=== PATIENT | female | born 1935 | race Caucasian/White ===

== ENCOUNTER 2017-01-01 09:46 | Emergency (ER) | payer MEDICARE ==
[~2017-01-01] VITALS: Ht 160 cm; Wt 61.2 kg
[~2017-01-01 09:46] MED LIST: ASP325TEC PO; GLUC500C2 PO; HYDR-3714 PO; IBUP200C14 PO; LORA-877 PO
[2017-01-01 10:24] LABS: BILIRUBIN,URINE NEGATIVE (NEGATIVE); KETONES,URINE 3+ (NEGATIVE); LEUKOCYTE ESTERASE ,URINE 2+ (NEGATIVE); NITRITE,URINE NEGATIVE (NEGATIVE); PH,URINE 5 (5-9); PROTEIN,URINE 2+ (NEGATIVE); UROBILINOGEN,URINE NORMAL (NORMAL)
[2017-01-01 10:36] LABS: SQUAMOUS EPITHELIAL CELL,UR 0-2 /HPF
--- NOTE | 2017-01-01 10:53 | Diagnostic Imaging Report ---
Upright and supine views of the abdomen. INDICATION: Abdominal cramping. FINDINGS: There is a moderate amount of fecal material in the colon and rectum. No bowel obstruction. No pneumoperitoneum. 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 IMPRESSION: Moderate amounts of fecal material in the colon and rectum seen. Dictated by: Dictated on workstation # [id number]
--- NOTE | 2017-01-01 11:06 | ED GI ---
General Chief Complaint: Abdominal/GI Problems Stated Complaint: CONSTIPATION Nursing Triage Note: CONSTIPATION SINCE SAT. HAS TRIED TWO DIFFERENT SUPPOSITORIES. Sepsis Screen: No Definite Risk Source of Information: Patient Exam Limitations: No Limitations History of Present Illness Time Seen By Provider: 09:49 Initial Comments This pleasant 81-year-old woman presents to the emergency room with complaints of difficulty producing bowel movements since December 28. She has had a few very small bowel movement since then. She has used a couple glycerin suppositories that were not very helpful. She then used a medicated suppository on Friday and produced another very small hard bowel movement. The last 2 days she has had some small watery stools with some pink and red both in the toilet and on toilet paper which she presumes to be blood. This morning she had some cramping. She reports having a history of hemorrhoids and either a fistula or fissure. She denies any fever, vomiting, urinary problems, or other acute symptoms. Dr. Locke is her primary care provider and reportedly will be out of the office for a while and not available. Allergies and Home Medications Allergies Coded Allergies: Amoxicillin (Unverified Allergy, Unknown, 05/12/14) clindamycin (Unverified Allergy, Unknown, 05/12/14) sulfamethoxazole (Unverified Allergy, Unknown, 05/12/14) trimethoprim (Unverified Allergy, Unknown, 05/12/14) Uncoded Allergies: CHLORRHESILENE (Allergy, Unknown, 05/12/14) Home Medications Nitrofurantoin Monohyd/M-Cryst 100 Mg Capsule, 1 TAB PO BID, #10 Prescribed by: SEFERINO CEDILLO on 01/01/17 1108 Polyethylene Glycol 3350 17 Gm Powd.pack, 17 GM PO BID PRN for CONSTIPATION-1ST LINE, #20 Prescribed by: SEFERINO CEDILLO on 01/01/17 1108 Review of Systems Constitutional: no symptoms reported EENTM: No Symptoms Reported Respiratory: No Symptoms Reported Cardiovascular: No Symptoms Reported Gastrointestinal: See HPI Genitourinary: No Symptoms Reported Musculoskeletal: no symptoms reported Skin: no symptoms reported Psychiatric/Neurological: No Symptoms Reported Endocrine: No Symptoms Reported Past Voeiqfc-Widgoa-Mqcfpu Hx Patient Social History Alcohol Use: Denies Use Recreational Drug Use: No Smoking Status: Never a Smoker Recent Foreign Travel: No Contact w/Someone Who Travel: No Recent Infectious Disease Expo: No Surgeries HX Surgeries: Yes Surgeries: Adenoidectomy, Breast (lumpectomy) Respiratory Hx Respiratory Disorders: Yes Respiratory Disorders: Pneumonia Cardiovascular Hx Cardiac Disorders: No Neurological Hx Neurological Disorders: No Genitourinary Hx Genitourinary Disorders: No Gastrointestinal Hx 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) Gastrointestinal Disorders: Hemorrhoids Musculoskeletal Hx Musculoskeletal Disorders: Yes Endocrine Hx Endocrine Disorders: No HEENT HX ENT Disorders: Yes (aerosols cause irritation) Hearing Impairment: Hard of Hearing Cancer Hx Cancer: No Psychosocial Hx Psychiatric Problems: No Blood Transfusions Hx Blood Disorders: No Physical Exam Vital Signs VS - Last 72 Hours, by Label 01/01/17 10:02 Temp 98.4 Pulse 95 Resp 18 B/P (MAP) 148/82 Pulse Ox 95 Capillary Refill : Less Than 3 Seconds General Appearance: WD/WN, no apparent distress HEENT: PERRL/EOMI, normal ENT inspection Neck: normal inspection Respiratory: lungs clear, normal breath sounds, no respiratory distress, no accessory muscle use Cardiovascular: regular rate, rhythm, no edema, no murmur Gastrointestinal: normal bowel sounds, non tender, soft Rectal: normal exam, normal rectal tone, heme negative stool, No mass, No tenderness Extremities: normal inspection, no pedal edema Neurologic/Psychiatric: clinic mgr II-XII nml as tested (heart of hearing), no motor/ sensory deficits, alert, normal mood/affect, oriented x 3 Skin: normal color, warm/dry Progress/Results/Core Measures Results/Orders Lab Results Laboratory Tests Test 01/01/17 10:14 Range/Units Urine Color YELLOW Urine Clarity CLEAR Urine pH 5 5-9 Urine Specific [place] 1.025 H 1.016-1.022 Urine Protein 2+ H NEGATIVE Urine Glucose (UA) NEGATIVE NEGATIVE Urine Ketones 3+ H NEGATIVE Urine Nitrite NEGATIVE NEGATIVE Urine Bilirubin NEGATIVE NEGATIVE Urine Urobilinogen NORMAL NORMAL MG/DL Urine Leukocyte Esterase 2+ H NEGATIVE Urine RBC (Auto) NEGATIVE NEGATIVE Urine RBC NONE /HPF Urine WBC 5-10 H /HPF Urine Squamous Epithelial Cells 0-2 /HPF Urine Crystals NONE /LPF Urine Bacteria FEW H /HPF Urine Casts NONE /LPF Urine Mucus SMALL H /LPF Urine Culture Indicated YES My Orders Orders - SEFERINO PAPPAS MD Abdomen, Flat & Upright/Decub (01/01/17 09:49) Ua Culture If Indicated (01/01/17 10:10) Urine Culture (01/01/17 10:14) Vital Signs/I&O Vital Sign - Last 12Hours 01/01/17 10:02 Temp 98.4 Pulse 95 Resp 18 B/P (MAP) 148/82 Pulse Ox 95 Blood Pressure Mean: 104 Point of Care Testing Fecal Occult: Negative Progress Note : Progress Note By history, patient is presumed to have some rectal bleeding. However, she does also have urinary tract infection so bleeding could have come from her urine. Patient will be treated for urinary tract infection and constipation. Follow-up with her doctor will be recommended. Diagnostic Imaging Diagonstic Imaging: Xray Plain Films/CT/US/NM/MRI: abdomen, pelvis Comments Abdominal x-rays reviewed by me and report reviewed. See report below: NAME: DAMIEN ABERNATHY [facility] REC#: [id number] PT STATUS: REG ER : 1935 PHYSICIAN: SEFERINO PAPPAS MD ADMIT DATE: 01/01/17/ER Draft Date of Exam:01/01/17 ABDOMEN, FLAT & UPRIGHT/DECUB Upright and supine views of the abdomen. INDICATION: Abdominal cramping. FINDINGS: There is a moderate amount of fecal material in the colon and rectum. No bowel obstruction. No pneumoperitoneum. 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 IMPRESSION: Moderate amounts of fecal material in the colon and rectum seen. Dictated on workstation # [id number] Dict: 01/01/17 1042 Trans: 01/01/17 1052 [facility] [id number] Interpreted by: SYMONE LUCIANO MD Departure Impression Impression: Primary Impression: Constipation Qualified Codes: K59.00 - Constipation, unspecified Additional Impressions: Urinary tract infection Qualified Codes: N39.0 - Urinary tract infection, site not specified Rectal bleeding Facial lesion Disposition: 01 HOME, SELF-CARE Condition: Stable Departure-Patient Inst. Decision time for Depature: 11:00 Referrals: ALCIDES LOCKE MD (PCP/Family) Primary Care Physician Patient Instructions: Constipation, Adult (DC), Urinary Tract Infection, Adult (DC) Add. Discharge Instructions: Significantly increase your water intake. Complete your antibiotics as prescribed. Please be aware this antibiotic may cause your urine to appear oriented or red. Follow-up with Dr. Locek as soon as possible. Use MiraLAX (polyethylene glycol) as prescribed for constipation. Please have your primary care provider evaluate the lesion on your left cheek. It may be a basal cell carcinoma. You should consider having it removed for biopsy. Return to the emergency room if symptoms worsen. All discharge instructions reviewed with patient and/or family. Voiced understanding. Scripts Polyethylene Glycol 3350 (Miralax) 17 Gm Powd.pack 17 GM PO BID Y for CONSTIPATION-1ST LINE, #20 EACH Prov: SEFERINO PAPPAS MD 01/01/17 Nitrofurantoin Monohyd/M-Cryst (Macrobid 100 mg Capsule) 100 Mg Capsule 1 TAB PO BID, #10 CAP Prov: SEFERINO PAPPAS MD 01/01/17 Copy Copies To 1: ALCIDES LOCKE MD, JOSHUA T MD Jan 01, 2017 11:06
[2017-01-01] MEDS ORDERED: POLY17PO6 PO (11:08)
[2017-01-01] MEDS ORDERED: NITR-65 PO (11:08)
[2017-01-01 11:14] VITALS: BP 156/85
== END 2017-01-01 11:14 | disposition home or self-care (01) ==
LOC: EDUNIT# 09:46 → ER 09:49
DX: N39.0 Urinary tract infection, site not specified (principal); K62.5 Hemorrhage of anus and rectum; L98.8 Other specified disorders of the skin and subcutaneous tissue; K59.00 Constipation, unspecified; Z87.19 Personal history of other diseases of the digestive system
CPT/HCPCS: 74020; 81000; 87077; 87088; 99284

== ENCOUNTER 2017-01-10 10:47 | Emergency (ER) | payer MEDICARE ==
[~2017-01-10] VITALS: Ht 160 cm; Wt 61.2 kg
[~2017-01-10 10:47] MED LIST changes: +CIPR-225 PO; +NITR-65 PO; +POLY17PO6 PO
[2017-01-10] MEDS ORDERED: NS IV 1000 ML 1,000 ML IV ONE (12:10)
--- NOTE | 2017-01-10 12:28 | ED GI ---
General Chief Complaint: Abdominal/GI Problems Stated Complaint: DIARRHEA/BLOODY STOOL Nursing Triage Note: ADM TO ED REPORTS HAS BEEN ON ANTIBIOTICS FOR UTI AND CONSTIPATION. IS HAVING BLOOD IN STOOL Sepsis Screen: No Definite Risk Source of Information: Patient Exam Limitations: No Limitations History of Present Illness Time Seen By Provider: 11:55 Initial Comments 81-year-old female patient presents to the emergency department with complaints of diarrhea, rectal bleeding, and generalized abdominal cramping. Was seen here one week ago by Dr. Alonso with complaints of constipation, UTI, and rectal bleeding. Rectal exam performed by Dr. Alonso at last ED visit. Denies fever, chills, vomiting. Patient's antibiotics were changed Friday to ciprofloxacin due to resistance of bacteria to Macrobid. Patient states she does have a history of hemorrhoids and anal fissure. Patient is scheduled with Dr. Smith February 01 to establish care. Timing/Duration: 2-3 Days, Getting Worse Severity/Quality: Cramping Location: Generalized Abdomen Radiation: No Radiation Activities at Onset: None Modifying Factors: Worsens With Defecating Allergies and Home Medications Allergies Coded Allergies: Amoxicillin (Unverified Allergy, Unknown, 05/12/14) clindamycin (Unverified Allergy, Unknown, 05/12/14) sulfamethoxazole (Unverified Allergy, Unknown, 05/12/14) trimethoprim (Unverified Allergy, Unknown, 05/12/14) Uncoded Allergies: CHLORRHESILENE (Allergy, Unknown, 05/12/14) Home Medications Ciprofloxacin HCl 500 Mg Tablet, 500 MG PO BID for 7 Days, (Reported) Ondansetron 8 Mg Tab.rapdis, 8 MG PO Q6H PRN for NAUSEA/VOMITING-1ST LINE, #10 Ref 0 Prescribed by: ROBBIE LOCKE on 01/10/17 1540 Polyethylene Glycol 3350 17 Gm Powd.pack, 17 GM PO BID PRN for CONSTIPATION-1ST LINE, #20 Prescribed by: SEFERINO CEDILLO on 01/01/17 1108 Review of Systems Constitutional: No chills, No fever, No malaise Respiratory: No Symptoms Reported Cardiovascular: No Symptoms Reported Gastrointestinal: Denies Abdomen Distended, Abdominal Pain (generalized abdominal cramping), Denies Constipated, Diarrhea, Denies Nausea, Denies Poor Appetite, Denies Poor Fluid Intake, Rectal Bleeding, Denies Vomiting Genitourinary: Denies Burning, Denies Frequency, Denies Flank Pain, Denies Pain Skin: no symptoms reported Psychiatric/Neurological: No Symptoms Reported All Other Systems Reviewed Negative Unless Noted: Yes (Negative excepted noted.) Past Icxvxqq-Unnyvo-Ujzgic Hx Patient Social History Alcohol Use: Denies Use Recreational Drug Use: No Smoking Status: Current Everyday Smoker Recent Foreign Travel: No Contact w/Someone Who Travel: No Recent Infectious Disease Expo: No Surgeries HX Surgeries: Yes Surgeries: Adenoidectomy, Breast Respiratory Hx Respiratory Disorders: Yes Respiratory Disorders: Pneumonia Cardiovascular Hx Cardiac Disorders: No Neurological Hx Neurological Disorders: No Genitourinary Hx Genitourinary Disorders: No Gastrointestinal Hx Gastrointestinal Disorders: Yes (anal fissure) Gastrointestinal Disorders: Hemorrhoids Musculoskeletal Hx Musculoskeletal Disorders: Yes Endocrine Hx Endocrine Disorders: No HEENT HX ENT Disorders: Yes (aerosols cause irritation) Hearing Impairment: Hard of Hearing Cancer Hx Cancer: No Psychosocial Hx Psychiatric Problems: No Blood Transfusions Hx Blood Disorders: No Reviewed Nursing Assessment Reviewed/Agree w Nursing PMH: Yes Family Medical History Significant Family History: No Pertinent Family Hx Physical Exam Vital Signs VS - Last 72 Hours, by Label 01/10/17 01/10/17 11:40 15:55 Temp 98.4 Pulse 93 88 Resp 18 18 B/P (MAP) 149/97 Pulse Ox 95 O2 Delivery Room Air Capillary Refill : Less Than 3 Seconds General Appearance: WD/WN, no apparent distress Respiratory: lungs clear, normal breath sounds, no respiratory distress Cardiovascular: regular rate, rhythm, no murmur Gastrointestinal: normal bowel sounds, soft, no organomegaly, No distended, No guarding, No rebound, tenderness (mild TTP rt lower abdomen with deep palpation only.), No mass Extremities: normal capillary refill Back: normal inspection, no CVA tenderness Neurologic/Psychiatric: alert, normal mood/affect, oriented x 3 Skin: normal color, warm/dry Progress/Results/Core Measures Results/Orders Lab Results Laboratory Tests Test 01/10/17 13:04 01/10/17 13:58 Range/Units White Blood Count 9.1 4.3-11.0 10^3/uL Red Blood Count 4.32 L 4.35-5.85 10^6/uL Hemoglobin 13.5 11.5-16.0 G/DL Hematocrit 40 35-52 % Mean Corpuscular Volume 92 80-99 FL Mean Corpuscular Hemoglobin 31 25-34 PG Mean Corpuscular Hemoglobin Concent 34 32-36 G/DL Red Cell Distribution Width 12.8 10.0-14.5 % Platelet Count 313 130-400 10^3/uL Mean Platelet Volume 9.2 7.4-10.4 FL Neutrophils (%) (Auto) 79 H 42-75 % Lymphocytes (%) (Auto) 6 L 12-44 % Monocytes (%) (Auto) 14 H 0-12 % Eosinophils (%) (Auto) 1 0-10 % Basophils (%) (Auto) 0 0-10 % Neutrophils # (Auto) 7.2 1.8-7.8 X 10^3 Lymphocytes # (Auto) 0.5 L 1.0-4.0 X 10^3 Monocytes # (Auto) 1.3 H 0.0-1.0 X 10^3 Eosinophils # (Auto) 0.1 0.0-0.3 10^3/uL Basophils # (Auto) 0.0 0.0-0.1 10^3/uL Neutrophils % (Manual) 56 % Lymphocytes % (Manual) 9 % Monocytes % (Manual) 12 % Eosinophils % (Manual) 2 % Basophils % (Manual) 0 % Band Neutrophils 21 % Blood Morphology Comment NORMAL Sodium Level 137 135-145 MMOL/L Potassium Level 4.0 3.6-5.0 MMOL/L Chloride Level 104 98-107 MMOL/L Carbon Dioxide Level 21 21-32 MMOL/L Anion Gap 12 5-14 MMOL/L Blood Urea Nitrogen 8 7-18 MG/DL Creatinine 0.67 0.60-1.30 MG/DL Estimat Glomerular Filtration Rate > 60 BUN/Creatinine Ratio 12 0-20 Glucose Level 121 H 70-105 MG/DL Calcium Level 9.4 8.5-10.1 MG/DL Total Bilirubin 0.5 0.1-1.0 MG/DL Aspartate Amino Transf (AST/SGOT) 17 5-34 U/L Alanine Aminotransferase (ALT/SGPT) 6 0-55 U/L Alkaline Phosphatase 107 40-136 U/L Total Protein 6.6 6.4-8.2 GM/DL Albumin 3.1 L 3.2-4.5 GM/DL Lipase 42 8-78 U/L Urine Color YELLOW Urine Clarity CLEAR Urine pH 6 5-9 Urine Specific [place] 1.010 L 1.016-1.022 Urine Protein NEGATIVE NEGATIVE Urine Glucose (UA) NEGATIVE NEGATIVE Urine Ketones 2+ H NEGATIVE Urine Nitrite NEGATIVE NEGATIVE Urine Bilirubin NEGATIVE NEGATIVE Urine Urobilinogen NORMAL NORMAL MG/DL Urine Leukocyte Esterase NEGATIVE NEGATIVE Urine RBC (Auto) NEGATIVE NEGATIVE Urine RBC NONE /HPF Urine WBC NONE /HPF Urine Squamous Epithelial Cells 2-5 /HPF Urine Crystals NONE /LPF Urine Bacteria NEGATIVE /HPF Urine Casts NONE /LPF Urine Mucus NEGATIVE /LPF Urine Culture Indicated NO Micro Results Microbiology 01/10/17 Fecal Leukocyte Stain, Resulted Pending 01/10/17 C. difficile GDH Antigen & Toxins - Final, Resulted 01/10/17 Stool Culture, Resulted Pending My Orders Orders - ROBBIE LOCKE Cbc With Automated Diff (01/10/17 12:10) Comprehensive Metabolic Panel (01/10/17 12:10) Lipase (01/10/17 12:10) Ua Culture If Indicated (01/10/17 12:10) Saline Lock/Iv-Start (01/10/17 12:10) Acute Abd Series (01/10/17 12:10) Ns Iv 1000 Ml (Sodium Chloride 0.9%) (01/10/17 12:10) Manual Differential (01/10/17 13:04) Stool Culture (01/10/17 14:02) Fecal Wbc (01/10/17 14:02) C Difficile Ag + Toxin A/B. (01/10/17 14:02) Fecal Occult Bedside (01/10/17 14:03) Parasite Scrn Stool Giard Cryp (01/10/17 13:59) Medications Given in ED Vital Signs/I&O Vital Sign - Last 12Hours 01/10/17 01/10/17 11:40 15:55 Temp 98.4 Pulse 93 88 Resp 18 18 B/P (MAP) 149/97 Pulse Ox 95 O2 Delivery Room Air Intake and Output 01/11/17 00:00 Intake Total 1000 ml Balance 1000 ml Blood Pressure Mean: 114 Diagnostic Imaging Diagonstic Imaging: Xray Plain Films/CT/US/NM/MRI: abdomen Comments DISCUSSION: Supine and upright views of the abdomen and chest were obtained, comparison 01/01/2017. Changes of chronic lung disease are noted with pulmonary hyperinflation and interstitial thickening. Normal heart size. No pleural fluid or pneumothorax. Levoscoliosis of the thoracolumbar spine is stable. Nonobstructive unremarkable bowel gas pattern. No constipation. Nondilated small bowel loops are noted which could be seen with enteritis or other inflammatory etiologies. Recommend clinical correlation. IMPRESSION: 1. Nonobstructive abnormal small bowel gas pattern is nonspecific though could be seen with enteritis. No evidence of obstruction or free air. No constipation. Dictated by: Dictated on workstation # [id number] Reviewed: Reviewed by Me (radiology report reviewed by me. ) Departure Communication Progress Notes All laboratory findings discussed with the patient. One diarrhea stool noted while in the emergency department. Patient to follow-up with Dr. Smith as previously scheduled or sooner if needed. Plan for discharge to home. Impression Impression: Primary Impression: Diarrhea Qualified Codes: R19.7 - Diarrhea, unspecified Additional Impressions: Rectal bleeding Volume depletion Disposition: HOME, SELF-CARE Condition: Improved Departure-Patient Inst. Decision time for Depature: 14:19 Referrals: ERIBERTO GARZA MD, JOHN D MD (PCP/Family) Primary Care Physician Patient Instructions: Bloody Stools, Adult (DC), Diarrhea in Adolescents and Adults, Dehydration, Adult (DC) Add. Discharge Instructions: All discharge instructions reviewed with patient and/or family. Voiced understanding. Stop ciprofloxacin. Drink plenty of fluids. Medications as instructed. Follow-up with Dr. Smith's office for recheck as an outpatient, call for appointment time Friday. Follow-up with Dr. Garza office for possible need of colonoscopy. Call for appointment time. Return to the emergency department for worsened pain, rectal bleeding, vomiting, decreased urination, fever, or any other concerns. Scripts Ondansetron (Ondansetron Odt) 8 Mg Tab.rapdis 8 MG PO Q6H Y for NAUSEA/VOMITING-1ST LINE, #10 TAB 0 Refills Prov: ROBBIE LOCKE 01/10/17 ROBBIE LOCKE Jan 10, 2017 12:28
[2017-01-10 13:10] LABS: BASOPHILS % (AUTO) 0 % (0-10); EOSINOPHILS # (AUTO) 0.1 10^3/uL (0.0-0.3); EOSINOPHILS % (AUTO) 1 % (0-10); LYMPHOCYTES # (AUTO) 0.5 X 10^3 (1.0-4.0); LYMPHOCYTES % (AUTO) 6 % (12-44); MEAN CORPUSCULAR HEMOGLOBIN 31 PG (25-34); MEAN CORPUSCULAR HGB CONC 34 G/DL (32-36); MEAN CORPUSCULAR VOLUME 92 FL (80-99); MEAN PLATELET VOLUME 9.2 FL (7.4-10.4); MONOCYTES # (AUTO) 1.3 X 10^3 (0.0-1.0); MONOCYTES % (AUTO) 14 % (0-12); NEUTROPHILS # (AUTO) 7.2 X 10^3 (1.8-7.8); NEUTROPHILS % (AUTO) 79 % (42-75); PLATELET COUNT 313 10^3/uL (130-400); RED BLOOD COUNT 4.32 10^6/uL (4.35-5.85); RED CELL DISTRIBUTION WIDTH 12.8 % (10.0-14.5); WHITE BLOOD COUNT 9.1 10^3/uL (4.3-11.0)
[2017-01-10 13:29] LABS: BAND NEUTROPHILS 21 %; BASOPHILS % (MANUAL) 0 %; EOSINOPHILS % (MANUAL) 2 %; LYMPHOCYTES % (MANUAL) 9 %; NEUTROPHILS % (MANUAL) 56 %
[2017-01-10 13:31] LABS: ALANINE AMINOTRANSFERASE 6 U/L (0-55); ALBUMIN 3.1 GM/DL (3.2-4.5); ANION GAP 12 MMOL/L (5-14); ASPARTATE AMINO TRANSFERASE 17 U/L (5-34); BILIRUBIN,TOTAL 0.5 MG/DL (0.1-1.0); BLOOD UREA NITROGEN 8 MG/DL (7-18); BUN/CREATININE RATIO 12 (0-20); CALCIUM 9.4 MG/DL (8.5-10.1); CARBON DIOXIDE 21 MMOL/L (21-32); CHLORIDE 104 MMOL/L (98-107); CREATININE SERUM 0.67 MG/DL (0.60-1.30); GFR ESTIMATED > 60; GLUCOSE 121 MG/DL (70-105); HEMOLYSIS 43 (-100-29); ICTERUS 0.3 (-100-1.9); LIPASE 42 U/L (8-78); LIPEMIA 0 (-100-49); SODIUM 137 MMOL/L (135-145); TOTAL PROTEIN 6.6 GM/DL (6.4-8.2)
[2017-01-10 14:16] LABS: BILIRUBIN,URINE NEGATIVE (NEGATIVE); KETONES,URINE 2+ (NEGATIVE); LEUKOCYTE ESTERASE ,URINE NEGATIVE (NEGATIVE); NITRITE,URINE NEGATIVE (NEGATIVE); PH,URINE 6 (5-9); PROTEIN,URINE NEGATIVE (NEGATIVE); UROBILINOGEN,URINE NORMAL (NORMAL)
--- NOTE | 2017-01-10 15:36 | Diagnostic Imaging Report ---
INDICATION: Blood in stool. DISCUSSION: Supine and upright views of the abdomen and chest were obtained, comparison 01/01/2017. Changes of chronic lung disease are noted with pulmonary hyperinflation and interstitial thickening. Normal heart size. No pleural fluid or pneumothorax. Levoscoliosis of the thoracolumbar spine is stable. Nonobstructive unremarkable bowel gas pattern. No constipation. Nondilated small bowel loops are noted which could be seen with enteritis or other inflammatory etiologies. Recommend clinical correlation. IMPRESSION: 1. Nonobstructive abnormal small bowel gas pattern is nonspecific though could be seen with enteritis. No evidence of obstruction or free air. No constipation. Dictated by: Dictated on workstation # [id number]
[2017-01-10] MEDS ORDERED: ONDA8TAB13 PO (15:40)
[2017-01-10 15:55] VITALS: BP 120/64
== END 2017-01-10 16:01 | disposition home or self-care (01) ==
LOC: EDUNIT# 10:47 → ER 10:51
DX: K62.5 Hemorrhage of anus and rectum (principal); R19.7 Diarrhea, unspecified; E86.9 Volume depletion, unspecified; F17.200 Nicotine dependence, unspecified, uncomplicated; Z87.19 Personal history of other diseases of the digestive system
CPT/HCPCS: 36415; 74022; 80053; 81000; 83690; 85007; 85027; 87045; 87046; 87324; 87328; 87329; 87449; 89055

== ENCOUNTER 2017-01-24 10:44 | Emergency (ER) | payer MEDICARE ==
[~2017-01-24] VITALS: Ht 160 cm; Wt 57.2 kg
[~2017-01-24 10:44] MED LIST changes: +ONDA8TAB13 PO
[2017-01-24 12:01] LABS: ALANINE AMINOTRANSFERASE 11 U/L (0-55); ALBUMIN 2.5 GM/DL (3.2-4.5); ANION GAP 12 MMOL/L (5-14); ASPARTATE AMINO TRANSFERASE 19 U/L (5-34); BASOPHILS % (AUTO) 1 % (0-10); BILIRUBIN,TOTAL 0.8 MG/DL (0.1-1.0); BLOOD UREA NITROGEN 8 MG/DL (7-18); BUN/CREATININE RATIO 9; CALCIUM 8.8 MG/DL (8.5-10.1); CARBON DIOXIDE 22 MMOL/L (21-32); CHLORIDE 101 MMOL/L (98-107); CREATININE SERUM 0.89 MG/DL (0.60-1.30); EOSINOPHILS # (AUTO) 0.1 10^3/uL (0.0-0.3); EOSINOPHILS % (AUTO) 1 % (0-10); GFR ESTIMATED > 60; GLUCOSE 151 MG/DL (70-105); LYMPHOCYTES # (AUTO) 0.6 X 10^3 (1.0-4.0); LYMPHOCYTES % (AUTO) 7 % (12-44); MEAN CORPUSCULAR HEMOGLOBIN 30 PG (25-34); MEAN CORPUSCULAR HGB CONC 34 G/DL (32-36); MEAN CORPUSCULAR VOLUME 89 FL (80-99); MONOCYTES # (AUTO) 1.3 X 10^3 (0.0-1.0); MONOCYTES % (AUTO) 16 % (0-12); NEUTROPHILS # (AUTO) 6.1 X 10^3 (1.8-7.8); NEUTROPHILS % (AUTO) 76 % (42-75); PLATELET COUNT 508 10^3/uL (130-400); POTASSIUM 3.6 MMOL/L (3.6-5.0); RED BLOOD COUNT 4.33 10^6/uL (4.35-5.85); RED CELL DISTRIBUTION WIDTH 13.1 % (10.0-14.5); SODIUM 135 MMOL/L (135-145); TOTAL PROTEIN 5.9 GM/DL (6.4-8.2); WHITE BLOOD COUNT 8.1 10^3/uL (4.3-11.0)
--- NOTE | 2017-01-24 12:01 | Diagnostic Imaging Report ---
Supine view of the abdomen. INDICATION: Abdominal cramping. FINDINGS: There is a moderate to large amounts of fecal material seen in the distal colon and rectum. No significantly dilated bowel loops seen. No soft tissue mass is evident. 2 mm calcification in the left flank could be a kidney stone. There is also right flank calcifications indeterminate. There is prominent scoliosis and degenerative changes in the lumbar spine. IMPRESSION: Moderate to large amounts of fecal material in the distal colon and rectum. Dictated by: Dictated on workstation # [id number]
[2017-01-24 12:23] LABS: BAND NEUTROPHILS 16 %; BASOPHILS % (MANUAL) 1 %; EOSINOPHILS % (MANUAL) 0 %; LYMPHOCYTES % (MANUAL) 8 %; NEUTROPHILS % (MANUAL) 64 %
--- NOTE | 2017-01-24 12:33 | ED GI ---
General Chief Complaint: Abdominal/GI Problems Stated Complaint: DIARRHEA Nursing Triage Note: PT STATES DIARRHEA AND ABD CRAMPING OFF AND ON FOR A MONTH. HAS BEEN SEEN HERE AND AT THE CLINIC OVER THE LAST MONTH. ALSO NECK PAIN FROM STRAINING TO GET UP BUT HAS A HX OF NECK PAIN. VOMITED ONCE THIS A.M. RECENT UTI AND YEAST INFECTION. Sepsis Screen: No Definite Risk Source of Information: Patient, Family Exam Limitations: No Limitations History of Present Illness Time Seen By Provider: 12:20 Initial Comments The patient is an 81-year-old white female who is on her third ER visit this month. She was previously here on 01/01 complaining of constipation. She then returned on 01/10 complaining of diarrhea. In the interim she had taken Cipro from 01/06 through and a study was done for Clostridium difficile which was negative. She continues to complain of diarrhea. She states that she had the sense that she has to go frequently and then passes a small amount of liquid stool. There is crampy abdominal pain but not severe pain she has trimmed her diet to a mostly liquid diet. Timing/Duration: Other (1 month) Allergies and Home Medications Allergies Coded Allergies: Amoxicillin (Unverified Allergy, Unknown, 05/12/14) clindamycin (Unverified Allergy, Unknown, 05/12/14) sulfamethoxazole (Unverified Allergy, Unknown, 05/12/14) trimethoprim (Unverified Allergy, Unknown, 05/12/14) Uncoded Allergies: CHLORRHESILENE (Allergy, Unknown, 05/12/14) Home Medications Ciprofloxacin HCl 500 Mg Tablet, 500 MG PO BID for 7 Days, (Reported) Ondansetron 8 Mg Tab.rapdis, 8 MG PO Q6H PRN for NAUSEA/VOMITING-1ST LINE, #10 Ref 0 Prescribed by: ROBBIE LOCKE on 01/10/17 1540 Polyethylene Glycol 3350 17 Gm Powd.pack, 17 GM PO BID PRN for CONSTIPATION-1ST LINE, #20 Prescribed by: SEFERINO CEDILLO on 01/01/17 1108 Review of Systems Constitutional: see HPI EENTM: No Symptoms Reported Respiratory: No Symptoms Reported Cardiovascular: No Symptoms Reported Gastrointestinal: See HPI, Abdomen Distended, Abdominal Pain, Diarrhea, Nausea Genitourinary: No Symptoms Reported Musculoskeletal: no symptoms reported Skin: no symptoms reported Psychiatric/Neurological: No Symptoms Reported Endocrine: No Symptoms Reported Hematologic/Lymphatic: No Symptoms Reported Past Uiyexob-Kowfbh-Sutgpg Hx Patient Social History Alcohol Use: Denies Use Recreational Drug Use: No Smoking Status: Never a Smoker Recent Foreign Travel: No Contact w/Someone Who Travel: No Recent Infectious Disease Expo: No Recent Hopitalizations: No Seasonal Allergies Seasonal Allergies: No Surgeries HX Surgeries: Yes Surgeries: Adenoidectomy, Breast Respiratory Hx Respiratory Disorders: Yes Respiratory Disorders: Pneumonia Cardiovascular Hx Cardiac Disorders: No Neurological Hx Neurological Disorders: No Genitourinary Hx Genitourinary Disorders: No Gastrointestinal Hx Gastrointestinal Disorders: Yes (anal fissure) Gastrointestinal Disorders: Hemorrhoids Musculoskeletal Hx Musculoskeletal Disorders: Yes Endocrine Hx Endocrine Disorders: No HEENT HX ENT Disorders: Yes (aerosols cause irritation) Hearing Impairment: Hard of Hearing Cancer Hx Cancer: No Psychosocial Hx Psychiatric Problems: No Blood Transfusions Hx Blood Disorders: No Family Medical History Significant Family History: No Pertinent Family Hx Physical Exam Vital Signs VS - Last 72 Hours, by Label 01/24/17 10:54 Temp 98.4 Pulse 96 Resp 20 B/P (MAP) 140/65 Pulse Ox 95 O2 Delivery Room Air Capillary Refill : Less Than 3 Seconds General Appearance: no apparent distress, other (somewhat hard of hearing) HEENT: normal ENT inspection Neck: full range of motion Respiratory: chest non-tender, lungs clear, normal breath sounds, no respiratory distress, no accessory muscle use Cardiovascular: normal peripheral pulses, regular rate, rhythm, no edema, no gallop, no JVD, no murmur Gastrointestinal: normal bowel sounds, other (fullness to palpation in the pelvis with minimal pain to palpation) Rectal: other (no stool to palpation in the rectal vault but palpable stool through the bowel wall above it) Extremities: normal range of motion, non-tender, normal inspection, no pedal edema, no calf tenderness, normal capillary refill, pelvis stable Pelvic: other (lumbar scoliosis) Neurologic/Psychiatric: dry pan feeder II-XII nml as tested, no motor/sensory deficits, alert, normal mood/affect, oriented x 3 Skin: normal color, warm/dry Progress/Results/Core Measures Results/Orders Lab Results Laboratory Tests Test 01/24/17 11:25 Range/Units White Blood Count 8.1 4.3-11.0 10^3/uL Red Blood Count 4.33 L 4.35-5.85 10^6/uL Hemoglobin 13.0 11.5-16.0 G/DL Hematocrit 39 35-52 % Mean Corpuscular Volume 89 80-99 FL Mean Corpuscular Hemoglobin 30 25-34 PG Mean Corpuscular Hemoglobin Concent 34 32-36 G/DL Red Cell Distribution Width 13.1 10.0-14.5 % Platelet Count 508 H 130-400 10^3/uL Mean Platelet Volume 9.0 7.4-10.4 FL Neutrophils (%) (Auto) 76 H 42-75 % Lymphocytes (%) (Auto) 7 L 12-44 % Monocytes (%) (Auto) 16 H 0-12 % Eosinophils (%) (Auto) 1 0-10 % Basophils (%) (Auto) 1 0-10 % Neutrophils # (Auto) 6.1 1.8-7.8 X 10^3 Lymphocytes # (Auto) 0.6 L 1.0-4.0 X 10^3 Monocytes # (Auto) 1.3 H 0.0-1.0 X 10^3 Eosinophils # (Auto) 0.1 0.0-0.3 10^3/uL Basophils # (Auto) 0.0 0.0-0.1 10^3/uL Neutrophils % (Manual) 64 % Lymphocytes % (Manual) 8 % Monocytes % (Manual) 11 % Eosinophils % (Manual) 0 % Basophils % (Manual) 1 % Band Neutrophils 16 % Blood Morphology Comment NORMAL Sodium Level 135 135-145 MMOL/L Potassium Level 3.6 3.6-5.0 MMOL/L Chloride Level 101 98-107 MMOL/L Carbon Dioxide Level 22 21-32 MMOL/L Anion Gap 12 5-14 MMOL/L Blood Urea Nitrogen 8 7-18 MG/DL Creatinine 0.89 0.60-1.30 MG/DL Estimat Glomerular Filtration Rate > 60 BUN/Creatinine Ratio 9 Glucose Level 151 H 70-105 MG/DL Calcium Level 8.8 8.5-10.1 MG/DL Total Bilirubin 0.8 0.1-1.0 MG/DL Aspartate Amino Transf (AST/SGOT) 19 5-34 U/L Alanine Aminotransferase (ALT/SGPT) 11 0-55 U/L Alkaline Phosphatase 106 40-136 U/L Total Protein 5.9 L 6.4-8.2 GM/DL Albumin 2.5 L 3.2-4.5 GM/DL My Orders Orders - HUMAIRA ROQUE MD Cbc With Automated Diff (01/24/17 11:07) Comprehensive Metabolic Panel (01/24/17 11:07) Abdomen/Kub 1view (01/24/17 11:07) Manual Differential (01/24/17 11:25) Vital Signs/I&O Vital Sign - Last 12Hours 01/24/17 10:54 Temp 98.4 Pulse 96 Resp 20 B/P (MAP) 140/65 Pulse Ox 95 O2 Delivery Room Air Blood Pressure Mean: 90 Departure Communication Progress Notes The KUB shows considerable stool in the pelvis and large bowel. There is considerable gas in the transverse colon with out evidence of obstruction Impression Impression: Primary Impression: obstipation Disposition: 01 HOME, SELF-CARE Condition: Stable/Unchanged Departure-Patient Inst. Decision time for Depature: 12:35 Referrals: ALCIDES LOCKE MD (PCP/Family) Primary Care Physician Patient Instructions: Constipation, Adult (DC) HUMAIRA ROQUE MD Jan 24, 2017 12:33
[2017-01-24 13:13] VITALS: BP 114/65
== END 2017-01-24 13:13 | disposition home or self-care (01) ==
LOC: EDUNIT# 10:44 → ER 10:46
DX: R19.7 Diarrhea, unspecified (principal)
CPT/HCPCS: 36415; 74000; 80053; 85007; 85027

== ENCOUNTER 2017-01-28 13:20 | Inpatient (IN) | payer MEDICARE ==
[~2017-01-28] VITALS: Ht 160 cm; Wt 57.2 kg
--- NOTE | 2017-01-28 14:08 | Diagnostic Imaging Report ---
INDICATION: Status post fall earlier in the day, pain. TECHNIQUE: Three views of the right ankle 2:08 PM CORRELATION STUDY: None FINDINGS: There is a rather pronounced diffuse bony demineralization. Distal tibia and fibula intact with ankle mortise maintained. Talar dome intact. Tiny calcaneal spur formation. Soft tissue swelling present. IMPRESSION: Negative for acute bony abnormality of the ankle. Diffuse bony demineralization. Soft tissue edema. Dictated by: Dictated on workstation # [id number]
--- NOTE | 2017-01-28 14:09 | Diagnostic Imaging Report ---
INDICATION: Status post fall earlier in the day with hip pain TECHNIQUE: 2 views of the right hip, 2:06 PM. CORRELATION STUDY: None FINDINGS: Overall somewhat limited visualization, there does appear to be foreshortening of the right femoral neck with what appears to be likely a subcapital femoral neck fracture. Femoral head acetabular relationship is maintained. Remainder of right hemipelvis intact. IMPRESSION: 1. Though somewhat limited visualization there does appear to likely impacted right subcapital femoral neck fracture. If further assessment desired, CT and/or MRI recommended. Dictated by: Dictated on workstation # [id number]
--- NOTE | 2017-01-28 14:11 | Diagnostic Imaging Report ---
INDICATION: Status post fall with hip pain TECHNIQUE: AP pelvis 2:01 PM CORRELATION STUDY: None FINDINGS: As demonstrated on the accompanying right hip views, there may be a impaction at the level of the right femoral neck. Assessment on this study is very limited with rotation and positioning of the femur. The femoral head acetabular relationship is maintained. Remainder of the pelvis as well as left hip are maintained apart from mild narrowing at the level of the hip. Advanced degenerative change visualized lower lumbar spine. IMPRESSION: While not well-defined given the positioning of the femur, overall findings are suspect for right subcapital femoral neck fracture. Consideration might be given to CT and/or MRI for confirmation. Dictated by: Dictated on workstation # [id number]
--- NOTE | 2017-01-28 14:12 | Diagnostic Imaging Report ---
INDICATION: Status post fall earlier in the day with leg pain TECHNIQUE: 3 views of the right knee CORRELATION STUDY: None FINDINGS: Rather diffuse bony demineralization. There is narrowing of medial and to a lesser degree lateral femoral compartment. There is loss of normal smooth articular surface medially. Narrowing of patellofemoral compartment. Osteophyte formation is pronounced medially. Soft tissues are unremarkable. There is presence of vascular calcification. IMPRESSION: 1. Negative for acute bony abnormality of the knee. Advanced multicompartment degenerative change particularly medially and patellofemoral compartment. Bony demineralization. Dictated by: Dictated on workstation # [id number]
[2017-01-28 14:38] LABS: BASOPHILS % (AUTO) 0 % (0-10); BILIRUBIN,URINE NEGATIVE (NEGATIVE); EOSINOPHILS % (AUTO) 0 % (0-10); KETONES,URINE NEGATIVE (NEGATIVE); LEUKOCYTE ESTERASE ,URINE 1+ (NEGATIVE); LYMPHOCYTES # (AUTO) 0.6 X 10^3 (1.0-4.0); LYMPHOCYTES % (AUTO) 6 % (12-44); MEAN CORPUSCULAR HEMOGLOBIN 30 PG (25-34); MEAN CORPUSCULAR HGB CONC 33 G/DL (32-36); MEAN CORPUSCULAR VOLUME 89 FL (80-99); MEAN PLATELET VOLUME 8.5 FL (7.4-10.4); MONOCYTES # (AUTO) 1.1 X 10^3 (0.0-1.0); MONOCYTES % (AUTO) 11 % (0-12); NEUTROPHILS # (AUTO) 8.2 X 10^3 (1.8-7.8); NEUTROPHILS % (AUTO) 82 % (42-75); NITRITE,URINE NEGATIVE (NEGATIVE); PH,URINE 6 (5-9); PLATELET COUNT 367 10^3/uL (130-400); PROTEIN,URINE NEGATIVE (NEGATIVE); RED BLOOD COUNT 3.82 10^6/uL (4.35-5.85); RED CELL DISTRIBUTION WIDTH 13.3 % (10.0-14.5); UROBILINOGEN,URINE NORMAL (NORMAL); WHITE BLOOD COUNT 9.9 10^3/uL (4.3-11.0)
[2017-01-28] MEDS ORDERED: fentaNYL INJECTION 100 MCG/2 ML AMP IVP STA (14:52)
[2017-01-28 14:55] LABS: SQUAMOUS EPITHELIAL CELL,UR RARE /HPF
[2017-01-28 14:58] LABS: ALBUMIN 2.1 GM/DL (3.2-4.5); BILIRUBIN,TOTAL 0.5 MG/DL (0.1-1.0); CREATININE SERUM 1.27 MG/DL (0.60-1.30); POTASSIUM 3.3 MMOL/L (3.6-5.0); TOTAL PROTEIN 4.9 GM/DL (6.4-8.2)
[2017-01-28 15:04] LABS: BAND NEUTROPHILS 8 %; BASOPHILS % (MANUAL) 0 %; EOSINOPHILS % (MANUAL) 0 %; LYMPHOCYTES % (MANUAL) 10 %; NEUTROPHILS % (MANUAL) 80 %
--- NOTE | 2017-01-28 15:13 | Diagnostic Imaging Report ---
PROCEDURE: CT pelvis without contrast. TECHNIQUE: Multiple contiguous axial images were obtained through the pelvis without the use of intravenous contrast. Sagittal and coronal reformations were performed. INDICATION: Fall. Right-sided pelvic pain. FINDINGS: Examination shows a subcapital fracture of the right femur with mild anterior angulation at the fracture site and very minimal impaction. There is no dislocation. The intertrochanteric region is intact. No fracture of the pelvic ring is seen. IMPRESSION: There is a mildly impacted angulated subcapital fracture of the right hip. Dictated by: Dictated on workstation # [id number]
[2017-01-28 15:38] LABS: INR 1.3 (0.8-1.4); PROTHROMBIN TIME PATIENT 16.2 SEC (12.2-14.7)
[2017-01-28] MEDS: NS W/KCL 20 MEQ/L 1,000 ML IV SCH ×2 (16:18→23:13)
--- NOTE | 2017-01-28 16:30 | ED Fall/Injury ---
General Chief Complaint: Trauma-Non Activation Stated Complaint: FALL/RT KNEE PAIN Nursing Triage Note: PT ARRIVED PER EMS, PT HAD FALL AT HOME STATES HAS R HIP AND R KNEE PAIN, PT DENIES HITTING HEAD OR LOC, PT HAS SL IN PLACE R WRIST #20 BY EMS, PT WAS GIVEN [id number] BY EMS. PT VERY NON-SPECIFIC CO PAIN. PT LOWER EXT SWOLLEN, R KNEE SWOLLEN, PT STATES HAVE BEEN LIKE THIS FOR A WHILE Source: patient, EMS Exam Limitations: no limitations History of Present Illness Time seen by provider: 13:35 Initial Comments This 81-year-old woman presents to the emergency room after having a fall at home. She fell onto her right side for unknown reasons. She denies any prodrome. She denies any head or neck injury. She has chronic and unchanged neck pain. She also complains of lower extremity bilateral edema, right greater than left. This edema fluctuates but is overall chronic in nature without much change. She has recently had problems with constipation and diarrhea alternating. She arrives via EMS. Vital signs are reportedly stable. Location Injury Occurred: HOME Occurred: just prior to arrival Context: unknown Loss of Consciousness: no loss of consciousness Allergies and Home Medications Allergies Coded Allergies: nystatin (Verified Allergy, Mild, HIVES, 01/29/17) amoxicillin (Unverified Allergy, Unknown, 05/12/14) chlorhexidine (Verified Allergy, Unknown, HIVES, 01/29/17) clindamycin (Unverified Allergy, Unknown, 05/12/14) sulfamethoxazole (Unverified Allergy, Unknown, 05/12/14) trimethoprim (Unverified Allergy, Unknown, 05/12/14) Home Medications Aspirin 325 Mg Tablet.dr, 325 MG PO DAILY PRN for PAIN-MILD, (Reported) Loratadine 10 Mg Tablet, 10 MG PO DAILY PRN for ALLERGIES, (Reported) Constitutional: no symptoms reported Eyes: No Symptoms Reported Ears, Nose, Mouth, Throat: no symptoms reported Respiratory: no symptoms reported Cardiovascular: edema Gastrointestinal: no symptoms reported Genitourinary: no symptoms reported Musculoskeletal: see HPI Skin: no symptoms reported Psychiatric/Neurological: No Symptoms Reported Past Toeqacl-Rxbkjz-Lnbyox Hx Patient Social History Alcohol Use: Denies Use Recreational Drug Use: No Smoking Status: Never a Smoker Recent Foreign Travel: No Contact w/Someone Who Travel: No Recent Infectious Disease Expo: No Recent Hopitalizations: No Seasonal Allergies Seasonal Allergies: No Surgeries HX Surgeries: Yes Surgeries: Adenoidectomy, Breast Respiratory Hx Respiratory Disorders: Yes Respiratory Disorders: Pneumonia Cardiovascular Hx Cardiac Disorders: Yes Cardiac Disorders: Chronic Edema/Swelling Neurological Hx Neurological Disorders: No Reproductive System : No Genitourinary Hx Genitourinary Disorders: No Gastrointestinal Hx Gastrointestinal Disorders: Yes (anal fissure) Gastrointestinal Disorders: Hemorrhoids Musculoskeletal Hx Musculoskeletal Disorders: Yes (chronic neck and back pain) Musculoskeletal Disorders: Chronic Back Pain Endocrine Hx Endocrine Disorders: No HEENT HX ENT Disorders: Yes (aerosols cause irritation) Hearing Impairment: Hard of Hearing Cancer Hx Cancer: No Psychosocial Hx Psychiatric Problems: No Blood Transfusions Hx Blood Disorders: No Family Medical History Significant Family History: No Pertinent Family Hx Physical Exam Vital Signs Vital Sign - Last 12Hours 01/28/17 13:20 Temp 96.8 Pulse 100 Resp 11 B/P (MAP) 121/62 Pulse Ox 98 Capillary Refill : Less Than 3 Seconds General Appearance: WD/WN, no apparent distress HEENT: PERRL/EOMI, normal ENT inspection, pharynx normal Neck: non-tender, supple, normal inspection Cardiovascular: regular rate, rhythm, no edema, no murmur Respiratory: lungs clear, normal breath sounds, no respiratory distress, no accessory muscle use Gastrointestinal: normal bowel sounds, non tender, soft Extremities: pelvis stable, swelling (bilateral lower extremity pitting edema, right greater than left, stated as chronic with waxing and waning), other ( right hip mildly tender to palpation and mildly painful with external rotation. Mild tenderness to the right knee without significant pain on range of motion. Mild tenderness to palpation of the right lateral ankle.) Neurologic/Psychiatric: window glass cutter off II-XII nml as tested (hard of hearing), no motor/ sensory deficits, alert, normal mood/affect, oriented x 3 Skin: normal color, warm/dry Dejon Coma Score Best Eye Response: (4) Open Spontaneously Best Verbal Response: (5) Oriented Best Motor Response: (6) Obeys Commands Djeon Total: 15 Progress/Results/Core Measures Results/Orders Lab Results Laboratory Tests Test 01/28/17 14:30 Range/Units White Blood Count 9.9 4.3-11.0 10^3/uL Red Blood Count 3.82 L 4.35-5.85 10^6/uL Hemoglobin 11.4 L 11.5-16.0 G/DL Hematocrit 34 L 35-52 % Mean Corpuscular Volume 89 80-99 FL Mean Corpuscular Hemoglobin 30 25-34 PG Mean Corpuscular Hemoglobin Concent 33 32-36 G/DL Red Cell Distribution Width 13.3 10.0-14.5 % Platelet Count 367 130-400 10^3/uL Mean Platelet Volume 8.5 7.4-10.4 FL Neutrophils (%) (Auto) 82 H 42-75 % Lymphocytes (%) (Auto) 6 L 12-44 % Monocytes (%) (Auto) 11 0-12 % Eosinophils (%) (Auto) 0 0-10 % Basophils (%) (Auto) 0 0-10 % Neutrophils # (Auto) 8.2 H 1.8-7.8 X 10^3 Lymphocytes # (Auto) 0.6 L 1.0-4.0 X 10^3 Monocytes # (Auto) 1.1 H 0.0-1.0 X 10^3 Eosinophils # (Auto) 0.0 0.0-0.3 10^3/uL Basophils # (Auto) 0.0 0.0-0.1 10^3/uL Neutrophils % (Manual) 80 % Lymphocytes % (Manual) 10 % Monocytes % (Manual) 2 % Eosinophils % (Manual) 0 % Basophils % (Manual) 0 % Band Neutrophils 8 % Blood Morphology Comment NORMAL Prothrombin Time 16.2 H 12.2-14.7 SEC INR Comment 1.3 0.8-1.4 Activated Partial Thromboplast Time 30 24-35 SEC Urine Color YELLOW Urine Clarity CLEAR Urine pH 6 5-9 Urine Specific [place] 1.010 L 1.016-1.022 Urine Protein NEGATIVE NEGATIVE Urine Glucose (UA) NEGATIVE NEGATIVE Urine Ketones NEGATIVE NEGATIVE Urine Nitrite NEGATIVE NEGATIVE Urine Bilirubin NEGATIVE NEGATIVE Urine Urobilinogen NORMAL NORMAL MG/DL Urine Leukocyte Esterase 1+ H NEGATIVE Urine RBC (Auto) NEGATIVE NEGATIVE Urine RBC NONE /HPF Urine WBC NONE /HPF Urine Squamous Epithelial Cells RARE /HPF Urine Crystals NONE /LPF Urine Bacteria NEGATIVE /HPF Urine Casts NONE /LPF Urine Mucus NEGATIVE /LPF Urine Culture Indicated NO Sodium Level 133 L 135-145 MMOL/L Potassium Level 3.3 L 3.6-5.0 MMOL/L Chloride Level 101 98-107 MMOL/L Carbon Dioxide Level 26 21-32 MMOL/L Anion Gap 6 5-14 MMOL/L Blood Urea Nitrogen 19 H 7-18 MG/DL Creatinine 1.27 0.60-1.30 MG/DL Estimat Glomerular Filtration Rate 40 BUN/Creatinine Ratio 15 Glucose Level 158 H 70-105 MG/DL Calcium Level 8.0 L 8.5-10.1 MG/DL Total Bilirubin 0.5 0.1-1.0 MG/DL Aspartate Amino Transf (AST/SGOT) 20 5-34 U/L Alanine Aminotransferase (ALT/SGPT) 14 0-55 U/L Alkaline Phosphatase 97 40-136 U/L Total Protein 4.9 L 6.4-8.2 GM/DL Albumin 2.1 L 3.2-4.5 GM/DL My Orders Orders - SEFERINO PAPPAS MD Knee, Right, 3 Views (01/28/17 13:35) Ankle, Right, 3 Views (01/28/17 13:35) Pelvis (01/28/17 13:35) Hip, Right, 2 Views (01/28/17 13:35) Cbc With Automated Diff (01/28/17 13:35) Comprehensive Metabolic Panel (01/28/17 13:35) Ua Culture If Indicated (01/28/17 13:35) Saline Lock/Iv-Start (01/28/17 13:35) Manual Differential (01/28/17 14:30) Ct Pelvis Wo (01/28/17 14:45) Ekg Tracing (01/28/17 15:28) Protime With Inr (01/28/17 15:28) Partial Thromboplastin Time (01/28/17 15:28) Ns W/Kcl 20 Meq/L (Ns Iv W/Kcl 20 Meq/L) (01/28/17 16:15) Vital Signs/I&O Vital Sign - Last 12Hours 01/28/17 13:20 Temp 96.8 Pulse 100 Resp 11 B/P (MAP) 121/62 Pulse Ox 98 Blood Pressure Mean: 81 Progress Note : Progress Note Patient was treated with fentanyl 25 g IV. X-ray showed suspicion of femoral neck fracture. Dr. Christine was contacted and recommended follow-up with CT scan. CT of the pelvis confirmed the fracture. Patient was admitted with intent for surgery this evening. IV fluids with potassium were ordered. Patient also complained of right knee pain and right lateral ankle pain. These areas were also imaged. ECG Initial ECG Impression Date: Jan 28, 2017 Initial ECG Impression Time: 15:38 Initial ECG Rate: 81 Initial ECG Rhythm: Normal Sinus Comment Normal sinus rhythm with no ST elevation or depression. No abnormal intervals or axis deviation. Diagnostic Imaging Diagonstic Imaging: Xray Plain Films/CT/US/NM/MRI: pelvis Comments Pelvis x-ray viewed by me and report reviewed. See report below: NAME: DAMIEN ABERNATHY [facility] REC#: [id number] PT STATUS: ADM IN : 1935 PHYSICIAN: SEFERINO PAPPAS MD ADMIT DATE: 01/28/17 Signed Date of Exam: 01/28/17 PELVIS INDICATION: Status post fall with hip pain TECHNIQUE: AP pelvis 2:01 PM CORRELATION STUDY: None FINDINGS: As demonstrated on the accompanying right hip views, there may be a impaction at the level of the right femoral neck. Assessment on this study is very limited with rotation and positioning of the femur. The femoral head acetabular relationship is maintained. Remainder of the pelvis as well as left hip are maintained apart from mild narrowing at the level of the hip. Advanced degenerative change visualized lower lumbar spine. IMPRESSION: While not well-defined given the positioning of the femur, overall findings are suspect for right subcapital femoral neck fracture. Consideration might be given to CT and/or MRI for confirmation. Dictated by: Dictated on workstation # [id number] Dict: 01/28/17 1407 Trans: 01/29/17 0756 Interpreted by: PARVIZ VICTOR DO Electronically signed by: PARVIZ VICTOR DO 01/29/17 0756 Diagonstic Imaging: Xray Plain Films/CT/US/NM/MRI: knee Comments X-rays of the right knee reviewed by me and report reviewed. See report below: NAME: DAMIEN ABERNATHY [facility] REC#: [id number] PT STATUS: ADM IN : 1935 PHYSICIAN: SEFERINO PAPPAS MD ADMIT DATE: 01/28/17 Signed Date of Exam: 01/28/17 KNEE, RIGHT, 3 VIEWS INDICATION: Status post fall earlier in the day with leg pain TECHNIQUE: 3 views of the right knee CORRELATION STUDY: None FINDINGS: Rather diffuse bony demineralization. There is narrowing of medial and to a lesser degree lateral femoral compartment. There is loss of normal smooth articular surface medially. Narrowing of patellofemoral compartment. Osteophyte formation is pronounced medially. Soft tissues are unremarkable. There is presence of vascular calcification. IMPRESSION: 1. Negative for acute bony abnormality of the knee. Advanced multicompartment degenerative change particularly medially and patellofemoral compartment. Bony demineralization. Dictated by: Dictated on workstation # [id number] Dict: 01/28/176 Trans: 01/29/17755 Interpreted by: PARVIZ VICTOR DO Electronically signed by: PARVIZ VICTOR DO 01/29/17755 Diagonstic Imaging: Xray Plain Films/CT/US/NM/MRI: hip Comments X-rays right hip viewed by me and report reviewed. See report below: NAME: DAMIEN ABERNATHY [facility] REC#: [id number] PT STATUS: ADM IN : 1935 PHYSICIAN: SEFERINO PAPPAS MD ADMIT DATE: 01/28/17 Signed Date of Exam: 01/28/17 HIP, RIGHT, 2 VIEWS INDICATION: Status post fall earlier in the day with hip pain TECHNIQUE: 2 views of the right hip, 2:06 PM. CORRELATION STUDY: None FINDINGS: Overall somewhat limited visualization, there does appear to be foreshortening of the right femoral neck with what appears to be likely a subcapital femoral neck fracture. Femoral head acetabular relationship is maintained. Remainder of right hemipelvis intact. IMPRESSION: 1. Though somewhat limited visualization there does appear to likely impacted right subcapital femoral neck fracture. If further assessment desired, CT and/or MRI recommended. Dictated by: Dictated on workstation # [id number] Dict: 01/28/17 1404 Trans: 01/29/17755 Interpreted by: PARVIZ VICTOR DO Electronically signed by: PARVIZ VICTOR DO 01/29/176 Diagonstic Imaging: Xray Plain Films/CT/US/NM/MRI: ankle Comments X-ray of the right ankle viewed by me and report reviewed. See report below: NAME: DAMIEN ABERNATHY [facility] REC#: [id number] PT STATUS: ADM IN : 1935 PHYSICIAN: SEFERINO PAPPAS MD ADMIT DATE: 01/28/17/4TH Signed Date of Exam: 01/28/17 ANKLE, RIGHT, 3 VIEWS INDICATION: Status post fall earlier in the day, pain. TECHNIQUE: Three views of the right ankle 2:08 PM CORRELATION STUDY: None FINDINGS: There is a rather pronounced diffuse bony demineralization. Distal tibia and fibula intact with ankle mortise maintained. Talar dome intact. Tiny calcaneal spur formation. Soft tissue swelling present. IMPRESSION: Negative for acute bony abnormality of the ankle. Diffuse bony demineralization. Soft tissue edema. Dictated by: Dictated on workstation # [id number] Dict: 01/28/17 1403 Trans: 01/29/17 0756 Interpreted by: PARVIZ VICTOR DO Electronically signed by: PARVIZ VICTOR DO 01/29/17 0756 Diagonstic Imaging: CT Plain Films/CT/US/NM/MRI: pelvis Comments NAME: DAMIEN ABERNATHY [facility] REC#: [id number] PT STATUS: REG ER : 1935 PHYSICIAN: SEFERINO PAPPAS MD ADMIT DATE: 01/28/17/ER Signed Date of Exam: 01/28/17 CT PELVIS WO PROCEDURE: CT pelvis without contrast. TECHNIQUE: Multiple contiguous axial images were obtained through the pelvis without the use of intravenous contrast. Sagittal and coronal reformations were performed. INDICATION: Fall. Right-sided pelvic pain. FINDINGS: Examination shows a subcapital fracture of the right femur with mild anterior angulation at the fracture site and very minimal impaction. There is no dislocation. The intertrochanteric region is intact. No fracture of the pelvic ring is seen. IMPRESSION: There is a mildly impacted angulated subcapital fracture of the right hip. Dictated by: Dictated on workstation # [id number] Dict: 01/28/17 1509 Trans: 01/28/17 1514 Interpreted by: KATINA SHIRLEY MD Electronically signed by: KATINA SHIRLEY MD 01/28/17 1514 Departure Communication Time/Spoke to Admitting Phy: 14:[address] Christine Impression Impression: Primary Impression: Closed right hip fracture Qualified Codes: S72.001A - Fracture of unspecified part of neck of right femur, initial encounter for closed fracture Additional Impressions: Fall on same level Qualified Codes: W18.30XA - Fall on same level, unspecified, initial encounter Hypokalemia Disposition: HOME, SELF-CARE Condition: Improved Departure-Patient Inst. Decision time for Depature: 14:20 Referrals: ALCIDES LOCKE MD (PCP/Family) Primary Care Physician SEFERINO PAPPAS MD Jan 28, 2017 16:30
[2017-01-28] MEDS ORDERED: fentaNYL INJECTION 100 MCG/2 ML AMP IVP PRN (17:30)
[2017-01-28] MEDS ORDERED: ONDANSETRON 4 MG/2 ML (SDV) Z0FRAN IVP PRN ×4 (17:30→22:00)
[2017-01-28 17:45] VITALS: BP 128/58
[2017-01-28] MEDS ORDERED: GENTAMICIN 40 MG/ML 2 ML INJ SDV ONE (18:37)
[2017-01-28] MEDS ORDERED: KETAMINE HCL 100 MG/ML 5 ML VIAL ONE (18:43)
[2017-01-28] MEDS ORDERED: proPOfol 200 MG/20 ML (DIPRIVAN) VIAL IV ONE (18:43)
[2017-01-28] MEDS ORDERED: ceFAZolin 2 GM/50 ML NS 50 ML IV ONE (19:00)
[2017-01-28] MEDS ORDERED: VANCOMYCIN 1000 MG/VIAL ONE (19:07)
[2017-01-28] MEDS ORDERED: diphenhydrAMINE 50 MG/ML INJ (BENADRYL) IV PRN (19:15)
[2017-01-28] MEDS ORDERED: morphine INJ 10 MG/ML 1ML (SYR OR VIAL) IVP PRN ×2 (19:15→22:00)
[2017-01-28] MEDS ORDERED: PROMETHAZINE INJ 25 MG/ML (PHENERGAN) AMP IVP PRN (19:15)
[2017-01-28] MEDS ORDERED: VANCOMYCIN INJECTION 1,000 MG in NS (IVPB) 250 ML IV ONE (19:15)
[2017-01-28] MEDS ORDERED: VANCOMYCIN INJECTION 1,000 MG in NS (IVPB) 250 ML IV SCH (19:15)
[2017-01-28] MEDS ORDERED: HYDROcodone/APAP 10 MG/325 MG (LORTAB) TAB PO PRN (19:15)
[2017-01-28] MEDS ORDERED: BISACODYL 10 MG SUPP (DULCOLAX) PR PRN (19:15)
[2017-01-28] MEDS ORDERED: D5 1/2 NS 1000 ML IV SOLUTION 1,000 ML IV SCH (19:15)
[2017-01-28] MEDS ORDERED: morphine PF (DURAMORPH) 10 MG/10 ML AMP ONE (19:16)
--- NOTE | 2017-01-28 19:19 | Progress Note-Pre Operative ---
Pre-Operative Progress Note H&P Reviewed The H&P was reviewed, patient examined and no changes noted. Date Seen by Provider: Jan 28, 2017 Time Seen by Provider: 19:19 Date H&P Reviewed: Jan 28, 2017 Time H&P Reviewed: 19:19 Pre-Operative Diagnosis: displaced right femoral neck fracture CORNELL BEST APRN Jan 28, 2017 7:19 pm
--- NOTE | 2017-01-28 19:22 | History & Physical-Surgical ---
HPO-Surgical History of Present Illness Chief Complaint: PT ARRIVED PER EMS, PT HAD FALL AT HOME STATES HAS R HIP AND R KNEE PAIN, PT DENIES HITTING HEAD OR LOC, PT HAS SL IN PLACE R WRIST #20 BY EMS, PT WAS GIVEN [id number] BY EMS. PT VERY NON-SPECIFIC CO PAIN. PT LOWER EXT SWOLLEN, R KNEE SWOLLEN, PT STATES HAVE BEEN LIKE THIS FOR A WHILE Diagnosis/Surgical Indication: displaced right femoral neck fracture Procedure: right hip prosthesis Date of Surgery: Jan 28, 2017 Weight (Pounds): 126 Weight (Ounces): 0.0 Height (Feet): 5 Height (Inches): 3.00 Allergies and Home Medications Allergies Coded Allergies: amoxicillin (Unverified Allergy, Unknown, 05/12/14) clindamycin (Unverified Allergy, Unknown, 05/12/14) sulfamethoxazole (Unverified Allergy, Unknown, 05/12/14) trimethoprim (Unverified Allergy, Unknown, 05/12/14) Uncoded Allergies: CHLORRHESILENE (Allergy, Unknown, 05/12/14) Home Medications Ciprofloxacin HCl 500 Mg Tablet, 500 MG PO BID for 7 Days, (Reported) Ondansetron 8 Mg Tab.rapdis, 8 MG PO Q6H PRN for NAUSEA/VOMITING-1ST LINE, #10 Ref 0 Prescribed by: ROBBIE LOCKE on 01/10/17 1540 Polyethylene Glycol 3350 17 Gm Powd.pack, 17 GM PO BID PRN for CONSTIPATION-1ST LINE, #20 Prescribed by: SEFERINO CEDILLO on 01/01/17 1108 Past Rbfmwda-Cldvrp-Wjpyam Hx Patient Social History Alcohol Use: Denies Use Recreational Drug Use: No Smoking Status: Never a Smoker Physical Abuse Screen: No Sexual Abuse: No Recent Foreign Travel: No Contact w/other who traveled: No Recent Hopitalizations: No Recent Infectious Disease Expo: No Seasonal Allergies Seasonal Allergies: Yes Surgeries HX Surgeries: Yes Surgeries: Adenoidectomy, Breast Respiratory Hx Respiratory Disorders: Yes Cardiovascular Hx Cardiovascular Disorders: Yes Cardiac Disorders: Chronic Edema/Swelling Neurological Hx Neurological Disorders: No Reproductive System : No Genitourinary Hx Genitourinary Disorders: No Gastrointestinal Hx Gastrointestinal Disorders: Yes (anal fissure) Gastrointestinal Disorders: Hemorrhoids, Chronic Diarrhea Musculoskeletal Hx Musculoskeletal Disorders: Yes (chronic neck and back pain) Musculoskeletal Disorders: Chronic Back Pain Endocrine Hx Endocrine Disorders: No HEENT HX ENT Disorders: Yes (aerosols cause irritation) Hearing Impairment: Hard of Hearing Cancer Hx Cancer: No Psychosocial Hx Psychiatric Problems: No Blood Transfusions Hx Blood Disorders: No Family Medical History Significant Family History: No Pertinent Family Hx Exam Vital Signs Vital Signs 01/28/17 01/28/17 17:45 18:19 Temp 97.8 Pulse 81 Resp 18 B/P (MAP) 128/58 Pulse Ox 95 O2 Delivery Room Air Capillary Refill : Less Than 3 SecondsLess Than 3 Seconds Labs Laboratory Tests Test 01/28/17 14:30 Range/Units White Blood Count 9.9 4.3-11.0 10^3/uL Red Blood Count 3.82 L 4.35-5.85 10^6/uL Hemoglobin 11.4 L 11.5-16.0 G/DL Hematocrit 34 L 35-52 % Mean Corpuscular Volume 89 80-99 FL Mean Corpuscular Hemoglobin 30 25-34 PG Mean Corpuscular Hemoglobin Concent 33 32-36 G/DL Red Cell Distribution Width 13.3 10.0-14.5 % Platelet Count 367 130-400 10^3/uL Mean Platelet Volume 8.5 7.4-10.4 FL Neutrophils (%) (Auto) 82 H 42-75 % Lymphocytes (%) (Auto) 6 L 12-44 % Monocytes (%) (Auto) 11 0-12 % Eosinophils (%) (Auto) 0 0-10 % Basophils (%) (Auto) 0 0-10 % Neutrophils # (Auto) 8.2 H 1.8-7.8 X 10^3 Lymphocytes # (Auto) 0.6 L 1.0-4.0 X 10^3 Monocytes # (Auto) 1.1 H 0.0-1.0 X 10^3 Eosinophils # (Auto) 0.0 0.0-0.3 10^3/uL Basophils # (Auto) 0.0 0.0-0.1 10^3/uL Neutrophils % (Manual) 80 % Lymphocytes % (Manual) 10 % Monocytes % (Manual) 2 % Eosinophils % (Manual) 0 % Basophils % (Manual) 0 % Band Neutrophils 8 % Blood Morphology Comment NORMAL Prothrombin Time 16.2 H 12.2-14.7 SEC INR Comment 1.3 0.8-1.4 Activated Partial Thromboplast Time 30 24-35 SEC Urine Color YELLOW Urine Clarity CLEAR Urine pH 6 5-9 Urine Specific [place] 1.010 L 1.016-1.022 Urine Protein NEGATIVE NEGATIVE Urine Glucose (UA) NEGATIVE NEGATIVE Urine Ketones NEGATIVE NEGATIVE Urine Nitrite NEGATIVE NEGATIVE Urine Bilirubin NEGATIVE NEGATIVE Urine Urobilinogen NORMAL NORMAL MG/DL Urine Leukocyte Esterase 1+ H NEGATIVE Urine RBC (Auto) NEGATIVE NEGATIVE Urine RBC NONE /HPF Urine WBC NONE /HPF Urine Squamous Epithelial Cells RARE /HPF Urine Crystals NONE /LPF Urine Bacteria NEGATIVE /HPF Urine Casts NONE /LPF Urine Mucus NEGATIVE /LPF Urine Culture Indicated NO Sodium Level 133 L 135-145 MMOL/L Potassium Level 3.3 L 3.6-5.0 MMOL/L Chloride Level 101 98-107 MMOL/L Carbon Dioxide Level 26 21-32 MMOL/L Anion Gap 6 5-14 MMOL/L Blood Urea Nitrogen 19 H 7-18 MG/DL Creatinine 1.27 0.60-1.30 MG/DL Estimat Glomerular Filtration Rate 40 BUN/Creatinine Ratio 15 Glucose Level 158 H 70-105 MG/DL Calcium Level 8.0 L 8.5-10.1 MG/DL Total Bilirubin 0.5 0.1-1.0 MG/DL Aspartate Amino Transf (AST/SGOT) 20 5-34 U/L Alanine Aminotransferase (ALT/SGPT) 14 0-55 U/L Alkaline Phosphatase 97 40-136 U/L Total Protein 4.9 L 6.4-8.2 GM/DL Albumin 2.1 L 3.2-4.5 GM/DL General Appearance: Alert, Oriented X3, Cooperative HEENT: Atraumatic, PERRLA Respiratory: Clear to Auscultation Cardiovascular: Regular Rate Abdominal: Soft, No Tenderness Extremities: No Clubbing, No Cyanosis, Normal Pulses, No Tenderness/Swelling ( tenderness to right hip, right leg severely shortened and externally rotated) Skin: No Rashes, No Breakdown Neuro: Normal Speech Psych/Mental Status: Mental Status NL Assessment/Plan Assessment and Plan A: displaced right femoral neck fracture fall P: right hip prosthesis Problems: CORNELL BEST HUMANE AGENT Jan 28, 2017 7:21 pm
[2017-01-28] MEDS ORDERED: NS (IVPB) 250 ML ONE (20:49)
[2017-01-28] MEDS ORDERED: TRANEXAMIC ACID 100 MG/ML 10 ML INJECTION IV ONE (21:06)
[2017-01-28] MEDS ORDERED: LACTATED RINGERS 2,000 ML IV ONE (21:06)
[2017-01-28] MEDS ORDERED: SUCCINYLCHOLINE INJ 100 MG/5 ML SYR ONE (21:06)
[2017-01-28] MEDS ORDERED: morphine INJ 4 MG/ML 1 ML (VIAL/SYRINGE) ONE (21:08)
[2017-01-28] MEDS ORDERED: BUPIVACAINE 0.5% 30 ML (SENSORCAINE) VIAL ONE (21:16)
[2017-01-28] MEDS ORDERED: SEVOFLURANE (ULTANE) 15 ML INHAL SOLN ONE (21:37)
--- NOTE | 2017-01-28 21:45 | Progress Note-Post Operative ---
Post-Operative Progess Note Surgeon (s)/Sink Maker (s) Surgeon JOSETTE BYNUM DO Sink Maker: Eddy Coy SENIOR SAFETY SUPPORT MANAGERChirag Pre-Operative Diagnosis displaced right femoral neck fracture Post-Operative Diagnosis 1. Same 2. chronic Avulsion Abductor tendons right hip Procedure & Operative Findings Date of Procedure 01/28/17 Procedure Performed/Findings Bipolar femoral hemiarthroplasty right hip Repair abductor tendon right hip findings: complete displaced right femoral neck fx, chronic avulsion gluteus medius tendon right hip Anesthesia Type General spinal anesthesia attempted initially without success Estimated Blood Loss Estimated blood loss (mL): 150 ml Specimens/Packing Specimens Removed right femoral head not sent to pathology Packing: none JOSETTE BYNUM DO Jan 28, 2017 9:45 pm
[2017-01-28 23:09] VITALS: BP 118/68
[2017-01-29 03:39] VITALS: BP 112/53
[2017-01-29 05:00] LABS: MEAN PLATELET VOLUME 8.9 FL (7.4-10.4); RED BLOOD COUNT 3.87 10^6/uL (4.35-5.85); RED CELL DISTRIBUTION WIDTH 13.4 % (10.0-14.5); WHITE BLOOD COUNT 9.2 10^3/uL (4.3-11.0)
[2017-01-29 05:12] LABS: INR 1.3 (0.8-1.4); PROTHROMBIN TIME PATIENT 16.2 SEC (12.2-14.7)
[2017-01-29 05:18] LABS: CALCIUM 7.5 MG/DL (8.5-10.1); CREATININE SERUM 0.9 MG/DL (0.60-1.30); POTASSIUM 3.2 MMOL/L (3.6-5.0)
[2017-01-29] MEDS: VANCOMYCIN INJECTION 1,000 MG in NS (IVPB) 250 ML IV SCH ×2 (06:15→18:43)
[2017-01-29 08:00] VITALS: BP 116/57
[2017-01-29] MEDS: D5 1/2 NS W/KCL 20 MEQ/L 1,000 ML IV SCH ×2 (08:12→22:07)
--- NOTE | 2017-01-29 08:20 | OPERATIVE REPORT ---
PROCEDURE PHYSICIAN: JOSETTE CHRISTINE DATE OF PROCEDURE: 01/28/2017 DICTATING PHYSICIAN: Josette Christine DO PREOPERATIVE DIAGNOSIS: Displaced femoral neck fracture, right hip. POSTOPERATIVE DIAGNOSIS: 1. Displaced femoral neck fracture, right hip. 2. 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 PROCEDURE: 1. Bipolar femoral hemiarthroplasty, right hip. 2. Repair chronic gluteus medius tendon avulsion, right hip. SURGEON: Dr. Christine BUSINESS DEVELOPMENT DIRECTOR: JUAN Diez COOKER CHIP: [employer] assistant principal was utilized throughout the entire procedure for patient positioning, retraction of soft tissues, placement of metallic implants, wound closure, dressing application and patient transfer. ANESTHESIA: General (attempted spinal block anesthesia without success). BLOOD LOSS: 150 mL. INDICATIONS AND FINDINGS: The patient is an 81-year-old female who was at home. She was complaining of instability of her right knee and her right ankle. She has had previous arthroscopic surgery performed on the right knee. 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 She was walking with a walker. She states that her knee began to give way. She attempted to grab for the counter top and grabbed a chair and fell over and landed directly on her right hip and noted immediate pain. X-rays revealed a displaced femoral neck fracture of the right hip. The patient was taken to surgery where at the time of arthrotomy, the patient demonstrated 100% displaced femoral neck fracture on the right. The patient also demonstrated evidence of chronic avulsion of her gluteus medius tendon. The very small portion of the posterior aspect of the tendon remained intact. The greater trochanter demonstrated only minor small 3 to 4 mm x 2 cm strands remaining attached to the greater trochanter. The hip was repaired utilizing the Biomet hip system with a press-fit 12 mm Taperloc complete primary femoral porous coated stem with a reduced distal taper. The patient's head was replaced with a 46 mm outside diameter RingLoc bipolar acetabular cup along with a -6 mm Biomet modular head component. The abductor tendon was repaired as well. PROCEDURE IN DETAIL: The patient was seen by anesthesia preoperatively. Attempts at a spinal anesthesia were performed without success. A general inhalation anesthetic was administered. Initially with an LMA with an incomplete seal; therefore, a general inhalation anesthesia with an endotracheal tube was performed. The patient was then placed in a left lateral hip decubitus position, secured the operating table with the pegboard system. A Betadine prep and drape in the usual sterile fashion of the right hip and right lower extremity was performed. A lateral longitudinal incision was then made centered over the greater trochanter with incision deepened through the iliotibial band. The patient demonstrated the avulsion of her abductor tendon noted. Electrocautery was used to create a modified Guerrero approach with division of the vastus lateralis fascia, a very a small amount the gluteus medius tendon remaining posteriorly. The capsule was reflected off the femoral neck and blood was exposed. Additional capsular dissection was performed allowing external rotation and flexion of the hip exposing the complete neck fracture. An osteotomy was completed at the femoral neck femoral neck. The femoral head was harvested with a corkscrew awl and the femoral head measured 46.5 mm in outside diameter. Portions of the superior acetabular labrum were excised. The proximal femur was opened with a box chisel and broached up to a 12 mm stem. The calcar was smoothed. The provisional components were inserted. The patient's hip was noted to be stable with a -6 mm provisional head. The provisional components were removed. The hip was irrigated extensively with normal saline solution. The 12 mm Taperloc stem was then impacted with bone graft from the femoral head used to further graft the anterior aspect of the femoral neck with satisfactory seating of the implant without complications. This -6 mm head and bipolar components were then cold welded on the stem. The hip was reduced. The hip was taken through a range of motion and found to be stable. Curette was then used to debride the avulsion site of the gluteus medius tendon. Multiple drill holes were placed through the gluteus medius tendon (4). Number 2 Tycron was then used to repair the gluteus medius tendon back to the greater trochanter. The iliotibial band was closed with interrupted [id number] sutures of number 1 Tycron in a running suture was used to complete the repair. The iliotibial band was then closed with a running suture of number 1 Vicryl. The subcutaneous tissues were closed with 0 and 2-0 Vicryl suture. The skin was closed with stainless steel eleanor. An Adaptic Neosporin bulky dressing was placed about the left hip. The patient was awakened and was transported postop recovery with anesthesia personnel present in satisfactory condition. Job ID: [id number] Dictated Date: 01/28/2017 21:53:16 Garnett Machine Operator Date: 01/29/2017 08:01:53 / brandyn
--- NOTE | 2017-01-29 08:43 | Physical Therapy Evaluation ---
PT Evaluation-General Medical Diagnosis Admission Date Jan 28, 2017 at 16:25 Medical Diagnosis: right EFRAIN Onset Date: Jan 28, 2017 Therapy Diagnosis Therapy Diagnosis: impaired mobility, strength, endurance Height/Weight Height (Feet): 5 Height (Inches): 3.00 Weight (Pounds): 126 Weight (Ounces): 0.0 Precautions Precautions/Isolations: Fall Prevention, Standard Precautions, Pressure Ulcer Weight Bear Status Weight Bearing Restriction: Weight Bearing/Tolerated Location Restriction: R LE Referral Physician: Eddy Coy Reason for Referral: Evaluation/Treatment Medical History Additional Medical History chronic edema/swelling, anal fissure, hemorrhoids, chronic diarrhea, chronic neck and back pain, OHKAY OWINGEH, surg (adenoidectomy, breast) Current History fell at home, came to hospital via EMS, had displaced right femoral neck fx Social History Home: Multilevel Current Living Status: Alone Entry Into Home: Stairs With Railing PT Steps Into Home: 4 Prior/Core FIM Prior Level of Function Functional Dupage Measure 0=Not Assessed/NA 4=Minimal Assistance 1=Total Assistance 5=Supervision or Setup 2=Maximal Assistance 6=Modified Dupage 3=Moderate Assistance 7=Complete Dupage Bed Mobility: 6 Transfers (B,C,W/C) (FIM): 6 Gait: 6 Patient states she would use a rolling walker in the morning sometimes PT Evaluation-Current Subjective Patient on commode pre tx, agrees to PT, will assist nursing to stand and get cleaned up and then attempt to ambulate. Patient states she has pain of 2-3/10 in right hip. Pt/Family Goals to be independent at home Objective Patient Orientation: Person, Place, Situation Attachments: Oxygen, Elaine Catheter, IV ROM/Strength ROM Lower Extremities WNL left lower extremity, right NT due to pain Strenght Lower Extremities right LE 2/10 gross, left LE 3+/5 gross Integumentary/Posture Bladder Incontinence: Elaine Cath Neuromuscular (Tone, Coordination, Reflexes) WNL Sensory Vision: Functional Hearing: Impaired Sensation Right Lower Extremit: Intact Sensation Left Lower Extremity: Intact Transfers Functional Dupage Measure 0=Not Assessed/NA 4=Minimal Assistance 1=Total Assistance 5=Supervision or Setup 2=Maximal Assistance 6=Modified Dupage 3=Moderate Assistance 7=Complete Dupage Transfers (B, C, W/C) (FIM): 2 Sit to/from Stand: 2 Gait Mode of Locomotion: Walk Anticipated Mode of Locomotion: Walk Gait (FIM): 1 Distance: 2' Gait Level of Assist: 3 Gait Persons Needed: 1 Gait Assistive Device: FWW Comments/Gait Description Patient was able to turn and take a few steps to the chair Balance Sitting Static: Normal Sitting Dynamic: Normal Standing Static: Poor Standing Dynamic: Poor Treatment seated exercises x10, AP, LAQ, hip abd Assessment/Needs Patient has impaired mobility, strength, endurance post right hip EFRAIN Rehab Potential: Fair PT Door Manager Goals Alf Goals PT Door Manager Goals Time Frame: Feb 05, 2017 Transfers (B,C,W/C) (FIM): 4 Gait (FIM): 2 Distance: 50' Gait Level of Assist: 4 Gait Assistive Device: FWW PT Plan Problem List Problem List: Activity Tolerance, Functional Strength, Safety, Balance, Gait, Transfer, Bed Mobility, ROM Treatment/Plan Treatment Plan: Continue Plan of Care Treatment Plan: Bed Mobility, Education, Functional Activity Stewart, Functional Strength, Gait, Safety, Therapeutic Exercise, Transfers Treatment Duration: Feb 05, 2017 # of days/week 5-6 Visits Per Week: 10-11 Minutes/Day (M-F): 15-30 Minutes/Day (Sat/Gibbs): 15-30 Pt/Family Agrees w/Plan: Yes Safety Risks/Education Patient Education: Gait Training, Transfer Techniques, Reviewed Precautions, Correct Positioning, Safety Issues Teaching Recipient: Patient Teaching Methods: Demonstration, Discussion Response to Teaching: Reinforcement Needed Discharge Recommendations Plan Patient will perform bed mobility and transfer training, balance and endurance training, functional strengthening, stair training, gait training, and education to improve functional mobility and independence at home. Therapy D/C Recommendations: Acute Rehab, Home w/ Family Support, Physical Therapy Home Care Time/GCodes Time In: 825 Time Out: 840 Total Billed Treatment Time: 15 Total Billed Treatment 1 visit GABRIEL 15' CHICHO OSBORN PT Jan 29, 2017 08:43
--- NOTE | 2017-01-29 09:01 | Diagnostic Imaging Report ---
INDICATION: Right hip pain. FINDINGS: Two views of the pelvis show postop changes from right femoral head replacement. The prosthesis is in good position. The alignment is normal. There is some gas in the adjacent soft tissues. IMPRESSION: Postop changes from right hip arthroplasty. No acute abnormality is seen. Dictated by: Dictated on workstation # [id number]
[2017-01-29] MEDS: KCL 20 MEQ TAB (K-DUR) PO SCH (09:13)
[2017-01-29] MEDS: ENOXAPARIN 40 MG/0.4 ML (LOVENOX) SYR SC SCH (09:13)
[2017-01-29] MEDS: ASPIRIN E.C. 325 MG (ECOTRIN) TABLET PO SCH (09:13)
[2017-01-29] MEDS ORDERED: CHOLESTYRAMINE 4 GM (QUESTRAN LITE, PREVALITE) PKT PO PRN (09:45)
[2017-01-29] MEDS ORDERED: LACT1CAP40 PO (09:55)
[2017-01-29] MEDS ORDERED: METR500T21 PO (09:55)
[2017-01-29] MEDS ORDERED: ASPI325T32 PO (09:59)
[2017-01-29] MEDS ORDERED: LORA10TA76 PO (09:59)
--- NOTE | 2017-01-29 10:15 | Anesthesia-General Post-Op ---
General Patient Condition Mental Status/LOC: Same as Preop Cardiovascular: Satisfactory Nausea/Vomiting: Absent Respiratory: Satisfactory Pain: Controlled Complications: Absent Post Op Complications Complications None Follow Up Care/Instructions Patient Instructions None needed. Anesthesia/Patient Condition Patient Condition Patient is doing well, no complaints, stable vital signs, no apparent adverse anesthesia problems. No complications reported per nursing. GUILLERMO WU CRNA Jan 29, 2017 10:14
--- NOTE | 2017-01-29 10:59 | Consultation-Hospitalist ---
HPI History of Present Illness: HPI/Chief Complaint CC: Medical management following hip fracture HPI: This is a 81 [address] pt of [address] JEWELS Smith presented after fall at home. She sustained a right hip fracture that was repaired in an uncomplicated manner by Dr. 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 market developer: Pt states that she has had diarrhea for two weeks. Pt has recently been on Cipro Stool sample was collected. K+ low, 20 K+ was added to IV and 20 PO as well Pt is hesitant to take pain meds, like hydros. Pt states that Tylenol does not generally help SW Review: Pt and her daughters are very nervous in the medical scenario currently Rehab meets qualification for diagnosis, but if not [facility] Pt taking Flagyl from [place] in ED for negative stool w/u Patient Interview: Pt's daughters state that pt does not see Dr. Smith, but is considering seeing her as a PCP. Pt lives at home alone Pt was talking about her ankle brace with PT upon interview Pt confirms Dr. Smith as PCP, but has not seen him yet. Pt states that she was experiencing constipation, then diarrhea. Pt's daughters state that she had a UTI previously Physical exam stable. Lungs sound perfect. Pt states that she does not like yogurt but will eat it. In pt rehab was discussed Pt's daughters asked the difference between Culturell or yogurt. They were informed that they are similar I informed her that I will see her tomorrow, and she seemed pleased with this. Scribed by Savannah Li under the direct supervision of Dr. Ring. Source: patient Exam Limitations: no limitations Date Seen 01/29/17 Attending Physician Erasmo Christine DO PCP Michael Smith MD Referring Physician Date of Admission Jan 28, 2017 at 16:25 Home Medications & Allergies Home Medications Reviewed patient Home Medication Reconciliation Form Allergies Allergies Coded Allergies nystatin (Verified Allergy, Mild, HIVES, 01/29/17) amoxicillin (Unverified Allergy, Unknown, 05/12/14) chlorhexidine (Verified Allergy, Unknown, HIVES, 01/29/17) clindamycin (Unverified Allergy, Unknown, 05/12/14) sulfamethoxazole (Unverified Allergy, Unknown, 05/12/14) trimethoprim (Unverified Allergy, Unknown, 05/12/14) Past [id number]-[id number]-Caabpb Hx Patient Social History Marrital Status: Employed/Student: retired Alcohol Use: Denies Use Recreational Drug Use: No Smoking Status: Never a Smoker Physical Abuse Screen: No Sexual Abuse: No Recent Foreign Travel: No Contact w/other who traveled: No Recent Hopitalizations: No Recent Infectious Disease Expo: No Seasonal Allergies Seasonal Allergies: Yes Surgeries HX Surgeries: Yes Surgeries: Adenoidectomy, Breast Respiratory Hx Respiratory Disorders: Yes Respiratory Disorders: Asthma Cardiovascular Hx Cardiovascular Disorders: Yes Cardiac Disorders: Chronic Edema/Swelling Neurological Hx Neurological Disorders: No Reproductive System : No Genitourinary Hx Genitourinary Disorders: No Gastrointestinal Hx Gastrointestinal Disorders: Yes (anal fissure) Gastrointestinal Disorders: Hemorrhoids, Chronic Diarrhea Musculoskeletal Hx Musculoskeletal Disorders: Yes (chronic neck and back pain) Musculoskeletal Disorders: Chronic Back Pain Endocrine Hx Endocrine Disorders: No HEENT HX ENT Disorders: Yes (aerosols cause irritation) Hearing Impairment: Hard of Hearing Cancer Hx Cancer: No Psychosocial Hx Psychiatric Problems: No Blood Transfusions Hx Blood Disorders: No Family Medical History Significant Family History: No Pertinent Family Hx Review of Systems Constitutional: weakness EENTM: no symptoms reported Respiratory: no symptoms reported Cardiovascular: no symptoms reported Gastrointestinal: diarrhea, loss of appetite, nausea Genitourinary: no symptoms reported Musculoskeletal: joint pain Skin: no symptoms reported Psychiatric/Neurological: Anxiety All Other Systems Reviewed Negative Unless Noted: Yes Physical Exam Physical Exam Vital Signs Vital Sign - Last 12Hours 01/28/17 01/28/17 01/28/17 13:20 17:45 22:55 Temp 96.8 Pulse 100 Resp 11 B/P (MAP) 121/62 Pulse Ox 98 O2 Delivery Room Air O2 Flow Rate 2.00 Capillary Refill : Less Than 3 SecondsLess Than 3 Seconds General Appearance: No Apparent Distress, WD/WN, Chronically ill Eyes: Bilateral Eye Normal Inspection, Bilateral Eye PERRL HEENT: PERRL/EOMI, Normal ENT Inspection, Pharynx Normal Neck: Full Range of Motion, Normal Inspection, Non Tender, Supple, Carotid Bruit Respiratory: Chest Non Tender, Lungs Clear, Normal Breath Sounds, No Accessory Muscle Use, No Respiratory Distress Cardiovascular: Regular Rate, Rhythm, No Edema, No Gallop, No JVD, No Murmur, Normal Peripheral Pulses Gastrointestinal: Normal Bowel Sounds, No Organomegaly, No Pulsatile Mass, Non Tender, Soft Back: Normal Inspection, No CVA Tenderness, No Vertebral Tenderness Extremity: Normal Capillary Refill, Normal Inspection, Normal Range of Motion, Non Tender, No Calf Tenderness, Swelling (bilateral legs) Neurologic/Psychiatric: Alert, Oriented x3, No Motor/Sensory Deficits, Normal Mood/Affect Skin: Normal Color, Warm/Dry Lymphatic: No Adenopathy Results Results/Procedures Lab Laboratory Tests 01/28/17 14:30 01/29/17 04:38 Assessment/Plan Admission Diagnosis Assessment: Right hip fracture POD # 1 uncomplicated Chronic diarrhea C. diff negative started on Lactinex and Questran Hypokalemia Chronic edema Assessment and Plan Plan: Lactinex empirically Rehab eval Continue yogurt fir active cultures Questran QID prn PT/OT DVT Px Clinical Quality Measures DVT/VTE Risk/Contraindication: Risk Factor Score Per Nursin RFS Level Per Nursing on Admit: 4+=Very High ROBERT RING DO Jan 29, 2017 10:59
[2017-01-29] MEDS: LACTOBACILLUS Acidoph/Bulgar (LACTINEX/FLORANEX) TAB PO SCH ×2 (11:23→16:20)
[2017-01-29 12:00] VITALS: BP 98/50
--- NOTE | 2017-01-29 12:14 | Progress Note (SOAP) ---
Subjective Date Seen by Provider: Jan 29, 2017 Time Seen by Provider: 12:07 Subjective/Events-last exam Awake and alert Tolerated up in chair today Review of Systems Musculoskeletal: leg pain Dressing dry right hip min swelling right hip Objective Exam Vital Signs Date Time Temp Pulse Resp B/P (MAP) Pulse Ox O2 Delivery O2 Flow Rate FiO2 01/29/17 08:00 99.1 86 20 116/57 94 Nasal Cannula 2.00 01/29/17 08:00 94 Nasal Cannula 2.00 01/29/17 07:35 Nasal Cannula 2.00 01/29/17 03:39 97.3 79 16 112/53 96 Nasal Cannula 2.00 01/28/17 23:24 Nasal Cannula 2.00 01/28/17 23:09 96.9 83 16 118/68 97 Room Air 01/28/17 22:55 97 Nasal Cannula 2.00 01/28/17 18:19 95 Room Air 01/28/17 17:45 97.8 81 18 128/58 95 Room Air 01/28/17 16:48 85 11 98 01/28/17 13:20 96.8 100 11 121/62 98 I & O 01/29/17 07:00 Intake Total 1500 ml Output Total 1450 ml Balance 50 ml Capillary Refill : Less Than 3 SecondsLess Than 3 Seconds General Appearance: No Apparent Distress Neck: Normal Inspection Respiratory: Normal Breath Sounds, No Accessory Muscle Use (dressing dry right hip) Gastrointestinal: non tender Extremity: No Calf Tenderness Neurologic/Psychiatric: Oriented x3 Skin: Warm/Dry Results Lab Laboratory Tests 01/28/17 14:30: White Blood Count 9.9, Red Blood Count 3.82L, Hemoglobin 11.4L, Hematocrit 34L, Mean Corpuscular Volume 89, Mean Corpuscular Hemoglobin 30, Mean Corpuscular Hemoglobin Concent 33, Red Cell Distribution Width 13.3, Platelet Count 367, Mean Platelet Volume 8.5, Neutrophils (%) (Auto) 82H, Lymphocytes (%) (Auto) 6L , Monocytes (%) (Auto) 11, Eosinophils (%) (Auto) 0, Basophils (%) (Auto) 0, Neutrophils # (Auto) 8.2H, Lymphocytes # (Auto) 0.6L, Monocytes # (Auto) 1.1H, Eosinophils # (Auto) 0.0, Basophils # (Auto) 0.0, Neutrophils % (Manual) 80, Lymphocytes % (Manual) 10, Monocytes % (Manual) 2, Eosinophils % (Manual) 0, Basophils % (Manual) 0, Band Neutrophils 8, Blood Morphology Comment NORMAL, Prothrombin Time 16.2H, INR Comment 1.3, Activated Partial Thromboplast Time 30 , Urine Color YELLOW, Urine Clarity CLEAR, Urine pH 6, Urine Specific Chalmers 1.010L, Urine Protein NEGATIVE, Urine Glucose (UA) NEGATIVE, Urine Ketones NEGATIVE, Urine Nitrite NEGATIVE, Urine Bilirubin NEGATIVE, Urine Urobilinogen NORMAL, Urine Leukocyte Esterase 1+H, Urine RBC (Auto) NEGATIVE, Urine RBC NONE , Urine WBC NONE, Urine Squamous Epithelial Cells RARE, Urine Crystals NONE, Urine Bacteria NEGATIVE, Urine Casts NONE, Urine Mucus NEGATIVE, Urine Culture Indicated NO, Sodium Level 133L, Potassium Level 3.3L, Chloride Level 101, Carbon Dioxide Level 26, Anion Gap 6, Blood Urea Nitrogen 19H, Creatinine 1.27, Estimat Glomerular Filtration Rate 40, BUN/Creatinine Ratio 15, Glucose Level 158H, Calcium Level 8.0L, Total Bilirubin 0.5, Aspartate Amino Transf (AST/SGOT ) 20, Alanine Aminotransferase (ALT/SGPT) 14, Alkaline Phosphatase 97, Total Protein 4.9L, Albumin 2.1L 01/29/17 04:38: White Blood Count 9.2, Red Blood Count 3.87L, Hemoglobin 11.8, Hematocrit 35, Mean Corpuscular Volume 90, Mean Corpuscular Hemoglobin 31, Mean Corpuscular Hemoglobin Concent 34, Red Cell Distribution Width 13.4, Platelet Count 284, Mean Platelet Volume 8.9, Prothrombin Time 16.2H, INR Comment 1.3, Sodium Level 136, Potassium Level 3.2L, Chloride Level 108H, Carbon Dioxide Level 18L, Anion Gap 10, Blood Urea Nitrogen 14, Creatinine 0.90, Estimat Glomerular Filtration Rate 60, BUN/Creatinine Ratio 16, Glucose Level 116H, Calcium Level 7.5L Microbiology 01/29/17 C. difficile GDH Antigen & Toxins - Final, Complete Procedures Status post bipolar femoral hemiarthroplasty right hip Assessment/Plan Assessment/Plan Assess & Plan/Chief Complaint Right femoral neck fx status post hemiarthroplasty Final Diagnosis displaced right femoral neck fx Clinical Quality Measures DVT/VTE Risk/Contraindication: Risk Factor Score Per Nursin RFS Level Per Nursing on Admit: 4+=Very High FLETCHER,JOSETTE F DO Jan 29, 2017 12:14 pm
--- NOTE | 2017-01-29 13:32 | Occupational Therapy Eval ---
OT Evaluation-General/PLF Medical Diagnosis Admission Date Jan 28, 2017 at 16:25 Medical Diagnosis: right EFRAIN Onset Date: Jan 28, 2017 Therapy Diagnosis Therapy Diagnosis: Decreased ADL skills Height/Weight Height (Feet): 5 Height (Inches): 3.00 Weight (Pounds): 126 Weight (Ounces): 0.0 Precautions Precautions/Isolations: Fall Prevention, Standard Precautions Safety Interventions: None Weight Bear Status Weight Bearing Restriction: Weight Bearing/Tolerated Location Restriction: R LE Pt. has ankle orthosis that is 3 years old from previous tendon injury. She wears this everyday. Referral Physician: Eddy Coy Referral Reason: Activity Tolerance, Self Care, Evaluation/Treatment, Strengthening/ROM Medical History Pertinent Medical History: Arthritis Additional Medical History chronic back pain, chronic diarrhea, knee scope, right ankle tendon injury. Current History Pt. fell at home. Has two daughters in room. One lives in [place], and one does not. Reviewed History: Yes Social History Home: [facility] Current Living Status: Alone Entry Into Home: Stairs With Railing Steps Into Home: 8 (Daughters state that pt. has deep and shallow steps.) ADL-Prior Level of Function ADL PLOF Comments Pt. states that she is independent with daily living skills. Still drives. States that she uses the walker only to assist with getting out of shower. Walks without equipment in home. Uses cane when she leaves the home. DME/Equipment: Shower DME/Equipment Comments Pt. has a walker and cane. OT Current Status Subjective Pt. does not report pain, but indicates that her right LE hurts whenever this OT touches it. Appearance Pt. is sitting in hip chair. Agrees to transfer to bed. Mental Status/Objective Comprehension: 4 (Pt. is very [place].) Current Hand Dominance: Right Upper Extremity ROM Pt. demonstrates approximately 100 degrees bilateral AROM in shoulder flexion. Upper Extremity Strength Right UE- 3/5 distally Left UE- 3+/5 distally ADL-Treatment Functional [place] Measure 0=Not Assessed/NA 4=Minimal Assistance 1=Total Assistance 5=Supervision or Setup 2=Maximal Assistance 6=Modified [place] 3=Moderate Assistance 7=Complete IndependenceIRFPAI Quality Coding Scale 6 Independent with activity with or without an assistive device 5 Patient requires set up or clean up by helper. Patient completes activity by themselves 4 Supervision or touching assist (CGA). [place] provide cues , steadying assist 3 The helper provides less than half the effort to complete the activity 2 The helper provides more than half the effort to complete the activity 1 Dependent. The helper does all the effort to complete an activity 7 Patient refused to complete or attempt activity 9 The patient did not perform the activity before the current illness or injury 88 Not attempted due to Medical conditions or safety concerns Eating (FIM): 5 (set up. Pt. feeding self yogurt when OT entered room.) Lower Body Dressing (FIM): 1 (Pt. has hip precautions. Unable to bend/cross legs. Pt. unable to lift right LE to assist with OT putting socks/shoes on.) Transfers (B, C, W/C) (FIM): 2 (Min assist for sit-stand. Increased time needed. Scooted feet to pivot toward bed. Max for stand-sit, as pt. "falls" back with guidance of gait belt. Max sit-supine. Dependent bed mobility.) Other Treatments Spoke with pt. and daughters regarding discharge needs. They are all agreeable that pt. would benefit from inpt. acute rehab to continue increased strengthening for daily tasks. Education OT Patient Education: Modified ADL techniques, Progress toward Goal/Update tx plan, Purpose of tx/functional activities, Reviewed precautions, Rehab process, Transfer techniques Teaching Recipient: Patient Teaching Methods: Demonstration, Discussion Response to Teaching: Verbalize Understanding, Return Demonstration OT Short Term Goals Short Term Goals Time Frame: Feb 05, 2017 Eating(FIM): 6 Grooming(FIM): 5 Bathing(FIM): 4 Upper Body Dressing(FIM): 5 Lower Body Dressing(FIM): 4 Toileting(FIM): 5 Transfers (B,C,W/C) (FIM): 4 Toilet/Commode Transfer(FIM): 4 Shower Transfer(FIM): 4 Additional Short Term Goals: 1-Demonstrate ADL Tasks, 2-Verbalize Understanding , 3-ImproveStrength/Stewart 1=Demonstrate adherence to instructed precautions during ADL tasks. 2=Patient will verbalize/demonstrate understanding of assistive devices/ modifications for ADL. 3=Patient will improve strength/tolerance for activity to enable patient to perform ADL's. OT Residential Goals Monogram Operator Goals Time Frame: Feb 19, 2017 Eating (FIM): 6 Grooming(FIM): 6 Bathing(FIM): 5 Upper Body Dressing(FIM): 5 Lower Body Dressing(FIM): 5 Toileting(FIM): 6 Transfers (B,C,W/C) (FIM): 5 Toilet/Commode Transfer(FIM): 6 Shower Transfer(FIM): 5 Additional Goals: 1-Demonstrate ADL Tasks, 2-Verbalize Understanding, 3- ImproveStrength/Stewart 1=Demonstrate adherence to instructed precautions during ADL tasks. 2=Patient will verbalize/demonstrate understanding of assistive devices/ modifications for ADL. 3=Patient will improve strength/tolerance for activity to enable patient to perform ADL's. OT Education/Plan Problem List/Assessment Assessment: Decreased Activ Tolerance, Decreased UE Strength, Dependent Transfers, Impaired Bed Mobility, Impaired Funct Balance, Impaired I ADL's, Impaired Self-Care Skills, Restricted Funct UE ROM Discharge Recommendations Plan/Recommendations: Continue POC Therapy D/C Recommendations: Acute Rehab Equpiment Recommendations-D/C: Bath Chair, Hip Kit Target Placement Pt. would benefit from acute rehab stay. Treatment Plan/Plan of Care Treatment,Training & Education: Yes Patient would benefit from OT for education, treatment and training to promote independence in ADL's, mobility, safety and/or upper extremity function for ADL' s. Plan of Care: ADL Retraining, Caregiver Training, Functional Mobility, UE Funct Exercise/Act Treatment Duration: Feb 19, 2017 Visits Per Week: 5 Rehab Potential: Good Time/GCodes Start Time: 10:15 Stop Time: 11:10 Total Time Billed (hr/min): 55 Billed Treatment Time 1, EVM x 15minutes, ADL x 40minutes HOA HINOJOSA OT Jan 29, 2017 13:32
--- NOTE | 2017-01-29 15:03 | Physical Therapy Daily Note ---
PT Daily Note-Current Subjective Patient on commode pre tx, agrees to PT, She would like to get back to bed so she can finish her lunch. Will assist with this. Appearance Patient BTB post tx with nurse call, phone, tray, all needs met. Abduction pillow on. Mental Status Patient Orientation: Person, Place, Situation Attachments: IV Transfers Functional [place] Measure 0=Not Assessed/NA 4=Minimal Assistance 1=Total Assistance 5=Supervision or Setup 2=Maximal Assistance 6=Modified [place] 3=Moderate Assistance 7=Complete IndependenceIRFPAI Quality Coding Scale 6 Independent with activity with or without an assistive device 5 Patient requires set up or clean up by helper. Patient completes activity by themselves 4 Supervision or touching assist (CGA). Allison provide cues , steadying assist 3 The helper provides less than half the effort to complete the activity 2 The helper provides more than half the effort to complete the activity 1 Dependent. The helper does all the effort to complete an activity 7 Patient refused to complete or attempt activity 9 The patient did not perform the activity before the current illness or injury 88 Not attempted due to Medical conditions or safety concerns Transfers (B, C, W/C) (FIM): 2 Scootin Rollin Supine to/from Sit: 2 Sit to/from Stand: 3 Gait Training Gait (FIM): 1 Distance: 5' Gait Level of Assist: 4 Gait Persons Needed: 1 Gait Assistive Device: FWW Patient ambulated 5' from the chair to the bed, she is able to advance her right leg pretty good but keeps knee extended and doesn't put much weight through it. Patient is very afraid of falling. Treatments bed mobility and transfers, ambulation. Assessment Current Status: Fair Progress improving mobility, patient is able to advance her right leg during ambulation PT Short Term Goals Short Term Goals Transfers (B,C,W/C) (FIM): 4 PT [employer] [place] Goals [employer] [place] Goals PT [employer] [place] Goals Time Frame: Feb 05, 2017 Transfers (B,C,W/C) (FIM): 4 Gait (FIM): 2 Distance: 50' Gait Level of Assist: 4 Gait Assistive Device: FWW PT Plan Problem List Problem List: Activity Tolerance, Functional Strength, Safety, Balance, Gait, Transfer, Bed Mobility, ROM Treatment/Plan Treatment Plan: Continue Plan of Care Treatment Plan: Bed Mobility, Education, Functional Activity [place], Functional Strength, Gait, Safety, Therapeutic Exercise, Transfers Treatment Duration: Feb 05, 2017 Visits Per Week: 10-11 Minutes/Day (M-F): 15-30 Minutes/Day (Sat/Gibbs): 15-30 Safety Risks/Education Patient Education: Gait Training, Transfer Techniques, Correct Positioning, Safety Issues Teaching Recipient: Patient Teaching Methods: Demonstration, Discussion Response to Teaching: Reinforcement Needed Time/GCodes Time In: 1410 Time Out: 1425 Total Billed Treatment Time: 15 Total Billed Treatment 1 visit GT 15' CHICHO OSBORN PT Jan 29, 2017 15:03
[2017-01-29 16:00] VITALS: BP_SYST 102; BP_SYST 105; BP_DIAS 52; BP_DIAS 61
[2017-01-29 20:00] VITALS: BP 112/63
[2017-01-29] MEDS: SENNA W/DOCUSATE (SENOKOT S) TABLET PO SCH (21:26)
[2017-01-30 00:24] VITALS: BP 106/52
[2017-01-30 03:40] VITALS: BP 101/53
[2017-01-30] MEDS: LACTOBACILLUS Acidoph/Bulgar (LACTINEX/FLORANEX) TAB PO SCH ×3 (05:55→16:01)
[2017-01-30] MEDS: KCL 20 MEQ TAB (K-DUR) PO SCH (05:55)
[2017-01-30 06:19] LABS: MEAN PLATELET VOLUME 9.1 FL (7.4-10.4); RED BLOOD COUNT 3.37 10^6/uL (4.35-5.85); RED CELL DISTRIBUTION WIDTH 14.2 % (10.0-14.5); WHITE BLOOD COUNT 6.2 10^3/uL (4.3-11.0)
[2017-01-30 06:25] LABS: INR 1.4 (0.8-1.4)
[2017-01-30 06:40] LABS: CALCIUM 7.4 MG/DL (8.5-10.1); CREATININE SERUM 0.98 MG/DL (0.60-1.30); POTASSIUM 3.9 MMOL/L (3.6-5.0)
[2017-01-30] MEDS ORDERED: KCL 20 MEQ TAB (K-DUR) PO SCH (07:00)
--- NOTE | 2017-01-30 07:13 | Progress Note (SOAP) ---
Subjective Date Seen by Provider: Jan 30, 2017 Time Seen by Provider: 07:08 Subjective/Events-last exam No complaints currently, She had the nurse remove the NATALY hose stating they were too painful to wear. She reports some progress yesterday with physical therapy. She reports diarrhea is improving. Objective Exam Vital Signs Date Time Temp Pulse Resp B/P (MAP) Pulse Ox O2 Delivery O2 Flow Rate FiO2 01/30/17 03:40 98.5 80 18 101/53 94 Nasal Cannula 2.00 01/30/17 00:24 98.6 88 18 106/52 96 Nasal Cannula 2.00 01/29/17 20:00 94 Nasal Cannula 2.00 01/29/17 20:00 98.0 88 22 112/63 96 Nasal Cannula 2.00 01/29/17 16:00 98.6 90 22 102/61 97 Nasal Cannula 2.00 01/29/17 12:00 98.1 84 20 98/50 98 Nasal Cannula 2.00 01/29/17 08:00 99.1 86 20 116/57 94 Nasal Cannula 2.00 01/29/17 08:00 94 Nasal Cannula 2.00 01/29/17 07:35 Nasal Cannula 2.00 I & O 01/30/17 07:00 Intake Total 2660 ml Output Total 570 ml Balance 2090 ml Capillary Refill : Less Than 3 SecondsLess Than 3 Seconds General Appearance: No Apparent Distress Peripheral Pulses: 2+ Radial Pulses (R), 2+ Radial Pulses (L) Extremity: Normal Capillary Refill, Normal Inspection, No Calf Tenderness, Pedal Edema Neurologic/Psychiatric: Alert, Oriented x3, No Motor/Sensory Deficits, Normal Mood/Affect Skin: Normal Color, Warm/Dry (Dressing to right hip CDI) Results Lab Laboratory Tests 01/30/17 05:50: White Blood Count 6.2, Red Blood Count 3.37L, Hemoglobin 10.2L, Hematocrit 31L, Mean Corpuscular Volume 93, Mean Corpuscular Hemoglobin 30, Mean Corpuscular Hemoglobin Concent 33, Red Cell Distribution Width 14.2, Platelet Count 228, Mean Platelet Volume 9.1, Prothrombin Time 17.0H, INR Comment 1.4, Sodium Level 132L, Potassium Level 3.9, Chloride Level 107, Carbon Dioxide Level 21, Anion Gap 4L, Blood Urea Nitrogen 16, Creatinine 0.98, Estimat Glomerular Filtration Rate 54, BUN/Creatinine Ratio 16, Glucose Level 136H, Calcium Level 7.4L Microbiology 01/29/17 C. difficile GDH Antigen & Toxins - Final, Complete Assessment/Plan Assessment/Plan Assess & Plan/Chief Complaint A: traumatic displaced right femoral neck hip fracture s/p right hip prosthesis debility fall hyponatremia resolved hypokalemia diarrhea P: continue current treatment, IV fluids DC'd due to hyponatremia, check with Dr. Metcalf to DC ly, spoke with patient at length about letting the nurse put on her NATALY hose, spoke with patient about pain meds and she is willing to take some ultram prior to therapy and as needed for pain, Plan to DC to IRF tomorrow. Clinical Quality Measures DVT/VTE Risk/Contraindication: Risk Factor Score Per Nursin RFS Level Per Nursing on Admit: 4+=Very High CORNELL BEST APRN Jan 30, 2017 7:13 am
[2017-01-30] MEDS ORDERED: HYDROcodone/APAP 5 MG/325 MG (LORTAB) TAB PO PRN (07:15)
[2017-01-30 08:00] VITALS: BP 106/55
[2017-01-30] MEDS: SENNA W/DOCUSATE (SENOKOT S) TABLET PO SCH ×2 (08:23→20:10)
--- NOTE | 2017-01-30 09:18 | Progress Note-Hospitalist ---
Progress Note HPI/CC on Admission CC: Medical management following hip fracture HPI: This is a 81 [address] JEWELS Smith presented after fall at home. She sustained a right hip fracture that was repaired in an uncomplicated manner by Dr. 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 Pt has recently been on Cipro Stool sample was collected. K+ low, 20 K+ was added to IV and 20 PO as well Pt is hesitant to take pain meds, like hydros. Pt states that Tylenol does not generally help SW Review: Pt and her daughters are very nervous in the medical scenario currently Rehab meets qualification for diagnosis, but if not general acute hospital Pt taking Flagyl from [place] in ED for negative stool w/u Patient Interview: Pt's daughters state that pt does not see Dr. Smith, but is considering seeing her as a PCP. Pt lives at home alone Pt was talking about her ankle brace with PT upon interview Pt confirms Dr. Smith as PCP, but has not seen him yet. Pt states that she was experiencing constipation, then diarrhea. Pt's daughters state that she had a UTI previously Physical exam stable. Lungs sound perfect. Pt states that she does not like yogurt but will eat it. In pt rehab was discussed Pt's daughters asked the difference between Culturell or yogurt. They were informed that they are similar I informed her that I will see her tomorrow, and she seemed pleased with this. Scribed by Savannah Li under the direct supervision of Dr. Ring. Progress Notes/Assess & Plan Date Seen 01/30/17 Time Seen by Provider: 08:30 Admission Dx/Process Assessment: Right hip fracture POD # 1 uncomplicated Chronic diarrhea C. diff negative started on Lactinex and Questran Hypokalemia Chronic edema Diagonsis/Assessment & Plan Pt doing well. Diarrhea continues so will change the Questran to TID scheduled Catheter still in place so will DC Pain is controlled Edema still persists since this is chronic and has not seen a doctor for years Ultram tolerated well Rehab tomorrow AFVSS, [place], up in chair, daughters at the bedside RRR, CTAB no change in edema lower extremities Laboratory Tests 01/30/17 05:50 Assessment: Right hip fracture POD # 2 uncomplicated Chronic diarrhea C. diff negative started on Lactinex and Questran needs colonoscopy as outpt since daughters requested that to be done Hypokalemia replaced at 3.9 Chronic edema Hyponatremia Plan: Lactinex empirically Rehab tomorrow Continue yogurt for active cultures Questran TID scheduled PT/OT DVT Px ROBERT RING DO Jan 30, 2017 09:18
[2017-01-30] MEDS: ASPIRIN E.C. 325 MG (ECOTRIN) TABLET PO SCH (09:31)
[2017-01-30] MEDS: ENOXAPARIN 40 MG/0.4 ML (LOVENOX) SYR SC SCH (09:31)
--- NOTE | 2017-01-30 10:09 | Occupational Ther Daily Note ---
OT Current Status-Daily Note Subjective Pt. up eating breakfast. Does not report pain. Appearance Pt. up in chair, alert, and daughters in room. Pt. is INUPIAT. Mental Status/Objective Patient Orientation: Person Functional [place] Measure 0=Not Assessed/NA 4=Minimal Assistance 1=Total Assistance 5=Supervision or Setup 2=Maximal Assistance 6=Modified [place] 3=Moderate Assistance 7=Complete [place] Attachments: IV, Oxygen ADL-Treatment Eating (FIM): 6 (Pt. is eating breakfast. Has no difficulty feeding self, opening containers.) Other Treatment Daughters in room, and have questions about pt's care. They were concerned that pt. did not walk yesterday. OT pulled up PT's notes. Explained the amount of assist that pt. needs, as well as the projection of mobility after a surgery like she had. They verbalized understanding. Pt. is supposed to go to rehab this week. Spoke with social work faculty member who states pt. is coming to rehab tomorrow. Spoke with pt. and family in depth regarding rehab goals, and plans. Explained the need for 3 hours of therapy to increase independence, how all therapies will work, and issued/educated pt. on adaptive equipment for LE dressing and bathing. Pt. nods that she understands, but still eating breakfast. Daughters verbalize understanding. Daughter does ask this OT if inpt. rehab will address pt's hearing, as she feels that this is a safety risk. Let her know that we do not fit pt's with hearing aides, and that this will need to be done after hospitalization. Educated pt. and family on life alert necklace, and safety at home. Due to time constraints, and pt. eating breakfast , this OT will come back this afternoon to practice using equipment and to provide bath to pt. Education OT Patient Education: Correct positioning, Modified ADL techniques, Progress toward Goal/Update tx plan, Purpose of tx/functional activities, Reviewed precautions, Rehab process, Transfer techniques, Use of adapted equipment Teaching Recipient: Patient Teaching Methods: Demonstration, Discussion Response to Teaching: Verbalize Understanding, Return Demonstration OT Short Term Goals Short Term Goals Time Frame: Feb 05, 2017 Eating(FIM): 6 Grooming(FIM): 5 Bathing(FIM): 4 Upper Body Dressing(FIM): 5 Lower Body Dressing(FIM): 4 Toileting(FIM): 5 Transfers (B,C,W/C) (FIM): 4 Toilet/Commode Transfer(FIM): 4 Shower Transfer(FIM): 4 Additional Short Term Goals: 1-Demonstrate ADL Tasks, 2-Verbalize Understanding , 3-ImproveStrength/[place] 1=Demonstrate adherence to instructed precautions during ADL tasks. 2=Patient will verbalize/demonstrate understanding of assistive devices/ modifications for ADL. 3=Patient will improve strength/tolerance for activity to enable patient to perform ADL's. OT Crop Pest Control Specialist Goals Senior Living Goals Time Frame: Feb 19, 2017 Eating (FIM): 6 Grooming(FIM): 6 Bathing(FIM): 5 Upper Body Dressing(FIM): 5 Lower Body Dressing(FIM): 5 Toileting(FIM): 6 Transfers (B,C,W/C) (FIM): 5 Toilet/Commode Transfer(FIM): 6 Shower Transfer(FIM): 5 Additional Goals: 1-Demonstrate ADL Tasks, 2-Verbalize Understanding, 3- ImproveStrength/[place] 1=Demonstrate adherence to instructed precautions during ADL tasks. 2=Patient will verbalize/demonstrate understanding of assistive devices/ modifications for ADL. 3=Patient will improve strength/tolerance for activity to enable patient to perform ADL's. OT Education/Plan Problem List/Assessment Assessment: Decreased Activ Tolerance, Dependent Transfers, Impaired Bed Mobility, Impaired Funct Balance, Impaired I ADL's, Impaired Self-Care Skills, Restricted Funct UE ROM Discharge Recommendations Plan/Recommendations: Continue POC Therapy D/C Recommendations: Acute Rehab Treatment Plan/Plan of Care Treatment,Training & Education: Yes Patient would benefit from OT for education, treatment and training to promote independence in ADL's, mobility, safety and/or upper extremity function for ADL' s. Plan of Care: ADL Retraining, Caregiver Training, Functional Mobility, UE Funct Exercise/Act Treatment Duration: Feb 19, 2017 Visits Per Week: 5 Rehab Potential: Good Time/GCodes Start Time: 08:25 Stop Time: 09:00 Total Time Billed (hr/min): 30 Billed Treatment Time [id number] 1, visit x 15minutes [id number] 1, visit x 15minutes HOA HINOJOSA OT Jan 30, 2017 10:08
--- NOTE | 2017-01-30 10:48 | Physical Therapy Daily Note ---
PT Daily Note-Current Subjective Patient in chair pre tx, agrees to PT, patient states she has no pain at rest. Appearance Patient in hip chair post tx with nurse call, tray, family in the room. Mental Status Patient Orientation: Person, Place, Situation Transfers Functional [employer] Measure 0=Not Assessed/NA 4=Minimal Assistance 1=Total Assistance 5=Supervision or Setup 2=Maximal Assistance 6=Modified [employer] 3=Moderate Assistance 7=Complete IndependenceIRFPAI Quality Coding Scale 6 Independent with activity with or without an assistive device 5 Patient requires set up or clean up by helper. Patient completes activity by themselves 4 Supervision or touching assist (CGA). [place] provide cues , steadying assist 3 The helper provides less than half the effort to complete the activity 2 The helper provides more than half the effort to complete the activity 1 Dependent. The helper does all the effort to complete an activity 7 Patient refused to complete or attempt activity 9 The patient did not perform the activity before the current illness or injury 88 Not attempted due to Medical conditions or safety concerns Transfers (B, C, W/C) (FIM): 4 Sit to/from Stand: 4 min assist for sit to stand Gait Training Gait (FIM): 1 Distance: 15' Gait Level of Assist: 4 Gait Persons Needed: 1 Gait Assistive Device: FWW Patient ambulated 15' with CGA using a rolling walker. She ambulated to her door and back to her chair. Slow, antalgic ambulation, she keeps her right leg well out in front and performed a step-to gait. Exercises Seated Therapy Exercises: Ankle pumps, Long arc quads, Hip flexion Seated Reps: 10 Treatments transfers, ambulation, functional strengthening Assessment Current Status: Fair Progress improved endurance and ambulation, patient coming to rehab tomorrow PT Short Term Goals Short Term Goals Transfers (B,C,W/C) (FIM): [address] Department Goals [facility] Goals PT Dispatcher Street Department Goals Time Frame: Feb 05, 2017 Transfers (B,C,W/C) (FIM): 4 Gait (FIM): 2 Distance: 50' Gait Level of Assist: 4 Gait Assistive Device: FWW PT Plan Problem List Problem List: Activity Tolerance, Functional Strength, Safety, Balance, Gait, Transfer, Bed Mobility, ROM Treatment/Plan Treatment Plan: Continue Plan of Care Treatment Plan: Bed Mobility, Education, Functional Activity [place], Functional Strength, Gait, Safety, Therapeutic Exercise, Transfers Treatment Duration: Feb 05, 2017 Visits Per Week: 10-11 Minutes/Day (M-F): 15-30 Minutes/Day (Sat/[place]): 15-30 Safety Risks/Education Patient Education: Gait Training, Transfer Techniques, Correct Positioning, Safety Issues Teaching Recipient: Patient Teaching Methods: Demonstration, Discussion Response to Teaching: Reinforcement Needed Time/GCodes Time In: 1030 Time Out: 1045 Total Billed Treatment Time: 15 Total Billed Treatment 1 visit GT 15' CHICHO OSBORN PT Jan 30, 2017 10:48
[2017-01-30 12:00] VITALS: BP 114/53
--- NOTE | 2017-01-30 13:45 | Occupational Ther Daily Note ---
OT Current Status-Daily Note Subjective Pt. on phone ordering food when OT entered room. States, "nevermind, the therapist lady is here." Hangs up phone. States that she is hungry but will eat when we are done. Pt. states, "no one gives you time to eat around here." OT reminded that pt that pt., and family set up time for OT to come and assist pt. with bathing task at this time. Appearance Pt. had agreed to bathe this afternoon with OT to work on using the adaptive equipment that OT educated her on this morning. Pt. states, "oh well I have already done that." Street clothing not available and so pt. and OT practiced doffing/donning socks with AE. Mental Status/Objective Patient Orientation: Unable to Assess Functional [place] Measure 0=Not Assessed/NA 4=Minimal Assistance 1=Total Assistance 5=Supervision or Setup 2=Maximal Assistance 6=Modified [place] 3=Moderate Assistance 7=Complete [place] Attachments: IV ADL-Treatment Lower Body Dressing (FIM): 3 (Max cues and mod assist needed to practice doffing/donning socks using sock aide and dressing stick/manual arts teacher.) Other Treatment Pt. did demonstrate some memory deficits this session, as she did not remember when OT was coming in or that a bath was going to be practiced. Unsure if this is due to hearing deficit, or if pt. just did not remember. Education OT Patient Education: Modified ADL techniques, Progress toward Goal/Update tx plan, Purpose of tx/functional activities, Reviewed precautions, Rehab process, Transfer techniques, Use of adapted equipment Teaching Recipient: Patient Teaching Methods: Demonstration, Discussion Response to Teaching: Verbalize Understanding, Return Demonstration OT Short Term Goals Short Term Goals Time Frame: Feb 05, 2017 Eating(FIM): 6 Grooming(FIM): 5 Bathing(FIM): 4 Upper Body Dressing(FIM): 5 Lower Body Dressing(FIM): 4 Toileting(FIM): 5 Transfers (B,C,W/C) (FIM): 4 Toilet/Commode Transfer(FIM): 4 Shower Transfer(FIM): 4 Additional Short Term Goals: 1-Demonstrate ADL Tasks, 2-Verbalize Understanding , 3-ImproveStrength/Stewart 1=Demonstrate adherence to instructed precautions during ADL tasks. 2=Patient will verbalize/demonstrate understanding of assistive devices/ modifications for ADL. 3=Patient will improve strength/tolerance for activity to enable patient to perform ADL's. OT Mcc Goals [employer] Field Technician Goals Time Frame: Feb 19, 2017 Eating (FIM): 6 Grooming(FIM): 6 Bathing(FIM): 5 Upper Body Dressing(FIM): 5 Lower Body Dressing(FIM): 5 Toileting(FIM): 6 Transfers (B,C,W/C) (FIM): 5 Toilet/Commode Transfer(FIM): 6 Shower Transfer(FIM): 5 Additional Goals: 1-Demonstrate ADL Tasks, 2-Verbalize Understanding, 3- ImproveStrength/Stewart 1=Demonstrate adherence to instructed precautions during ADL tasks. 2=Patient will verbalize/demonstrate understanding of assistive devices/ modifications for ADL. 3=Patient will improve strength/tolerance for activity to enable patient to perform ADL's. OT Education/Plan Problem List/Assessment Assessment: Decreased Activ Tolerance, Decreased UE Strength, Dependent Transfers, Impaired Bed Mobility, Impaired I ADL's, Impaired Self-Care Skills, Restricted Funct UE ROM Discharge Recommendations Plan/Recommendations: Continue POC Therapy D/C Recommendations: Acute Rehab Equpiment Recommendations-D/C: Hip Kit Barriers to Progress [place], possible cognitive deficits. Target Placement Acute rehab and then home with family support. Treatment Plan/Plan of Care Treatment,Training & Education: Yes Patient would benefit from OT for education, treatment and training to promote independence in ADL's, mobility, safety and/or upper extremity function for ADL' s. Plan of Care: ADL Retraining, Caregiver Training, Functional Mobility, UE Funct Exercise/Act Treatment Duration: Feb 19, 2017 Frequency: At least 5-7 days/Wk (IRF) Estimated Hrs Per Day: .5 hour per day Rehab Potential: Good Time/GCodes Start Time: 12:40 Stop Time: 12:55 Total Time Billed (hr/min): 15 Billed Treatment Time 1, ADL HOA HINOJOSA OT Jan 30, 2017 13:45
[2017-01-30] MEDS: CHOLESTYRAMINE 4 GM (QUESTRAN LITE, PREVALITE) PKT PO SCH ×2 (14:03→20:10)
--- NOTE | 2017-01-30 15:11 | Physical Therapy Daily Note ---
PT Daily Note-Current Subjective Patient is on commode and agrees to PT. Pain Numeric Pain Scale: 8 Location: Right Location Body Site: Hip Pain Description: Acute Appearance bilateral LE 3+ edema Mental Status Patient Orientation: Normal For Age Attachments: Elaine Catheter Transfers Functional [place] Measure 0=Not Assessed/NA 4=Minimal Assistance 1=Total Assistance 5=Supervision or Setup 2=Maximal Assistance 6=Modified [place] 3=Moderate Assistance 7=Complete IndependenceIRFPAI Quality Coding Scale 6 Independent with activity with or without an assistive device 5 Patient requires set up or clean up by helper. Patient completes activity by themselves 4 Supervision or touching assist (CGA). [place] provide cues , steadying assist 3 The helper provides less than half the effort to complete the activity 2 The helper provides more than half the effort to complete the activity 1 Dependent. The helper does all the effort to complete an activity 7 Patient refused to complete or attempt activity 9 The patient did not perform the activity before the current illness or injury 88 Not attempted due to Medical conditions or safety concerns Transfers (B, C, W/C) (FIM): 4 Scootin Rollin Supine to/from Sit: 4 Sit to/from Stand: 4 assist with right LE with bed mobility Weight Bearing Weight Bearing Restriction: Weight Bearing/Tolerated Location Restriction: R LE Gait Training Gait (FIM): 2 Distance (FIM): 4=844-97 ft Distance: 100' Gait Level of Assist: 4 Gait Persons Needed: 1 Gait Assistive Device: FWW slow, antalgic, step to gait sequence Exercises Supine Ex: Ankle pumps, Quad Set, Heel Slides Supine Reps: 10 Assessment Patient appears very timid and apprehensive with all movement. PT reassured patient and family that ambulation and exercise will help facilitate strengthening for patient to return to home safely. PT Short Term Goals Short Term Goals Transfers (B,C,W/C) (FIM): 4 PT Halfway Goals Electrolysist Goals PT Electrolysist Goals Time Frame: Feb 05, 2017 Transfers (B,C,W/C) (FIM): 4 Gait (FIM): 2 Distance: 50' Gait Level of Assist: 4 Gait Assistive Device: FWW PT Plan Treatment/Plan Treatment Plan: Continue Plan of Care Treatment Plan: Bed Mobility, Education, Functional Activity [place], Functional Strength, Gait, Safety, Therapeutic Exercise, Transfers Treatment Duration: Feb 05, 2017 Frequency: 6 times per week Estimated Hrs Per Day: 1 hour per day (PRN) Patient and/or Family Agrees t: Yes Time/GCodes Time In: 1440 Time Out: 1505 Total Billed Treatment Time: 25 Total Billed Treatment 1 visit EX 10 min GT 15 min THANG CONRAD PT Jan 30, 2017 15:11
[2017-01-30 16:19] VITALS: BP 107/51
[2017-01-30 20:00] VITALS: BP 108/53
[2017-01-31 00:20] VITALS: BP 111/53
[2017-01-31] MEDS: LACTOBACILLUS Acidoph/Bulgar (LACTINEX/FLORANEX) TAB PO SCH (05:13)
[2017-01-31] MEDS: KCL 20 MEQ TAB (K-DUR) PO SCH (05:13)
[2017-01-31 05:33] LABS: BASOPHILS % (AUTO) 0 % (0-10); EOSINOPHILS # (AUTO) 0.1 10^3/uL (0.0-0.3); EOSINOPHILS % (AUTO) 2 % (0-10); LYMPHOCYTES # (AUTO) 0.8 X 10^3 (1.0-4.0); LYMPHOCYTES % (AUTO) 12 % (12-44); MEAN CORPUSCULAR HEMOGLOBIN 30 PG (25-34); MEAN CORPUSCULAR HGB CONC 34 G/DL (32-36); MEAN CORPUSCULAR VOLUME 90 FL (80-99); MEAN PLATELET VOLUME 8.7 FL (7.4-10.4); MONOCYTES # (AUTO) 0.9 X 10^3 (0.0-1.0); MONOCYTES % (AUTO) 13 % (0-12); NEUTROPHILS # (AUTO) 4.8 X 10^3 (1.8-7.8); NEUTROPHILS % (AUTO) 73 % (42-75); PLATELET COUNT 278 10^3/uL (130-400); RED BLOOD COUNT 3.12 10^6/uL (4.35-5.85); RED CELL DISTRIBUTION WIDTH 13.9 % (10.0-14.5); WHITE BLOOD COUNT 6.6 10^3/uL (4.3-11.0)
[2017-01-31 06:07] LABS: ALANINE AMINOTRANSFERASE 10 U/L (0-55); ALBUMIN 1.7 GM/DL (3.2-4.5); ANION GAP 4 MMOL/L (5-14); ASPARTATE AMINO TRANSFERASE 20 U/L (5-34); BILIRUBIN,TOTAL 0.4 MG/DL (0.1-1.0); BLOOD UREA NITROGEN 17 MG/DL (7-18); BUN/CREATININE RATIO 20; CALCIUM 7.9 MG/DL (8.5-10.1); CARBON DIOXIDE 21 MMOL/L (21-32); CHLORIDE 109 MMOL/L (98-107); CREATININE SERUM 0.85 MG/DL (0.60-1.30); GFR ESTIMATED > 60; GLUCOSE 105 MG/DL (70-105); POTASSIUM 4.4 MMOL/L (3.6-5.0); SODIUM 134 MMOL/L (135-145); TOTAL PROTEIN 4.3 GM/DL (6.4-8.2)
[2017-01-31 08:00] VITALS: BP 109/55
--- NOTE | 2017-01-31 08:52 | Discharge Inst-Surgical ---
Discharge Inst-Surgical Depart Medication/Instructions Patient Instructions WBAT on RLE using walker for assistance daily PT/OT when in rehab If discharged from rehab to home, arrange [facility] physical therapy 3x/week x 3 weeks f/u with Dr. Christine in 2 1/2 weeks remove eleanor 10 days post op then apply steri strips daily island dressing changes until eleanor are removed Continue ASA for DVT prophylaxis Tramadol and norco as needed for pain Continue hip precautions labs per rehab or Dr. Metcalf's recommendations Final Diagnosis: traumatic displaced right femoral neck fracture Consults/Follow Up Goal/Follow Up Appt.: f/u 2 1/[address] Christine Patient Instructions: see above Activity Activity as Tolerated: No WBAT with walker and staff assist Walking Assistive Device: Walker Elevate Extremity: Elevate as Instructed Incentive Spirometry: Every 2 Hours While Awake Diet Discharge Diet: No Restrictions Return to The Hospital For: concerns Symptoms to Report to Physicia: Extremity Discoloration, Numbness/Tingling, Swelling Increased, Fever Over 101 Degrees F If Any Problems/Questions/Issu: Contact Your Physician Skin/Wound Care Infection Signs and Symptoms: Increased Redness, Foul Odor of Wound, Increased Drainage, Temperature Above 101 F Bathing Instructions: Shower Operative Area Clean and Dry: You May Remove Bandage Stitches/[place]/Dermabond Dis: Care of [place] Ice Pack: Ice On and Off Site CORNELL BEST APRN Jan 31, 2017 08:52
[2017-01-31] MEDS ORDERED: BISA10SU12 PR (09:14)
[2017-01-31] MEDS ORDERED: CHOL4PAC3 PO (09:14)
[2017-01-31] MEDS ORDERED: ENOX40DI8 SC (09:14)
[2017-01-31] MEDS ORDERED: TRAM50TA2 PO (09:14)
[2017-01-31] MEDS ORDERED: POTA20TA8 PO (09:14)
[2017-01-31] MEDS ORDERED: ACID1TAB PO (09:14)
[2017-01-31] MEDS: ENOXAPARIN 40 MG/0.4 ML (LOVENOX) SYR SC SCH (10:01)
[2017-01-31] MEDS: CHOLESTYRAMINE 4 GM (QUESTRAN LITE, PREVALITE) PKT PO SCH (10:01)
[2017-01-31] MEDS: SENNA W/DOCUSATE (SENOKOT S) TABLET PO SCH (10:02)
[2017-01-31] MEDS: ASPIRIN E.C. 325 MG (ECOTRIN) TABLET PO SCH (10:02)
[2017-01-31] MEDS ORDERED: PATIENT MAY USE OWN MED,SINGLE MED PO SCH (10:15)
[2017-01-31 10:31] VITALS: BP 109/55
--- NOTE | 2017-01-31 10:55 | Discharge Summary-Hospitalist ---
Diagnosis/Chief Complaint Date of Admission Jan 28, 2017 at 16:25 Date of Discharge Jan 31, 2017 at 10:38 Discharge Date: Jan 31, 2017 Discharge Time: 1200 Admission Diagnosis Assessment: Right hip fracture POD # 1 uncomplicated Chronic diarrhea C. diff negative started on Lactinex and Questran Hypokalemia Chronic edema Discharge Diagnosis Assessment: Right hip fracture POD # 2 uncomplicated Chronic diarrhea C. diff negative started on Lactinex and Questran Hypokalemia Chronic edema Pt doing well. Diarrhea continues so will maintain the Questran to TID scheduled and consult Dr Farley today for endo in future Pain is controlled Edema still persists since this is chronic and has not seen a doctor for years and likely due to low albumin Ultram tolerated well Rehab AFVSS, Lew, up in chair, daughters at the bedside RRR, CTAB no change in edema lower extremities Laboratory Tests 01/31/17 05:13 Assessment: Right hip fracture POD # 2 uncomplicated Chronic diarrhea C. diff negative started on Lactinex and Questran needs colonoscopy as outpt since daughters requested that to be done consulting Dr Farley Hypokalemia replaced at 3.9 Chronic edema Hyponatremia Protein malnutrition Plan: Lactinex empirically Rehab tomorrow Continue yogurt for active cultures Questran TID scheduled PT/OT DVT Px Dr Farley consultation Reason Hospital Visit/Course CC: Medical management following hip fracture HPI: This is a 81 [address] JEWELS Smith presented after fall at home. She sustained a right hip fracture that was repaired in an uncomplicated manner by Dr. 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 Pt has recently been on Cipro Stool sample was collected. K+ low, 20 K+ was added to IV and 20 PO as well Pt is hesitant to take pain meds, like hydros. Pt states that Tylenol does not generally help SW Review: Pt and her daughters are very nervous in the medical scenario currently Rehab meets qualification for diagnosis, but if not community nursing center Pt taking Flagyl from [place] in ED for negative stool w/u Patient Interview: Pt's daughters state that pt does not see Dr. Smith, but is considering seeing her as a PCP. Pt lives at home alone Pt was talking about her ankle brace with PT upon interview Pt confirms Dr. Smith as PCP, but has not seen him yet. Pt states that she was experiencing constipation, then diarrhea. Pt's daughters state that she had a UTI previously Physical exam stable. Lungs sound perfect. Pt states that she does not like yogurt but will eat it. In pt rehab was discussed Pt's daughters asked the difference between Culturell or yogurt. They were informed that they are similar I informed her that I will see her tomorrow, and she seemed pleased with this. Scribed by Savannah Li under the direct supervision of Dr. Ring. Notes from 01/31/17 PT Review: Pt's edema is concerning Patient Interview: Pt states that she has been eating very fibrous foods. Pt was informed that she can eat all kinds of food. Physical exam. Lungs sound perfect Pt was informed that she will be moved to in-pt rehab. Pt is worried she may not be able to do much because of her frequent BMs. Pt wonders if her symptoms are due to nervousness and anxiety. This is entirely possible. Pt asked if she can use OTC Claritin for her allergies. Pt has brought some from home. I informed pt that I will put an order in for her to restart this. Pt's daughter is concerned about her cramping, but I assured her that this is to be expected. Pt's other daughter was concerned about the swelling in her leg. This is not concerning at this time. AFVSS, [place], improved, chronically ill RRR, CTAB 1+ pitting edema Plan: Restart home Claritin Ambulate Move to in-pt rehab Scribed by Savannah Li under the direct supervision of Dr. Ring. Hospital course: Patient had an uneventful hospital course following a hip fracture with uncomplicated repair. Low albumin continued the lower extremity edema and diarrhea that was C. difficile negative was responding slightly to Questran and Imodium but overall Dr. Farley will be consulted for endoscopy ultimately as an outpatient but she did tolerate Ultram pain medication well and was able to be strong enough to go to rehabilitation on 01/31/17. Overall prognosis guarded due to poor reserve and advanced age. Discharge Summary Discharge Physical Examination Allergies: Coded Allergies: nystatin (Verified Allergy, Mild, HIVES, 01/29/17) amoxicillin (Unverified Allergy, Unknown, 05/12/14) chlorhexidine (Verified Allergy, Unknown, HIVES, 01/29/17) clindamycin (Unverified Allergy, Unknown, 05/12/14) sulfamethoxazole (Unverified Allergy, Unknown, 05/12/14) trimethoprim (Unverified Allergy, Unknown, 05/12/14) Vitals & I&Os Vital Signs Date Time Temp Pulse Resp B/P (MAP) Pulse Ox O2 Delivery O2 Flow Rate FiO2 01/31/17 10:31 82 22 109/55 96 Room Air 01/31/17 08:00 98.5 01/30/17 15:22 2.00 Hospital Course Labs (last 24 hrs) Laboratory Tests 01/31/17 05:13: White Blood Count 6.6, Red Blood Count 3.12L, Hemoglobin 9.5L, Hematocrit 28L, Mean Corpuscular Volume 90, Mean Corpuscular Hemoglobin 30, Mean Corpuscular Hemoglobin Concent 34, Red Cell Distribution Width 13.9, Platelet Count 278, Mean Platelet Volume 8.7, Neutrophils (%) (Auto) 73, Lymphocytes (%) (Auto) 12, Monocytes (%) (Auto) 13H, Eosinophils (%) (Auto) 2, Basophils (%) (Auto) 0, Neutrophils # (Auto) 4.8, Lymphocytes # (Auto) 0.8L, Monocytes # (Auto) 0.9, Eosinophils # (Auto) 0.1, Basophils # (Auto) 0.0, Sodium Level 134L, Potassium Level 4.4, Chloride Level 109H, Carbon Dioxide Level 21, Anion Gap 4L, Blood Urea Nitrogen 17, Creatinine 0.85, Estimat Glomerular Filtration Rate > 60, BUN/ Creatinine Ratio 20, Glucose Level 105, Calcium Level 7.9L, Total Bilirubin 0.4 , Aspartate Amino Transf (AST/SGOT) 20, Alanine Aminotransferase (ALT/SGPT) 10, Alkaline Phosphatase 73, Total Protein 4.3L, Albumin 1.7L Microbiology 01/29/17 C. difficile GDH Antigen & Toxins - Final, Complete 01/28/17 MRSA Screen - Final, Complete MRSA not isolated Pending Labs Laboratory Tests 01/31/17 05:13: White Blood Count 6.6, Red Blood Count 3.12, Hemoglobin 9.5, Hematocrit 28, Mean Corpuscular Volume 90, Mean Corpuscular Hemoglobin 30, Mean Corpuscular Hemoglobin Concent 34, Red Cell Distribution Width 13.9, Platelet Count 278, Mean Platelet Volume 8.7, Neutrophils (%) (Auto) 73, Lymphocytes (%) (Auto) 12, Monocytes (%) (Auto) 13, Eosinophils (%) (Auto) 2, Basophils (%) (Auto) 0, Neutrophils # (Auto) 4.8, Lymphocytes # (Auto) 0.8, Monocytes # (Auto) 0.9, Eosinophils # (Auto) 0.1, Basophils # (Auto) 0.0, Sodium Level 134, Potassium Level 4.4, Chloride Level 109, Carbon Dioxide Level 21, Anion Gap 4, Blood Urea Nitrogen 17, Creatinine 0.85, Estimat Glomerular Filtration Rate > 60, BUN/ Creatinine Ratio 20, Glucose Level 105, Calcium Level 7.9, Total Bilirubin 0.4, Aspartate Amino Transf (AST/SGOT) 20, Alanine Aminotransferase (ALT/SGPT) 10, Alkaline Phosphatase 73, Total Protein 4.3, Albumin 1.7 Discharge Home Medications: Active Scripts Active Floranex Tablet (L. Acidophilus/Bulgaricus) 1 Each Tablet 1 Tab.chew PO AC 30 Days Bisac-Evac (Bisacodyl) 10 Mg Supp.rect 10 Mg HI DAILY PRN 30 Days Klor-Con M20 (Potassium Chloride) 20 Meq Tab.er.prt 20 Meq PO DAILY@0700 30 Days Tramadol HCl 50 Mg Tablet 50-100 Mg PO Q6H PRN 30 Days Prevalite Packet (Cholestyramine/Aspartame) 4 Gm Powd.pack 4 Gm PO TID 30 Days Enoxaparin Sodium 40 Mg/0.4 Ml Syringe 40 Mg SC DAILY 30 Days Reported Aspirin EC (Aspirin) 325 Mg Tablet.dr 325 Mg PO DAILY PRN Claritin (Loratadine) 10 Mg Tablet 10 Mg PO DAILY PRN Instructions to patient/family Please see electonic discharge instructions given to patient. Clinical Quality Measures DVT/VTE Risk/Contraindication: Risk Factor Score Per Nursin RFS Level Per Nursing on Admit: 4+=Very High ROBERT RING DO Jan 31, 2017 10:55
[2017-02-01] MEDS ORDERED: LORATADINE (CLARITIN) 10 MG TAB PO SCH (09:00)
== END 2017-01-31 10:38 | DRG 470 ==
LOC: EDUNIT# 13:20 → ER 13:30 → 4TH 16:25 → ENPENDDIS 01-31 12:00
PROVIDERS: ADMIT Orthopaedic Surgery; ATTEND Orthopaedic Surgery
PROC: 0LQJ0ZZ Repair Right Hip Tendon, Open Approach (ICD-10-PCS; 2017-01-28)
PROC: 0SRR01A Replacement of Right Hip Joint, Femoral Surface with Metal Synthetic Substitute, Uncemented, Open Approach (ICD-10-PCS; principal; 2017-01-28 19:33)
DX: S72.011A Unspecified intracapsular fracture of right femur, initial encounter for closed fracture (principal); S76.011A Strain of muscle, fascia and tendon of right hip, initial encounter; E46 Unspecified protein-calorie malnutrition; E87.1 Hypo-osmolality and hyponatremia; E87.6 Hypokalemia; K52.9 Noninfective gastroenteritis and colitis, unspecified; M25.561 Pain in right knee; M54.2 Cervicalgia; R60.0 Localized edema; M25.571 Pain in right ankle and joints of right foot; W18.30XA Fall on same level, unspecified, initial encounter; Y92.099 Unspecified place in other non-institutional residence as the place of occurrence of the external cause
CPT/HCPCS: 36415; 51702; 72170; 72192; 73502; 73562; 73610; 80048; 80053; 81000; 85007; 85025; 85027; 85610; 85730; 86850; 86900; 86901; 87081; 87324; 87449; 93005; 94664; 96361; 96374

== ENCOUNTER 2017-01-31 07:58 | Inpatient (IN) | payer MEDICARE ==
[~2017-01-31] VITALS: Ht 160 cm; Wt 63.5 kg
[~2017-01-31 07:58] MED LIST changes: +ASPI325T32 PO; +LACT1CAP40 PO; +LORA10TA76 PO; +METR500T21 PO
[2017-01-31] MEDS ORDERED: ACID1TAB PO (09:14)
[2017-01-31] MEDS ORDERED: TRAM50TA2 PO (09:14)
[2017-01-31] MEDS ORDERED: POTA20TA8 PO (09:14)
[2017-01-31] MEDS ORDERED: BISA10SU12 PR (09:14)
[2017-01-31] MEDS ORDERED: CHOL4PAC3 PO (09:14)
[2017-01-31] MEDS ORDERED: ENOX40DI8 SC (09:14)
[2017-01-31 10:30] VITALS: BP 107/52
--- NOTE | 2017-01-31 11:49 | Occupational Therapy Eval ---
OT Evaluation-General/PLF Medical Diagnosis Admission Date Jan 31, 2017 at 10:39 Medical Diagnosis: right EFRAIN Onset Date: Jan 28, 2017 Therapy Diagnosis Therapy Diagnosis: decreased self care skills Height/Weight Height (Feet): 5 Height (Inches): 3.00 Weight (Pounds): 126 Weight (Ounces): 0.0 Weight Bear Status Location Restriction: R LE Medical History Pertinent Medical History: Arthritis Additional Medical History chronic back pain, knee scope, right ankle tendon injury Current History Pt fell at home resulting in right hip fracture. Now s/p right EFRAIN. Reviewed History: Yes Social History Home: Multilevel Current Living Status: Alone Entry Into Home: Stairs With Railing Steps Into Home: 7 ADL-Prior Level of Function ADL PLOF Comments Pt reports being independent with self care and mobility prior to hospitalization. Used cane for mobility outside of the home. Still drives. Pt states daughter vacuums, but she is able to complete other household tasks. Pt states she can cook, but prefers not to; mostly eats prepared meals or eats out. DME/Equipment: Shower Drive Self: Yes OT Current Status Subjective Pt agreeable to therapy this morning. Pt states she has no pain at rest, but has right hip pain with movement-does not rate. Pt states she is concerned about her diarrhea. Mental Status/Objective Patient Orientation: Person, Place, Situation Current Glasses/Contacts: Yes Hearing Aids: No Dentures/Partials: No Hand Dominance: Right Upper Extremity ROM Mildly decreased bilateral shoulder ROM. Upper Extremity Sensation Intact per pt report Upper Extremity Strength Grossly 3+/5 distally ADL-Treatment ADL-Current Pt declined to attempt shower at this time, but agrees to sponge bath. Pt able to bathe bilateral UE, chest, and abdomen. Pt requires assist for all lower body bathing. Don pullover shirt with set up. Pt has hip precautions and is unable to start Depends or pants over feet. Sit to stand with minimal assistance , but pt requires assist to pull pants up over bilateral hips. Total assist required to don socks. Pt requests to use BSC. Sit to stand with minimal assistance and cues to push up from chair. Transfer to BSC with minimal assistance. Pt has some anxiety with mobility, states she is fearful of falling. Pt requires assist for clothing management and thorough hygiene. Transfer back to w/c with minimal assistance. Pt sitting in w/c with PT present after session. Functional [place] Measure 0=Not Assessed/NA 4=Minimal Assistance 1=Total Assistance 5=Supervision or Setup 2=Maximal Assistance 6=Modified [place] 3=Moderate Assistance 7=Complete IndependenceIRFPAI Quality Coding Scale 6 Independent with activity with or without an assistive device 5 Patient requires set up or clean up by helper. Patient completes activity by themselves 4 Supervision or touching assist (CGA). [place] provide cues , steadying assist 3 The helper provides less than half the effort to complete the activity 2 The helper provides more than half the effort to complete the activity 1 Dependent. The helper does all the effort to complete an activity 7 Patient refused to complete or attempt activity 9 The patient did not perform the activity before the current illness or injury 88 Not attempted due to Medical conditions or safety concerns Bathing (FIM): 2 Bathing Location: L Arm, R Arm, Chest, Abdomen Shower/Bathe Self (QC): 2 Upper Body Dressing (FIM): 5 Upper Body Dressing (QC): 5 Lower Body Dressing (FIM): 1 Lower Body Dressing (QC): 1 On/Off Footwear (QC): 1 Toileting (FIM): 1 Toileting Hygiene (QC): 1 Toilet/Commode Transfer (FIM): 4 Toilet Transfer (QC): 3 Education OT Patient Education: Rehab process Teaching Recipient: Patient Teaching Methods: Discussion Response to Teaching: Verbalize Understanding OT Short Term Goals Short Term Goals Time Frame: Feb 07, 2017 Bathing(FIM): 3 Lower Body Dressing(FIM): 3 Toileting(FIM): 3 Shower Transfer(FIM): 4 Additional Short Term Goals: 1-Demonstrate ADL Tasks, 2-Verbalize Understanding , 3-ImproveStrength/[place] 1=Demonstrate adherence to instructed precautions during ADL tasks. 2=Patient will verbalize/demonstrate understanding of assistive devices/ modifications for ADL. 3=Patient will improve strength/tolerance for activity to enable patient to perform ADL's. OT Odd Job Laborer Goals Group Home Goals Time Frame: Feb 21, 2017 Eating (FIM): 6 Eating (QC): 6 Groomin Oral Hygiene (QC): 6 Bathing(FIM): 5 Shower/Bathe Self (QC): 5 Upper Body Dressing(FIM): 5 Upper Body Dressing (QC): 5 Lower Body Dressing(FIM): 5 Lower Body Dressing (QC): 5 On/Off Footwear (QC): 5 Toileting(FIM): 6 Toileting Hygiene (QC): 6 Toilet/Commode Transfer(FIM): 6 Toilet/Commode Transfer (QC): 6 Shower Transfer(FIM): 5 Additional Goals: 1-Demonstrate ADL Tasks, 2-Verbalize Understanding, 3- ImproveStrength/[place] 1=Demonstrate adherence to instructed precautions during ADL tasks. 2=Patient will verbalize/demonstrate understanding of assistive devices/ modifications for ADL. 3=Patient will improve strength/tolerance for activity to enable patient to perform ADL's. OT Education/Plan Problem List/Assessment Assessment: Decreased Activ Tolerance, Decreased UE Strength, Dependent Transfers, Impaired Funct Balance, Impaired Self-Care Skills Pt admitted to ARU after fall with right hip fracture, now s/p right EFRAIN. Pt demonstrates decreased ADL functioning, mobility, strength, and activity tolerance. Pt to benefit from skilled OT intervention for ADL training, transfers, strengthening, adaptive equipment training, and home safety education to maximize level of function and allow safe discharge plan. Discharge Recommendations Plan/Recommendations: Continue POC Treatment Plan/Plan of Care Treatment,Training & Education: Yes Patient would benefit from OT for education, treatment and training to promote independence in ADL's, mobility, safety and/or upper extremity function for ADL' s. Plan of Care: ADL Retraining, Functional Mobility, Group Exercise/Act as Ind, UE Funct Exercise/Act Treatment Duration: Feb 21, 2017 Frequency: At least 5-7 days/Wk (IRF) Estimated Hrs Per Day: 1.5 hours per day Agreement: Yes Rehab Potential: Fair Time/GCodes Start Time: 10:30 Stop Time: 11:20 Total Time Billed (hr/min): 50 Billed Treatment Time 1 visit, EVL(15minutes), ADLx2(35minutes) YARED GOLDEN OT Jan 31, 2017 11:49
--- NOTE | 2017-01-31 11:58 | Physical Therapy Evaluation ---
PT Evaluation-General Medical Diagnosis Admission Date Jan 31, 2017 at 10:39 Medical Diagnosis: right EFRAIN Onset Date: Jan 28, 2017 Therapy Diagnosis Therapy Diagnosis: impaired mobility, strength, endurance Height/Weight Height (Feet): 5 Height (Inches): 3.00 Weight (Pounds): 126 Weight (Ounces): 0.0 Weight Bear Status Weight Bearing Restriction: Weight Bearing/Tolerated Location Restriction: R LE Referral Physician: Juan Reason for Referral: Evaluation/Treatment Medical History Pertinent Medical History: Arthritis Additional Medical History chronic edema/swelling, anal fissure, hemorrhoids, chronic diarrhea, chronic neck and back pain, NIGHTMUTE, surg (adenoidectomy, breast) Current History fell at home, came to hospital via EMS, had displaced right femoral neck fx Reviewed History: Yes Social History Home: Multilevel Current Living Status: Alone Entry Into Home: Stairs With Railing PT Steps Into Home: 4 Prior/Core FIM Prior Level of Function Functional [place] Measure 0=Not Assessed/NA 4=Minimal Assistance 1=Total Assistance 5=Supervision or Setup 2=Maximal Assistance 6=Modified [place] 3=Moderate Assistance 7=Complete [place] Bed Mobility: 6 Transfers (B,C,W/C) (FIM): 6 Gait: 6 Patient states she was ambulating using a single point cane PT Evaluation-Current Subjective Patient in wheelchair pre tx, just got through with OT. She states she has no pain at rest but does with activity. Pt/Family Goals to be independent at home Objective Patient Orientation: Person, Place, Situation ROM/Strength ROM Lower Extremities WNL left leg, right leg not tested Strenght Lower Extremities NT due to pain and recent surgery Neuromuscular (Tone, Coordination, Reflexes) WNL Sensory Vision: Functional Hearing: Functional Sensation Right Lower Extremit: Intact Sensation Left Lower Extremity: Intact Transfers Functional [place] Measure 0=Not Assessed/NA 4=Minimal Assistance 1=Total Assistance 5=Supervision or Setup 2=Maximal Assistance 6=Modified [place] 3=Moderate Assistance 7=Complete IndependenceIRFPAI Quality Coding Scale 6 Independent with activity with or without an assistive device 5 Patient requires set up or clean up by helper. Patient completes activity by themselves 4 Supervision or touching assist (CGA). [place] provide cues , steadying assist 3 The helper provides less than half the effort to complete the activity 2 The helper provides more than half the effort to complete the activity 1 Dependent. The helper does all the effort to complete an activity 7 Patient refused to complete or attempt activity 9 The patient did not perform the activity before the current illness or injury 88 Not attempted due to Medical conditions or safety concerns Transfers (B, C, W/C) (FIM): 2 Scootin Rollin Roll Left to Right (QC): 3 Supine to/from Sit: 2 Sit to/from Stand: 4 bed t/f WC(FIM only if WC use): 4 Sit to Lying (QC): 2 Lying to Sitting/Side of Bed(Q: 2 Sit to Stand (QC): 3 Chair/Anl-ix-Xtlrg Xfer(QC): 4 Patient performs bed mobility with min assist except for supine <-> sit which is max assist, she performs sit to stand with min assist and stand pivot transfer with CGA, cues for safety and hand placement Gait Does the Patient Walk?: Yes Mode of Locomotion: Walk Anticipated Mode of Locomotion: Walk Gait (FIM): 2 Walk 10 feet (QC): 4 Walk 50 ft with 2 Turns(QC): 4 Walk 150 ft (QC): 88 Walking 10ft/uneven surface-QC: 4 Distance: 100', 50' Gait Level of Assist: 4 Gait Persons Needed: 1 Gait Assistive Device: FWW Comments/Gait Description Patient can ambulate 100' with a rolling walker with CGA, including 50' with at least 2 turns of 90 degrees and 10' over an uneven surface. She keeps her right leg pretty stiff, knee slightly flexed. Wheelchair Training Does the Pt Use a Wheelchair?: Yes Wheelchair (FIM): 2 Distance: 50' Wheelchair Level of Assist: 5 Wheel 50 ft with 2 turns (QC): 4 Wheel 150 ft (QC): 88 Type of Wheelchair: Manual Stairs Stairs (FIM): 1 #of Steps: 1 Level of Assist: 4 1 Step (curb) (QC): 3 4 Steps (QC): 88 Assistive Device: Walker 12 Steps (QC): 88 Patient can go up and down 1 step using a rolling walker with min assist. Cues for safety and foot placement. Balance Sitting Static: Normal Sitting Dynamic: Normal Standing Static: Fair Standing Dynamic: Fair Assessment/Needs Patient has impaired mobility, strength, endurance post right EFRAIN. Rehab Potential: Fair PT Short Term Goals Short Term Goals Time Frame: Feb 07, 2017 Transfers (B,C,W/C) (FIM): 4 Gait (FIM): 4 Gait Distance Comment: 150' Gait Level of Assist: 4 Gait Assistive Device: FWW PT Mucker Coffer[place] Goals Fci Goals PT Fci Goals Time Frame: Feb 21, 2017 Transfers (B,C,W/C) (FIM): 5 Sit to Lying (QC): 4 Lying-Sitting on Side/Bed(QC): 4 Sit to Stand (QC): 4 Rollin Roll Left to Right (QC): 4 Chair/Sqe-cz-Kwotc Xfer(QC): 4 Gait (FIM): 5 Distance: 200' Walk 10 feet (QC): 4 Walk 10ft-Uneven Surface(QC): 4 Walk 50ft with 2 Turns (QC): 4 Walk 150 ft (QC): 4 Gait Level of Assist: 5 Gait Assistive Device: FWW Stairs (FIM): 2 # of Steps: 4 1 Step (curb) (QC): 4 4 Steps (QC): 4 12 Steps (QC): 88 Stairs Level Of Assist: 4 PT Plan Problem List Problem List: Activity Tolerance, Functional Strength, Safety, Balance, Gait, Transfer, Bed Mobility, ROM Treatment/Plan Treatment Plan: Continue Plan of Care Treatment Plan: Bed Mobility, Education, Functional Activity Stewart, Functional Strength, Group Therapy, Gait, Safety, Therapeutic Exercise, Transfers Treatment Duration: Feb 21, 2017 Frequency: At least 5-7 days/Wk (IRF) Estimated Hrs Per Day: 1.5 hours per day Patient and/or Family Agrees t: Yes Safety Risks/Education Patient Education: Gait Training, Transfer Techniques, Steps, Correct Positioning, W/C Management, Safety Issues Teaching Recipient: Patient Teaching Methods: Demonstration, Discussion Response to Teaching: Reinforcement Needed Discharge Recommendations Plan Patient will perform bed mobility and transfer training, balance and endurance training, functional strengthening, stair training, gait training, and education , to improve functional mobility and independence at home. Therapy D/C Recommendations: Home w/ Family Support Time/GCodes Time In: 1120 Time Out: 1200 Total Billed Treatment Time: 40 Total Billed Treatment 1 visit EVL 15' GT 15' FA 10' CHICHO OSBORN PT Jan 31, 2017 11:58
--- NOTE | 2017-01-31 13:21 | ST Cognitive Linguistic Eval ---
Speech Evaluation-General Medical Diagnosis Right EFRAIN Onset Date: Jan 28, 2017 Therapy Diagnosis Therapy Diagnosis: Cognitive Lingusitic Skills WNL Referral Referring Physician: Dr. Benjamin Martinez Reason for Referral: Evaluation/Treatment Cognitive Evaluation Medical History Pertinent Medical History: Arthritis Reviewed History: Yes Social History Current Living Status: Alone Speech PLF-Current Status Prior Level of Function The patient denied recent challenges with her cognition. The patient does state, "I have a horrible memory. Always have. My use to remember everything for me, even the names of people we met several times." Subjective The patient was recently admitted to [facility] following a right EFRAIN. The patient greeted the clinician appropriately and was agreeable to participation in the cognitive assessment on this date. Language Eval: Auditory Comprehends Simple Yes/No Ques: Functional Indent/Objects Multiple [place]: Functional Ident/Pics in Multiple [place]: Functional Follows 1-Step Commands: Functional Follows Complex Directions: Functional Follows General Conversations: Functional Language Eval: Verbal Language Completes Spontaneous Greeting: Functional Produces Auto, Serial Info: Functional Imitates Simple Words/Phrases: Functional Word Finding: Functional Requests Basic Needs: Functional States Basic Personal Info: Functional Expresses Complex Ideas: Functional Cognitive Patient Orientation The patient is independently oriented to location, city, month, day, date, and year. Objective Cognitive Domain Attention: WNL Memory: WNL Problem Solving: Functional Executive Functions: WNL Objective Impression The patient demonstrated cognitive linguistic skills grossly within normal limits and appropriate for completion of ADL's. Communication/Social Cognition Comprehension: 6 (To note, the patient is hard of sahra. the patient does not have hearing aids but is interested in a hearing evaluation upon discharge.) Expression: 6 Social Interaction: 6 Problem Solvin Memory: 6 Speech Patient Assess Expression of Ideas/Wants: Expression (4) Understanding Vebal Content: Understands (4) Brief Interview-Mental Status: Yes Repetition of Three Words: Three (3) Temporal Orientation: Year: Correct (3) Temporal Orientation: Month: Accurate within 5 days(2) Temporal Orientation: Day: Correct (1) Recall : Wear to say "Sock": Yes, no cue required (2) Recall : Color: Yes, no cue required (2) Recall : Bed: Yes, no cue required (2) Speech-Plan Treatment Plan Speech Therapy Treatment Plan: Discontinue ST Evaluation, only. Frequency: At least 5-7 days/Wk (IRF) (The patient was provided an evaluation, only. Therapy services are not warranted.) Estimated Hrs Per Day: .25 hour per day (The patient was provided an evaluation , only. Therapy services are not warranted. No estimated time will be provided, daily.) Rehab Potential: Fair Safety Risks/Education Teaching Recipient: Patient Teaching Methods: Discussion Response to Teaching: Verbalize Understanding Education Topics Provided: Results, Plan of Care, Recommendations Time Speech Therapy Time In: 12:45 Speech Therapy Time Out: 13:00 Total Billed Time: 15 Billed Treatment Time 1, ED CASTRO Jan 31, 2017 13:21
--- NOTE | 2017-01-31 13:40 | PM&R Post Admission Assessment ---
Post Admission Physician Asses The preadmission screen agrees with the post admission assessment that the patient is a good candidate for inpatient rehabilitation. The patient will have a comprehensive program of inpatient rehabilitation with a goal of maximizing level of functional independence prior to discharge home with [facility]. The patient will have PT/OT ninety minutes per day, each discipline , five days a week for gait, strengthening, conditioning, balance, ADLs, any patient/family/caregiver training as necessary. Speech therapy to do cognitive assessment and treat as indicated. Rehabilitation nursing to assist with bowel, bladder, skin, wound care, medication administration, pain management. Cost Controller to assist with discharge planning, community reentry. SCD's for DVT prophylaxis. She appears to be well motivated to participate in three hours of therapy a day. She should be able to tolerate three hours of therapy a day from a medical and surgical standpoint. She should benefit from the three hours of therapy a day. She has a reasonable discharge plan, reasonable discharge rehabilitation goals and a supportive family. She has various comorbidities that need to be closely monitored with medications and treatments adjusted on a daily basis as needed. These include: Chronic Diarrhea postop anemia Hypokalemia Chronic edema Hyponatremia Barriers to discharge for this patient who had been independent prior to this are for her to be modified independent to supervision for ADLs and mobility skills prior to discharge home with [family], so as to lessen the burden of the caregivers. Risks for this patient include: 1. Fall 2. Fracture 3. DVT 4. Pulmonary embolism 5. Wound infection 6. Skin breakdown 7. Contractures 8. Poorly controlled pain 9. Urinary retention 10. UTI 11. Respiratory infection 12. Aspiration 13. recuurent diarrhea with incontinence 14. Electrolyte abnormality 15. Worsening anemia Estimated Length of Stay: 14 days Prognosis: Rehab prognosis appears good for goal of discharge home with family and [facility] modified independent to supervision for ADLs and mobility skills. DEB LOMBARDO MD Jan 31, 2017 13:40
[2017-01-31] MEDS: CHOLESTYRAMINE 4 GM (QUESTRAN LITE, PREVALITE) PKT PO SCH ×2 (14:15→20:34)
--- NOTE | 2017-01-31 14:34 | Therapy Group Daily Note ---
Therapy Daily Group Note Exercises Other Other/Notes Pt was an active participant in OT/PT group. She introduced herself to the group for socialization and did seated exercises for stress management. She played LendingStandard with a group and was able to roll the dice, add up points, and problem-solve what moves to make next. She also was able to participate for the entire group time. She was returned to her room for additional therapy. Start Time: 13:00 Stop Time: 14:15 Total Billed Treatment Time: 75 Total Billed Treatment visit, 75 minutes group GERMAIN GARCIA OT Jan 31, 2017 14:34
--- NOTE | 2017-01-31 14:39 | Occupational Ther Daily Note ---
OT Current Status-Daily Note Subjective Pt agreeable to treatment. Mental Status/Objective Functional [place] Measure 0=Not Assessed/NA 4=Minimal Assistance 1=Total Assistance 5=Supervision or Setup 2=Maximal Assistance 6=Modified [place] 3=Moderate Assistance 7=Complete [place] ADL-Treatment Pt completed grooming tasks while seated at sink. Pt brushed teeth, washed hands , and combed hair with set up while seated. Pt transferred w/c to EOB with minimal assistance. Sit to supine with assist for LE. Pt then states she needs to use the BSC. Supine to sit with assist for trunk. Sit to stand and transfer to BSC with minimal assistance using FWW. Pt required assist to pull pants down. Pt states she needs to sit on commode for a while, will call when she is done. Pt sitting on BSC with call light in reach after session, nursing notified. Functional [place] Measure 0=Not Assessed/NA 4=Minimal Assistance 1=Total Assistance 5=Supervision or Setup 2=Maximal Assistance 6=Modified [place] 3=Moderate Assistance 7=Complete IndependenceIRFPAI Quality Coding Scale 6 Independent with activity with or without an assistive device 5 Patient requires set up or clean up by helper. Patient completes activity by themselves 4 Supervision or touching assist (CGA). [place] provide cues , steadying assist 3 The helper provides less than half the effort to complete the activity 2 The helper provides more than half the effort to complete the activity 1 Dependent. The helper does all the effort to complete an activity 7 Patient refused to complete or attempt activity 9 The patient did not perform the activity before the current illness or injury 88 Not attempted due to Medical conditions or safety concerns Grooming (FIM): 5 Oral Hygiene (QC): 5 Toilet/Commode Transfer (FIM): 4 OT Short Term Goals Short Term Goals Time Frame: Feb 07, 2017 Bathing(FIM): 3 Lower Body Dressing(FIM): 3 Toileting(FIM): 3 Transfers (B,C,W/C) (FIM): 4 Shower Transfer(FIM): 4 Additional Short Term Goals: 1-Demonstrate ADL Tasks, 2-Verbalize Understanding , 3-ImproveStrength/Stewart 1=Demonstrate adherence to instructed precautions during ADL tasks. 2=Patient will verbalize/demonstrate understanding of assistive devices/ modifications for ADL. 3=Patient will improve strength/tolerance for activity to enable patient to perform ADL's. OT Sky [place] Yarder Goals Custodial Goals Time Frame: Feb 21, 2017 Eating (FIM): 6 Eating (QC): 6 Groomin Oral Hygiene (QC): 6 Bathing(FIM): 5 Shower/Bathe Self (QC): 5 Upper Body Dressing(FIM): 5 Upper Body Dressing (QC): 5 Lower Body Dressing(FIM): 5 Lower Body Dressing (QC): 5 On/Off Footwear (QC): 5 Toileting(FIM): 6 Toileting Hygiene (QC): 6 Toilet/Commode Transfer(FIM): 6 Toilet/Commode Transfer (QC): 6 Shower Transfer(FIM): 5 Additional Goals: 1-Demonstrate ADL Tasks, 2-Verbalize Understanding, 3- ImproveStrength/Stewart 1=Demonstrate adherence to instructed precautions during ADL tasks. 2=Patient will verbalize/demonstrate understanding of assistive devices/ modifications for ADL. 3=Patient will improve strength/tolerance for activity to enable patient to perform ADL's. OT Education/Plan Discharge Recommendations Plan/Recommendations: Continue POC Treatment Plan/Plan of Care Patient would benefit from OT for education, treatment and training to promote independence in ADL's, mobility, safety and/or upper extremity function for ADL' s. Plan of Care: ADL Retraining, Functional Mobility, Group Exercise/Act as Ind, UE Funct Exercise/Act Treatment Duration: Feb 21, 2017 Frequency: At least 5-7 days/Wk (IRF) Estimated Hrs Per Day: 1.5 hours per day Agreement: Yes Rehab Potential: Fair Time/GCodes Start Time: 14:15 Stop Time: 14:30 Total Time Billed (hr/min): 15 Billed Treatment Time 1 visit, ADL(15minutes) YARED GOLDEN OT Jan 31, 2017 14:39
--- NOTE | 2017-01-31 15:48 | HISTORY AND PHYSICAL ---
DATE OF ADMISSION: 01/31/2017 CHIEF COMPLAINT: Difficulty with walking. HISTORY OF PRESENT ILLNESS: The patient is a 79 yo female who lives alone and had been independent with a wheeled walker, who fell at home and sustained a displaced femoral neck fracture of the right hip. 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 Christine. The patient is weight-bearing as tolerated postoperatively. The patient had a decline in her functional independence due to this. Her Elaine catheter has just been removed this morning. She is referred to Inpatient Rehabilitation Unit for comprehensive program of orthopedic rehabilitation prior to discharge home. Present level of function : Currently she is mod assist for ambulation short distances with a front wheeled walker.She is mod assist for bed mobilty and transfers Bladder to have trial of voiding. She is having some loose stools and is on Questran for that. She requires assistance for her ADLs. She is max assist for lower body dressing and mod assist for upper body dressing.Sheis setup for eating and grooming Mod assist for toileting She has supportive children nearby. PAST MEDICAL HISTORY: PCP Dr. Smith. She reports chronic edema in her ankles for the past 2 weeks, Dr. Metcalf has addressed this. Also has hyponatremia with a serum sodium of 132 on 01/30. She has postoperative anemia with hemoglobin of 10.2 on 01/30. PAST SURGICAL HISTORY: As per above. ALLERGIES: 1. clindamycin 2. sulfa 3. nystatin 4. amoxicillin 5. chlorhexidine FAMILY HISTORY: Noncontributory. SOCIAL HISTORY: Essentially as per above. REVIEW OF SYSTEMS: Ten-point review of systems significant for loose stools, hip pain, knee pain. 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 MEDICATIONS: 1. ASA 325 mg p.o. q.d. 2. KCL 20 mEq p.o. daily. 3. Lactinex 1 tablet p.o. t.i.d. before meals. 4. Lortab generic 5/325, 1 tablet p.o. q.4 hours p.r.n. moderate pain. 5. Tramadol 50 mg p.o. q.6 hours p.r.n. mild pain. 6. Questran 4 grams p.o. t.i.d. 7. Claritin 10 mg p.o. daily. 8. Lovenox 40 mg subcutaneous daily for DVT prophylaxis. Prior level of function: Had been Independent as per above PHYSICAL EXAMINATION: Significant for pleasant female appearing her stated age, sitting up in a chair in no acute distress. VITAL SIGNS: Within normal limits. She is afebrile. HEENT: Vision, speech, hearing, grossly intact. No oral lesion is noted. NECK: Supple without mass. HEART: Regular rhythm. LUNGS: Clear. ABDOMEN: Soft, nontender. Bowel sounds present. EXTREMITIES: The patient has pitting peripheral edema at the ankles. No calf tenderness. Incision site covered with dressing, dry and intact. MUSCULOSKELETAL: The patient has functional active range of motion in both upper extremities, left lower extremity. Right lower extremity limited due to recent fracture and repair. NEUROLOGIC: Cognitively grossly intact. Sensation intact to touch. Strength good both upper extremities, left lower extremity. Right lower extremity limited to hip due to recent fracture and repair. She is able to plantar and dorsi flex at the right ankle and active knee flex and extend. IMPRESSION: 1. Ambulatory dysfunction secondary to fall with resulting displaced femoral neck fracture, right hip, status post bipolar femoral hemiarthroplasty right hip, Dr. 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 2. Postoperative anemia. 3. Postop DVT prophylaxis on Lovenox subcutaneous. 4. Hyponatremia. 5. Postop diarrhea, on Questran. 6. Hypokalemia, replaced. PLAN: The patient will have a comprehensive program of inpatient rehabilitation with a goal of maximizing level of functional independence prior to discharge home with home health and family. The patient will have PT/OT 90 minutes per day, each discipline, 5 days week for gait, strengthening, conditioning, ADLs, any patient training necessary, any adaptive equipment and training necessary for 2 weeks' time. Speech therapy do cognitive assessment and treat as indicated. Rehabilitation nursing assist with bowel, bladder, skin, wound care, medication administration, pain management, monitor for urinary retention. Monitor for improvement in loose stools. senior manager creative services to assist with discharge planning, community reentry. Follow-up with Dr. Metcalf and Emmett as per their schedules. ESTIMATED LENGTH OF STAY: Two weeks. PROGNOSIS: Rehab prognosis appears good for goal of discharging home with family and home health care, modified independent to supervision for ADLs and mobility skills. DIET: Regular. CODE STATUS: Full code. Job ID: [id number] Dictated Date: 01/31/2017 11:09:48 [employer] Engineer Date: 01/31/2017 15:04:00/brandyn BRADY
--- NOTE | 2017-01-31 16:32 | Consultation ---
History of Present Illness History of Present Illness Patient Consulted On(betito/time) 01/31/17 16:27 Date Seen by Provider: Jan 31, 2017 Time Seen by Provider: 15:35 History of Present Illness consult requested by Dr. Metcalf for Diarrhea patient is an 81 year old female with right hip fracture s/p repair. Patient has been having chronic diarrhea for approximately one month. Patient states the number of stools will vary per day. All being typically liquid. Patient states she did have a day or two of constipation which she was given miralax and the diarrhea returned. Patient denies any blood in the stools. She has never had a colonoscopy and states she's not planning on having one. She is alert and oriented x 3. Her pain is controlled. She is not having any abdominal pain. She's on questran at this time. Allergies and Home Medications Allergies Coded Allergies: nystatin (Verified Allergy, Mild, HIVES, 01/29/17) amoxicillin (Unverified Allergy, Unknown, 05/12/14) chlorhexidine (Verified Allergy, Unknown, HIVES, 01/29/17) clindamycin (Unverified Allergy, Unknown, 05/12/14) sulfamethoxazole (Unverified Allergy, Unknown, 05/12/14) trimethoprim (Unverified Allergy, Unknown, 05/12/14) Home Medications Aspirin 325 Mg Tablet.dr, 325 MG PO DAILY PRN for PAIN-MILD, (Reported) Loratadine 10 Mg Tablet, 10 MG PO DAILY PRN for ALLERGIES, (Reported) Past Wgcwxzc-Sykozf-Swqvdd Hx Patient Social History Alcohol Use: Denies Use Recreational Drug Use: No Smoking Status: Never a Smoker Recent Foreign Travel: No Contact w/Someone Who Travel: No Recent Hopitalizations: No Seasonal Allergies Seasonal Allergies: Yes Surgeries HX Surgeries: Yes (right hemiarthroplasty) Surgeries: Adenoidectomy, Breast Respiratory Hx Respiratory Disorders: Yes Respiratory Disorders: Pneumonia Cardiovascular Hx Cardiac Disorders: Yes Cardiac Disorders: Chronic Edema/Swelling Neurological Hx Neurological Disorders: No Genitourinary Hx Genitourinary Disorders: No Gastrointestinal Hx Gastrointestinal Disorders: Yes (anal fissure) Gastrointestinal Disorders: Hemorrhoids, Chronic Diarrhea Musculoskeletal Hx Musculoskeletal Disorders: Yes (chronic neck and back pain) Musculoskeletal Disorders: Chronic Back Pain Endocrine Hx Endocrine Disorders: No HEENT HX ENT Disorders: Yes (aerosols cause irritation) Hearing Impairment: Hard of Hearing Cancer Hx Cancer: No Psychosocial Hx Psychiatric Problems: No Blood Transfusions Hx Blood Disorders: No Family Medical History Significant Family History: No Pertinent Family Hx Review of Systems-General Constitutional: no symptoms reported EENTM: no symptoms reported Respiratory: no symptoms reported Cardiovascular: no symptoms reported Gastrointestinal: see HPI, diarrhea Genitourinary: no symptoms reported Musculoskeletal: other (s/p right hemiarthroplasty) Skin: no symptoms reported Psychiatric/Neurological: No Symptoms Reported Physical Exam-General Problems Physical Exam Vital Signs Vital Sign - Last 12Hours 01/31/17 10:30 Temp 97.3 Pulse 97 Resp 18 B/P (MAP) 107/52 Pulse Ox 100 O2 Delivery Room Air Capillary Refill : General Appearance: no apparent distress HEENT: normal ENT inspection Neck: supple Respiratory: no respiratory distress, no accessory muscle use Cardiovascular: regular rate, rhythm Gastrointestinal: non tender, soft Rectal: deferred Back: no CVA tenderness Extremities: pedal edema (b/l) Neurologic/Psychiatric: alert, normal mood/affect, oriented x 3 Skin: normal color Lymphatic: no adenopathy Assessment/Plan Assessment/Plan Assessment/Plan diarrhea s/p right hemiarthroplasty debility in rehab patient states she's never had a colonoscopy and not wishing to have one. I did discuss no doing it now but on a outpatient basis. She states she will consider it. Patient stool cultures and c diff negative would recommend using anti diarrheal agents to get under control will sign off call if needed. ANTHONY FAIRBANKS DO Jan 31, 2017 16:32
[2017-01-31] MEDS: LACTOBACILLUS Acidoph/Bulgar (LACTINEX/FLORANEX) TAB PO SCH (17:11)
[2017-01-31 18:21] VITALS: BP 102/59
[2017-02-01 05:02] VITALS: BP 118/66
[2017-02-01] MEDS: LACTOBACILLUS Acidoph/Bulgar (LACTINEX/FLORANEX) TAB PO SCH ×3 (06:15→16:37)
[2017-02-01] MEDS: KCL 20 MEQ TAB (K-DUR) PO SCH (06:15)
[2017-02-01 08:51] VITALS: BP 102/68
[2017-02-01] MEDS: ASPIRIN E.C. 325 MG (ECOTRIN) TABLET PO SCH (08:56)
[2017-02-01] MEDS: CHOLESTYRAMINE 4 GM (QUESTRAN LITE, PREVALITE) PKT PO SCH ×3 (08:56→20:18)
[2017-02-01] MEDS: LORATADINE (CLARITIN) 10 MG TAB PO SCH (08:56)
[2017-02-01] MEDS: ENOXAPARIN 40 MG/0.4 ML (LOVENOX) SYR SC SCH (08:57)
--- NOTE | 2017-02-01 10:02 | Physical Therapy Daily Note ---
PT Daily Note-Current Subjective Patient agrees to PT. Patient continues to c/o loose stools. Nursing is aware. Pain Numeric Pain Scale: 5-Moderate Pain Location: Right Location Body Site: Hip Pain Description: Acute Appearance bilateral LE edema Mental Status Patient Orientation: Normal For Age Transfers Functional [place] Measure 0=Not Assessed/NA 4=Minimal Assistance 1=Total Assistance 5=Supervision or Setup 2=Maximal Assistance 6=Modified [place] 3=Moderate Assistance 7=Complete IndependenceIRFPAI Quality Coding Scale 6 Independent with activity with or without an assistive device 5 Patient requires set up or clean up by helper. Patient completes activity by themselves 4 Supervision or touching assist (CGA). [place] provide cues , steadying assist 3 The helper provides less than half the effort to complete the activity 2 The helper provides more than half the effort to complete the activity 1 Dependent. The helper does all the effort to complete an activity 7 Patient refused to complete or attempt activity 9 The patient did not perform the activity before the current illness or injury 88 Not attempted due to Medical conditions or safety concerns Transfers (B, C, W/C) (FIM): 5 Scootin Sit to/from Stand: 5 Sit to Stand (QC): 5 Weight Bearing Weight Bearing Restriction: Weight Bearing/Tolerated Location Restriction: R LE Gait Training Does the Patient Walk?: Yes Gait (FIM): 5 Distance (FIM): 3=150 ft Distance: 150' x 2 Walk 10 feet (QC): 5 Walk 50 ft with 2 Turns(QC): 5 Walk 150 ft (QC): 5 Gait Level of Assist: 5 Gait Persons Needed: 1 Gait Assistive Device: FWW step to gait sequence with skilled verbal instruction to attempt reciprocal pattern. Patient has difficulty due to pain. Exercises Seated Therapy Exercises: Ankle pumps, Long arc quads Seated Reps: 20 (3 sets) Assessment Patient is progressing with treatment plan by demonstrating improvement with transfers and gait. Exercises and gait training performed to facility the improvement of functional mobility to return safely to home. PT Short Term Goals Short Term Goals Time Frame: Feb 07, 2017 Transfers (B,C,W/C) (FIM): 4 Gait (FIM): 4 Gait Distance Comment: 150' Gait Level of Assist: 4 Gait Assistive Device: FWW Wheelchair Distance: 50' PT Mcfp Goals Immersion Metalcleaner Goals PT Immersion Metalcleaner Goals Time Frame: Feb 21, 2017 Transfers (B,C,W/C) (FIM): 5 Sit to Lying (QC): 4 Lying-Sitting on Side/Bed(QC): 4 Sit to Stand (QC): 4 Rollin Roll Left to Right (QC): 4 Chair/Pfu-qw-Mwwti Xfer(QC): 4 Gait (FIM): 5 Distance: 200' Walk 10 feet (QC): 4 Walk 10ft-Uneven Surface(QC): 4 Walk 50ft with 2 Turns (QC): 4 Walk 150 ft (QC): 4 Gait Level of Assist: 5 Gait Assistive Device: FWW Stairs (FIM): 2 # of Steps: 4 1 Step (curb) (QC): 4 4 Steps (QC): 4 12 Steps (QC): 88 Stairs Level Of Assist: 4 PT Plan Treatment/Plan Treatment Plan: Continue Plan of Care Treatment Plan: Bed Mobility, Education, Functional Activity Stewart, Functional Strength, Group Therapy, Gait, Safety, Therapeutic Exercise, Transfers Treatment Duration: Feb 21, 2017 Frequency: At least 5-7 days/Wk (IRF) Estimated Hrs Per Day: 1.5 hours per day Patient and/or Family Agrees t: Yes Time/GCodes Time In: 935 Time Out: 958 Total Billed Treatment Time: 23 Total Billed Treatment 1 visit EX 10 min GT 13 min THANG CONRAD PT Feb 01, 2017 10:02
[2017-02-01 18:44] VITALS: BP 115/68
[2017-02-02 05:41] VITALS: BP 129/69
[2017-02-02] MEDS ORDERED: LOPERAMIDE 2 MG (IMODIUM) CAP PO PRN (06:15)
[2017-02-02] MEDS: KCL 20 MEQ TAB (K-DUR) PO SCH (06:27)
[2017-02-02] MEDS: LACTOBACILLUS Acidoph/Bulgar (LACTINEX/FLORANEX) TAB PO SCH ×3 (06:27→17:41)
[2017-02-02] MEDS: CHOLESTYRAMINE 4 GM (QUESTRAN LITE, PREVALITE) PKT PO SCH ×5 (06:55→20:46)
[2017-02-02] MEDS: ASPIRIN E.C. 325 MG (ECOTRIN) TABLET PO SCH (09:09)
[2017-02-02] MEDS: LORATADINE (CLARITIN) 10 MG TAB PO SCH (09:09)
[2017-02-02] MEDS: ENOXAPARIN 40 MG/0.4 ML (LOVENOX) SYR SC SCH (09:10)
[2017-02-02] MEDS: DIPHENOXYLATE/ATROPINE 2.5MG/0.025MG (LOMOTIL) TAB PO PRN (11:30)
[2017-02-02 18:27] VITALS: BP 123/61
[2017-02-03] MEDS: DIPHENOXYLATE/ATROPINE 2.5MG/0.025MG (LOMOTIL) TAB PO PRN ×4 (03:29→21:04)
[2017-02-03 04:10] VITALS: BP 115/62
[2017-02-03] MEDS: LORATADINE (CLARITIN) 10 MG TAB PO SCH (06:22)
[2017-02-03] MEDS: LACTOBACILLUS Acidoph/Bulgar (LACTINEX/FLORANEX) TAB PO SCH ×3 (06:22→15:32)
[2017-02-03] MEDS: KCL 20 MEQ TAB (K-DUR) PO SCH (06:22)
[2017-02-03] MEDS: ASPIRIN E.C. 325 MG (ECOTRIN) TABLET PO SCH (06:22)
[2017-02-03] MEDS: CHOLESTYRAMINE 4 GM (QUESTRAN LITE, PREVALITE) PKT PO SCH ×5 (07:26→21:08)
[2017-02-03] MEDS: ENOXAPARIN 40 MG/0.4 ML (LOVENOX) SYR SC SCH (08:10)
--- NOTE | 2017-02-03 09:07 | Physical Therapy Daily Note ---
PT Daily Note-Current Subjective Pt. states she is fearful and is having anxiety about this whole thing and did not sleep last night. This MICROBIOLOGY LAB ASSISTANT assured pt that was making great progress and she was then ready to continue with more confidence Pain Numeric Pain Scale: 5-Moderate Pain (right) Location: Right Location Body Site: Hip Pain Description: Ache Mental Status Patient Orientation: Normal For Age Transfers Functional [place] Measure 0=Not Assessed/NA 4=Minimal Assistance 1=Total Assistance 5=Supervision or Setup 2=Maximal Assistance 6=Modified [place] 3=Moderate Assistance 7=Complete IndependenceIRFPAI Quality Coding Scale 6 Independent with activity with or without an assistive device 5 Patient requires set up or clean up by helper. Patient completes activity by themselves 4 Supervision or touching assist (CGA). [place] provide cues , steadying assist 3 The helper provides less than half the effort to complete the activity 2 The helper provides more than half the effort to complete the activity 1 Dependent. The helper does all the effort to complete an activity 7 Patient refused to complete or attempt activity 9 The patient did not perform the activity before the current illness or injury 88 Not attempted due to Medical conditions or safety concerns Transfers (B, C, W/C) (FIM): 4 Scootin Rollin Supine to/from Sit: 4 Sit to/from Stand: 5 Bed to/from Chair: 4 Weight Bearing Weight Bearing Restriction: Weight Bearing/Tolerated Gait Training Does the Patient Walk?: Yes Gait (FIM): 4 Distance (FIM): 3=150 ft (2) Gait Level of Assist: 4 Gait Persons Needed: 1 Gait Assistive Device: FWW step to pattern Exercises Supine Ex: Bridging (to scoot side to side), Ankle pumps, Quad Set, Rolling, Glut sets, Heel Slides, Short Arc Quads, Scooting, Straight leg raise (x5 indep) , Hip abd/add Supine Reps: 15 Treatments toileted with assist to clean and pull pants up down Assessment Current Status: Good Progress increased TRF skills as well as gait skills PT Short Term Goals Short Term Goals Time Frame: Feb 07, 2017 Transfers (B,C,W/C) (FIM): 4 Gait (FIM): 4 Gait Distance Comment: 150' Gait Level of Assist: 4 Gait Assistive Device: FWW Wheelchair Distance: 50' PT Tugboat Mate Goals Mcc Goals PT Mcc Goals Time Frame: Feb 21, 2017 Transfers (B,C,W/C) (FIM): 5 Sit to Lying (QC): 4 Lying-Sitting on Side/Bed(QC): 4 Sit to Stand (QC): 4 Rollin Roll Left to Right (QC): 4 Chair/Qsb-zh-Yhzaz Xfer(QC): 4 Gait (FIM): 5 Distance: 200' Walk 10 feet (QC): 4 Walk 10ft-Uneven Surface(QC): 4 Walk 50ft with 2 Turns (QC): 4 Walk 150 ft (QC): 4 Gait Level of Assist: 5 Gait Assistive Device: FWW Stairs (FIM): 2 # of Steps: 4 1 Step (curb) (QC): 4 4 Steps (QC): 4 12 Steps (QC): 88 Stairs Level Of Assist: 4 PT Plan Treatment/Plan Treatment Plan: Continue Plan of Care Treatment Plan: Bed Mobility, Education, Functional Activity [place], Functional Strength, Group Therapy, Gait, Safety, Therapeutic Exercise, Transfers Treatment Duration: Feb 21, 2017 Frequency: At least 5-7 days/Wk (IRF) Estimated Hrs Per Day: 1.5 hours per day Patient and/or Family Agrees t: Yes Safety Risks/Education Patient Education: Gait Training, Transfer Techniques, Correct Positioning, Safety Issues Teaching Recipient: Patient Teaching Methods: Demonstration, Discussion Response to Teaching: Verbalize Understanding, Return Demonstration, Reinforcement Needed Time/GCodes Time In: 800 Time Out: 900 Total Billed Treatment Time: 60 Total Billed Treatment 1,EX20m,GT25m,FA15m G Codes Necessary: TIANNA Menon PTA Feb 03, 2017 09:07
--- NOTE | 2017-02-03 11:02 | Diagnostic Imaging Report ---
INDICATION: Diarrhea. KUB 10:58 AM. There is scoliosis of the lumbar spine convex to the left. There are postop changes from right hip arthroplasty. Bowel gas pattern is normal. There are no pathologic masses or calcifications. IMPRESSION: Scoliosis with degenerative changes in the lumbar spine. No acute abnormality seen in the abdomen. Dictated by: Dictated on workstation # [id number]
--- NOTE | 2017-02-03 11:25 | Occupational Ther Daily Note ---
OT Current Status-Daily Note Subjective Pt agrees to treatment this am. Pt states she has no pain at rest, but has pain in right hip with movement-not rated. Mental Status/Objective Functional [place] Measure 0=Not Assessed/NA 4=Minimal Assistance 1=Total Assistance 5=Supervision or Setup 2=Maximal Assistance 6=Modified [place] 3=Moderate Assistance 7=Complete [place] ADL-Treatment Pt sitting on [facility] when therapist arrives. Pt requires assist for hygiene and to pull Depends up. Pt states she is anxious about showering, but agrees to attempt. Transfer to walk in shower with minimal assistance using grab bars for safety. Pt doffed hospital gown with SBA. Used dressing stick to doff Depends and socks with moderate assistance and cues for technique. Seated bathing completed using hand held shower and long handled sponge. Pt able to wash bilateral UE, chest, abdomen, kristina area, and bilateral upper legs. Pt uses long sponge to wash lower legs and feet, but requires assist to dry after shower. Pt requires assist to wash/dry buttocks. Don pullover gown with set up. Instruction provided regarding use of adaptive equipment for LE dressing. Pt required max assist to don Depends. Sit to stand with minimal assistance for pant hike, using FWW for balance. Grooming tasks completed seated at sink. Pt flossed, brushed teeth, and combed hair with set up. Pt transferred to [facility] two more times during session with minimal assistance. Pt able to pull pants down, but required assist for hygiene and to pull pants up. Pt moves slowly and requires increased time for ADLs. Occasional rest breaks secondary to fatigue. Pt requests to return to bed after session. Sit to supine with minimal assistance. Pt in bed with needs met after session. Functional [place] Measure 0=Not Assessed/NA 4=Minimal Assistance 1=Total Assistance 5=Supervision or Setup 2=Maximal Assistance 6=Modified [place] 3=Moderate Assistance 7=Complete IndependenceIRFPAI Quality Coding Scale 6 Independent with activity with or without an assistive device 5 Patient requires set up or clean up by helper. Patient completes activity by themselves 4 Supervision or touching assist (CGA). [place] provide cues , steadying assist 3 The helper provides less than half the effort to complete the activity 2 The helper provides more than half the effort to complete the activity 1 Dependent. The helper does all the effort to complete an activity 7 Patient refused to complete or attempt activity 9 The patient did not perform the activity before the current illness or injury 88 Not attempted due to Medical conditions or safety concerns Grooming (FIM): 5 Oral Hygiene (QC): 5 Bathing (FIM): 3 Shower/Bathe Self (QC): 3 Upper Body (FIM): 5 Upper Body Dressing (QC): 5 Lower Body Dressing (FIM): 2 Lower Body Dressing (QC): 2 Toileting (FIM): 2 Toileting Hygiene (QC): 2 Toilet/Commode Transfer (FIM): 4 Toilet Transfer (QC): 3 Shower Transfer(FIM): 4 Education OT Patient Education: Modified ADL techniques Teaching Recipient: Patient Teaching Methods: Demonstration, Discussion Response to Teaching: Reinforcement Needed OT Short Term Goals Short Term Goals Time Frame: Feb 07, 2017 Bathing(FIM): 3 Lower Body Dressing(FIM): 3 Toileting(FIM): 3 Transfers (B,C,W/C) (FIM): 4 Shower Transfer(FIM): 4 Additional Short Term Goals: 1-Demonstrate ADL Tasks, 2-Verbalize Understanding , 3-ImproveStrength/[place] 1=Demonstrate adherence to instructed precautions during ADL tasks. 2=Patient will verbalize/demonstrate understanding of assistive devices/ modifications for ADL. 3=Patient will improve strength/tolerance for activity to enable patient to perform ADL's. OT Core Dipper Goals Residential Goals Time Frame: Feb 21, 2017 Eating (FIM): 6 Eating (QC): 6 Groomin Oral Hygiene (QC): 6 Bathing(FIM): 5 Shower/Bathe Self (QC): 5 Upper Body Dressing(FIM): 5 Upper Body Dressing (QC): 5 Lower Body Dressing(FIM): 5 Lower Body Dressing (QC): 5 On/Off Footwear (QC): 5 Toileting(FIM): 6 Toileting Hygiene (QC): 6 Toilet/Commode Transfer(FIM): 6 Toilet/Commode Transfer (QC): 6 Shower Transfer(FIM): 5 Additional Goals: 1-Demonstrate ADL Tasks, 2-Verbalize Understanding, 3- ImproveStrength/[place] 1=Demonstrate adherence to instructed precautions during ADL tasks. 2=Patient will verbalize/demonstrate understanding of assistive devices/ modifications for ADL. 3=Patient will improve strength/tolerance for activity to enable patient to perform ADL's. OT Education/Plan Discharge Recommendations Plan/Recommendations: Continue POC Treatment Plan/Plan of Care Patient would benefit from OT for education, treatment and training to promote independence in ADL's, mobility, safety and/or upper extremity function for ADL' s. Plan of Care: ADL Retraining, Functional Mobility, Group Exercise/Act as Ind, UE Funct Exercise/Act Treatment Duration: Feb 21, 2017 Frequency: At least 5-7 days/Wk (IRF) Estimated Hrs Per Day: 1.5 hours per day Agreement: Yes Rehab Potential: Fair Time/GCodes Start Time: 09:00 Stop Time: 10:30 Total Time Billed (hr/min): 90 Billed Treatment Time 1 visit, ADLx6(90minutes) YARED GOLDEN OT Feb 03, 2017 11:25
--- NOTE | 2017-02-03 13:46 | Physical Therapy Daily Note ---
PT Daily Note-Current Subjective Pt. agrees to Rx but states she is so very tired after this morning. Pt. was perplexed that this therapist invited her to manage her own pants up down and to clean herself after toileting. This VP OF DIGITAL MARKETING explained goals for DC etc. Pain Numeric Pain Scale: 4 Location: Right Location Body Site: Hip Pain Description: Ache Appearance some SOB noted after Rx as pt. TRFd sit to sup Transfers Functional [place] Measure 0=Not Assessed/NA 4=Minimal Assistance 1=Total Assistance 5=Supervision or Setup 2=Maximal Assistance 6=Modified [place] 3=Moderate Assistance 7=Complete IndependenceIRFPAI Quality Coding Scale 6 Independent with activity with or without an assistive device 5 Patient requires set up or clean up by helper. Patient completes activity by themselves 4 Supervision or touching assist (CGA). [place] provide cues , steadying assist 3 The helper provides less than half the effort to complete the activity 2 The helper provides more than half the effort to complete the activity 1 Dependent. The helper does all the effort to complete an activity 7 Patient refused to complete or attempt activity 9 The patient did not perform the activity before the current illness or injury 88 Not attempted due to Medical conditions or safety concerns Transfers (B, C, W/C) (FIM): 4 Scootin Rollin Supine to/from Sit: 4 (assist CGA for RLE into bed) Sit to/from Stand: 5 Bed to/from Chair: 5 Weight Bearing Weight Bearing Restriction: Weight Bearing/Tolerated Gait Training Does the Patient Walk?: Yes Gait (FIM): 2 Distance (FIM): 0=100-33 ft (125x2) Gait Level of Assist: 5 Gait Persons Needed: 1 Gait Assistive Device: FWW slow step to gait pattern Exercises Supine Ex: Ankle pumps, Quad Set, Glut sets, Heel Slides, Short Arc Quads, Scooting, Hip abd/add Supine Reps: 12 Assessment Current Status: Good Progress pt. with apparenet anxiety at end of rx. c/o SOB, sats steady at 98% , HR 100, nurse informed of pts. c/o and assessed pt. PT Short Term Goals Short Term Goals Time Frame: Feb 07, 2017 Transfers (B,C,W/C) (FIM): 4 Gait (FIM): 4 Gait Distance Comment: 150' Gait Level of Assist: 4 Gait Assistive Device: FWW Wheelchair Distance: 50' PT Fpc Goals Fpc Goals PT Fpc Goals Time Frame: Feb 21, 2017 Transfers (B,C,W/C) (FIM): 5 Sit to Lying (QC): 4 Lying-Sitting on Side/Bed(QC): 4 Sit to Stand (QC): 4 Rollin Roll Left to Right (QC): 4 Chair/Cqi-sb-Kwojn Xfer(QC): 4 Gait (FIM): 5 Distance: 200' Walk 10 feet (QC): 4 Walk 10ft-Uneven Surface(QC): 4 Walk 50ft with 2 Turns (QC): 4 Walk 150 ft (QC): 4 Gait Level of Assist: 5 Gait Assistive Device: FWW Stairs (FIM): 2 # of Steps: 4 1 Step (curb) (QC): 4 4 Steps (QC): 4 12 Steps (QC): 88 Stairs Level Of Assist: 4 PT Plan Treatment/Plan Treatment Plan: Continue Plan of Care Treatment Plan: Bed Mobility, Education, Functional Activity [place], Functional Strength, Group Therapy, Gait, Safety, Therapeutic Exercise, Transfers Treatment Duration: Feb 21, 2017 Frequency: At least 5-7 days/Wk (IRF) Estimated Hrs Per Day: 1.5 hours per day Patient and/or Family Agrees t: Yes Safety Risks/Education Patient Education: Gait Training, Transfer Techniques, Correct Positioning, Disease Process, Safety Issues Teaching Recipient: Patient Teaching Methods: Demonstration, Discussion Response to Teaching: Verbalize Understanding, Return Demonstration, Reinforcement Needed Time/GCodes Time In: 1300 Time Out: 1335 Total Billed Treatment Time: 35 Total Billed Treatment 1,GT15m,FA20m G Codes Necessary: Yes TIANNA COLEMAN VP OF D[employer]ITAL MARKETING Feb 03, 2017 13:46
[2017-02-03] MEDS ORDERED: LORazepam 0.5 MG (ATIVAN) TABLET PO NR (15:15)
--- NOTE | 2017-02-03 15:22 | PM & R (SOAP) Progress Note ---
Subjective Time Seen by Provider: 11:40 Subjective/Events-last exam Patient was seen in her room this AM C/O diarrhea States that she would like to see DR GAMBLE re this She declined a colonoscopy with DR Belcher.Will f/u Patient min assist for transfers. Review of Systems Gastrointestinal: Diarrhea Objective Exam Last Set of Vital Signs Vital Signs Date Time Temp Pulse Resp B/P (MAP) Pulse Ox O2 Delivery O2 Flow Rate FiO2 02/03/17 09:00 96 Room Air 02/03/17 04:10 99.1 88 18 115/62 Capillary Refill : Less Than 3 SecondsNONE I&O Intake and Output 02/03/17 00:00 Intake Total 1090 ml Balance 1090 ml Intake Oral 1090 ml # Voids 7 # Bowel Movements 17 General: Alert, Oriented X3, Cooperative, No Acute Distress HEENT: Atraumatic, PERRLA, EOMI, Mucous Memb Moist/[place] Neck: Supple, No JVD Lungs: Clear to Auscultation Heart: Regular Rate Abdomen: Normal Bowel Sounds, Soft, No Tenderness Extremities: Other (trace edema rt ankle) Neuro: Other (guarding rt hip has functional strength distal RT Leg) Results Lab Microbiology 02/02/17 Stool Culture - Preliminary, Resulted No stool pathogens as yet isolated. ... 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
--- NOTE | 2017-02-03 15:29 | Individualized Plan of Care ---
Individualized Plan of Care Rehab Nursing IPOC Order Admission Date Jan 31, 2017 at 10:39 Current Orders Orders Ondansetron Oral Dissolve Tab (Zofran (02/02/17 16:15) Abdomen/Kub 1view (02/03/17 09:26) Patient Visit (02/03/17 ) Exercise Therap, Ea 15 Min (02/03/17 ) Gait Training, Ea 15 Min (02/03/17 ) Functional Activities, Ea 15 (02/03/17 ) Lorazepam Tablet (Ativan Tablet) (02/03/17 15:15) Rehab Nursing Orders: Diseage Management, Edu in Press Rel Techn, Hydration Management, Nutrition Management, Pain Management Other Nursing Orders: as per ordres for diarrhea PT IPOC Problem List: Activity Tolerance, Functional Strength, Safety, Balance, Gait, Transfer, Bed Mobility, ROM Treatment Plan: Continue Plan of Care Bed Mobility, Education, Functional Activity [place], Functional Strength, Group Therapy, Gait, Safety, Therapeutic Exercise, Transfers Treatment Duration: Feb 21, 2017 Frequency: Twice Daily Estimated Hrs Per Day: 1.5 hours per day OT IPOC Problems: Decreased Activ Tolerance, Decreased UE Strength, Dependent Transfers , Impaired Funct Balance, Impaired Self-Care Skills Plan of Care: ADL Retraining, Functional Mobility, Group Exercise/Act as Ind, UE Funct Exercise/Act Treatment Duration: Feb 21, 2017 Frequency: Twice Daily Estimated Hrs Per Day: 1.[address] IPOC Speech Therapy Treatment Plan: Discontinue ST Frequency: At least 5-7 days/Wk (IRF) (The patient was provided an evaluation, only. Therapy services are not warranted.) Estimated Hrs Per Day: .25 hour per day (The patient was provided an evaluation , only. Therapy services are not warranted. No estimated time will be provided, daily.) Physician IPOC Medical Issues being managed closely and that require the 24 hour availability of a physician: pain management,Management of diarrhea and postop hyponatremia Medical Issues: Bowel/Bladder Function, DVT Prophylaxis, Falls Precautions, Fluid/Electrolyte/Nutrition Balance, Infection Protection, Pain Management, Wound Care, Other (List) (as per above) Brief Synthesis of Preadmission Screen, Post-Admission Evaluation, and Therapy Evaluations: 81 yo female who fell at home and sustained a rt hip frx with repair with ortho dr Christine 01/28/17 Via [facility] [place] [facility] Has chronic diarrhea and RX being given for that Declined a possible Colonoscopy with Surgery Had been Independent prior to this PCP DR herr Also found to have hyponatremia. Hospitalist service following patient Medical Prognosis: good Anticipated Length of Stay: 2 weeks Rehab Goals Modified Independent for adls and mobility skills and continence of bowel and bladder Anticipated discharge destinat: Home with [facility] DEB LOMBARDO MD Feb 03, 2017 15:29
[2017-02-03 18:21] VITALS: BP 120/57
[2017-02-04 03:26] VITALS: BP 117/63
[2017-02-04] MEDS: HYDROcodone/APAP 5 MG/325 MG (LORTAB) TAB PO PRN (05:47)
[2017-02-04] MEDS: DIPHENOXYLATE/ATROPINE 2.5MG/0.025MG (LOMOTIL) TAB PO PRN ×3 (05:47→20:44)
[2017-02-04] MEDS: CHOLESTYRAMINE 4 GM (QUESTRAN LITE, PREVALITE) PKT PO SCH ×5 (05:52→20:41)
[2017-02-04] MEDS: LACTOBACILLUS Acidoph/Bulgar (LACTINEX/FLORANEX) TAB PO SCH ×3 (06:12→16:37)
[2017-02-04] MEDS: KCL 20 MEQ TAB (K-DUR) PO SCH (06:12)
--- NOTE | 2017-02-04 08:08 | PM & R (SOAP) Progress Note ---
Subjective Time Seen by Provider: 07:45 Subjective/Events-last exam Patient was seen in her room Discussed case with RN RN reportsd bloody stools Stool for C DIF Negative.Patient request DR Benoit for eval See orders Patient Setup for upper body dressing Max assist for Lower body dressing Mod assist for toilet transfers Objective Exam Last Set of Vital Signs Vital Signs Date Time Temp Pulse Resp B/P (MAP) Pulse Ox O2 Delivery O2 Flow Rate FiO2 02/04/17 03:26 99.5 92 18 117/63 94 Room Air Capillary Refill : Less Than 3 SecondsNONE I&O Intake and Output 02/04/17 00:00 Intake Total 1250 ml Balance 1250 ml Intake Oral 1250 ml # Voids 7 # Bowel Movements 10 General: Alert, Oriented X3, Cooperative, No Acute Distress HEENT: Atraumatic, PERRLA, EOMI, Mucous Memb Moist/[place] Neck: Supple, No JVD Lungs: Clear to Auscultation Heart: Regular Rate Abdomen: Normal Bowel Sounds, Soft, No Tenderness Extremities: Other (trace edema rt ankle) Neuro: Other (guarding rt hip has functional strength distal RT Leg) Results Lab Microbiology 02/02/17 Stool Culture - Preliminary, Resulted No stool pathogens as yet isolated. ... 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
[2017-02-04] MEDS: ASPIRIN E.C. 325 MG (ECOTRIN) TABLET PO SCH (09:28)
[2017-02-04] MEDS: LORATADINE (CLARITIN) 10 MG TAB PO SCH (09:28)
[2017-02-04] MEDS: ENOXAPARIN 40 MG/0.4 ML (LOVENOX) SYR SC SCH (09:28)
[2017-02-04 09:34] LABS: BASOPHILS % (AUTO) 1 % (0-10); EOSINOPHILS # (AUTO) 0.1 10^3/uL (0.0-0.3); EOSINOPHILS % (AUTO) 1 % (0-10); LYMPHOCYTES # (AUTO) 0.7 X 10^3 (1.0-4.0); LYMPHOCYTES % (AUTO) 9 % (12-44); MEAN CORPUSCULAR HEMOGLOBIN 30 PG (25-34); MEAN CORPUSCULAR HGB CONC 33 G/DL (32-36); MEAN CORPUSCULAR VOLUME 91 FL (80-99); MEAN PLATELET VOLUME 8.4 FL (7.4-10.4); MONOCYTES # (AUTO) 1.1 X 10^3 (0.0-1.0); MONOCYTES % (AUTO) 14 % (0-12); NEUTROPHILS # (AUTO) 5.6 X 10^3 (1.8-7.8); NEUTROPHILS % (AUTO) 75 % (42-75); PLATELET COUNT 423 10^3/uL (130-400); RED BLOOD COUNT 3.47 10^6/uL (4.35-5.85); RED CELL DISTRIBUTION WIDTH 14.5 % (10.0-14.5); WHITE BLOOD COUNT 7.4 10^3/uL (4.3-11.0)
[2017-02-04 09:52] LABS: ALBUMIN 2.2 GM/DL (3.2-4.5); BILIRUBIN,TOTAL 0.5 MG/DL (0.1-1.0); CALCIUM 8.3 MG/DL (8.5-10.1); CREATININE SERUM 0.91 MG/DL (0.60-1.30); POTASSIUM 4.8 MMOL/L (3.6-5.0)
--- NOTE | 2017-02-04 10:46 | Progress Note-Hospitalist ---
Subjective HPI/CC On Admission Date Seen by Provider: Feb 04, 2017 Time Seen by Provider: 10:00 Subjective/Events-last exam Mrs. Kaiser reports she's only had one bowel movement today and it was loose without blood. She has little over a month's history of chronic diarrhea as many of arnett stools today per day occasionally with bright red blood or pink discoloration not reportedly mixed in with the stool. She has no previous history of chronic diarrhea and this predates any antibiotic use. Stool cultures and C. difficile toxin studies have been negative from last week. Apparently there had been some stool present and concerns for overflow diarrhea although definitive hard stool or need for disimpaction is not reported. Dr. Farley had recommended colonoscopy but the patient stated that she did not know him and requested that if she had to have the procedure done that I perform it. I do have a relationship with several other family members and performs their colonoscopies. She couldn't tell me if she lost any weight. Her mother apparently had uterine cancer that metastasized to the bowel but she's not aware of any family history for colon cancer. She does note abdominal sensitivity of if she leans against anything that places pressure on her abdomen going on for the past month. She's been doing more belching and does report intermittent dysphagia to solids feeling that it hangs up in the epigastric area. She has not had any regurgitation events coughing or choking with meals and has always been able to get food to go down. She denies melena. She has not had previous colonoscopy or upper endoscopy. She denies chills fever or night sweats. Objective Exam Vital Signs Vital Sign - Last 12Hours 01/31/17 10:30 Temp 97.3 Pulse 97 Resp 18 B/P (MAP) 107/52 Pulse Ox 100 O2 Delivery Room Air Capillary Refill : NONENONE General Appearance: Anxious, Chronically ill HEENT: Pale Conjunctivae (L), Pale Conjunctivae (R) Respiratory: Chest Non Tender, Lungs Clear, Normal Breath Sounds, No Accessory Muscle Use, No Respiratory Distress Cardiovascular: Regular Rate, Rhythm, No Edema, No Gallop, No JVD, No Murmur, Normal Peripheral Pulses Gastrointestinal: No Organomegaly, No Pulsatile Mass, Soft, Distended, Tenderness (Mild generalized), Other (I'll tympany to percussion in the right upper quadrant) Results/Procedures Lab Laboratory Tests 02/04/17 09:28 Assessment/Plan Assessment and Plan Assess & Plan/Chief Complaint 1. Patient convalescing from right total hip replacement improving with physical therapy. 2. Malnutrition improving with increasing albumin level and good appetite. 3. Chronic diarrhea questionably overflow in etiology. Patient is anxious and very concerned about whether or not she could complete a bowel prep. Symptoms are concerning for partial small bowel obstruction and clearly malignancy needs to be ruled out. As patient has a good appetite and did not have any evidence for impaction on yesterday's KUB with improving nutritional level we'll see about setting up colonoscopy for the following week as long as progress continues. YOLA AKHTAR MD Feb 04, 2017 10:46
--- NOTE | 2017-02-04 11:16 | Physical Therapy Daily Note ---
PT Daily Note-Current Subjective Patient agrees to continue with therapy. Pain Numeric Pain Scale: 5-Moderate Pain Location: Right, Left Location Body Site: Knee Pain Description: Ache, Pressure Mental Status Patient Orientation: Normal For Age Transfers Functional [place] Measure 0=Not Assessed/NA 4=Minimal Assistance 1=Total Assistance 5=Supervision or Setup 2=Maximal Assistance 6=Modified [place] 3=Moderate Assistance 7=Complete IndependenceIRFPAI Quality Coding Scale 6 Independent with activity with or without an assistive device 5 Patient requires set up or clean up by helper. Patient completes activity by themselves 4 Supervision or touching assist (CGA). [place] provide cues , steadying assist 3 The helper provides less than half the effort to complete the activity 2 The helper provides more than half the effort to complete the activity 1 Dependent. The helper does all the effort to complete an activity 7 Patient refused to complete or attempt activity 9 The patient did not perform the activity before the current illness or injury 88 Not attempted due to Medical conditions or safety concerns Transfers (B, C, W/C) (FIM): 5 Scootin Rollin Roll Left to Right (QC): 5 Supine to/from Sit: 5 Sit to/from Stand: 5 Sit to Lying (QC): 5 Sit to Stand (QC): 5 Chair/Rqn-oo-Lpmwq Xfer(QC): 5 Bed to/from Chair: 5 Weight Bearing Weight Bearing Restriction: Weight Bearing/Tolerated Location Restriction: R LE Gait Training Does the Patient Walk?: Yes Gait (FIM): 5 Distance (FIM): 3=150 ft Distance: 150' Walk 10 feet (QC): 5 Walk 50 ft with 2 Turns(QC): 5 Walk 150 ft (QC): 5 Gait Level of Assist: 5 Gait Persons Needed: 1 Gait Assistive Device: FWW antalgic, step to pattern Stair Training Stair Training: Handrails/: 1 handrail, uses walker Stairs (FIM): 2 1 Step (curb) (QC): 4 4 Steps (QC): 4 12 Steps (QC): 9 Stairs: Pattern: Step to Level of Assist: 4 Exercises Supine Ex: Ankle pumps, Quad Set, Heel Slides Supine Reps: 15 Seated Therapy Exercises: Long arc quads Seated Reps: 15 Assessment Patient able to perform steps with much encouragement due to apprehensive to increase activity. Patient returned to room and OT in to continue with treatment plan. Patient progressing with POC. PT Short Term Goals Short Term Goals Time Frame: Feb 07, 2017 Transfers (B,C,W/C) (FIM): 4 Gait (FIM): 4 Gait Distance Comment: 150' Gait Level of Assist: 4 Gait Assistive Device: FWW Wheelchair Distance: 50' PT Snf Goals Snf Goals PT Costume Technician Goals Time Frame: Feb 21, 2017 Transfers (B,C,W/C) (FIM): 5 (met 02/04/17) Sit to Lying (QC): 4 (met 02/04/17) Lying-Sitting on Side/Bed(QC): 4 (met 02/04/17) Sit to Stand (QC): 4 (met 02/04/17) Rollin Roll Left to Right (QC): 4 (met 02/04/17) Chair/Pxj-ul-Ootjf Xfer(QC): 4 Gait (FIM): 5 Distance: 200' Walk 10 feet (QC): 4 Walk 10ft-Uneven Surface(QC): 4 Walk 50ft with 2 Turns (QC): 4 Walk 150 ft (QC): 4 Gait Level of Assist: 5 Gait Assistive Device: FWW Stairs (FIM): 2 (met 02/04/17) # of Steps: 4 (met 02/04/17) 1 Step (curb) (QC): 4 (met 02/04/17) 4 Steps (QC): 4 (met 02/04/17) 12 Steps (QC): 88 Stairs Level Of Assist: 4 (met 02/04/17) PT Plan Treatment/Plan Treatment Plan: Continue Plan of Care Treatment Plan: Bed Mobility, Education, Functional Activity [place], Functional Strength, Group Therapy, Gait, Safety, Therapeutic Exercise, Transfers Treatment Duration: Feb 21, 2017 Frequency: At least 5-7 days/Wk (IRF) Estimated Hrs Per Day: 1.5 hours per day Patient and/or Family Agrees t: Yes Safety Risks/Education Patient Education: Steps Teaching Recipient: Patient Teaching Methods: Demonstration, Discussion Response to Teaching: Verbalize Understanding, Return Demonstration Time/GCodes Time In: 1030 Time Out: 1100 Total Billed Treatment Time: 30 Total Billed Treatment 1 visit EX 15 min FA 15 min THANG CONRAD PT Feb 04, 2017 11:15
--- NOTE | 2017-02-04 12:01 | Physical Therapy Daily Note ---
PT Daily Note-Current Subjective Pt sitting in recliner upon arrival. Pt agrees to PT despite slight pain and tightness in R hip. Pain Numeric Pain Scale: 5-Moderate Pain Location: Right Location Body Site: Hip Pain Description: Ache, Tightness Transfers Functional [place] Measure 0=Not Assessed/NA 4=Minimal Assistance 1=Total Assistance 5=Supervision or Setup 2=Maximal Assistance 6=Modified [place] 3=Moderate Assistance 7=Complete IndependenceIRFPAI Quality Coding Scale 6 Independent with activity with or without an assistive device 5 Patient requires set up or clean up by helper. Patient completes activity by themselves 4 Supervision or touching assist (CGA). [place] provide cues , steadying assist 3 The helper provides less than half the effort to complete the activity 2 The helper provides more than half the effort to complete the activity 1 Dependent. The helper does all the effort to complete an activity 7 Patient refused to complete or attempt activity 9 The patient did not perform the activity before the current illness or injury 88 Not attempted due to Medical conditions or safety concerns Scootin Sit to/from Stand: 4 Sit to Stand (QC): 4 Weight Bearing Weight Bearing Restriction: Weight Bearing/Tolerated Location Restriction: R LE Gait Training Does the Patient Walk?: Yes Distance (FIM): 0=810-72 ft Distance: 100' Walk 10 feet (QC): 4 Walk 50 ft with 2 Turns(QC): 4 Gait Level of Assist: 4 Gait Persons Needed: 1 Gait Assistive Device: FWW Pt walks with antalgic gait pattern. Pt walks with slow bhavesh but steady, no LOB. Wheelchair Training Does the Pt Use a Wheelchair?: No Exercises Seated Therapy Exercises: Ankle pumps, Sit to stand, Long arc quads, Hip flexion, Kicking activity, Hip abd/add Seated Reps: 15 Treatments Pt gives CAMP HEAD COUNSELOR info on pain and current condition. Pt completes Seated Ex in recliner. Pt then transfers from recliner using FWW at CGA-Min A. Pt ambulates from room to chair in Therapy [facility] to rest. While resting, another PT staff approaches and continues tx with pt. Pt is left with staff and all needs met at end of tx. Assessment Current Status: Fair Progress Pt still having moderate pain in R hip and walks with antalgic gait pattern. Pt fatigues quickly. PT Short Term Goals Short Term Goals Time Frame: Feb 07, 2017 Transfers (B,C,W/C) (FIM): 4 Gait (FIM): 4 Gait Distance Comment: 150' Gait Level of Assist: 4 Gait Assistive Device: FWW Wheelchair Distance: 50' PT Data Center Solutions Architect Goals Data Center Solutions Architect Goals PT Data Center Solutions Architect Goals Time Frame: Feb 21, 2017 Transfers (B,C,W/C) (FIM): 5 (met 02/04/17) Sit to Lying (QC): 4 (met 02/04/17) Lying-Sitting on Side/Bed(QC): 4 (met 02/04/17) Sit to Stand (QC): 4 (met 02/04/17) Rollin Roll Left to Right (QC): 4 (met 02/04/17) Chair/Zjs-xk-Evxjk Xfer(QC): 4 Gait (FIM): 5 Distance: 200' Walk 10 feet (QC): 4 Walk 10ft-Uneven Surface(QC): 4 Walk 50ft with 2 Turns (QC): 4 Walk 150 ft (QC): 4 Gait Level of Assist: 5 Gait Assistive Device: FWW Stairs (FIM): 2 (met 02/04/17) # of Steps: 4 (met 02/04/17) 1 Step (curb) (QC): 4 (met 02/04/17) 4 Steps (QC): 4 (met 02/04/17) 12 Steps (QC): 88 Stairs Level Of Assist: 4 (met 02/04/17) PT Plan Problem List Problem List: Activity Tolerance, Functional Strength, Safety, Balance, Gait, Transfer Treatment/Plan Treatment Plan: Continue Plan of Care Treatment Plan: Bed Mobility, Education, Functional Activity [place], Functional Strength, Group Therapy, Gait, Safety, Therapeutic Exercise, Transfers Treatment Duration: Feb 21, 2017 Frequency: At least 5-7 days/Wk (IRF) Estimated Hrs Per Day: 1.5 hours per day Patient and/or Family Agrees t: Yes Safety Risks/Education Patient Education: Gait Training, Transfer Techniques, Correct Positioning, Safety Issues Teaching Recipient: Patient Teaching Methods: Discussion Response to Teaching: Verbalize Understanding Time/GCodes Time In: 1000 Time Out: 1030 Total Billed Treatment Time: 30 Total Billed Treatment visit, EX (15m) & GT (15m) NOY GALAVIZ CAMP HEAD COUNSELOR Feb 04, 2017 12:01
--- NOTE | 2017-02-04 12:02 | Occupational Ther Daily Note ---
OT Current Status-Daily Note Subjective Pt finishing up with PT. OT took over care of pt. Pt agreed to therapy. Pain Numeric Pain Scale: 0-No Pain Location: Right, Left, Soft Tissue, Dorsal Location Body Site: Foot Pain Description: Burning Comment: Itching Mental Status/Objective Patient Orientation: Person, Place, Time, Situation Functional [place] Measure 0=Not Assessed/NA 4=Minimal Assistance 1=Total Assistance 5=Supervision or Setup 2=Maximal Assistance 6=Modified [place] 3=Moderate Assistance 7=Complete [place] ADL-Treatment Pt was able to doff socks with min A using dressing stick. Then pt placed feet into foot bath. Attempted to have pt cleanse feet with long handle sponge and pt stated that it made her feet itch worse. FERNANDEZ reported to nrsg the itching/ burning with bilateral dorsum of feet, B feet increased edema with R foot more than L. Redness on dorsum of B feet. Recommended to pt that she keep feet elevated as much as possible when not in therapy. Pt then stated she needed to use the BSC. Min A to transfer from recliner to BS. Pt was able to hike pants down over hips. Then pt unable to cleanse buttocks and requested for FERNANDEZ to hike pants over hips. Pt took increased time to complete theses tasks. Pt is very worried about all the different things that she has been asked to do while in the hospital (inspirometer, drinking water, and not having enough time to do either one when in therapy). After therapy, pt sitting in recliner with feet elevated ordering lunch. Call light/phone in reach. All needs met in room. Functional [place] Measure 0=Not Assessed/NA 4=Minimal Assistance 1=Total Assistance 5=Supervision or Setup 2=Maximal Assistance 6=Modified [place] 3=Moderate Assistance 7=Complete IndependenceIRFPAI Quality Coding Scale 6 Independent with activity with or without an assistive device 5 Patient requires set up or clean up by helper. Patient completes activity by themselves 4 Supervision or touching assist (CGA). [place] provide cues , steadying assist 3 The helper provides less than half the effort to complete the activity 2 The helper provides more than half the effort to complete the activity 1 Dependent. The helper does all the effort to complete an activity 7 Patient refused to complete or attempt activity 9 The patient did not perform the activity before the current illness or injury 88 Not attempted due to Medical conditions or safety concerns Lower Body Dressing (QC): 3 Toileting (FIM): 3 Transfers (B, C, W/C) (FIM): 4 Toilet/Commode Transfer (FIM): 4 OT Short Term Goals Short Term Goals Time Frame: Feb 07, 2017 Bathing(FIM): 3 Lower Body Dressing(FIM): 3 Toileting(FIM): 3 Transfers (B,C,W/C) (FIM): 4 Shower Transfer(FIM): 4 Additional Short Term Goals: 1-Demonstrate ADL Tasks, 2-Verbalize Understanding , 3-ImproveStrength/[place] 1=Demonstrate adherence to instructed precautions during ADL tasks. 2=Patient will verbalize/demonstrate understanding of assistive devices/ modifications for ADL. 3=Patient will improve strength/tolerance for activity to enable patient to perform ADL's. OT Fci Goals Fci Goals Time Frame: Feb 21, 2017 Eating (FIM): 6 Eating (QC): 6 Groomin Oral Hygiene (QC): 6 Bathing(FIM): 5 Shower/Bathe Self (QC): 5 Upper Body Dressing(FIM): 5 Upper Body Dressing (QC): 5 Lower Body Dressing(FIM): 5 Lower Body Dressing (QC): 5 On/Off Footwear (QC): 5 Toileting(FIM): 6 Toileting Hygiene (QC): 6 Toilet/Commode Transfer(FIM): 6 Toilet/Commode Transfer (QC): 6 Shower Transfer(FIM): 5 Additional Goals: 1-Demonstrate ADL Tasks, 2-Verbalize Understanding, 3- ImproveStrength/[place] 1=Demonstrate adherence to instructed precautions during ADL tasks. 2=Patient will verbalize/demonstrate understanding of assistive devices/ modifications for ADL. 3=Patient will improve strength/tolerance for activity to enable patient to perform ADL's. OT Education/Plan Discharge Recommendations Plan/Recommendations: Continue POC Treatment Plan/Plan of Care Patient would benefit from OT for education, treatment and training to promote independence in ADL's, mobility, safety and/or upper extremity function for ADL' s. Plan of Care: ADL Retraining, Functional Mobility, Group Exercise/Act as Ind, UE Funct Exercise/Act Treatment Duration: Feb 21, 2017 Frequency: Twice Daily Estimated Hrs Per Day: 1.5 hours per day Agreement: Yes Rehab Potential: Fair Time/GCodes Start Time: 11:00 Stop Time: 12:00 Total Time Billed (hr/min): 60 Billed Treatment Time 1 visit-FA 4 (60 min) ESTEBAN GRAY Feb 04, 2017 12:02
--- NOTE | 2017-02-04 14:04 | Occupational Ther Daily Note ---
OT Current Status-Daily Note Subjective Pt talking with physician. Nrsg and Lab in room for pt. Pt agreed to therapy. No c/o pain at this time. Mental Status/Objective Patient Orientation: Person, Place, Time, Situation Functional [place] Measure 0=Not Assessed/NA 4=Minimal Assistance 1=Total Assistance 5=Supervision or Setup 2=Maximal Assistance 6=Modified [place] 3=Moderate Assistance 7=Complete [place] ADL-Treatment Assist to go from sit to stand min A. CGA to stand pivot transfer using FWW from recliner to [facility]. Pt was able to pull pants down over hips with CGA. After set up, pt was able to bathe upper body and upper legs. Pt required assistance to cleanse buttocks, able to cleanse kristina area by self. Assist and verbal cues to use drsg stick to doff/don briefs. Pt was able to hike over hips with CGA for balance. Pt was very anxious about colonoscopy. PT took over care of pt. All needs met. Functional [place] Measure 0=Not Assessed/NA 4=Minimal Assistance 1=Total Assistance 5=Supervision or Setup 2=Maximal Assistance 6=Modified [place] 3=Moderate Assistance 7=Complete IndependenceIRFPAI Quality Coding Scale 6 Independent with activity with or without an assistive device 5 Patient requires set up or clean up by helper. Patient completes activity by themselves 4 Supervision or touching assist (CGA). [place] provide cues , steadying assist 3 The helper provides less than half the effort to complete the activity 2 The helper provides more than half the effort to complete the activity 1 Dependent. The helper does all the effort to complete an activity 7 Patient refused to complete or attempt activity 9 The patient did not perform the activity before the current illness or injury 88 Not attempted due to Medical conditions or safety concerns Bathing (FIM): 3 Bathing Location: L Arm, R Arm, L Upper Leg, R Upper Leg, Chest, Abdomen, Perineal Area Lower Body Dressing (FIM): 3 Toileting (FIM): 3 Transfers (B, C, W/C) (FIM): 4 Toilet/Commode Transfer (FIM): 4 OT Short Term Goals Short Term Goals Time Frame: Feb 07, 2017 Bathing(FIM): 3 Lower Body Dressing(FIM): 3 Toileting(FIM): 3 Transfers (B,C,W/C) (FIM): 4 Shower Transfer(FIM): 4 Additional Short Term Goals: 1-Demonstrate ADL Tasks, 2-Verbalize Understanding , 3-ImproveStrength/Stewart 1=Demonstrate adherence to instructed precautions during ADL tasks. 2=Patient will verbalize/demonstrate understanding of assistive devices/ modifications for ADL. 3=Patient will improve strength/tolerance for activity to enable patient to perform ADL's. OT Strip Machine Operator Goals Strip Machine Operator Goals Time Frame: Feb 21, 2017 Eating (FIM): 6 Eating (QC): 6 Groomin Oral Hygiene (QC): 6 Bathing(FIM): 5 Shower/Bathe Self (QC): 5 Upper Body Dressing(FIM): 5 Upper Body Dressing (QC): 5 Lower Body Dressing(FIM): 5 Lower Body Dressing (QC): 5 On/Off Footwear (QC): 5 Toileting(FIM): 6 Toileting Hygiene (QC): 6 Toilet/Commode Transfer(FIM): 6 Toilet/Commode Transfer (QC): 6 Shower Transfer(FIM): 5 Additional Goals: 1-Demonstrate ADL Tasks, 2-Verbalize Understanding, 3- ImproveStrength/Stewart 1=Demonstrate adherence to instructed precautions during ADL tasks. 2=Patient will verbalize/demonstrate understanding of assistive devices/ modifications for ADL. 3=Patient will improve strength/tolerance for activity to enable patient to perform ADL's. OT Education/Plan Discharge Recommendations Plan/Recommendations: Continue POC Treatment Plan/Plan of Care Patient would benefit from OT for education, treatment and training to promote independence in ADL's, mobility, safety and/or upper extremity function for ADL' s. Plan of Care: ADL Retraining, Functional Mobility, Group Exercise/Act as Ind, UE Funct Exercise/Act Treatment Duration: Feb 21, 2017 Frequency: Twice Daily Estimated Hrs Per Day: 1.5 hours per day Agreement: Yes Rehab Potential: Fair Time/GCodes Start Time: 09:25 Stop Time: 10:00 Total Time Billed (hr/min): 35 Billed Treatment Time 1 visit-ADL 2 (35 min) ESTEBAN GRAY Feb 04, 2017 14:04
--- NOTE | 2017-02-04 15:34 | Physical Therapy Daily Note ---
PT Daily Note-Current Subjective Pt sitting in recliner upon arrival. Pt appeared anxious at start of tx. Pt reports pain in R hip with WB activity. Pt agrees to PT. Pain Numeric Pain Scale: 5-Moderate Pain Location: Right Location Body Site: Hip Pain Description: Ache, Tightness Comment: Pt has R hip as well as L knee pain from how she slept. Mental Status Patient Orientation: Person, Place, Situation Transfers Functional [place] Measure 0=Not Assessed/NA 4=Minimal Assistance 1=Total Assistance 5=Supervision or Setup 2=Maximal Assistance 6=Modified [place] 3=Moderate Assistance 7=Complete IndependenceIRFPAI Quality Coding Scale 6 Independent with activity with or without an assistive device 5 Patient requires set up or clean up by helper. Patient completes activity by themselves 4 Supervision or touching assist (CGA). [place] provide cues , steadying assist 3 The helper provides less than half the effort to complete the activity 2 The helper provides more than half the effort to complete the activity 1 Dependent. The helper does all the effort to complete an activity 7 Patient refused to complete or attempt activity 9 The patient did not perform the activity before the current illness or injury 88 Not attempted due to Medical conditions or safety concerns Scootin Sit to/from Stand: 4 Sit to Stand (QC): 4 Weight Bearing Weight Bearing Restriction: Weight Bearing/Tolerated Location Restriction: R LE Gait Training Does the Patient Walk?: Yes Distance (FIM): 3=150 ft Distance: 150' Walk 10 feet (QC): 4 Walk 50 ft with 2 Turns(QC): 4 Walk 150 ft (QC): 4 Gait Level of Assist: 4 Gait Persons Needed: 1 Gait Assistive Device: FWW Pt walks with antalgic gait pattern. Pt bhavesh is slow but steady, no LOB. Wheelchair Training Does the Pt Use a Wheelchair?: No Exercises Seated Therapy Exercises: Ankle pumps, Long arc quads, Hip flexion, Kicking activity, Hip abd/add Seated Reps: 15 Treatments Pt transferred from recliner to standing using FWW at CGA-Min A. Pt ambulated in hallway using FWW at CGA. Pt rested shortly before continuing back to recliner in room to rest. Pt completed Seated Ex at recliner. Pt transferred to [facility] to use at end of tx with all needs met. Assessment Current Status: Fair Progress Pt fatigues easy and needs rest break to recover although ambulated farther in one setting than this morning. Pt reported increased pain with WB. PT Short Term Goals Short Term Goals Time Frame: Feb 07, 2017 Transfers (B,C,W/C) (FIM): 4 Gait (FIM): 4 Gait Distance Comment: 150' Gait Level of Assist: 4 Gait Assistive Device: FWW Wheelchair Distance: 50' PT Skilled Nursing Goals Cattle Broker Goals PT Skilled Nursing Goals Time Frame: Feb 21, 2017 Transfers (B,C,W/C) (FIM): 5 (met 02/04/17) Sit to Lying (QC): 4 (met 02/04/17) Lying-Sitting on Side/Bed(QC): 4 (met 02/04/17) Sit to Stand (QC): 4 (met 02/04/17) Rollin Roll Left to Right (QC): 4 (met 02/04/17) Chair/Ehu-ie-Atsiq Xfer(QC): 4 Gait (FIM): 5 Distance: 200' Walk 10 feet (QC): 4 Walk 10ft-Uneven Surface(QC): 4 Walk 50ft with 2 Turns (QC): 4 Walk 150 ft (QC): 4 Gait Level of Assist: 5 Gait Assistive Device: FWW Stairs (FIM): 2 (met 02/04/17) # of Steps: 4 (met 02/04/17) 1 Step (curb) (QC): 4 (met 02/04/17) 4 Steps (QC): 4 (met 02/04/17) 12 Steps (QC): 88 Stairs Level Of Assist: 4 (met 02/04/17) PT Plan Problem List Problem List: Activity Tolerance, Functional Strength, Safety, Balance, Gait, Transfer Treatment/Plan Treatment Plan: Continue Plan of Care Treatment Plan: Bed Mobility, Education, Functional Activity [place], Functional Strength, Group Therapy, Gait, Safety, Therapeutic Exercise, Transfers Treatment Duration: Feb 21, 2017 Frequency: At least 5-7 days/Wk (IRF) Estimated Hrs Per Day: 1.5 hours per day Patient and/or Family Agrees t: Yes Safety Risks/Education Patient Education: Gait Training, Transfer Techniques, Correct Positioning, Safety Issues Teaching Recipient: Patient Teaching Methods: Discussion Response to Teaching: Verbalize Understanding Time/GCodes Time In: 1400 Time Out: 1430 Total Billed Treatment Time: 30 Total Billed Treatment visit, EX (15m), GT (15m) NOY GALAVIZ STORAGE WORKER Feb 04, 2017 15:34
[2017-02-04 17:52] VITALS: BP 133/70
[2017-02-05 06:25] VITALS: BP 114/56
[2017-02-05] MEDS: DIPHENOXYLATE/ATROPINE 2.5MG/0.025MG (LOMOTIL) TAB PO PRN ×2 (06:26→18:14)
[2017-02-05] MEDS: LACTOBACILLUS Acidoph/Bulgar (LACTINEX/FLORANEX) TAB PO SCH ×3 (06:26→13:47)
[2017-02-05] MEDS: KCL 20 MEQ TAB (K-DUR) PO SCH (06:27)
[2017-02-05] MEDS: CHOLESTYRAMINE 4 GM (QUESTRAN LITE, PREVALITE) PKT PO SCH (06:27)
[2017-02-05] MEDS: LORATADINE (CLARITIN) 10 MG TAB PO SCH (08:12)
[2017-02-05] MEDS: ASPIRIN E.C. 325 MG (ECOTRIN) TABLET PO SCH (08:12)
[2017-02-05] MEDS: ENOXAPARIN 40 MG/0.4 ML (LOVENOX) SYR SC SCH (08:14)
--- NOTE | 2017-02-05 08:15 | Physical Therapy Daily Note ---
PT Daily Note-Current Subjective Pt. in bathroom and states she is still troubled by diarrhea and never really knows if she needs to go or not. Pt. expresses that she is nervous and anxious about this ordeal. Pain Numeric Pain Scale: 0-No Pain Appearance bilateral LE edema Mental Status Patient Orientation: Normal For Age pt. is anxious and a bit unreasonable . Easily forgets a plan that has just been discussed for what to do the next few minutes and becomes frustrated etc. Transfers Functional [place] Measure 0=Not Assessed/NA 4=Minimal Assistance 1=Total Assistance 5=Supervision or Setup 2=Maximal Assistance 6=Modified [place] 3=Moderate Assistance 7=Complete IndependenceIRFPAI Quality Coding Scale 6 Independent with activity with or without an assistive device 5 Patient requires set up or clean up by helper. Patient completes activity by themselves 4 Supervision or touching assist (CGA). [place] provide cues , steadying assist 3 The helper provides less than half the effort to complete the activity 2 The helper provides more than half the effort to complete the activity 1 Dependent. The helper does all the effort to complete an activity 7 Patient refused to complete or attempt activity 9 The patient did not perform the activity before the current illness or injury 88 Not attempted due to Medical conditions or safety concerns Transfers (B, C, W/C) (FIM): 5 Scootin Rollin Supine to/from Sit: 5 (from flat surface no rails with instruction) Gait Training Does the Patient Walk?: Yes Gait (FIM): 4 Distance (FIM): 3=150 ft (x2) Gait Level of Assist: 4 Gait Persons Needed: 1 Gait Assistive Device: FWW improving gait pattern, still slow, looks to floor while walking Exercises Seated Therapy Exercises: Ankle pumps, Sit to stand, Long arc quads, Hip abd/ add Seated Reps: 12 Treatments pt. toileted on BSC and needs full instruction as to how to clean front and or back , states she cant remember how she did this at home. Pt. wears brief and this MEDICAL DIRECTOR OCCUPATIONAL HEALTH encourages walking to from toilet. Pt. resists and wants BSC next to bed secondary to loose stools. Assessment Current Status: Good Progress pts. anxiety limits her participation at times PT Short Term Goals Short Term Goals Time Frame: Feb 07, 2017 Transfers (B,C,W/C) (FIM): 4 Gait (FIM): 4 Gait Distance Comment: 150' Gait Level of Assist: 4 Gait Assistive Device: FWW Wheelchair Distance: 50' PT Halfway Goals Halfway Goals PT Back Roller Goals Time Frame: Feb 21, 2017 Transfers (B,C,W/C) (FIM): 5 (met 02/04/17) Sit to Lying (QC): 4 (met 02/04/17) Lying-Sitting on Side/Bed(QC): 4 (met 02/04/17) Sit to Stand (QC): 4 (met 02/04/17) Rollin Roll Left to Right (QC): 4 (met 02/04/17) Chair/Xuz-qt-Ltmqm Xfer(QC): 4 Gait (FIM): 5 Distance: 200' Walk 10 feet (QC): 4 Walk 10ft-Uneven Surface(QC): 4 Walk 50ft with 2 Turns (QC): 4 Walk 150 ft (QC): 4 Gait Level of Assist: 5 Gait Assistive Device: FWW Stairs (FIM): 2 (met 02/04/17) # of Steps: 4 (met 02/04/17) 1 Step (curb) (QC): 4 (met 02/04/17) 4 Steps (QC): 4 (met 02/04/17) 12 Steps (QC): 88 Stairs Level Of Assist: 4 (met 02/04/17) PT Plan Treatment/Plan Treatment Plan: Continue Plan of Care Treatment Plan: Bed Mobility, Education, Functional Activity [place], Functional Strength, Group Therapy, Gait, Safety, Therapeutic Exercise, Transfers Treatment Duration: Feb 21, 2017 Frequency: At least 5-7 days/Wk (IRF) Estimated Hrs Per Day: 1.5 hours per day Patient and/or Family Agrees t: Yes Safety Risks/Education Patient Education: Gait Training, Transfer Techniques, Correct Positioning, Disease Process, Safety Issues Teaching Recipient: Patient Teaching Methods: Demonstration, Discussion Response to Teaching: Verbalize Understanding, Return Demonstration, Reinforcement Needed Time/GCodes Time In: 730 Time Out: 815 Total Billed Treatment Time: 45 Total Billed Treatment 1,EX15m,FA15m,GT15m G Codes Necessary: TIANNA Menon MEDICAL DIRECTOR OCCUPATIONAL HEALTH Feb 05, 2017 08:15
--- NOTE | 2017-02-05 10:44 | Progress Note-Hospitalist ---
Progress Note Progress Notes/Assess & Plan Date Seen 02/05/17 Time Seen by Provider: 10:00 Diagonsis/Assessment & Plan Chart Review: Vitals stable wedding day coordinator: Positive occult stool but pt has bad hemorrhoids Diarrhea is still present Will refuse Lactinex. Pt has been given Lomotil, pt is not yet doing well on it. Pt refuses Questran Pt refuses therapy because of her diarrhea Pt would prefer Dr. Roberts for colonoscopy and wants to have the colonoscopy here Patient Interview: Pt was in the bathroom upon interview Pt confirms still having diarrhea Pt asked if she is still able to eat anything. I confirmed this. Pt was informed that we will have to do the colonoscopy as out-pt Physical exam stable AFVSS, Ple[place], O x 3 RRR, CTAB No edema Plan: Continue Lomotil Colonoscopy when Dr Roberts arranges Continue eating a well rounded diet Scribed by Savannah Li under the direct supervision of Dr. Metcalf. ROBERT METCALF DO Feb 05, 2017 10:44
--- NOTE | 2017-02-05 10:46 | Occupational Ther Daily Note ---
OT Current Status-Daily Note Subjective Pt sitting in chair, agrees to treatment. Mental Status/Objective Functional [place] Measure 0=Not Assessed/NA 4=Minimal Assistance 1=Total Assistance 5=Supervision or Setup 2=Maximal Assistance 6=Modified [place] 3=Moderate Assistance 7=Complete [place] ADL-Treatment Pt states she would like to shower and wash her hair today. Sit to stand from chair with supervision and cues for hand placement. Gait to restroom with FWW, slow pace. Pt requests to use toilet. Transfer to [facility] over toilet with CGA and cues for safety. Pt states she is anxious about whether or not she will have diarrhea and she completed toileting x3 during session with increased time. Pt able to manage pants up/down, but requires assist for thorough hygiene. Transfer to walk in shower with minimal assistance using grab bars for balance and safety. Upper body bathing completed with set up. Pt requires assist to wash /dry hair. Pt able to wash bilateral upper legs and used long handled sponge to wash lower legs and feet. Stood with minimal assistance to wash buttocks. Pt able to dry upper body, but after shower pt reports urgent need to use toilet, so therapist assisted with drying lower body. Pt donned pullover gown with set up. Pt requires assist to start Depends over feet. Stood with CGA to supervisor pullet farm hips. Pt requires occasional cues for sequencing during ADL tasks and increased time for ADL completion. Pt transferred to chair with CGA, but then states she needs to use toilet again. Pt transferred to BS over toilet with CGA. Pt states she needs to sit for awhile, instructed to pull cord when she is finished. Nursing was notified. Functional [place] Measure 0=Not Assessed/NA 4=Minimal Assistance 1=Total Assistance 5=Supervision or Setup 2=Maximal Assistance 6=Modified [place] 3=Moderate Assistance 7=Complete IndependenceIRFPAI Quality Coding Scale 6 Independent with activity with or without an assistive device 5 Patient requires set up or clean up by helper. Patient completes activity by themselves 4 Supervision or touching assist (CGA). [place] provide cues , steadying assist 3 The helper provides less than half the effort to complete the activity 2 The helper provides more than half the effort to complete the activity 1 Dependent. The helper does all the effort to complete an activity 7 Patient refused to complete or attempt activity 9 The patient did not perform the activity before the current illness or injury 88 Not attempted due to Medical conditions or safety concerns Upper Body (FIM): 5 Upper Body Dressing (QC): 5 Lower Body Dressing (FIM): 3 Lower Body Dressing (QC): 3 Toileting (FIM): 3 Toileting Hygiene (QC): 3 Toilet/Commode Transfer (FIM): 4 Toilet Transfer (QC): 4 Shower Transfer(FIM): 4 OT Short Term Goals Short Term Goals Time Frame: Feb 07, 2017 Bathing(FIM): 3 Lower Body Dressing(FIM): 3 Toileting(FIM): 3 Transfers (B,C,W/C) (FIM): 4 Shower Transfer(FIM): 4 Additional Short Term Goals: 1-Demonstrate ADL Tasks, 2-Verbalize Understanding , 3-ImproveStrength/Stewart 1=Demonstrate adherence to instructed precautions during ADL tasks. 2=Patient will verbalize/demonstrate understanding of assistive devices/ modifications for ADL. 3=Patient will improve strength/tolerance for activity to enable patient to perform ADL's. OT Penitentiary Goals Penitentiary Goals Time Frame: Feb 21, 2017 Eating (FIM): 6 Eating (QC): 6 Groomin Oral Hygiene (QC): 6 Bathing(FIM): 5 Shower/Bathe Self (QC): 5 Upper Body Dressing(FIM): 5 Upper Body Dressing (QC): 5 Lower Body Dressing(FIM): 5 Lower Body Dressing (QC): 5 On/Off Footwear (QC): 5 Toileting(FIM): 6 Toileting Hygiene (QC): 6 Toilet/Commode Transfer(FIM): 6 Toilet/Commode Transfer (QC): 6 Shower Transfer(FIM): 5 Additional Goals: 1-Demonstrate ADL Tasks, 2-Verbalize Understanding, 3- ImproveStrength/Stewart 1=Demonstrate adherence to instructed precautions during ADL tasks. 2=Patient will verbalize/demonstrate understanding of assistive devices/ modifications for ADL. 3=Patient will improve strength/tolerance for activity to enable patient to perform ADL's. OT Education/Plan Discharge Recommendations Plan/Recommendations: Continue POC Treatment Plan/Plan of Care Patient would benefit from OT for education, treatment and training to promote independence in ADL's, mobility, safety and/or upper extremity function for ADL' s. Plan of Care: ADL Retraining, Functional Mobility, Group Exercise/Act as Ind, UE Funct Exercise/Act Treatment Duration: Feb 21, 2017 Frequency: Twice Daily Estimated Hrs Per Day: 1.5 hours per day Agreement: Yes Rehab Potential: Fair Time/GCodes Start Time: 09:00 Stop Time: 10:15 Total Time Billed (hr/min): 75 Billed Treatment Time 1 visit, ADLx5(75minutes) YARED GOLDEN OT Feb 05, 2017 10:46
--- NOTE | 2017-02-05 11:37 | Physical Therapy Daily Note ---
PT Daily Note-Current Subjective Reports she has spent alot of time on the toilet today and it has impeded with her ability to participate with therapy. Pt currently on the toilet. Mental Status Patient Orientation: Person, Place, Time, Situation Transfers Functional [place] Measure 0=Not Assessed/NA 4=Minimal Assistance 1=Total Assistance 5=Supervision or Setup 2=Maximal Assistance 6=Modified [place] 3=Moderate Assistance 7=Complete IndependenceIRFPAI Quality Coding Scale 6 Independent with activity with or without an assistive device 5 Patient requires set up or clean up by helper. Patient completes activity by themselves 4 Supervision or touching assist (CGA). [place] provide cues , steadying assist 3 The helper provides less than half the effort to complete the activity 2 The helper provides more than half the effort to complete the activity 1 Dependent. The helper does all the effort to complete an activity 7 Patient refused to complete or attempt activity 9 The patient did not perform the activity before the current illness or injury 88 Not attempted due to Medical conditions or safety concerns Treatments Worked on functional seated and standing dynamic balance with pt performing kristina care while seated and then standing; pt able to pull pants up as well. Pt required CGA throughout this. pt stood at the sink to wash her hands with SBA. Pt then ambulated x 125 ft with FWW with SB-CGA. Pt up in chair post treatment with needs met. Assessment Pt slow with pericare and toileting as well as arranging her clothing but able to do so. Pt ambulates with a step to gait pattern but her speed is fairly normal. She is progressing in her ability to transfer and ambulate. PT Short Term Goals Short Term Goals Time Frame: Feb 07, 2017 Transfers (B,C,W/C) (FIM): 4 Gait (FIM): 4 Gait Distance Comment: 150' Gait Level of Assist: 4 Gait Assistive Device: FWW Wheelchair Distance: 50' PT Residential Goals Radiation Physicist Goals PT Radiation Physicist Goals Time Frame: Feb 21, 2017 Transfers (B,C,W/C) (FIM): 5 (met 02/04/17) Sit to Lying (QC): 4 (met 02/04/17) Lying-Sitting on Side/Bed(QC): 4 (met 02/04/17) Sit to Stand (QC): 4 (met 02/04/17) Rollin Roll Left to Right (QC): 4 (met 02/04/17) Chair/Orj-xb-Ihqtz Xfer(QC): 4 Gait (FIM): 5 Distance: 200' Walk 10 feet (QC): 4 Walk 10ft-Uneven Surface(QC): 4 Walk 50ft with 2 Turns (QC): 4 Walk 150 ft (QC): 4 Gait Level of Assist: 5 Gait Assistive Device: FWW Stairs (FIM): 2 (met 02/04/17) # of Steps: 4 (met 02/04/17) 1 Step (curb) (QC): 4 (met 02/04/17) 4 Steps (QC): 4 (met 02/04/17) 12 Steps (QC): 88 Stairs Level Of Assist: 4 (met 02/04/17) PT Plan Problem List Problem List: Activity Tolerance, Functional Strength, Safety Treatment/Plan Treatment Plan: Continue Plan of Care Treatment Plan: Bed Mobility, Education, Functional Activity [place], Functional Strength, Group Therapy, Gait, Safety, Therapeutic Exercise, Transfers Treatment Duration: Feb 21, 2017 Frequency: At least 5-7 days/Wk (IRF) Estimated Hrs Per Day: 1.5 hours per day Patient and/or Family Agrees t: Yes Safety Risks/Education Patient Education: Transfer Techniques, Safety Issues Teaching Recipient: Patient Teaching Methods: Demonstration, Discussion Response to Teaching: Reinforcement Needed Discharge Recommendations Therapy D/C Recommendations: Physical Therapy Home Care Time/GCodes Time In: 1035 Time Out: 1105 Total Billed Treatment Time: 30 Total Billed Treatment visit Neuro 20 GT 10 ESTEBAN HICKS PT Feb 05, 2017 11:37
--- NOTE | 2017-02-05 15:04 | Therapy Group Daily Note ---
Therapy Daily Group Note Patient Education Topic Energy Cons, Exercises Exercises LE Seated Exercise, UE Exercise Other/Notes Pt walked to OT/PT group using FWW. Group consisted of introductions (name, place living, what inspires you), socialization, energy conservation education and upper/lower seated exercises that incorporated cardio. and energy conservation. Pt contributed to discussions effectively. Pt completed UE/LE exercises but reported that she couldn't complete EX although she could but was really motivated. Pt was able to verbalize understanding of education topic and elaborate on discussions. After group, pt walked back to room using FWW. Call light/phone in reach. All needs met in room. Start Time: 13:00 Stop Time: 14:15 Total Billed Treatment Time: 75 Total Billed Treatment 1, GRP NOY GALAVIZ BORDEREAU CLERK Feb 05, 2017 15:04
--- NOTE | 2017-02-05 15:14 | PM & R (SOAP) Progress Note ---
Subjective Time Seen by Provider: 07:40 Subjective/Events-last exam Patient was seen in her room this AM Patient CGA for tranfers and gait Patient prfers DR Roberts to manage her loose stools Patient doesnt care for cuurent med for Control of diarrhea(Questran) Discussed with RN Immodium substitued HGB stable Stool for OB+ Review of Systems Gastrointestinal: Diarrhea Objective Exam Last Set of Vital Signs Vital Signs Date Time Temp Pulse Resp B/P (MAP) Pulse Ox O2 Delivery O2 Flow Rate FiO2 02/05/17 08:41 Room Air 02/05/17 06:25 98.1 85 20 114/56 96 Capillary Refill : NONENONE I&O Intake and Output 02/04/17 23:59 Intake Total 1200 ml Balance 1200 ml Intake Oral 1200 ml # Voids 9 # Bowel Movements 8 General: Alert, Oriented X3, Cooperative, No Acute Distress HEENT: Atraumatic, PERRLA, EOMI, Mucous Memb Moist/[place] Neck: Supple, No JVD Lungs: Clear to Auscultation Heart: Regular Rate Abdomen: Normal Bowel Sounds, Soft, No Tenderness Extremities: Other (trace edema rt ankle) Neuro: Other (guarding rt hip has functional strength distal RT Leg) Results Lab Laboratory Tests 02/04/17 09:28: White Blood Count 7.4, Red Blood Count 3.47L, Hemoglobin 10.4L, Hematocrit 32L, Mean Corpuscular Volume 91, Mean Corpuscular Hemoglobin 30, Mean Corpuscular Hemoglobin Concent 33, Red Cell Distribution Width 14.5, Platelet Count 423H, Mean Platelet Volume 8.4, Neutrophils (%) (Auto) 75, Lymphocytes (%) (Auto) 9L, Monocytes (%) (Auto) 14H, Eosinophils (%) (Auto) 1, Basophils (%) (Auto) 1, Neutrophils # (Auto) 5.6, Lymphocytes # (Auto) 0.7L, Monocytes # (Auto) 1.1H, Eosinophils # (Auto) 0.1, Basophils # (Auto) 0.0, Sodium Level 134L, Potassium Level 4.8, Chloride Level 111H, Carbon Dioxide Level 18L, Anion Gap 5, Blood Urea Nitrogen 18, Creatinine 0.91, Estimat Glomerular Filtration Rate 59, BUN/ Creatinine Ratio 20, Glucose Level 145H, Calcium Level 8.3L, Total Bilirubin 0.5 , Aspartate Amino Transf (AST/SGOT) 13, Alanine Aminotransferase (ALT/SGPT) 9, Alkaline Phosphatase 82, Total Protein 6.0L, Albumin 2.2L 02/05/17 03:39: Stool Occult Blood Immunoassay POSITIVEH Microbiology 02/02/17 Stool Culture - Preliminary, Resulted No stool pathogens as yet isolated. ... 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 DEB LOMBARDO MD Feb 05, 2017 15:14
[2017-02-05 17:19] VITALS: BP 109/69
[2017-02-06] MEDS: DIPHENOXYLATE/ATROPINE 2.5MG/0.025MG (LOMOTIL) TAB PO PRN ×2 (05:30→22:39)
[2017-02-06] MEDS: LACTOBACILLUS Acidoph/Bulgar (LACTINEX/FLORANEX) TAB PO SCH ×3 (05:30→16:14)
[2017-02-06 05:31] VITALS: BP 137/66
[2017-02-06] MEDS: KCL 20 MEQ TAB (K-DUR) PO SCH (05:56)
--- NOTE | 2017-02-06 08:23 | PM & R (SOAP) Progress Note ---
Subjective Time Seen by Provider: 07:55 Subjective/Events-last exam Patient was seen in her room this AM Patient CGA for Gait with walker.Patient c/ o edema in ankles Patient with 2+ pitting edema in ankles Patient declines Supprot hose due to binding.Serum Ambumin low which may be contributing to this Legs elevated in Recliner at this time.Appreciate DR Montaño note. Review of Systems Cardiovascular: Edema Objective Exam Last Set of Vital Signs Vital Signs Date Time Temp Pulse Resp B/P (MAP) Pulse Ox O2 Delivery O2 Flow Rate FiO2 02/06/17 05:31 97.9 87 18 137/66 97 Room Air Capillary Refill : NONENONE I&O Intake and Output 02/06/17 00:00 Intake Total 1040 ml Output Total 350 ml Balance 690 ml Intake Oral 1040 ml Output Urine Total 350 ml # Voids 1 # Bowel Movements 10 General: Alert, Oriented X3, Cooperative, No Acute Distress HEENT: Atraumatic, PERRLA, EOMI, Mucous Memb Moist/[place] Neck: Supple, No JVD Lungs: Clear to Auscultation Heart: Regular Rate Abdomen: Normal Bowel Sounds, Soft, No Tenderness Extremities: Other (2+ pitting edema both ankles) Neuro: Other (guarding rt hip has functional strength distal RT Leg) Results Lab Laboratory Tests 02/04/17 09:28: White Blood Count 7.4, Red Blood Count 3.47L, Hemoglobin 10.4L, Hematocrit 32L, Mean Corpuscular Volume 91, Mean Corpuscular Hemoglobin 30, Mean Corpuscular Hemoglobin Concent 33, Red Cell Distribution Width 14.5, Platelet Count 423H, Mean Platelet Volume 8.4, Neutrophils (%) (Auto) 75, Lymphocytes (%) (Auto) 9L, Monocytes (%) (Auto) 14H, Eosinophils (%) (Auto) 1, Basophils (%) (Auto) 1, Neutrophils # (Auto) 5.6, Lymphocytes # (Auto) 0.7L, Monocytes # (Auto) 1.1H, Eosinophils # (Auto) 0.1, Basophils # (Auto) 0.0, Sodium Level 134L, Potassium Level 4.8, Chloride Level 111H, Carbon Dioxide Level 18L, Anion Gap 5, Blood Urea Nitrogen 18, Creatinine 0.91, Estimat Glomerular Filtration Rate 59, BUN/ Creatinine Ratio 20, Glucose Level 145H, Calcium Level 8.3L, Total Bilirubin 0.5 , Aspartate Amino Transf (AST/SGOT) 13, Alanine Aminotransferase (ALT/SGPT) 9, Alkaline Phosphatase 82, Total Protein 6.0L, Albumin 2.2L 02/05/17 03:39: Stool Occult Blood Immunoassay POSITIVEH Microbiology 02/02/17 Stool Culture - Preliminary, Resulted No stool pathogens as yet isolated. ... 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 Elevate legs as much as possible Zachery wraps legs -see orders DEB LOMBARDO MD Feb 06, 2017 08:23
--- NOTE | 2017-02-06 09:01 | Physical Therapy Daily Note ---
PT Daily Note-Current Subjective Pt. agrees to Rx. Has already had breakfast and toileted. States she is worried about rearranging her home ie, 7 steps in to house, garage detached and washer dryer are in basement. States she has realized a long time that this is not the safest arrangement for her. Doesnt want to move. This ADMINISTRATIVE SPECIALIST suggested home modification and or hired assist a few hours a day. Pain Numeric Pain Scale: 4 Location: Right Location Body Site: Hip Pain Description: Ache Comment: with activity only, no pain at rest Appearance continues with pitted edema bilat LEs and up in to trunk Mental Status Patient Orientation: Person, Place, Time, Situation very anxious, worrier Transfers Functional [place] Measure 0=Not Assessed/NA 4=Minimal Assistance 1=Total Assistance 5=Supervision or Setup 2=Maximal Assistance 6=Modified [place] 3=Moderate Assistance 7=Complete IndependenceIRFPAI Quality Coding Scale 6 Independent with activity with or without an assistive device 5 Patient requires set up or clean up by helper. Patient completes activity by themselves 4 Supervision or touching assist (CGA). [place] provide cues , steadying assist 3 The helper provides less than half the effort to complete the activity 2 The helper provides more than half the effort to complete the activity 1 Dependent. The helper does all the effort to complete an activity 7 Patient refused to complete or attempt activity 9 The patient did not perform the activity before the current illness or injury 88 Not attempted due to Medical conditions or safety concerns Transfers (B, C, W/C) (FIM): 5 Scootin Rollin Supine to/from Sit: 5 (needs instruction for all cecily sup to sit) Sit to/from Stand: 5 Weight Bearing Weight Bearing Restriction: Weight Bearing/Tolerated Location Restriction: R LE Gait Training Does the Patient Walk?: Yes Gait (FIM): 5 Distance (FIM): 3=150 ft (x2) Gait Level of Assist: 5 Gait Persons Needed: 1 Gait Assistive Device: FWW emphasized even step length as pt. is step to gait pattern Wheelchair Training Does the Pt Use a Wheelchair?: No Stair Training Stair Training: Handrails/: 2 handrails Stairs (FIM): 2 #of Steps: 4 Stairs: Pattern: Step to Level of Assist: 4 instruction for sequence and wt bearing etc Exercises Supine Ex: Bridging, Ankle pumps, Quad Set, Rolling, Glut sets, Heel Slides, Short Arc Quads, Scooting, Straight leg raise, Hip abd/add Supine Reps: 15 Assessment Current Status: Good Progress edema and anxiety limit pts progress, pt. will likely need home modifications or 2-3 hrs of assist at home as she is at risk for falls PT Short Term Goals Short Term Goals Time Frame: Feb 07, 2017 Transfers (B,C,W/C) (FIM): 4 Gait (FIM): 4 Gait Distance Comment: 150' Gait Level of Assist: 4 Gait Assistive Device: FWW Wheelchair Distance: 50' PT Financial Services Counselor Goals Financial Services Counselor Goals PT Shelter Goals Time Frame: Feb 21, 2017 Transfers (B,C,W/C) (FIM): 5 (met 02/04/17) Sit to Lying (QC): 4 (met 02/04/17) Lying-Sitting on Side/Bed(QC): 4 (met 02/04/17) Sit to Stand (QC): 4 (met 02/04/17) Rollin Roll Left to Right (QC): 4 (met 02/04/17) Chair/Ggu-cb-Xezng Xfer(QC): 4 Gait (FIM): 5 Distance: 200' Walk 10 feet (QC): 4 Walk 10ft-Uneven Surface(QC): 4 Walk 50ft with 2 Turns (QC): 4 Walk 150 ft (QC): 4 Gait Level of Assist: 5 Gait Assistive Device: FWW Stairs (FIM): 2 (met 02/04/17) # of Steps: 4 (met 02/04/17) 1 Step (curb) (QC): 4 (met 02/04/17) 4 Steps (QC): 4 (met 02/04/17) 12 Steps (QC): 88 Stairs Level Of Assist: 4 (met 02/04/17) PT Plan Treatment/Plan Treatment Plan: Continue Plan of Care Treatment Plan: Bed Mobility, Education, Functional Activity [place], Functional Strength, Group Therapy, Gait, Safety, Therapeutic Exercise, Transfers Treatment Duration: Feb 21, 2017 Frequency: At least 5-7 days/Wk (IRF) Estimated Hrs Per Day: 1.5 hours per day Patient and/or Family Agrees t: Yes Safety Risks/Education Patient Education: Gait Training, Transfer Techniques, Steps, Correct Positioning, Disease Process, Safety Issues Teaching Recipient: Patient Teaching Methods: Demonstration, Discussion Response to Teaching: Verbalize Understanding, Return Demonstration, Reinforcement Needed Time/GCodes Time In: 800 Time Out: 900 Total Billed Treatment Time: 60 Total Billed Treatment 1,GT25m,EX20m,FA15m G Codes Necessary: TIANNA Menon ADMINISTRATIVE SPECIALIST Feb 06, 2017 09:01
[2017-02-06] MEDS: LORATADINE (CLARITIN) 10 MG TAB PO SCH (09:02)
[2017-02-06] MEDS: ASPIRIN E.C. 325 MG (ECOTRIN) TABLET PO SCH (09:02)
[2017-02-06] MEDS: ENOXAPARIN 40 MG/0.4 ML (LOVENOX) SYR SC SCH (09:03)
--- NOTE | 2017-02-06 13:20 | Occupational Ther Daily Note ---
OT Current Status-Daily Note Subjective Pt very highly anxious about diarrhea and LE edema. Pt also anxious about discharge planning and all the advice that she has been given. Pt agreed to therapy. Daughter entered room and attempted to calm pt down. Daughter went to leave and came back in with social services assistant to discuss discharge planning. Mental Status/Objective Functional [place] Measure 0=Not Assessed/NA 4=Minimal Assistance 1=Total Assistance 5=Supervision or Setup 2=Maximal Assistance 6=Modified [place] 3=Moderate Assistance 7=Complete [place] ADL-Treatment Functional [place] Measure 0=Not Assessed/NA 4=Minimal Assistance 1=Total Assistance 5=Supervision or Setup 2=Maximal Assistance 6=Modified [place] 3=Moderate Assistance 7=Complete IndependenceIRFPAI Quality Coding Scale 6 Independent with activity with or without an assistive device 5 Patient requires set up or clean up by helper. Patient completes activity by themselves 4 Supervision or touching assist (CGA). [place] provide cues , steadying assist 3 The helper provides less than half the effort to complete the activity 2 The helper provides more than half the effort to complete the activity 1 Dependent. The helper does all the effort to complete an activity 7 Patient refused to complete or attempt activity 9 The patient did not perform the activity before the current illness or injury 88 Not attempted due to Medical conditions or safety concerns Other Treatment FERNANDEZ attempted to engage pt in therapy. Pt stated that she started the day off in a good mood and then became highly anxious. Pt stated that she really wasn' t up to doing anything. FERNANDEZ continued to encourage pt to brush teeth or clean up a little. This is when daughter came into room and pt started to discuss concerns with daughter. Daughter tried to calm pt and had stated that both daughters had already discussed discharge planning and was getting things prepared. This is when daughter left the room and came back with social services assistant. Left pt in care of social services assistant and daughter. OT Short Term Goals Short Term Goals Time Frame: Feb 07, 2017 Bathing(FIM): 3 Lower Body Dressing(FIM): 3 Toileting(FIM): 3 Transfers (B,C,W/C) (FIM): 4 Shower Transfer(FIM): 4 Additional Short Term Goals: 1-Demonstrate ADL Tasks, 2-Verbalize Understanding , 3-ImproveStrength/[place] 1=Demonstrate adherence to instructed precautions during ADL tasks. 2=Patient will verbalize/demonstrate understanding of assistive devices/ modifications for ADL. 3=Patient will improve strength/tolerance for activity to enable patient to perform ADL's. OT Auto Fleet Manager Goals [facility] Goals Time Frame: Feb 21, 2017 Eating (FIM): 6 Eating (QC): 6 Groomin Oral Hygiene (QC): 6 Bathing(FIM): 5 Shower/Bathe Self (QC): 5 Upper Body Dressing(FIM): 5 Upper Body Dressing (QC): 5 Lower Body Dressing(FIM): 5 Lower Body Dressing (QC): 5 On/Off Footwear (QC): 5 Toileting(FIM): 6 Toileting Hygiene (QC): 6 Toilet/Commode Transfer(FIM): 6 Toilet/Commode Transfer (QC): 6 Shower Transfer(FIM): 5 Additional Goals: 1-Demonstrate ADL Tasks, 2-Verbalize Understanding, 3- ImproveStrength/[place] 1=Demonstrate adherence to instructed precautions during ADL tasks. 2=Patient will verbalize/demonstrate understanding of assistive devices/ modifications for ADL. 3=Patient will improve strength/tolerance for activity to enable patient to perform ADL's. OT Education/Plan Discharge Recommendations Plan/Recommendations: Continue POC Treatment Plan/Plan of Care Patient would benefit from OT for education, treatment and training to promote independence in ADL's, mobility, safety and/or upper extremity function for ADL' s. Plan of Care: ADL Retraining, Functional Mobility, Group Exercise/Act as Ind, UE Funct Exercise/Act Treatment Duration: Feb 21, 2017 Frequency: Twice Daily Estimated Hrs Per Day: 1.5 hours per day Agreement: Yes Rehab Potential: Fair Time/GCodes Start Time: 10:00 Stop Time: 10:30 Total Time Billed (hr/min): 30 Billed Treatment Time 1 visit-FA 2 (30 min) ESTEBAN GRAY Feb 06, 2017 13:20
--- NOTE | 2017-02-06 13:24 | Occupational Ther Daily Note ---
OT Current Status-Daily Note Subjective Pt alert, sitting in w/c sitting at sink. Pt agreed to therapy. C/o edema and anxiety. Mental Status/Objective Patient Orientation: Person, Place, Time, Situation Functional [place] Measure 0=Not Assessed/NA 4=Minimal Assistance 1=Total Assistance 5=Supervision or Setup 2=Maximal Assistance 6=Modified [place] 3=Moderate Assistance 7=Complete [place] ADL-Treatment Functional [place] Measure 0=Not Assessed/NA 4=Minimal Assistance 1=Total Assistance 5=Supervision or Setup 2=Maximal Assistance 6=Modified [place] 3=Moderate Assistance 7=Complete IndependenceIRFPAI Quality Coding Scale 6 Independent with activity with or without an assistive device 5 Patient requires set up or clean up by helper. Patient completes activity by themselves 4 Supervision or touching assist (CGA). [place] provide cues , steadying assist 3 The helper provides less than half the effort to complete the activity 2 The helper provides more than half the effort to complete the activity 1 Dependent. The helper does all the effort to complete an activity 7 Patient refused to complete or attempt activity 9 The patient did not perform the activity before the current illness or injury 88 Not attempted due to Medical conditions or safety concerns Eating (FIM): 6 Grooming (FIM): 5 (Sitting at sink, pt able to complete all grooming by self.) Other Treatment Pt completed arm strengthening exercises when maneuvering w/c throughout hospital. Pt was able to use B UE and B LE to maneuver over thresholds, around corners and through doors. Pt did required multiple breaks due c/o pain and fatigue of L knee and hip. Pt was able to tolerate well with UE's. Back in room, pt ambulated to bathroom and transferred to toilet with CGA using FWW. Pt was able to manipulate clothing and cleanse self with CGA. Pt then ambulated back to recliner with FWW. Pt ordered lunch. Pt demonstrated ability to use utensils to cut food and feed self. Pt was able to open packages though did have difficulty completing task. After therapy, pt sitting in recliner eating lunch. Call light and phone in reach. All needs met in room. OT Short Term Goals Short Term Goals Time Frame: Feb 07, 2017 Bathing(FIM): 3 Lower Body Dressing(FIM): 3 Toileting(FIM): 3 Transfers (B,C,W/C) (FIM): 4 Shower Transfer(FIM): 4 Additional Short Term Goals: 1-Demonstrate ADL Tasks, 2-Verbalize Understanding , 3-ImproveStrength/[place] 1=Demonstrate adherence to instructed precautions during ADL tasks. 2=Patient will verbalize/demonstrate understanding of assistive devices/ modifications for ADL. 3=Patient will improve strength/tolerance for activity to enable patient to perform ADL's. OT Building Services Technician Goals Building Services Technician Goals Time Frame: Feb 21, 2017 Eating (FIM): 6 Eating (QC): 6 Groomin Oral Hygiene (QC): 6 Bathing(FIM): 5 Shower/Bathe Self (QC): 5 Upper Body Dressing(FIM): 5 Upper Body Dressing (QC): 5 Lower Body Dressing(FIM): 5 Lower Body Dressing (QC): 5 On/Off Footwear (QC): 5 Toileting(FIM): 6 Toileting Hygiene (QC): 6 Toilet/Commode Transfer(FIM): 6 Toilet/Commode Transfer (QC): 6 Shower Transfer(FIM): 5 Additional Goals: 1-Demonstrate ADL Tasks, 2-Verbalize Understanding, 3- ImproveStrength/[place] 1=Demonstrate adherence to instructed precautions during ADL tasks. 2=Patient will verbalize/demonstrate understanding of assistive devices/ modifications for ADL. 3=Patient will improve strength/tolerance for activity to enable patient to perform ADL's. OT Education/Plan Discharge Recommendations Plan/Recommendations: Continue POC Treatment Plan/Plan of Care Patient would benefit from OT for education, treatment and training to promote independence in ADL's, mobility, safety and/or upper extremity function for ADL' s. Plan of Care: ADL Retraining, Functional Mobility, Group Exercise/Act as Ind, UE Funct Exercise/Act Treatment Duration: Feb 21, 2017 Frequency: Twice Daily Estimated Hrs Per Day: 1.5 hours per day Agreement: Yes Rehab Potential: Fair Time/GCodes Start Time: 11:05 Stop Time: 12:05 Total Time Billed (hr/min): 6060 Billed Treatment Time 1 visit-FA 2 (30 min) EX 2 (30 min) ESTEBAN GRAY Feb 06, 2017 13:23
--- NOTE | 2017-02-06 14:14 | Physical Therapy Daily Note ---
PT Daily Note-Current Subjective Pt. is very side tracked and worried about her diarrhea and wants to make sure she can get diagnosis and Rx if needed as she "cannot return home with diarrhea and swollen legs which caused all this to begin with" Pain Numeric Pain Scale: 0-No Pain Mental Status anxiety and worry Transfers Functional [place] Measure 0=Not Assessed/NA 4=Minimal Assistance 1=Total Assistance 5=Supervision or Setup 2=Maximal Assistance 6=Modified [place] 3=Moderate Assistance 7=Complete IndependenceIRFPAI Quality Coding Scale 6 Independent with activity with or without an assistive device 5 Patient requires set up or clean up by helper. Patient completes activity by themselves 4 Supervision or touching assist (CGA). [place] provide cues , steadying assist 3 The helper provides less than half the effort to complete the activity 2 The helper provides more than half the effort to complete the activity 1 Dependent. The helper does all the effort to complete an activity 7 Patient refused to complete or attempt activity 9 The patient did not perform the activity before the current illness or injury 88 Not attempted due to Medical conditions or safety concerns Transfers (B, C, W/C) (FIM): 6 all TRFs toilet and chair SBA to Mod I Gait Training Gait Assistive Device: FWW 150x2 SBA and better step length Exercises NuStep Minutes: 10 NuStep Workload: 2 Assessment Current Status: Good Progress conts limited secondary to anxiety. Nursing spoke with pt. a long time explaining her situation and what likely will ensue PT Short Term Goals Short Term Goals Time Frame: Feb 07, 2017 Transfers (B,C,W/C) (FIM): 4 Gait (FIM): 4 Gait Distance Comment: 150' Gait Level of Assist: 4 Gait Assistive Device: FWW Wheelchair Distance: 50' PT Prison Goals Orthotics Prosthetics Assistant Goals PT Prison Goals Time Frame: Feb 21, 2017 Transfers (B,C,W/C) (FIM): 5 (met 02/04/17) Sit to Lying (QC): 4 (met 02/04/17) Lying-Sitting on Side/Bed(QC): 4 (met 02/04/17) Sit to Stand (QC): 4 (met 02/04/17) Rollin Roll Left to Right (QC): 4 (met 02/04/17) Chair/Zsw-if-Lqqur Xfer(QC): 4 Gait (FIM): 5 Distance: 200' Walk 10 feet (QC): 4 Walk 10ft-Uneven Surface(QC): 4 Walk 50ft with 2 Turns (QC): 4 Walk 150 ft (QC): 4 Gait Level of Assist: 5 Gait Assistive Device: FWW Stairs (FIM): 2 (met 02/04/17) # of Steps: 4 (met 02/04/17) 1 Step (curb) (QC): 4 (met 02/04/17) 4 Steps (QC): 4 (met 02/04/17) 12 Steps (QC): 88 Stairs Level Of Assist: 4 (met 02/04/17) PT Plan Treatment/Plan Treatment Plan: Continue Plan of Care Treatment Plan: Bed Mobility, Education, Functional Activity [place], Functional Strength, Group Therapy, Gait, Safety, Therapeutic Exercise, Transfers Treatment Duration: Feb 21, 2017 Frequency: At least 5-7 days/Wk (IRF) Estimated Hrs Per Day: 1.5 hours per day Patient and/or Family Agrees t: Yes Safety Risks/Education Patient Education: Gait Training, Transfer Techniques Teaching Recipient: Patient Teaching Methods: Demonstration, Discussion Response to Teaching: Verbalize Understanding, Return Demonstration, Reinforcement Needed Time/GCodes Time In: 1300 Time Out: 1330 Total Billed Treatment Time: 30 Total Billed Treatment 1,FA20m,EX10m G Codes Necessary: TIANNA Menon TRADE MARK EXAMINER Feb 06, 2017 14:14
[2017-02-06 18:45] VITALS: BP 99/57
[2017-02-06] MEDS: HYDROCORTISONE 2.5% CREAM (ANUSOL-HC) 30 GM TOP SCH (22:39)
[2017-02-06] MEDS: MENTHOL/ZINC OXIDE (CALMOSEPTINE) 113 GM TUBE TOP SCH (22:39)
[2017-02-07] MEDS: HYDROcodone/APAP 5 MG/325 MG (LORTAB) TAB PO PRN (03:06)
[2017-02-07 05:00] VITALS: BP 91/53
[2017-02-07] MEDS: KCL 20 MEQ TAB (K-DUR) PO SCH (06:13)
[2017-02-07] MEDS: LACTOBACILLUS Acidoph/Bulgar (LACTINEX/FLORANEX) TAB PO SCH ×3 (06:13→16:51)
--- NOTE | 2017-02-07 08:39 | PM & R (SOAP) Progress Note ---
Subjective Time Seen by Provider: 08:10 Subjective/Events-last exam Patient was seen in her room this AM Explained to patient that supplement being provided to hopefully increase seurm albumin and thus decrease Peripheral edema Patient declines support hose Nursing went over POC with patient yesterday.Discussed case with RN yesterday Review of Systems Cardiovascular: Edema Objective Exam Last Set of Vital Signs Vital Signs Date Time Temp Pulse Resp B/P (MAP) Pulse Ox O2 Delivery O2 Flow Rate FiO2 02/07/17 05:00 98.9 104 24 91/53 97 Room Air Capillary Refill : NONENONE I&O Intake and Output 02/07/17 00:00 Intake Total 1080 ml Balance 1080 ml Intake Oral 1080 ml # Voids 10 # Bowel Movements 8 General: Alert, Oriented X3, Cooperative, No Acute Distress HEENT: Atraumatic, PERRLA, EOMI, Mucous Memb Moist/[place] Neck: Supple, No JVD Lungs: Clear to Auscultation Heart: Regular Rate Abdomen: Normal Bowel Sounds, Soft, No Tenderness Extremities: Other (edema decreasing with elevation) Neuro: Other (guarding rt hip has functional strength distal RT Leg) Results Lab Laboratory Tests 02/04/17 09:28: White Blood Count 7.4, Red Blood Count 3.47L, Hemoglobin 10.4L, Hematocrit 32L, Mean Corpuscular Volume 91, Mean Corpuscular Hemoglobin 30, Mean Corpuscular Hemoglobin Concent 33, Red Cell Distribution Width 14.5, Platelet Count 423H, Mean Platelet Volume 8.4, Neutrophils (%) (Auto) 75, Lymphocytes (%) (Auto) 9L, Monocytes (%) (Auto) 14H, Eosinophils (%) (Auto) 1, Basophils (%) (Auto) 1, Neutrophils # (Auto) 5.6, Lymphocytes # (Auto) 0.7L, Monocytes # (Auto) 1.1H, Eosinophils # (Auto) 0.1, Basophils # (Auto) 0.0, Sodium Level 134L, Potassium Level 4.8, Chloride Level 111H, Carbon Dioxide Level 18L, Anion Gap 5, Blood Urea Nitrogen 18, Creatinine 0.91, Estimat Glomerular Filtration Rate 59, BUN/ Creatinine Ratio 20, Glucose Level 145H, Calcium Level 8.3L, Total Bilirubin 0.5 , Aspartate Amino Transf (AST/SGOT) 13, Alanine Aminotransferase (ALT/SGPT) 9, Alkaline Phosphatase 82, Total Protein 6.0L, Albumin 2.2L 02/05/17 03:39: Stool Occult Blood Immunoassay POSITIVEH Microbiology 02/02/17 Stool Culture - Preliminary, Resulted No stool pathogens as yet isolated. ... 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 DR Christine 01/28/17 Postop anemia Chronic diarrhea-associated with Stool +for OB times one-DR Roberts following Hypoalbuminemia Peripheral edema-associated with Hypoalbuminemia Postop DVT prophylaxis on Lovenox Sub CUT Hypokalemia replaced Plan Continue PT/OT Checked Labs- Team Conference held 02-05-17 -See report for full functional; update and POC and ELOS DR Roberts Manageing Diarrhea-He will consider colonoscopy at a later time perhaps as an outpatient D/C Questran as patients request -Immodium ordered Probiotic d/cd as patients request=She feels that it may be contributing to her loose stools See orders. Elevate legs as much as possible Zachery wraps legs -see orders Nutritional supplement has with morning meal DEB LOMBARDO MD Feb 07, 2017 08:39
[2017-02-07 09:04] VITALS: BP 102/61
[2017-02-07] MEDS: DIPHENOXYLATE/ATROPINE 2.5MG/0.025MG (LOMOTIL) TAB PO PRN ×2 (09:05→16:56)
[2017-02-07] MEDS: ENOXAPARIN 40 MG/0.4 ML (LOVENOX) SYR SC SCH (09:05)
[2017-02-07] MEDS: BENEFIBER (FROM DIETARY) DOCUMENTATION PURPOSE ONLY PO SCH (09:05)
[2017-02-07] MEDS: ASPIRIN E.C. 325 MG (ECOTRIN) TABLET PO SCH (09:05)
[2017-02-07] MEDS: LORATADINE (CLARITIN) 10 MG TAB PO SCH (09:05)
[2017-02-07] MEDS: HYDROCORTISONE 2.5% CREAM (ANUSOL-HC) 30 GM TOP SCH ×2 (09:06→20:39)
[2017-02-07] MEDS: MENTHOL/ZINC OXIDE (CALMOSEPTINE) 113 GM TUBE TOP SCH ×2 (09:06→20:39)
--- NOTE | 2017-02-07 09:10 | Physical Therapy Daily Note ---
PT Daily Note-Current Subjective Pt. c/o pain in right knee that she has had for quite some time but has exacerbated with the hip problem. Agrees to Rx. Negative dialogue, stating she is not better, wont be going home for a long time. This BIAS MACHINE OPERATOR stating factually that pt. is making improvement and progressing daily Pain Numeric Pain Scale: 4 Location: Right Location Body Site: Knee Pain Description: Ache Mental Status Patient Orientation: Normal For Age Transfers Functional [place] Measure 0=Not Assessed/NA 4=Minimal Assistance 1=Total Assistance 5=Supervision or Setup 2=Maximal Assistance 6=Modified [place] 3=Moderate Assistance 7=Complete IndependenceIRFPAI Quality Coding Scale 6 Independent with activity with or without an assistive device 5 Patient requires set up or clean up by helper. Patient completes activity by themselves 4 Supervision or touching assist (CGA). [place] provide cues , steadying assist 3 The helper provides less than half the effort to complete the activity 2 The helper provides more than half the effort to complete the activity 1 Dependent. The helper does all the effort to complete an activity 7 Patient refused to complete or attempt activity 9 The patient did not perform the activity before the current illness or injury 88 Not attempted due to Medical conditions or safety concerns Transfers (B, C, W/C) (FIM): 5 Scootin Rollin Supine to/from Sit: 5 Sit to/from Stand: 5 Bed to/from Chair: 5 Weight Bearing Weight Bearing Restriction: Weight Bearing/Tolerated Gait Training Does the Patient Walk?: Yes Gait (FIM): 5 Distance (FIM): 3=150 ft (x3) Gait Level of Assist: 5 Gait Persons Needed: 1 Gait Assistive Device: FWW needs some cues for equal step length and alignment , head up etc Stair Training Stair Training: Handrails/: 2 handrails Stairs (FIM): 2 #of Steps: 4 Stairs: Pattern: Step to Level of Assist: 4 Exercises Supine Ex: Ankle pumps, Quad Set, Rolling, Glut sets, Heel Slides, Short Arc Quads, Scooting, Straight leg raise, Hip abd/add Supine Reps: 15 Treatments toileted and washed up at sink with SBA. Assessment Current Status: Good Progress anxiety limits pts. concentration and progress PT Short Term Goals Short Term Goals Time Frame: Feb 07, 2017 Transfers (B,C,W/C) (FIM): 4 Gait (FIM): 4 Gait Distance Comment: 150' Gait Level of Assist: 4 Gait Assistive Device: FWW Wheelchair Distance: 50' PT Roving Marker Goals Roving Marker Goals PT [facility] Goals Time Frame: Feb 21, 2017 Transfers (B,C,W/C) (FIM): 5 (met 02/04/17) Sit to Lying (QC): 4 (met 02/04/17) Lying-Sitting on Side/Bed(QC): 4 (met 02/04/17) Sit to Stand (QC): 4 (met 02/04/17) Rollin Roll Left to Right (QC): 4 (met 02/04/17) Chair/Fcv-wd-Pxpjg Xfer(QC): 4 Gait (FIM): 5 Distance: 200' Walk 10 feet (QC): 4 Walk 10ft-Uneven Surface(QC): 4 Walk 50ft with 2 Turns (QC): 4 Walk 150 ft (QC): 4 Gait Level of Assist: 5 Gait Assistive Device: FWW Stairs (FIM): 2 (met 02/04/17) # of Steps: 4 (met 02/04/17) 1 Step (curb) (QC): 4 (met 02/04/17) 4 Steps (QC): 4 (met 02/04/17) 12 Steps (QC): 88 Stairs Level Of Assist: 4 (met 02/04/17) PT Plan Treatment/Plan Treatment Plan: Continue Plan of Care Treatment Plan: Bed Mobility, Education, Functional Activity [place], Functional Strength, Group Therapy, Gait, Safety, Therapeutic Exercise, Transfers Treatment Duration: Feb 21, 2017 Frequency: At least 5-7 days/Wk (IRF) Estimated Hrs Per Day: 1.5 hours per day Patient and/or Family Agrees t: Yes Safety Risks/Education Patient Education: Gait Training, Transfer Techniques, Steps, Correct Positioning, Safety Issues Teaching Recipient: Patient Teaching Methods: Demonstration, Discussion Response to Teaching: Verbalize Understanding, Return Demonstration, Reinforcement Needed Time/GCodes Time In: 800 Time Out: 900 Total Billed Treatment Time: 60 Total Billed Treatment 1,EX15m,FA25m,GT20m G Codes Necessary: TIANNA Menon BIAS MACHINE OPERATOR Feb 07, 2017 09:10
--- NOTE | 2017-02-07 10:29 | Occupational Ther Daily Note ---
OT Current Status-Daily Note Subjective Pt sitting in chair, agrees to treatment. Pt states she is not feeling confident and is anxious about taking care of herself. Mental Status/Objective Functional [place] Measure 0=Not Assessed/NA 4=Minimal Assistance 1=Total Assistance 5=Supervision or Setup 2=Maximal Assistance 6=Modified [place] 3=Moderate Assistance 7=Complete [place] ADL-Treatment Pt requests shower today. Sit to stand from chair with supervision. Gait to restroom with FWW, slow pace. Transfer to [facility] over toilet with SBA. Pt able to pull pants down and complete hygiene. Pt doffed Depends with minimal assistance in preparation for shower. Transfer to walk in shower with minimal assistance using grab bars, cues for safety. Seated bathing completed using hand held shower and long handled sponge. Pt bathed upper body, kristina area, and bilateral upper legs with SBA. Used long handled sponge to wash lower legs and feet. Stood with minimal assistance for balance while washing buttocks. Pt dried upper body with SBA. Used adaptive equipment to dry feet. Min assist to wash buttocks. Don pullover shirt with set up. Pt instructed in use of adaptive equipment for LE dressing. Pt used outcome analyst to start Depends and shorts over feet with minimal assistance. Stood with CGA for balance during pant hike using FWW. Assist required to don NATALY hose. Pt donned socks with minimal assistance and multiple verbal cues using sock aid. Pt requires frequent cues for use of adaptive equipment during LE dressing. Pt stood at sink to floss and brush teeth with SBA. Transfer to chair with SBA. Pt fatigues with activity and requires occasional rest breaks throughout treatment. Pt sitting in chair with needs met after session. Functional [place] Measure 0=Not Assessed/NA 4=Minimal Assistance 1=Total Assistance 5=Supervision or Setup 2=Maximal Assistance 6=Modified [place] 3=Moderate Assistance 7=Complete IndependenceIRFPAI Quality Coding Scale 6 Independent with activity with or without an assistive device 5 Patient requires set up or clean up by helper. Patient completes activity by themselves 4 Supervision or touching assist (CGA). [place] provide cues , steadying assist 3 The helper provides less than half the effort to complete the activity 2 The helper provides more than half the effort to complete the activity 1 Dependent. The helper does all the effort to complete an activity 7 Patient refused to complete or attempt activity 9 The patient did not perform the activity before the current illness or injury 88 Not attempted due to Medical conditions or safety concerns Grooming (FIM): 5 Oral Hygiene (QC): 4 Bathing (FIM): 4 Shower/Bathe Self (QC): 3 Upper Body (FIM): 5 Upper Body Dressing (QC): 5 Lower Body Dressing (FIM): 4 Lower Body Dressing (QC): 3 On/Off Footwear (QC): 3 Toilet/Commode Transfer (FIM): 5 Toilet Transfer (QC): 4 Shower Transfer(FIM): 4 Education OT Patient Education: Modified ADL techniques Teaching Recipient: Patient Teaching Methods: Demonstration, Discussion Response to Teaching: Verbalize Understanding, Reinforcement Needed OT Short Term Goals Short Term Goals Time Frame: Feb 07, 2017 Bathing(FIM): 3 Lower Body Dressing(FIM): 3 Toileting(FIM): 3 Transfers (B,C,W/C) (FIM): 4 Shower Transfer(FIM): 4 Additional Short Term Goals: 1-Demonstrate ADL Tasks, 2-Verbalize Understanding , 3-ImproveStrength/[place] 1=Demonstrate adherence to instructed precautions during ADL tasks. 2=Patient will verbalize/demonstrate understanding of assistive devices/ modifications for ADL. 3=Patient will improve strength/tolerance for activity to enable patient to perform ADL's. OT Mcc Goals Facility Engineer Goals Time Frame: Feb 21, 2017 Eating (FIM): 6 Eating (QC): 6 Groomin Oral Hygiene (QC): 6 Bathing(FIM): 5 Shower/Bathe Self (QC): 5 Upper Body Dressing(FIM): 5 Upper Body Dressing (QC): 5 Lower Body Dressing(FIM): 5 Lower Body Dressing (QC): 5 On/Off Footwear (QC): 5 Toileting(FIM): 6 Toileting Hygiene (QC): 6 Toilet/Commode Transfer(FIM): 6 Toilet/Commode Transfer (QC): 6 Shower Transfer(FIM): 5 Additional Goals: 1-Demonstrate ADL Tasks, 2-Verbalize Understanding, 3- ImproveStrength/[place] 1=Demonstrate adherence to instructed precautions during ADL tasks. 2=Patient will verbalize/demonstrate understanding of assistive devices/ modifications for ADL. 3=Patient will improve strength/tolerance for activity to enable patient to perform ADL's. OT Education/Plan Discharge Recommendations Plan/Recommendations: Continue POC Treatment Plan/Plan of Care Patient would benefit from OT for education, treatment and training to promote independence in ADL's, mobility, safety and/or upper extremity function for ADL' s. Plan of Care: ADL Retraining, Functional Mobility, Group Exercise/Act as Ind, UE Funct Exercise/Act Treatment Duration: Feb 21, 2017 Frequency: Twice Daily Estimated Hrs Per Day: 1.5 hours per day Agreement: Yes Rehab Potential: Fair Time/GCodes Start Time: 09:05 Stop Time: 10:05 Total Time Billed (hr/min): 60 Billed Treatment Time 1 visit, ADLx4(60minutes) YARED GOLDEN OT Feb 07, 2017 10:29
--- NOTE | 2017-02-07 14:47 | Therapy Group Daily Note ---
Therapy Daily Group Note Patient Education Topic Other List Below (gait and assistive devices) Exercises LE Seated Exercise, UE Exercise Other/Notes Pt. attended group PT OT session. Pt. ambulated to and from with FWW and SBA. Pt. was pleasant and socialized well with others introducing herself and sharing his "favorite meal" with others. U&L extremity ther ex was done today lead by ENMA Avalos with pts. reading from illustrated card instructions with all pts participating . Pts also were all distributed yellow Tband for UE exercise residential program director by OT. Education was offered focusing on gait pattern and use of various assistive devices. Pt. returned to room, toileted and up in chair after, call gonzalez at hand. pt. appeared to enjoy group a great deal sharing and laughing and making conversation. Start Time: 13:00 Stop Time: 14:15 Total Billed Treatment Time: 75 Total Billed Treatment 1,GRP TIANNA COLEMAN MINE ENGINEER Feb 07, 2017 14:47
[2017-02-07 17:35] VITALS: BP 119/73
[2017-02-07] MEDS: IBUPROFEN TABLET 200 MG TAB PO PRN (22:06)
[2017-02-08 05:00] VITALS: BP 104/63
[2017-02-08] MEDS: LACTOBACILLUS Acidoph/Bulgar (LACTINEX/FLORANEX) TAB PO SCH ×3 (06:21→16:57)
[2017-02-08] MEDS: KCL 20 MEQ TAB (K-DUR) PO SCH (06:21)
[2017-02-08] MEDS: ENOXAPARIN 40 MG/0.4 ML (LOVENOX) SYR SC SCH (08:38)
[2017-02-08] MEDS: ASPIRIN E.C. 325 MG (ECOTRIN) TABLET PO SCH (08:38)
[2017-02-08] MEDS: LORATADINE (CLARITIN) 10 MG TAB PO SCH (08:38)
[2017-02-08] MEDS: BENEFIBER (FROM DIETARY) DOCUMENTATION PURPOSE ONLY PO SCH (08:39)
[2017-02-08] MEDS: MENTHOL/ZINC OXIDE (CALMOSEPTINE) 113 GM TUBE TOP SCH ×2 (08:40→20:45)
[2017-02-08] MEDS: HYDROCORTISONE 2.5% CREAM (ANUSOL-HC) 30 GM TOP SCH ×2 (08:40→20:46)
--- NOTE | 2017-02-08 11:39 | Physical Therapy Daily Note ---
PT Daily Note-Current Subjective Pt. in bathroom on toilet and states she has been here most of the night after eating broccoli and then having a lot of gas which she kept thinking might be BM. Pain Numeric Pain Scale: 0-No Pain Appearance edema in LEs down a little Mental Status Patient Orientation: Normal For Age anxiety continues Transfers Functional [place] Measure 0=Not Assessed/NA 4=Minimal Assistance 1=Total Assistance 5=Supervision or Setup 2=Maximal Assistance 6=Modified [place] 3=Moderate Assistance 7=Complete IndependenceIRFPAI Quality Coding Scale 6 Independent with activity with or without an assistive device 5 Patient requires set up or clean up by helper. Patient completes activity by themselves 4 Supervision or touching assist (CGA). [place] provide cues , steadying assist 3 The helper provides less than half the effort to complete the activity 2 The helper provides more than half the effort to complete the activity 1 Dependent. The helper does all the effort to complete an activity 7 Patient refused to complete or attempt activity 9 The patient did not perform the activity before the current illness or injury 88 Not attempted due to Medical conditions or safety concerns Transfers (B, C, W/C) (FIM): 5 Scootin Rollin Supine to/from Sit: 6 Sit to/from Stand: 5 Gait Training Does the Patient Walk?: Yes Gait (FIM): 5 Distance (FIM): 3=150 ft (x2) Gait Level of Assist: 5 Gait Persons Needed: 1 Gait Assistive Device: FWW Exercises NuStep Minutes: 10 NuStep Workload: 2 Assessment Current Status: Good Progress improving indep and funct mob PT Short Term Goals Short Term Goals Time Frame: Feb 07, 2017 Transfers (B,C,W/C) (FIM): 4 Gait (FIM): 4 Gait Distance Comment: 150' Gait Level of Assist: 4 Gait Assistive Device: FWW Wheelchair Distance: 50' PT Group Home Goals Senior Software Analyst Goals PT Group Home Goals Time Frame: Feb 21, 2017 Transfers (B,C,W/C) (FIM): 5 (met 02/04/17) Sit to Lying (QC): 4 (met 02/04/17) Lying-Sitting on Side/Bed(QC): 4 (met 02/04/17) Sit to Stand (QC): 4 (met 02/04/17) Rollin Roll Left to Right (QC): 4 (met 02/04/17) Chair/Dyr-jt-Nvbnr Xfer(QC): 4 Gait (FIM): 5 Distance: 200' Walk 10 feet (QC): 4 Walk 10ft-Uneven Surface(QC): 4 Walk 50ft with 2 Turns (QC): 4 Walk 150 ft (QC): 4 Gait Level of Assist: 5 Gait Assistive Device: FWW Stairs (FIM): 2 (met 02/04/17) # of Steps: 4 (met 02/04/17) 1 Step (curb) (QC): 4 (met 02/04/17) 4 Steps (QC): 4 (met 02/04/17) 12 Steps (QC): 88 Stairs Level Of Assist: 4 (met 02/04/17) PT Plan Treatment/Plan Treatment Plan: Continue Plan of Care Treatment Plan: Bed Mobility, Education, Functional Activity [place], Functional Strength, Group Therapy, Gait, Safety, Therapeutic Exercise, Transfers Treatment Duration: Feb 21, 2017 Frequency: At least 5-7 days/Wk (IRF) Estimated Hrs Per Day: 1.5 hours per day Patient and/or Family Agrees t: Yes Safety Risks/Education Patient Education: Gait Training, Transfer Techniques, Correct Positioning, Disease Process, Safety Issues Teaching Recipient: Patient Teaching Methods: Demonstration, Discussion Response to Teaching: Verbalize Understanding, Return Demonstration, Reinforcement Needed Time/GCodes Time In: 855 Time Out: 915 Total Billed Treatment Time: 20 Total Billed Treatment 1,FA20m G Codes Necessary: TIANNA Menon CANAL BOAT CAPTAIN Feb 08, 2017 11:39
[2017-02-08] MEDS: IBUPROFEN TABLET 200 MG TAB PO PRN (13:04)
[2017-02-08 18:00] VITALS: BP 114/65
[2017-02-09 05:03] VITALS: BP 124/66
[2017-02-09] MEDS: ONDANSETRON 4 MG (ZOFRAN) ORAL DISSOLVE TAB PO PRN (05:18)
[2017-02-09] MEDS: LORazepam 0.5 MG (ATIVAN) TABLET PO PRN (05:19)
[2017-02-09] MEDS: LACTOBACILLUS Acidoph/Bulgar (LACTINEX/FLORANEX) TAB PO SCH ×3 (06:23→16:58)
[2017-02-09] MEDS: KCL 20 MEQ TAB (K-DUR) PO SCH (06:23)
[2017-02-09] MEDS: ENOXAPARIN 40 MG/0.4 ML (LOVENOX) SYR SC SCH (08:47)
[2017-02-09] MEDS: LORATADINE (CLARITIN) 10 MG TAB PO SCH (08:48)
[2017-02-09] MEDS: IBUPROFEN TABLET 200 MG TAB PO PRN (08:48)
[2017-02-09] MEDS: BENEFIBER (FROM DIETARY) DOCUMENTATION PURPOSE ONLY PO SCH (08:48)
[2017-02-09] MEDS: ASPIRIN E.C. 325 MG (ECOTRIN) TABLET PO SCH (08:48)
[2017-02-09] MEDS: HYDROCORTISONE 2.5% CREAM (ANUSOL-HC) 30 GM TOP SCH ×2 (08:49→21:25)
[2017-02-09] MEDS: MENTHOL/ZINC OXIDE (CALMOSEPTINE) 113 GM TUBE TOP SCH ×2 (08:49→21:25)
[2017-02-09] MEDS: DIPHENOXYLATE/ATROPINE 2.5MG/0.025MG (LOMOTIL) TAB PO PRN (11:06)
[2017-02-09 18:00] VITALS: BP 118/63
[2017-02-10] MEDS: DIPHENOXYLATE/ATROPINE 2.5MG/0.025MG (LOMOTIL) TAB PO PRN ×2 (01:43→20:26)
[2017-02-10 05:00] VITALS: BP 100/60
[2017-02-10] MEDS: IBUPROFEN TABLET 200 MG TAB PO PRN ×2 (05:58→21:28)
[2017-02-10] MEDS: LACTOBACILLUS Acidoph/Bulgar (LACTINEX/FLORANEX) TAB PO SCH ×3 (05:58→16:39)
[2017-02-10] MEDS: KCL 20 MEQ TAB (K-DUR) PO SCH (05:58)
[2017-02-10] MEDS: ASPIRIN E.C. 325 MG (ECOTRIN) TABLET PO SCH (09:09)
[2017-02-10] MEDS: LORATADINE (CLARITIN) 10 MG TAB PO SCH (09:09)
[2017-02-10] MEDS: ENOXAPARIN 40 MG/0.4 ML (LOVENOX) SYR SC SCH (09:09)
[2017-02-10] MEDS: BENEFIBER (FROM DIETARY) DOCUMENTATION PURPOSE ONLY PO SCH (09:10)
[2017-02-10] MEDS: MENTHOL/ZINC OXIDE (CALMOSEPTINE) 113 GM TUBE TOP SCH ×2 (09:14→20:26)
[2017-02-10] MEDS: HYDROCORTISONE 2.5% CREAM (ANUSOL-HC) 30 GM TOP SCH ×2 (09:14→20:26)
[2017-02-10] MEDS: HYDROcodone/APAP 5 MG/325 MG (LORTAB) TAB PO PRN (09:16)
--- NOTE | 2017-02-10 12:17 | Physical Therapy Daily Note ---
PT Daily Note-Current Subjective Pt. upset and states she is having more swelling and is absolutely exhausted. Pt. expresses that she is still angry at the loss of her . Pt. states repeatedly that she could improve if she could only stop the diarrhea and get rid of the swelling in her LEs. Nursing explains that the pt. has expressed that she only wants Dr. Roberts for her colonoscopy and he only sees OPs. Pt. also expresses that she feels she should go to [facility] [place] as she cannot take care of herself. Appearance Continues with significant pitted edema antonio LEs Mental Status Patient Orientation: Normal For Age Transfers Functional [place] Measure 0=Not Assessed/NA 4=Minimal Assistance 1=Total Assistance 5=Supervision or Setup 2=Maximal Assistance 6=Modified [place] 3=Moderate Assistance 7=Complete IndependenceIRFPAI Quality Coding Scale 6 Independent with activity with or without an assistive device 5 Patient requires set up or clean up by helper. Patient completes activity by themselves 4 Supervision or touching assist (CGA). [place] provide cues , steadying assist 3 The helper provides less than half the effort to complete the activity 2 The helper provides more than half the effort to complete the activity 1 Dependent. The helper does all the effort to complete an activity 7 Patient refused to complete or attempt activity 9 The patient did not perform the activity before the current illness or injury 88 Not attempted due to Medical conditions or safety concerns Transfers (B, C, W/C) (FIM): 5 Scootin Rollin Supine to/from Sit: 6 Sit to/from Stand: 6 Bed to/from Chair: 6 Gait Training Does the Patient Walk?: Yes Gait (FIM): 5 Distance (FIM): 3=150 ft (2) Gait Level of Assist: 5 Gait Persons Needed: 1 Gait Assistive Device: FWW slow, step to gait pattern, head down, cues for head up etc. Stair Training Stair Training: Handrails/: 2 handrails Stairs (FIM): 2 #of Steps: 4 Stairs: Pattern: Step to Level of Assist: 4 Exercises Supine Ex: Ankle pumps, Quad Set, Rolling, Glut sets, Heel Slides, Short Arc Quads, Scooting, Straight leg raise, Hip abd/add Supine Reps: 10 Seated Therapy Exercises: Ankle pumps, Sit to stand, Long arc quads Seated Reps: 10 NuStep Minutes: 10 NuStep Workload: 2 Treatments ther ex and nu step to increase strength and functional mobility Assessment Current Status: Good Progress fatigue, frequent diarrhea and significant diarrhea limit pts. funct mob PT Short Term Goals Short Term Goals Time Frame: Feb 07, 2017 Transfers (B,C,W/C) (FIM): 4 Gait (FIM): 4 Gait Distance Comment: 150' Gait Level of Assist: 4 Gait Assistive Device: FWW Wheelchair Distance: 50' PT Alf Goals Renewal Specialist Goals PT Renewal Specialist Goals Time Frame: Feb 21, 2017 Transfers (B,C,W/C) (FIM): 5 (met 02/04/17) Sit to Lying (QC): 4 (met 02/04/17) Lying-Sitting on Side/Bed(QC): 4 (met 02/04/17) Sit to Stand (QC): 4 (met 02/04/17) Rollin Roll Left to Right (QC): 4 (met 02/04/17) Chair/Tem-ub-Xhxtb Xfer(QC): 4 Gait (FIM): 5 Distance: 200' Walk 10 feet (QC): 4 Walk 10ft-Uneven Surface(QC): 4 Walk 50ft with 2 Turns (QC): 4 Walk 150 ft (QC): 4 Gait Level of Assist: 5 Gait Assistive Device: FWW Stairs (FIM): 2 (met 02/04/17) # of Steps: 4 (met 02/04/17) 1 Step (curb) (QC): 4 (met 02/04/17) 4 Steps (QC): 4 (met 02/04/17) 12 Steps (QC): 88 Stairs Level Of Assist: 4 (met 02/04/17) PT Plan Treatment/Plan Treatment Plan: Continue Plan of Care Treatment Plan: Bed Mobility, Education, Functional Activity [place], Functional Strength, Group Therapy, Gait, Safety, Therapeutic Exercise, Transfers Treatment Duration: Feb 21, 2017 Frequency: At least 5-7 days/Wk (IRF) Estimated Hrs Per Day: 1.5 hours per day Patient and/or Family Agrees t: Yes Safety Risks/Education Patient Education: Gait Training, Transfer Techniques, Steps, Correct Positioning, Disease Process, Safety Issues Teaching Recipient: Patient Teaching Methods: Demonstration, Discussion Response to Teaching: Verbalize Understanding, Return Demonstration, Reinforcement Needed Time/GCodes Time In: 1100 Time Out: 1210 Total Billed Treatment Time: 70 Total Billed Treatment 1,FA25m,GT20m,EX25m G Codes Necessary: TIANNA Menon WEALTH MANAGEMENT MANAGER Feb 10, 2017 12:17
--- NOTE | 2017-02-10 13:17 | Occupational Ther Daily Note ---
OT Current Status-Daily Note Subjective Pt sitting in chair, agrees to treatment. Pt reports 4/10 pain in right hip. Pt states she is just worn out from having so much diarrhea. Mental Status/Objective Functional [place] Measure 0=Not Assessed/NA 4=Minimal Assistance 1=Total Assistance 5=Supervision or Setup 2=Maximal Assistance 6=Modified [place] 3=Moderate Assistance 7=Complete [place] ADL-Treatment Pt declined shower secondary to fatigue, states she would like a sponge bath this morning. Sit to stand from chair with modified independence. Gait to restroom with FWW. Pt transferred to [facility] [place] toilet with SBA. Pt able to manage hygiene and clothing with SBA. Stood at sink to wash hands with supervision. Pt flossed and brushed with SBA while standing at sink. Sponge bath completed while seated in chair. Pt washed upper body with set up. Stood with supervision while washing buttocks and kristina area. Pt used long handled sponge to wash lower legs and feet. Increased time required for bathing tasks. Don pullover shirt with set up. Pt used automotive quality manager to start Depends and shorts over feet. Stood with supervision for pant hike using FWW for balance. Pt requires cues for use of adaptive equipment during LE dressing, but does not require physical assistance to complete task. Don bilateral socks using sock aid ; skilled cues for use of sock aid. Pt requires increased time for ADL task and takes occasional rest breaks secondary to fatigue. Pt sitting in chair with needs met after session. Functional [place] Measure 0=Not Assessed/NA 4=Minimal Assistance 1=Total Assistance 5=Supervision or Setup 2=Maximal Assistance 6=Modified [place] 3=Moderate Assistance 7=Complete IndependenceIRFPAI Quality Coding Scale 6 Independent with activity with or without an assistive device 5 Patient requires set up or clean up by helper. Patient completes activity by themselves 4 Supervision or touching assist (CGA). [place] provide cues , steadying assist 3 The helper provides less than half the effort to complete the activity 2 The helper provides more than half the effort to complete the activity 1 Dependent. The helper does all the effort to complete an activity 7 Patient refused to complete or attempt activity 9 The patient did not perform the activity before the current illness or injury 88 Not attempted due to Medical conditions or safety concerns Grooming (FIM): 5 Oral Hygiene (QC): 4 Bathing (FIM): 5 Shower/Bathe Self (QC): 4 Upper Body (FIM): 5 Upper Body Dressing (QC): 5 Lower Body Dressing (FIM): 5 Lower Body Dressing (QC): 4 On/Off Footwear (QC): 5 Toileting (FIM): 5 Toilet/Commode Transfer (FIM): 5 OT Short Term Goals Short Term Goals Time Frame: Feb 07, 2017 Bathing(FIM): 3 Lower Body Dressing(FIM): 3 Toileting(FIM): 3 Transfers (B,C,W/C) (FIM): 4 Shower Transfer(FIM): 4 Additional Short Term Goals: 1-Demonstrate ADL Tasks, 2-Verbalize Understanding , 3-ImproveStrength/Stewart 1=Demonstrate adherence to instructed precautions during ADL tasks. 2=Patient will verbalize/demonstrate understanding of assistive devices/ modifications for ADL. 3=Patient will improve strength/tolerance for activity to enable patient to perform ADL's. OT Pilot Plant Supervisor Goals [place] Supervisor Goals Time Frame: Feb 21, 2017 Eating (FIM): 6 Eating (QC): 6 Groomin Oral Hygiene (QC): 6 Bathing(FIM): 5 Shower/Bathe Self (QC): 5 Upper Body Dressing(FIM): 5 Upper Body Dressing (QC): 5 Lower Body Dressing(FIM): 5 Lower Body Dressing (QC): 5 On/Off Footwear (QC): 5 Toileting(FIM): 6 Toileting Hygiene (QC): 6 Toilet/Commode Transfer(FIM): 6 Toilet/Commode Transfer (QC): 6 Shower Transfer(FIM): 5 Additional Goals: 1-Demonstrate ADL Tasks, 2-Verbalize Understanding, 3- ImproveStrength/Stewart 1=Demonstrate adherence to instructed precautions during ADL tasks. 2=Patient will verbalize/demonstrate understanding of assistive devices/ modifications for ADL. 3=Patient will improve strength/tolerance for activity to enable patient to perform ADL's. OT Education/Plan Discharge Recommendations Plan/Recommendations: Continue POC Treatment Plan/Plan of Care Patient would benefit from OT for education, treatment and training to promote independence in ADL's, mobility, safety and/or upper extremity function for ADL' s. Plan of Care: ADL Retraining, Functional Mobility, Group Exercise/Act as Ind, UE Funct Exercise/Act Treatment Duration: Feb 21, 2017 Frequency: Twice Daily Estimated Hrs Per Day: 1.5 hours per day Agreement: Yes Rehab Potential: Fair Time/GCodes Start Time: 09:00 Stop Time: 10:00 Total Time Billed (hr/min): 60 Billed Treatment Time 1 visit, ADLx4(60minutes) YARED GOLDEN OT Feb 10, 2017 13:17
--- NOTE | 2017-02-10 15:12 | Therapy Group Daily Note ---
Therapy Daily Group Note Patient Education Topic Fall Prevention Exercises Other Other/Notes Pt was an active participant in OT/PT group. She walked CGA, FWW and introduced herself to the group by sharing her favorite vacation spot. She participated in group education/discussion on fall prevention. She did a memory activity with the group and was successful in recalling items on board. She missed part of the group (exercises), refusing to come to group until she had eaten her dessert. Pt walked back to her room, [facility] for safety, FWW, all needs met. Start Time: 13:00 Stop Time: 14:00 Total Billed Treatment Time: 60 Total Billed Treatment visit, 60 minutes group GERMAIN GARCIA OT Feb 10, 2017 15:12
[2017-02-10 18:40] VITALS: BP 119/78
--- NOTE | 2017-02-10 20:33 | PM & R (SOAP) Progress Note ---
Subjective Time Seen by Provider: 07:45 Subjective/Events-last exam Patient was seen in her room this AM Patient SBA for transfers Patient considering going to SNU upon discharge from rehab as She feels that she cant go home with loose stools and hip pain.Will pass on to SW Patient indicates that she cant drink an entire ensure supplement as she becomes full Encouraged patient to drink as much that she can tolerate. Review of Systems Gastrointestinal: Other (loose stools) Objective Exam Last Set of Vital Signs Vital Signs Date Time Temp Pulse Resp B/P (MAP) Pulse Ox O2 Delivery O2 Flow Rate FiO2 02/10/17 20:07 Room Air 02/10/17 18:40 98.0 102 16 119/78 95 Capillary Refill : Less Than 3 SecondsNONE I&O Intake and Output 02/10/17 00:00 Intake Total 1040 ml Balance 1040 ml Intake Oral 1040 ml # Voids 15 # Bowel Movements 7 General: Alert, Oriented X3, Cooperative, No Acute Distress HEENT: Atraumatic, PERRLA, EOMI, Mucous Memb Moist/[place] Neck: Supple, No JVD Lungs: Clear to Auscultation Heart: Regular Rate Abdomen: Normal Bowel Sounds, Soft, No Tenderness Extremities: Other (edema decreasing with elevation) Neuro: Other (guarding rt hip has functional strength distal RT Leg) Results Lab Microbiology 02/02/17 Stool Culture - Final, Complete Negative for Salmonella... 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 Elevate legs as much as possible Zachery wraps legs -see orders Continue with Nutritional supplement as tolerated Next Team Conference 02/12/17 F/U with SW tomorrow re possible SNU placement DEB LOMBARDO MD Feb 10, 2017 20:33
[2017-02-10] MEDS: LOPERAMIDE 2 MG (IMODIUM) CAP PO SCH (21:09)
[2017-02-11] MEDS: KCL 20 MEQ TAB (K-DUR) PO SCH (05:25)
[2017-02-11] MEDS: LACTOBACILLUS Acidoph/Bulgar (LACTINEX/FLORANEX) TAB PO SCH ×3 (05:25→15:24)
[2017-02-11 05:50] VITALS: BP 126/69
[2017-02-11] MEDS: HYDROCORTISONE 2.5% CREAM (ANUSOL-HC) 30 GM TOP SCH ×2 (08:00→20:58)
[2017-02-11] MEDS: ENOXAPARIN 40 MG/0.4 ML (LOVENOX) SYR SC SCH (08:00)
[2017-02-11] MEDS: LORATADINE (CLARITIN) 10 MG TAB PO SCH (08:00)
[2017-02-11] MEDS: LOPERAMIDE 2 MG (IMODIUM) CAP PO SCH ×2 (08:00→20:58)
[2017-02-11] MEDS: ASPIRIN E.C. 325 MG (ECOTRIN) TABLET PO SCH (08:00)
[2017-02-11] MEDS: BENEFIBER (FROM DIETARY) DOCUMENTATION PURPOSE ONLY PO SCH (08:01)
[2017-02-11] MEDS: MENTHOL/ZINC OXIDE (CALMOSEPTINE) 113 GM TUBE TOP SCH ×2 (08:01→21:10)
--- NOTE | 2017-02-11 09:24 | Progress Note-Hospitalist ---
Subjective HPI/CC On Admission Date Seen by Provider: Feb 11, 2017 Time Seen by Provider: 08:30 Mrs. Caldera and used to have diarrhea with poor appetite. She's had some low- grade temperature. She denies abdominal pain or distention. She continues to have lower extremity swelling unchanged and has not seen any blood in her stool. With Lomotil diarrhea has diminished a little but still averaging 7-8 loose to semi-formed stools. She has been anxious about the thought of returning home. Currently she would not be able to care for herself due to diarrhea and fear of accidents. This in addition to continued fatigue with poor appetite. She is sided appropriately to look into [facility] care when discharged from acute rehabilitation. Objective Exam Vital Signs Vital Sign - Last 12Hours 02/05/17 06:25 Temp 98.1 Pulse 85 Resp 20 B/P (MAP) 114/56 Pulse Ox 96 O2 Delivery Room Air Capillary Refill : Less Than 3 SecondsNONE General Appearance: Anxious, Chronically ill Respiratory: Chest Non Tender, Lungs Clear, Normal Breath Sounds, No Accessory Muscle Use, No Respiratory Distress Cardiovascular: Regular Rate, Rhythm, No Edema, No Gallop, No JVD, No Murmur, Normal Peripheral Pulses Gastrointestinal: Normal Bowel Sounds, No Organomegaly, No Pulsatile Mass, Soft , Other (Minimal tenderness in the right lower quadrant without rebound or guarding.) Extremity: Other (3+ edema in the right lower extremity to the level of the knee 2+ on the left extremities are warm no upper extremity edema noted.) Assessment/Plan Assessment and Plan Assess & Plan/Chief Complaint 1. With abrupt onset of diarrhea and current low-grade fever despite negative cultures and infectious etiology is a strong possibility. Overflow is in the differential although the patient is not having much in the way of abdominal distention and her last x-ray did not reveal significant stool retention done last week. She is going to have significant difficulty in her current condition keeping a prep down. Will initiate empiric Levaquin and Flagyl and reevaluate on for possible colonoscopy on Friday. 2. Situational anxiety aggravating number 1. Number 3 malnutrition secondary to number 1 contributing to pedal edema continue elevation. 3. We'll discontinue aspirin and a performing colonoscopy on Friday we'll need to hold Lovenox after 's dose. In addressing the patient's concerns lengthy discussion about colonoscopy and her current concerns about coverage and addressing anxiety issues one hour of care time has been spent including discussion with nursing staff and physical therapy. Patient has concerns about medication and does not wish any for anxiety at this time. YOLA AKHTAR MD Feb 11, 2017 09:24
[2017-02-11] MEDS: METRONIDAZOLE 250 MG/50 ML IV SCH ×4 (11:14→18:20)
--- NOTE | 2017-02-11 11:57 | PM & R (SOAP) Progress Note ---
Subjective Time Seen by Provider: 07:50 Subjective/Events-last exam Patient was seen in her room this AM Concerned re ongoing Loose stools Now with lowgrade fever last night Discussed case with DR Roberts Antibiotics begun empirically May have endoscopy Friday the .Patient SBA for transfers Review of Systems General: Fatigue Gastrointestinal: Diarrhea Musculoskeletal: leg pain Objective Exam Last Set of Vital Signs Vital Signs Date Time Temp Pulse Resp B/P (MAP) Pulse Ox O2 Delivery O2 Flow Rate FiO2 02/11/17 08:57 Room Air 02/11/17 05:50 97.9 87 17 126/69 95 Capillary Refill : Less Than 3 SecondsNONE I&O Intake and Output 02/11/17 00:00 Intake Total 900 ml Balance 900 ml Intake Oral 900 ml # Voids 12 # Bowel Movements 5 General: Alert, Oriented X3, Cooperative, No Acute Distress HEENT: Atraumatic, PERRLA, EOMI, Mucous Memb Moist/[place] Neck: Supple, No JVD Lungs: Clear to Auscultation Heart: Regular Rate Abdomen: Normal Bowel Sounds, Soft, No Tenderness Extremities: Other (edema decreasing with elevation) Neuro: Other (guarding rt hip has functional strength distal RT Leg) Results Lab Microbiology 02/02/17 Stool Culture - Final, Complete Negative for Salmonella... 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 DR Christine 01/28/17 Postop anemia Chronic diarrhea-associated with Stool +for OB times one-DR Roberts following and now with FUO started on antibiotics empirically Hypoalbuminemia Peripheral edema-associated with Hypoalbuminemia-nutritional supplement ordered and legs elevated as much as possible Postop DVT prophylaxis on Lovenox Sub CUT Hypokalemia replaced Plan Continue PT/OT Checked Labs- DR Roberts Manageing Diarrhea-He will consider colonoscopy at a later time perhaps as an outpatient D/C Questran as patients request -Immodium ordered=adjust dose as needed Probiotic d/cd as patients request=She feels that it may be contributing to her loose stools See orders. Elevate legs as much as possible Zachery wraps legs -see orders Continue with Nutritional supplement as tolerated Next Team Conference tomorrow 02/12/17 F/U with SW tomorrow re possible SNU placement Antibiitc for Low grade fever on an empirical basis DEB LOMBARDO MD Feb 11, 2017 11:57
--- NOTE | 2017-02-11 12:08 | Physical Therapy Daily Note ---
PT Daily Note-Current Subjective Pt washing her hands in restroom with OT supervising upon arrival. Pt agrees to PT. Pain Numeric Pain Scale: 5-Moderate Pain Location: Right Location Body Site: Foot Pain Description: Tightness Comment: Pt reports pain in RLE (incisionally on R hip as well as R foot). Mental Status Patient Orientation: Person, Place, Situation Transfers Functional [place] Measure 0=Not Assessed/NA 4=Minimal Assistance 1=Total Assistance 5=Supervision or Setup 2=Maximal Assistance 6=Modified [place] 3=Moderate Assistance 7=Complete IndependenceIRFPAI Quality Coding Scale 6 Independent with activity with or without an assistive device 5 Patient requires set up or clean up by helper. Patient completes activity by themselves 4 Supervision or touching assist (CGA). [place] provide cues , steadying assist 3 The helper provides less than half the effort to complete the activity 2 The helper provides more than half the effort to complete the activity 1 Dependent. The helper does all the effort to complete an activity 7 Patient refused to complete or attempt activity 9 The patient did not perform the activity before the current illness or injury 88 Not attempted due to Medical conditions or safety concerns Scootin Sit to/from Stand: 5 Sit to Stand (QC): 5 Weight Bearing Weight Bearing Restriction: Full Weight Bearing Location Restriction: LE Bilateral Gait Training Does the Patient Walk?: Yes Distance (FIM): 3=150 ft Distance: 150' Walk 10 feet (QC): 5 Walk 50 ft with 2 Turns(QC): 5 Walk 150 ft (QC): 5 Gait Level of Assist: 5 Gait Persons Needed: 1 Gait Assistive Device: FWW Pt walks with slow antalgic gait pattern but steady, no LOB. Wheelchair Training Does the Pt Use a Wheelchair?: No Exercises Seated Therapy Exercises: Ankle pumps, Sit to stand (5), Long arc quads Seated Reps: 20 Treatments Pt finishes in restroom at start of tx then sits in recliner to blow dry hair. Pt insists that she can't leave the room w/o hair dried because she will get sick. Pt also has nurse put on Kevin hose to assist with LE swelling. Pt then ambulates using FWW at SBA. Pt completes Seated Ex in chair as well as NuStep for 10m at Workload 2. Pt returns to room to rest in recliner with feet up at end of tx with all needs met. Assessment Current Status: Fair Progress Pt reports swelling & tightness in RLE and Kevin hose makes it tighter. Nursing is notified. PT Short Term Goals Short Term Goals Time Frame: Feb 07, 2017 Transfers (B,C,W/C) (FIM): 4 Gait (FIM): 4 Gait Distance Comment: 150' Gait Level of Assist: 4 Gait Assistive Device: FWW Wheelchair Distance: 50' PT Senior Care Goals Clam Shovel Operator Goals PT Clam Shovel Operator Goals Time Frame: Feb 21, 2017 Transfers (B,C,W/C) (FIM): 5 (met 02/04/17) Sit to Lying (QC): 4 (met 02/04/17) Lying-Sitting on Side/Bed(QC): 4 (met 02/04/17) Sit to Stand (QC): 4 (met 02/04/17) Rollin Roll Left to Right (QC): 4 (met 02/04/17) Chair/Fva-ev-Gbzdy Xfer(QC): 4 Gait (FIM): 5 Distance: 200' Walk 10 feet (QC): 4 Walk 10ft-Uneven Surface(QC): 4 Walk 50ft with 2 Turns (QC): 4 Walk 150 ft (QC): 4 Gait Level of Assist: 5 Gait Assistive Device: FWW Stairs (FIM): 2 (met 02/04/17) # of Steps: 4 (met 02/04/17) 1 Step (curb) (QC): 4 (met 02/04/17) 4 Steps (QC): 4 (met 02/04/17) 12 Steps (QC): 88 Stairs Level Of Assist: 4 (met 02/04/17) PT Plan Problem List Problem List: Activity Tolerance, Functional Strength, Safety, Balance, Gait, Transfer Treatment/Plan Treatment Plan: Continue Plan of Care Treatment Plan: Bed Mobility, Education, Functional Activity [place], Functional Strength, Group Therapy, Gait, Safety, Therapeutic Exercise, Transfers Treatment Duration: Feb 21, 2017 Frequency: At least 5-7 days/Wk (IRF) Estimated Hrs Per Day: 1.5 hours per day Patient and/or Family Agrees t: Yes Safety Risks/Education Patient Education: Gait Training, Transfer Techniques, Correct Positioning, Safety Issues Teaching Recipient: Patient Teaching Methods: Discussion Response to Teaching: Verbalize Understanding Time/GCodes Time In: 945 Time Out: 1045 Total Billed Treatment Time: 60 Total Billed Treatment visit, FA x2 (30m), GT (10m) & EX (20m) NOY GALAVIZ POCKET ASSEMBLER Feb 11, 2017 12:08
--- NOTE | 2017-02-11 12:12 | Occupational Ther Daily Note ---
OT Current Status-Daily Note Subjective Pt sitting in chair, agrees to treatment. Pt states she doesn't like change and is anxious about the changes that have taken place. Mental Status/Objective Functional [place] Measure 0=Not Assessed/NA 4=Minimal Assistance 1=Total Assistance 5=Supervision or Setup 2=Maximal Assistance 6=Modified [place] 3=Moderate Assistance 7=Complete [place] ADL-Treatment Pt performed gait to restroom with FWW, slow pace but no LOB noted. Transfer to walk in shower with SBA using grab bars; skilled cues for safety. Pt completed seated bathing using hand held shower and long handled sponge. Upper body bathing completed with set up. Pt stood with supervision to wash buttocks and kristina area. Used long handled sponge to wash lower legs and feet. Increased time required for bathing. Don pullover shirt with set up. Pt used tile professional to start Depends and shorts over feet. Stood with supervision for pant hike. Pt donned left sock with verbal cues using sock aid. Minimal assistance required to don right sock. Pt frustrated with having to use adaptive equipment for LE ADLs. Reviewed reasons for using adaptive equipment. Pt states understanding, but states she doesn't feel like she will be able to do it at home by herself. Grooming tasks completed standing at sink. Pt flossed and brushed teeth and combed hair with SBA. Pt transferred to [facility] [place] with SBA. Pt on toilet with PT present after session. Functional [place] Measure 0=Not Assessed/NA 4=Minimal Assistance 1=Total Assistance 5=Supervision or Setup 2=Maximal Assistance 6=Modified [place] 3=Moderate Assistance 7=Complete IndependenceIRFPAI Quality Coding Scale 6 Independent with activity with or without an assistive device 5 Patient requires set up or clean up by helper. Patient completes activity by themselves 4 Supervision or touching assist (CGA). [place] provide cues , steadying assist 3 The helper provides less than half the effort to complete the activity 2 The helper provides more than half the effort to complete the activity 1 Dependent. The helper does all the effort to complete an activity 7 Patient refused to complete or attempt activity 9 The patient did not perform the activity before the current illness or injury 88 Not attempted due to Medical conditions or safety concerns Grooming (FIM): 5 Oral Hygiene (QC): 4 Bathing (FIM): 5 Shower/Bathe Self (QC): 4 Upper Body (FIM): 5 Upper Body Dressing (QC): 5 Lower Body Dressing (FIM): 4 Lower Body Dressing (QC): 4 On/Off Footwear (QC): 3 Toilet/Commode Transfer (FIM): 5 Toilet Transfer (QC): 4 Shower Transfer(FIM): 5 OT Short Term Goals Short Term Goals Time Frame: Feb 07, 2017 Bathing(FIM): 3 Lower Body Dressing(FIM): 3 Toileting(FIM): 3 Transfers (B,C,W/C) (FIM): 4 Shower Transfer(FIM): 4 Additional Short Term Goals: 1-Demonstrate ADL Tasks, 2-Verbalize Understanding , 3-ImproveStrength/[place] 1=Demonstrate adherence to instructed precautions during ADL tasks. 2=Patient will verbalize/demonstrate understanding of assistive devices/ modifications for ADL. 3=Patient will improve strength/tolerance for activity to enable patient to perform ADL's. OT [facility] Goals Stoker Mechanic Goals Time Frame: Feb 21, 2017 Eating (FIM): 6 Eating (QC): 6 Groomin Oral Hygiene (QC): 6 Bathing(FIM): 5 Shower/Bathe Self (QC): 5 Upper Body Dressing(FIM): 5 Upper Body Dressing (QC): 5 Lower Body Dressing(FIM): 5 Lower Body Dressing (QC): 5 On/Off Footwear (QC): 5 Toileting(FIM): 6 Toileting Hygiene (QC): 6 Toilet/Commode Transfer(FIM): 6 Toilet/Commode Transfer (QC): 6 Shower Transfer(FIM): 5 Additional Goals: 1-Demonstrate ADL Tasks, 2-Verbalize Understanding, 3- ImproveStrength/[place] 1=Demonstrate adherence to instructed precautions during ADL tasks. 2=Patient will verbalize/demonstrate understanding of assistive devices/ modifications for ADL. 3=Patient will improve strength/tolerance for activity to enable patient to perform ADL's. OT Education/Plan Discharge Recommendations Plan/Recommendations: Continue POC Treatment Plan/Plan of Care Patient would benefit from OT for education, treatment and training to promote independence in ADL's, mobility, safety and/or upper extremity function for ADL' s. Plan of Care: ADL Retraining, Functional Mobility, Group Exercise/Act as Ind, UE Funct Exercise/Act Treatment Duration: Feb 21, 2017 Frequency: Twice Daily Estimated Hrs Per Day: 1.5 hours per day Agreement: Yes Rehab Potential: Fair Time/GCodes Start Time: 08:45 Stop Time: 09:45 Total Time Billed (hr/min): 60 Billed Treatment Time 1 visit, ADLx4(60minutes) YARED GOLDEN OT Feb 11, 2017 12:12
[2017-02-11] MEDS: LEVOFLOXACIN 500 MG/100 ML IV 100 ML IV SCH (12:17)
--- NOTE | 2017-02-11 14:34 | Therapy Group Daily Note ---
Therapy Daily Group Note Exercises Balance, Stretching Other/Notes Pt arrived to PT Group in Therapy Commons area by ambulating using FWW at [facility]. Group consisted of Introductions (Name, where you are from and the Funniest thing you have ever seen) as well Activities focused on Memory, Problem Solving , Sequencing as well as body/trunk control and dynamic sitting balance. Pt actively participated in Group by verbally giving answers during Introductions and group activity as well as actively moving during group activity. Pt did ask several times "if Group was almost done yet". Pt returned to room at end of Group to rest with all needs met. Pt wanted nurse to check IV since she thought it was pulled out when putting on her sweater. Nurse to arrive shortly. Start Time: 13:00 Stop Time: 14:00 Total Billed Treatment Time: 60 Total Billed Treatment 1, GRP NOY GALAVIZ TABLET MAKING MACHINE OPERATOR Feb 11, 2017 14:34
[2017-02-11 15:25] VITALS: BP 123/65
[2017-02-11] MEDS: IBUPROFEN TABLET 200 MG TAB PO PRN (15:25)
--- NOTE | 2017-02-11 16:30 | Podiatry Progress Note ---
Standard Progress Note Progress Notes/Assess & Plan Date Seen by Provider: Feb 11, 2017 Time Seen by Provider: 16:29 Progress/Assessment & Plan Podiatry consult dictated. Foot care given. Onychomycosis Peripheral Neuropathy Hyperkeratotic lesion Edema Final Diagnosis Onychomycosis Peripheral Neuropathy Hyperkeratotic lesion Edema OSWALD CURIEL DPBronwyn Feb 11, 2017 16:30
[2017-02-11 18:17] VITALS: BP 112/55
[2017-02-12] MEDS: METRONIDAZOLE 250 MG/50 ML IV SCH ×6 (02:23→16:51)
[2017-02-12] MEDS: LORazepam 0.5 MG (ATIVAN) TABLET PO PRN ×2 (03:27→21:11)
[2017-02-12 05:04] VITALS: BP 128/70
[2017-02-12] MEDS: LACTOBACILLUS Acidoph/Bulgar (LACTINEX/FLORANEX) TAB PO SCH ×3 (05:42→16:50)
[2017-02-12] MEDS: KCL 20 MEQ TAB (K-DUR) PO SCH (05:42)
[2017-02-12] MEDS: ONDANSETRON 4 MG (ZOFRAN) ORAL DISSOLVE TAB PO PRN (06:03)
[2017-02-12] MEDS: HYDROCORTISONE 2.5% CREAM (ANUSOL-HC) 30 GM TOP SCH ×2 (08:35→20:20)
[2017-02-12] MEDS: MENTHOL/ZINC OXIDE (CALMOSEPTINE) 113 GM TUBE TOP SCH ×2 (08:36→20:20)
[2017-02-12] MEDS: ENOXAPARIN 40 MG/0.4 ML (LOVENOX) SYR SC SCH (08:36)
[2017-02-12] MEDS: IBUPROFEN TABLET 200 MG TAB PO PRN (08:36)
[2017-02-12] MEDS: LORATADINE (CLARITIN) 10 MG TAB PO SCH (08:36)
[2017-02-12] MEDS: LOPERAMIDE 2 MG (IMODIUM) CAP PO SCH ×2 (08:36→20:20)
[2017-02-12] MEDS: BENEFIBER (FROM DIETARY) DOCUMENTATION PURPOSE ONLY PO SCH (08:36)
--- NOTE | 2017-02-12 08:48 | CONSULTATION REPORT ---
DATE OF CONSULTATION: 02/11/2017 REASON FOR CONSULT: Foot care. HISTORY OF PRESENT ILLNESS: This 81-year-old female was admitted to the hospital secondary to a hip fracture right lower extremity. She has difficulty even before the injury to reach and care for her feet. She is now complaining of toenails which she cannot care for herself. She is also complaining of chronic edema to the legs and including the feet. She has been wearing some compression hose recently, which seemed to help a little bit. She also has a history of posterior tibial tendon dysfunction on the right for which she has been wearing a brace. She had surgery on January 28 for the displaced femoral neck fracture right hip. She indicated prior to admission that she was taking no medication. She denies tobacco, alcohol or illicit drug use current. MEDICATIONS: Medications are listed on the patient's chart. ALLERGIES: 1. She is allergic to CLINDAMYCIN. 2. SULFA. 3. NYSTATIN. 4. AMOXICILLIN. 5. CHLOHEXIDINE. FAMILY HISTORY: Noncontributory. PHYSICAL EXAM: This this is a well-developed female, in no apparent distress. She has 0/4 dorsalis pedis pulse on the right 2/4 dorsalis pedis pulse on the left, 0/4 posterior tibial pulse bilaterally, Pitting edema noted to the bilateral foot and ankle. NEUROLOGICALLY: The patient has and diminished protective sensation per 10 grams monofilament wire examination bilaterally. Diminished deep tendon reflexes to the Achilles tendon bilateral and diminished vibratory sensation bilateral forefoot. DERMATOLOGICALLY: She has thick, yellow dystrophic toenails with subungual debris, associated with R1, 3, 4, 5, L2, 3, 4 and 5, there is no nail plate to the L1 digit. There is a hyperkeratotic lesion, lateral aspect of the left hallux toe. MUSCULOSKELETAL FINDINGS: She has contracted digits that are flexible right 3, 4 and 5, L4 and 5. She has a semirigid contracture of the left second digit. 4/5 muscle strength to the 4 major quadrants of the foot noted bilateral lower extremity. ASSESSMENT: 1. Idiopathic neuropathy. 2. Onychomycosis. 3. Hammer digit syndrome. 4. Hyperkeratosis. PLAN: The toenails were debrided manually and mechanically. Betadine applied. I recommend the patient utilize a toe spacer between the first and second digits, left foot. She is to continue with compression therapy. We will see the patient back in our clinic as needed Job ID: [id number] Dictated Date: 02/11/2017 16:28:57 Multifocal Button Inspector Date: 02/12/2017 08:39:11/primo
--- NOTE | 2017-02-12 09:04 | Physical Therapy Daily Note ---
PT Daily Note-Current Subjective Pt. states she is miserable and has had N&V all night long, cant drink or eat now and not sure she can participate in her Rx. C/o neck pain R>L in upper trap area. States she did not sleep last night. Pain Numeric Pain Scale: 6 Location: Right, Left Location Body Site: Neck Pain Description: Ache Appearance pitting edema bilateral LEs , very tight traps bilat. Mental Status Patient Orientation: Normal For Age Transfers Functional [place] Measure 0=Not Assessed/NA 4=Minimal Assistance 1=Total Assistance 5=Supervision or Setup 2=Maximal Assistance 6=Modified [place] 3=Moderate Assistance 7=Complete IndependenceIRFPAI Quality Coding Scale 6 Independent with activity with or without an assistive device 5 Patient requires set up or clean up by helper. Patient completes activity by themselves 4 Supervision or touching assist (CGA). [place] provide cues , steadying assist 3 The helper provides less than half the effort to complete the activity 2 The helper provides more than half the effort to complete the activity 1 Dependent. The helper does all the effort to complete an activity 7 Patient refused to complete or attempt activity 9 The patient did not perform the activity before the current illness or injury 88 Not attempted due to Medical conditions or safety concerns Transfers (B, C, W/C) (FIM): 5 Scootin Rollin Supine to/from Sit: 5 Sit to/from Stand: 5 Bed to/from Chair: 5 Weight Bearing Weight Bearing Restriction: Weight Bearing/Tolerated Gait Training Does the Patient Walk?: Yes Gait (FIM): 5 Distance (FIM): 3=150 ft (x2) Gait Level of Assist: 5 Gait Persons Needed: 1 Gait Assistive Device: FWW slow, looks down, c/o she is so very fatigued Exercises Seated Therapy Exercises: Ankle pumps, Sit to stand, Long arc quads, Hip flexion, Hip abd/add Seated Reps: 15 Treatments warm moist pack and massage to antonio upper traps, pt. later states it made her feel worse instead of better and now has a headache Assessment Current Status: Fair Progress pt. states she feels worse and not sure she can continue therapies PT Short Term Goals Short Term Goals Time Frame: Feb 07, 2017 Transfers (B,C,W/C) (FIM): 4 Gait (FIM): 4 Gait Distance Comment: 150' Gait Level of Assist: 4 Gait Assistive Device: FWW Wheelchair Distance: 50' PT Shelter Goals Shelter Goals PT Shelter Goals Time Frame: Feb 21, 2017 Transfers (B,C,W/C) (FIM): 5 (met 02/04/17) Sit to Lying (QC): 4 (met 02/04/17) Lying-Sitting on Side/Bed(QC): 4 (met 02/04/17) Sit to Stand (QC): 4 (met 02/04/17) Rollin Roll Left to Right (QC): 4 (met 02/04/17) Chair/Zuj-ei-Ovknm Xfer(QC): 4 Gait (FIM): 5 Distance: 200' Walk 10 feet (QC): 4 Walk 10ft-Uneven Surface(QC): 4 Walk 50ft with 2 Turns (QC): 4 Walk 150 ft (QC): 4 Gait Level of Assist: 5 Gait Assistive Device: FWW Stairs (FIM): 2 (met 02/04/17) # of Steps: 4 (met 02/04/17) 1 Step (curb) (QC): 4 (met 02/04/17) 4 Steps (QC): 4 (met 02/04/17) 12 Steps (QC): 88 Stairs Level Of Assist: 4 (met 02/04/17) PT Plan Treatment/Plan Treatment Plan: Continue Plan of Care Treatment Plan: Bed Mobility, Education, Functional Activity Stewart, Functional Strength, Group Therapy, Gait, Safety, Therapeutic Exercise, Transfers Treatment Duration: Feb 21, 2017 Frequency: At least 5-7 days/Wk (IRF) Estimated Hrs Per Day: 1.5 hours per day Patient and/or Family Agrees t: Yes Safety Risks/Education Patient Education: Gait Training, Transfer Techniques, Correct Positioning, Disease Process, Safety Issues Teaching Recipient: Patient Teaching Methods: Demonstration, Discussion Response to Teaching: Verbalize Understanding, Return Demonstration, Reinforcement Needed Time/GCodes Time In: 800 Time Out: 900 Total Billed Treatment Time: 60 Total Billed Treatment 1,GT25m,FA20m,EX15m G Codes Necessary: TIANNA Menon GENETICS PHYSICIAN Feb 12, 2017 09:04
--- NOTE | 2017-02-12 09:45 | PM & R (SOAP) Progress Note ---
Subjective Time Seen by Provider: 07:55 Subjective/Events-last exam Patient was seen in her room this AM lying in bed Patient SBA for transfers Patient indicates that diarrhea improved but had nocturia affecting her sleep. Appreciate DR Clark note (DPM) Review of Systems Cardiovascular: Edema Objective Exam Last Set of Vital Signs Vital Signs Date Time Temp Pulse Resp B/P (MAP) Pulse Ox O2 Delivery O2 Flow Rate FiO2 02/12/17 05:04 98.7 91 18 128/70 96 Room Air Capillary Refill : Less Than 3 SecondsNONE I&O Intake and Output 02/12/17 00:00 Intake Total 2492 ml Balance 2492 ml Intake Oral 2342 ml IV Total 150 ml # Voids 11 # Bowel Movements 1 General: Alert, Oriented X3, Cooperative, No Acute Distress HEENT: Atraumatic, PERRLA, EOMI, Mucous Memb Moist/[place] Neck: Supple, No JVD Lungs: Clear to Auscultation Heart: Regular Rate Abdomen: Normal Bowel Sounds, Soft, No Tenderness Extremities: Other (edema 1+ BLES) Neuro: Other (guarding rt hip has functional strength distal RT Leg) Results Lab Microbiology 02/02/17 Stool Culture - Final, Complete Negative for Salmonella... 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 DR Christine 01/28/17 Postop anemia Chronic diarrhea-associated with Stool +for OB times one-DR Roberst following and now with FUO started on antibiotics empirically now afebrile Hypoalbuminemia Peripheral edema-associated with Hypoalbuminemia-nutritional supplement ordered and legs elevated as much as possible Postop DVT prophylaxis on Lovenox Sub CUT Hypokalemia replaced Idiopathhic neuropathy Onychomycosis Hammer digit syndrome Hyperkeratosis Plan Continue PT/OT - DR Roberts Manageing Diarrhea- and antibiotics-He will consider colonoscopy at a later time perhaps as an outpatient D/C Questran as patients request -Immodium ordered=adjust dose as needed Probiotic d/cd as patients request=She feels that it may be contributing to her loose stools .Elevate legs as much as possible Continue with Nutritional supplement as tolerated Next Team Conference later today- 02/12/17 F/U with SW tomorrow re possible SNU placement upon completion of IV antibiotics Antibiotic for Low grade fever on an empirical basis Recheck Labs See orders DEB LOMBARDO MD Feb 12, 2017 09:45
--- NOTE | 2017-02-12 11:43 | Occupational Ther Daily Note ---
OT Current Status-Daily Note Subjective Pt alert, sitting in recliner. Pt stated that she had a couple of good days then she was drained in afternoon and it continued throughout the night with N& V. She wasn't sure how much she could do for therapy today. FERNANDEZ encouraged pt to get cleaned up for the day. Mental Status/Objective Patient Orientation: Person, Place, Time, Situation Functional [place] Measure 0=Not Assessed/NA 4=Minimal Assistance 1=Total Assistance 5=Supervision or Setup 2=Maximal Assistance 6=Modified [place] 3=Moderate Assistance 7=Complete [place] Attachments: IV ADL-Treatment Pt ambulated to bathroom with SBA using FWW. Pt then completed toilet transfer and toileting using FWW, elevated seat and grabbars with SBA. Pt ambulated to sink with FWW and sat in chair to complete grooming by self. Pt ambulated to recliner and was able to don night gown by self after set up. Pt doffed socks by self with dressing stick and assist to don sock due to increased swelling in feet. Edema appeared to have increased in R foot. Skin taught and shiny with redness on dorsum of foot. Pain from outside heel up to calf with redness on outside of calf. No heat from red areas. Nrsg notified. Light retrograde massage to B lower legs. Nrsg brought MATT wraps and FERNANDEZ wrapped foot up to ankle, will check on foot in 1/2 hour after wrapping. Pt then requested to go to bathroom. Ambulated to bathroom and completed transfer to toilet and toileting with SBA. After therapy, pt sitting on toilet and was instructed to use call light for assistance. Functional [place] Measure 0=Not Assessed/NA 4=Minimal Assistance 1=Total Assistance 5=Supervision or Setup 2=Maximal Assistance 6=Modified [place] 3=Moderate Assistance 7=Complete IndependenceIRFPAI Quality Coding Scale 6 Independent with activity with or without an assistive device 5 Patient requires set up or clean up by helper. Patient completes activity by themselves 4 Supervision or touching assist (CGA). [place] provide cues , steadying assist 3 The helper provides less than half the effort to complete the activity 2 The helper provides more than half the effort to complete the activity 1 Dependent. The helper does all the effort to complete an activity 7 Patient refused to complete or attempt activity 9 The patient did not perform the activity before the current illness or injury 88 Not attempted due to Medical conditions or safety concerns Grooming (FIM): 6 Upper Body (FIM): 5 Toileting (FIM): 5 Transfers (B, C, W/C) (FIM): 5 Toilet/Commode Transfer (FIM): 5 OT Short Term Goals Short Term Goals Time Frame: Feb 07, 2017 Bathing(FIM): 3 Lower Body Dressing(FIM): 3 Toileting(FIM): 3 Transfers (B,C,W/C) (FIM): 4 Shower Transfer(FIM): 4 Additional Short Term Goals: 1-Demonstrate ADL Tasks, 2-Verbalize Understanding , 3-ImproveStrength/[place] 1=Demonstrate adherence to instructed precautions during ADL tasks. 2=Patient will verbalize/demonstrate understanding of assistive devices/ modifications for ADL. 3=Patient will improve strength/tolerance for activity to enable patient to perform ADL's. OT Halfway Goals Directional Driller Goals Time Frame: Feb 21, 2017 Eating (FIM): 6 Eating (QC): 6 Groomin Oral Hygiene (QC): 6 Bathing(FIM): 5 Shower/Bathe Self (QC): 5 Upper Body Dressing(FIM): 5 Upper Body Dressing (QC): 5 Lower Body Dressing(FIM): 5 Lower Body Dressing (QC): 5 On/Off Footwear (QC): 5 Toileting(FIM): 6 Toileting Hygiene (QC): 6 Toilet/Commode Transfer(FIM): 6 Toilet/Commode Transfer (QC): 6 Shower Transfer(FIM): 5 Additional Goals: 1-Demonstrate ADL Tasks, 2-Verbalize Understanding, 3- ImproveStrength/[place] 1=Demonstrate adherence to instructed precautions during ADL tasks. 2=Patient will verbalize/demonstrate understanding of assistive devices/ modifications for ADL. 3=Patient will improve strength/tolerance for activity to enable patient to perform ADL's. OT Education/Plan Discharge Recommendations Plan/Recommendations: Continue POC Treatment Plan/Plan of Care Patient would benefit from OT for education, treatment and training to promote independence in ADL's, mobility, safety and/or upper extremity function for ADL' s. Plan of Care: ADL Retraining, Functional Mobility, Group Exercise/Act as Ind, UE Funct Exercise/Act Treatment Duration: Feb 21, 2017 Frequency: Twice Daily Estimated Hrs Per Day: 1.5 hours per day Agreement: Yes Rehab Potential: Fair Time/GCodes Start Time: 10:00 Stop Time: 11:00 Total Time Billed (hr/min): 60 Billed Treatment Time 1 visit-FA 4 (60 min) ESTEBAN GRAY Feb 12, 2017 11:43
--- NOTE | 2017-02-12 11:56 | Physical Therapy Daily Note ---
PT Daily Note-Current Subjective Pt. again expresses her frustration that she has not come to any resolution for her diarrhea and edema in LEs. Pt. having difficulty prioritizing, following and task and reasoning. Pt. c/o frequent urge to go to [facility] [place] ans is fearful of even ice chips. Pt. also concerned because of breakdown on buttocks and folds of bottom. This LENO SEWER suggested laying in bed flat on left side with pillows for positioning to attempt drainage of LEs and relieve bottom. Pt. just cant decide what to do and resists and suggestions but wants answers. Pain Numeric Pain Scale: 4 Location: Right Location Body Site: Hip Pain Description: Pressure Appearance edema continues LEs up in to trunk Transfers Functional [place] Measure 0=Not Assessed/NA 4=Minimal Assistance 1=Total Assistance 5=Supervision or Setup 2=Maximal Assistance 6=Modified [place] 3=Moderate Assistance 7=Complete IndependenceIRFPAI Quality Coding Scale 6 Independent with activity with or without an assistive device 5 Patient requires set up or clean up by helper. Patient completes activity by themselves 4 Supervision or touching assist (CGA). [place] provide cues , steadying assist 3 The helper provides less than half the effort to complete the activity 2 The helper provides more than half the effort to complete the activity 1 Dependent. The helper does all the effort to complete an activity 7 Patient refused to complete or attempt activity 9 The patient did not perform the activity before the current illness or injury 88 Not attempted due to Medical conditions or safety concerns sup to sit , sit to stand chair ans toilet all SBA Gait Training Gait Assistive Device: FWW FWW 150 x2 SBA Stair Training Stair Training: Handrails/: 2 handrails Stairs (FIM): 5 #of Steps: 4 Stairs: Pattern: Step to Level of Assist: 5 household exception Treatments pt. in bathroom needed brief and pad changed but felt she couldnt do the pad change because "swelling in her legs" This LENO SEWER max assist to doff narda brief pulled up to thighs and instructed pt that she can insert pad indep. which she did. Pt did end up sitting EOB to consume a few ice chips then layed in bed on left side with 2 pillows between LEs and bed heaflat....to help drain edema and off bottom Assessment Current Status: Fair Progress pts. progress is influenced by her edema, diarrhea, and distraction of concern about her health PT Short Term Goals Short Term Goals Time Frame: Feb 07, 2017 Transfers (B,C,W/C) (FIM): 4 Gait (FIM): 4 Gait Distance Comment: 150' Gait Level of Assist: 4 Gait Assistive Device: FWW Wheelchair Distance: 50' PT Halfway Goals Early Learning Teacher Goals PT Early Learning Teacher Goals Time Frame: Feb 21, 2017 Transfers (B,C,W/C) (FIM): 5 (met 02/04/17) Sit to Lying (QC): 4 (met 02/04/17) Lying-Sitting on Side/Bed(QC): 4 (met 02/04/17) Sit to Stand (QC): 4 (met 02/04/17) Rollin Roll Left to Right (QC): 4 (met 02/04/17) Chair/Jrn-ed-Bgsxy Xfer(QC): 4 Gait (FIM): 5 Distance: 200' Walk 10 feet (QC): 4 Walk 10ft-Uneven Surface(QC): 4 Walk 50ft with 2 Turns (QC): 4 Walk 150 ft (QC): 4 Gait Level of Assist: 5 Gait Assistive Device: FWW Stairs (FIM): 2 (met 02/04/17) # of Steps: 4 (met 02/04/17) 1 Step (curb) (QC): 4 (met 02/04/17) 4 Steps (QC): 4 (met 02/04/17) 12 Steps (QC): 88 Stairs Level Of Assist: 4 (met 02/04/17) PT Plan Treatment/Plan Treatment Plan: Continue Plan of Care Treatment Plan: Bed Mobility, Education, Functional Activity [place], Functional Strength, Group Therapy, Gait, Safety, Therapeutic Exercise, Transfers Treatment Duration: Feb 21, 2017 Frequency: At least 5-7 days/Wk (IRF) Estimated Hrs Per Day: 1.5 hours per day Patient and/or Family Agrees t: Yes Safety Risks/Education Patient Education: Gait Training, Transfer Techniques, Steps Teaching Recipient: Patient Teaching Methods: Demonstration, Discussion Response to Teaching: Verbalize Understanding, Return Demonstration, Reinforcement Needed Time/GCodes Time In: 1115 Time Out: 1145 Total Billed Treatment Time: 30 Total Billed Treatment 1,GT15m,FA15m G Codes Necessary: TIANNA Menon LENO SEWER Feb 12, 2017 11:56
--- NOTE | 2017-02-12 12:34 | Occupational Ther Daily Note ---
OT Current Status-Daily Note Subjective Pt alert, lying in bed. Finished up with PT. Pt agreed to OT. C/o fatigue. Mental Status/Objective Patient Orientation: Person, Place, Time, Situation Functional [place] Measure 0=Not Assessed/NA 4=Minimal Assistance 1=Total Assistance 5=Supervision or Setup 2=Maximal Assistance 6=Modified [place] 3=Moderate Assistance 7=Complete [place] Attachments: IV ADL-Treatment OT unwrapped pt's R foot and skin continues to be shiny though was able to see wrinkles in skin. Pt c/o pain in arch of R foot. Tightness in arch noted and light massage completed to decrease pain and tightness. Pt requested to use bathroom. Pt required assist to move from lying on L side to back then pt was able to go from supine to sitting EOB by self. Pt ambulated to bathroom and completed toilet transfer with supervision. After therapy, pt was instructed to use call light to call for assistance when finished with toilet. Functional [place] Measure 0=Not Assessed/NA 4=Minimal Assistance 1=Total Assistance 5=Supervision or Setup 2=Maximal Assistance 6=Modified [place] 3=Moderate Assistance 7=Complete IndependenceIRFPAI Quality Coding Scale 6 Independent with activity with or without an assistive device 5 Patient requires set up or clean up by helper. Patient completes activity by themselves 4 Supervision or touching assist (CGA). [place] provide cues , steadying assist 3 The helper provides less than half the effort to complete the activity 2 The helper provides more than half the effort to complete the activity 1 Dependent. The helper does all the effort to complete an activity 7 Patient refused to complete or attempt activity 9 The patient did not perform the activity before the current illness or injury 88 Not attempted due to Medical conditions or safety concerns OT Short Term Goals Short Term Goals Time Frame: Feb 07, 2017 Bathing(FIM): 3 Lower Body Dressing(FIM): 3 Toileting(FIM): 3 Transfers (B,C,W/C) (FIM): 4 Shower Transfer(FIM): 4 Additional Short Term Goals: 1-Demonstrate ADL Tasks, 2-Verbalize Understanding , 3-ImproveStrength/[place] 1=Demonstrate adherence to instructed precautions during ADL tasks. 2=Patient will verbalize/demonstrate understanding of assistive devices/ modifications for ADL. 3=Patient will improve strength/tolerance for activity to enable patient to perform ADL's. OT Folder Seamer Goals Detention Goals Time Frame: Feb 21, 2017 Eating (FIM): 6 Eating (QC): 6 Groomin Oral Hygiene (QC): 6 Bathing(FIM): 5 Shower/Bathe Self (QC): 5 Upper Body Dressing(FIM): 5 Upper Body Dressing (QC): 5 Lower Body Dressing(FIM): 5 Lower Body Dressing (QC): 5 On/Off Footwear (QC): 5 Toileting(FIM): 6 Toileting Hygiene (QC): 6 Toilet/Commode Transfer(FIM): 6 Toilet/Commode Transfer (QC): 6 Shower Transfer(FIM): 5 Additional Goals: 1-Demonstrate ADL Tasks, 2-Verbalize Understanding, 3- ImproveStrength/[place] 1=Demonstrate adherence to instructed precautions during ADL tasks. 2=Patient will verbalize/demonstrate understanding of assistive devices/ modifications for ADL. 3=Patient will improve strength/tolerance for activity to enable patient to perform ADL's. OT Education/Plan Discharge Recommendations Plan/Recommendations: Continue POC Treatment Plan/Plan of Care Patient would benefit from OT for education, treatment and training to promote independence in ADL's, mobility, safety and/or upper extremity function for ADL' s. Plan of Care: ADL Retraining, Functional Mobility, Group Exercise/Act as Ind, UE Funct Exercise/Act Treatment Duration: Feb 21, 2017 Frequency: Twice Daily Estimated Hrs Per Day: 1.5 hours per day Agreement: Yes Rehab Potential: Fair Time/GCodes Start Time: 11:45 Stop Time: 12:15 Total Time Billed (hr/min): 30 Billed Treatment Time 1 visit-FA 2 (30 min) ESTEBAN GRAY Feb 12, 2017 12:34
[2017-02-12 18:02] VITALS: BP 127/68
--- NOTE | 2017-02-12 18:31 | Consultation ---
History of Present Illness History of Present Illness Patient Consulted On(betito/time) 02/12/17 18:23 Date Seen by Provider: Feb 12, 2017 Time Seen by Provider: 18:24 Reason for Visit: consult History of Present Illness pt is admited for rehab post right hip fracture and repair pt stated daughter though she was not hearing well - pt has not noticed any acute changes pt stated had episode of dizziness and off balance - no spinning quality - pt relates it to neck pain from previous injury Allergies and Home Medications Allergies Coded Allergies: nystatin (Verified Allergy, Mild, HIVES, 01/29/17) amoxicillin (Unverified Allergy, Unknown, 05/12/14) chlorhexidine (Verified Allergy, Unknown, HIVES, 01/29/17) clindamycin (Unverified Allergy, Unknown, 05/12/14) sulfamethoxazole (Unverified Allergy, Unknown, 05/12/14) trimethoprim (Unverified Allergy, Unknown, 05/12/14) Home Medications Aspirin 325 Mg Tablet.dr, 325 MG PO DAILY PRN for PAIN-MILD, (Reported) Loratadine 10 Mg Tablet, 10 MG PO DAILY PRN for ALLERGIES, (Reported) Past Rpqvowh-[id number]-[id number] Hx Patient Social History Alcohol Use: Denies Use Recreational Drug Use: No Smoking Status: Never a Smoker Recent Foreign Travel: No Contact w/Someone Who Travel: No Recent Hopitalizations: Yes (Rt hip fx post fall) Physical Abuse Screen: No Sexual Abuse: No Seasonal Allergies Seasonal Allergies: Yes Surgeries HX Surgeries: Yes (right hemiarthroplasty) Surgeries: Adenoidectomy, Breast Respiratory Hx Respiratory Disorders: Yes Respiratory Disorders: Pneumonia Cardiovascular Hx Cardiac Disorders: Yes Cardiac Disorders: Chronic Edema/Swelling Neurological Hx Neurological Disorders: No Genitourinary Hx Genitourinary Disorders: No Gastrointestinal Hx Gastrointestinal Disorders: Yes (anal fissure) Gastrointestinal Disorders: Hemorrhoids, Chronic Diarrhea Musculoskeletal Hx Musculoskeletal Disorders: Yes (chronic neck and back pain) Musculoskeletal Disorders: Chronic Back Pain Endocrine Hx Endocrine Disorders: No HEENT HX ENT Disorders: Yes (aerosols cause irritation) Hearing Impairment: Hard of Hearing Cancer Hx Cancer: No Psychosocial Hx Psychiatric Problems: No Blood Transfusions Hx Blood Disorders: No Family Medical History Significant Family History: No Pertinent Family Hx Review of Systems-General EENTM: hearing loss, other, see HPI Physical Exam-General Problems Physical Exam Vital Signs Vital Sign - Last 12Hours 02/06/17 05:31 Temp 97.9 Pulse 87 Resp 18 B/P (MAP) 137/66 Pulse Ox 97 O2 Delivery Room Air Capillary Refill : Less Than 3 SecondsNONE Comments ENT exam : Ears Left EAC cleat TM normal no fluid or infection : Right EAC with small cerumen impaction obstructing view of TM removed with curette TM then visualized and Normal no fluid or infection pt stated family c/o hearing problems but she denies any acute changes in hearing and had no trouble understanding exam today with loud clear voice pt denies spinning quality with dizziness and stated she just felt off / lightheaded one episode earlier today none since referral back to PCP for dizziness due to not normal presentation for vertigo Assessment/Plan Assessment/Plan Admission Diagnosis/Plan Assessment: 1. Right cerumen impaction 2. Impaired Hearing Sensation 3. Dysequilibrium Plan 1. Cerumen removed at bedside pt tolerated well 2. Pt can be seen after discharge for audio as outpatient at our [place] office 3. Referral back to primary for dysequilibrium since has not reoccurred and had no spinning sensation with episode Clinical Quality Measures DVT/VTE Risk/Contraindication: Risk Factor Score Per Nursin RFS Level Per Nursing on Admit: 4+=Very High DEION CASTREJON BALANCE SHEET ANALYST Feb 12, 2017 18:31
[2017-02-12] MEDS: HYDROcodone/APAP 5 MG/325 MG (LORTAB) TAB PO PRN (22:44)
[2017-02-13] MEDS: METRONIDAZOLE 250 MG/50 ML IV SCH ×6 (02:20→16:53)
[2017-02-13 05:20] VITALS: BP 116/63
[2017-02-13] MEDS: LACTOBACILLUS Acidoph/Bulgar (LACTINEX/FLORANEX) TAB PO SCH ×4 (05:42→19:52)
[2017-02-13] MEDS: KCL 20 MEQ TAB (K-DUR) PO SCH ×2 (05:42→19:52)
[2017-02-13 06:00] LABS: BASOPHILS % (AUTO) 0 % (0-10); EOSINOPHILS # (AUTO) 0.3 10^3/uL (0.0-0.3); EOSINOPHILS % (AUTO) 5 % (0-10); LYMPHOCYTES # (AUTO) 0.7 X 10^3 (1.0-4.0); LYMPHOCYTES % (AUTO) 13 % (12-44); MEAN CORPUSCULAR HEMOGLOBIN 30 PG (25-34); MEAN CORPUSCULAR HGB CONC 32 G/DL (32-36); MEAN CORPUSCULAR VOLUME 93 FL (80-99); MEAN PLATELET VOLUME 8.4 FL (7.4-10.4); MONOCYTES # (AUTO) 0.7 X 10^3 (0.0-1.0); MONOCYTES % (AUTO) 13 % (0-12); NEUTROPHILS # (AUTO) 3.6 X 10^3 (1.8-7.8); NEUTROPHILS % (AUTO) 69 % (42-75); PLATELET COUNT 386 10^3/uL (130-400); RED BLOOD COUNT 2.57 10^6/uL (4.35-5.85); RED CELL DISTRIBUTION WIDTH 15.4 % (10.0-14.5); WHITE BLOOD COUNT 5.3 10^3/uL (4.3-11.0)
[2017-02-13 06:22] LABS: ALANINE AMINOTRANSFERASE 6 U/L (0-55); ANION GAP 7 MMOL/L (5-14); ASPARTATE AMINO TRANSFERASE 10 U/L (5-34); BILIRUBIN,TOTAL 0.3 MG/DL (0.1-1.0); BLOOD UREA NITROGEN 11 MG/DL (7-18); BUN/CREATININE RATIO 13; CARBON DIOXIDE 23 MMOL/L (21-32); CHLORIDE 109 MMOL/L (98-107); CREATININE SERUM 0.83 MG/DL (0.60-1.30); GFR ESTIMATED > 60; GLUCOSE 99 MG/DL (70-105); POTASSIUM 3.7 MMOL/L (3.6-5.0); SODIUM 139 MMOL/L (135-145); TOTAL PROTEIN 5.2 GM/DL (6.4-8.2)
[2017-02-13] MEDS: LOPERAMIDE 2 MG (IMODIUM) CAP PO SCH ×2 (07:49→19:47)
[2017-02-13] MEDS: LORATADINE (CLARITIN) 10 MG TAB PO SCH (07:50)
[2017-02-13] MEDS: BENEFIBER (FROM DIETARY) DOCUMENTATION PURPOSE ONLY PO SCH (07:50)
[2017-02-13] MEDS: HYDROcodone/APAP 5 MG/325 MG (LORTAB) TAB PO PRN ×2 (07:50→22:05)
[2017-02-13] MEDS: ENOXAPARIN 40 MG/0.4 ML (LOVENOX) SYR SC SCH (07:51)
[2017-02-13] MEDS: HYDROCORTISONE 2.5% CREAM (ANUSOL-HC) 30 GM TOP SCH ×2 (07:52→19:56)
[2017-02-13] MEDS: MENTHOL/ZINC OXIDE (CALMOSEPTINE) 113 GM TUBE TOP SCH ×2 (07:52→19:56)
--- NOTE | 2017-02-13 08:11 | PM & R (SOAP) Progress Note ---
Subjective Time Seen by Provider: 07:50 Subjective/Events-last exam Patient was seen in her room this AM Informed her DR Rae will be doing Colonoscopy tomorrow Labd noted HGB <8 now and serum albumin has dropped to 2.0 Patient SBA for transfers Fatiques easily. Review of Systems General: Fatigue Cardiovascular: Edema Objective Exam Last Set of Vital Signs Vital Signs Date Time Temp Pulse Resp B/P (MAP) Pulse Ox O2 Delivery O2 Flow Rate FiO2 02/13/17 05:20 98.9 88 16 116/63 91 Room Air Capillary Refill : Less Than 3 SecondsNONE I&O Intake and Output 02/13/17 00:00 Intake Total 1640 ml Balance 1640 ml Intake Oral 1490 ml IV Total 150 ml # Voids 13 # Bowel Movements 1 General: Alert, Oriented X3, Cooperative, No Acute Distress HEENT: Atraumatic, PERRLA, EOMI, Mucous Memb Moist/[place] Neck: Supple, No JVD Lungs: Clear to Auscultation Heart: Regular Rate Abdomen: Normal Bowel Sounds, Soft, No Tenderness Extremities: Other (edema 1+ BLES) Neuro: Other (guarding rt hip has functional strength distal RT Leg) Results Lab Laboratory Tests 02/12/17 14:36: Glucometer 144H 02/13/17 05:39: White Blood Count 5.3, Red Blood Count 2.57L, Hemoglobin 7.6L, Hematocrit 24L, Mean Corpuscular Volume 93, Mean Corpuscular Hemoglobin 30, Mean Corpuscular Hemoglobin Concent 32, Red Cell Distribution Width 15.4H, Platelet Count 386, Mean Platelet Volume 8.4, Neutrophils (%) (Auto) 69, Lymphocytes (%) (Auto) 13, Monocytes (%) (Auto) 13H, Eosinophils (%) (Auto) 5, Basophils (%) (Auto) 0, Neutrophils # (Auto) 3.6, Lymphocytes # (Auto) 0.7L, Monocytes # (Auto) 0.7, Eosinophils # (Auto) 0.3, Basophils # (Auto) 0.0, Sodium Level 139, Potassium Level 3.7, Chloride Level 109H, Carbon Dioxide Level 23, Anion Gap 7, Blood Urea Nitrogen 11, Creatinine 0.83, Estimat Glomerular Filtration Rate > 60, BUN/ Creatinine Ratio 13, Glucose Level 99, Calcium Level 8.0L, Total Bilirubin 0.3, Aspartate Amino Transf (AST/SGOT) 10, Alanine Aminotransferase (ALT/SGPT) 6, Alkaline Phosphatase 111, Total Protein 5.2L, Albumin 2.0L Microbiology 02/02/17 Stool Culture - Final, Complete Negative for Salmonella... 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 DR Christine 01/28/17 Postop anemia Anemia of blood loss Chronic diarrhea-associated with Stool +for OB times one-DR Roberts following and now with FUO started on antibiotics empirically now afebrile Hypoalbuminemia Peripheral edema-associated with Hypoalbuminemia-nutritional supplement ordered and legs elevated as much as possible Postop DVT prophylaxis on Lovenox Sub CUT Hypokalemia replaced Idiopathhic neuropathy Onychomycosis Hammer digit syndrome Hyperkeratosis Plan Continue PT/OT as tolerated Bowel prep ordered for Colonoscopy tomorrow - DR Roberts Manageing Diarrhea- and antibiotics-He will consider colonoscopy at a later time perhaps as an outpatient D/C Questran as patients request -Immodium ordered=adjust dose as needed Probiotic d/cd as patients request=She feels that it may be contributing to her loose stools .Elevate legs as much as possible Continue with Nutritional supplement as tolerated Team Conference held yesterday- 02/12/17-See report for full functional update and POC and ELOS F/U with SW tomorrow re possible SNU placement upon completion of IV antibiotics Antibiotic for Low grade fever on an empirical basis Recheck Labs-done See orders DEB LOMBARDO MD Feb 13, 2017 08:11
--- NOTE | 2017-02-13 08:38 | Progress Note-Hospitalist ---
Subjective HPI/CC On Admission Date Seen by Provider: Feb 13, 2017 Time Seen by Provider: 08:00 Mrs. Caldera and used to have diarrhea with poor appetite. She's had some low- grade temperature. She denies abdominal pain or distention. She continues to have lower extremity swelling unchanged and has not seen any blood in her stool. With Lomotil diarrhea has diminished a little but still averaging 7-8 loose to semi-formed stools. She has been anxious about the thought of returning home. Currently she would not be able to care for herself due to diarrhea and fear of accidents. This in addition to continued fatigue with poor appetite. She is sided appropriately to look into retirement care when discharged from acute rehabilitation. Subjective/Events-last exam Mrs. Kaiser reports her diarrhea has slowed down. She has seen small amount of red blood occasionally. As she still is very anxious about the underlying cause of the diarrhea and her ongoing swelling. Her by mouth intake has improved over the past 48 hours as well. She's had no significant abdominal pain. She denies any chest discomfort or increased dyspnea on exertion over her baseline. Objective Exam Vital Signs Vital Sign - Last 12Hours 02/07/17 05:00 Temp 98.9 Pulse 104 Resp 24 B/P (MAP) 91/53 Pulse Ox 97 O2 Delivery Room Air Capillary Refill : Less Than 3 SecondsNONE General Appearance: Anxious, Chronically ill Respiratory: Chest Non Tender, Lungs Clear, Normal Breath Sounds, No Accessory Muscle Use, No Respiratory Distress Cardiovascular: Regular Rate, Rhythm, No Edema, No Gallop, No JVD, No Murmur, Normal Peripheral Pulses Gastrointestinal: Normal Bowel Sounds, No Organomegaly, Soft, Other (No mass noted mild left lower quadrant abdominal pain to palpation without rebound or guarding.) Results/Procedures Lab Laboratory Tests 02/13/17 05:39 Assessment/Plan Assessment and Plan Assess & Plan/Chief Complaint 1. With abrupt onset of diarrhea and current low-grade fever despite negative cultures and infectious etiology is a strong possibility. Overflow diarrhea around her subjective mass is clearly a concern as well. Discussed bowel prep with staff and the patient and the importance of doing her best to finish it. Strategies were she remains on the commode after diarrhea begins were discussed as well. She'll be set up for colonoscopy tomorrow morning. We will give low- dose Ativan an hour before the prep and 5 mg of IV Reglan half an hour before PEG prep. 2. Situational anxiety aggravating number 1. Number 3 malnutrition secondary to number 1 contributing to pedal edema continue elevation. 3. There has been progression of anemia but the patient is hemodynamically stable. There is not been significant blood loss noted is most likely chronic disease for malnutrition. There is clearly however concern for underlying colon cancer however her MCV remains at the upper limits of normal suggesting that iron deficiency is not the primary cause. We'll hold off on blood transfusion for now reevaluating after colonoscopy in the morning. YOLA AKHTAR MD Feb 13, 2017 08:38
--- NOTE | 2017-02-13 09:04 | Physical Therapy Daily Note ---
PT Daily Note-Current Subjective Pt sitting in recliner with feet elevated talking to Dr Roberts upon arrival. Pt agrees to PT. Pt is anxious about tomorrow's procedure. Pain Numeric Pain Scale: 5-Moderate Pain Location: Right Location Body Site: Foot Pain Description: Ache, Tightness Mental Status Patient Orientation: Person, Place, Time, Situation Transfers Functional [place] Measure 0=Not Assessed/NA 4=Minimal Assistance 1=Total Assistance 5=Supervision or Setup 2=Maximal Assistance 6=Modified [place] 3=Moderate Assistance 7=Complete IndependenceIRFPAI Quality Coding Scale 6 Independent with activity with or without an assistive device 5 Patient requires set up or clean up by helper. Patient completes activity by themselves 4 Supervision or touching assist (CGA). Stuart provide cues , steadying assist 3 The helper provides less than half the effort to complete the activity 2 The helper provides more than half the effort to complete the activity 1 Dependent. The helper does all the effort to complete an activity 7 Patient refused to complete or attempt activity 9 The patient did not perform the activity before the current illness or injury 88 Not attempted due to Medical conditions or safety concerns Scootin Sit to/from Stand: 5 Sit to Stand (QC): 5 Weight Bearing Weight Bearing Restriction: Full Weight Bearing Location Restriction: LE Bilateral Gait Training Does the Patient Walk?: Yes Distance (FIM): 3=150 ft Distance: 150' Walk 10 feet (QC): 5 Walk 50 ft with 2 Turns(QC): 5 Walk 150 ft (QC): 5 Gait Level of Assist: 5 Gait Persons Needed: 1 Gait Assistive Device: FWW Pt walks with slow and antalgic gait pattern. Pt walks steady, no LOB but very anxious. Wheelchair Training Does the Pt Use a Wheelchair?: No Exercises Seated Therapy Exercises: Ankle pumps, Long arc quads, Hip flexion, Kicking activity Seated Reps: 15 NuStep Minutes: 11 NuStep Workload: 3 Treatments PT, Nurse, Dr Roberts & pt discussed upcoming prep for Colonoscopy tomorrow. Pt had several questions as far as what to expect and was getting anxious. Pt transferred from recliner to standing using FWW at A. Pt ambulated in hallway using FWW at [facility]. Pt completed Seated Ex before transferring to [facility] and using for 11m at Workload 3. Pt ambulated back to room to rest in recliner at end of tx with all needs met. Assessment Current Status: Fair Progress Pt is anxious and has been preoccupied with upcoming procedure . PT Short Term Goals Short Term Goals Time Frame: Feb 07, 2017 Transfers (B,C,W/C) (FIM): 4 Gait (FIM): 4 Gait Distance Comment: 150' Gait Level of Assist: 4 Gait Assistive Device: FWW Wheelchair Distance: 50' PT Rfp Writer Goals Fci Goals PT Rfp Writer Goals Time Frame: Feb 21, 2017 Transfers (B,C,W/C) (FIM): 5 (met 02/04/17) Sit to Lying (QC): 4 (met 02/04/17) Lying-Sitting on Side/Bed(QC): 4 (met 02/04/17) Sit to Stand (QC): 4 (met 02/04/17) Rollin Roll Left to Right (QC): 4 (met 02/04/17) Chair/[id number]-fa-Obgqz Xfer(QC): 4 Gait (FIM): 5 Distance: 200' Walk 10 feet (QC): 4 Walk 10ft-Uneven Surface(QC): 4 Walk 50ft with 2 Turns (QC): 4 Walk 150 ft (QC): 4 Gait Level of Assist: 5 Gait Assistive Device: FWW Stairs (FIM): 2 (met 02/04/17) # of Steps: 4 (met 02/04/17) 1 Step (curb) (QC): 4 (met 02/04/17) 4 Steps (QC): 4 (met 02/04/17) 12 Steps (QC): 88 Stairs Level Of Assist: 4 (met 02/04/17) PT Plan Problem List Problem List: Activity Tolerance, Functional Strength, Safety, Balance, Gait Treatment/Plan Treatment Plan: Continue Plan of Care Treatment Plan: Bed Mobility, Education, Functional Activity Stewart, Functional Strength, Group Therapy, Gait, Safety, Therapeutic Exercise, Transfers Treatment Duration: Feb 21, 2017 Frequency: At least 5-7 days/Wk (IRF) Estimated Hrs Per Day: 1.5 hours per day Patient and/or Family Agrees t: Yes Safety Risks/Education Patient Education: Gait Training, Transfer Techniques, Correct Positioning, Safety Issues Teaching Recipient: Patient Teaching Methods: Discussion Response to Teaching: Verbalize Understanding Time/GCodes Time In: 815 Time Out: 915 Total Billed Treatment Time: 60 Total Billed Treatment visit, GT (15m), FA (15m) & EX x2 (30m) NOY GALAVIZ HYPERBARIC TECHNICIAN Feb 13, 2017 09:03
[2017-02-13] MEDS ORDERED: GOLYTELY POWDER 4000 ML BTL PO ONE (10:00)
[2017-02-13] MEDS: LEVOFLOXACIN 500 MG/100 ML IV 100 ML IV SCH (11:38)
--- NOTE | 2017-02-13 11:51 | Occupational Ther Daily Note ---
OT Current Status-Daily Note Subjective Pt alert, sitting in recliner. Pt agreed to therapy. Pt anxious about taking a shower today or tomorrow due to her fatigue level today then how she would feel after her colonoscopy. FERNANDEZ encouraged pt and pt agreed to take shower. Mental Status/Objective Patient Orientation: Person, Place, Time, Situation Functional [place] Measure 0=Not Assessed/NA 4=Minimal Assistance 1=Total Assistance 5=Supervision or Setup 2=Maximal Assistance 6=Modified [place] 3=Moderate Assistance 7=Complete [place] Attachments: IV ADL-Treatment Pt very anxious and not sure when it would be better to take shower, today or tomorrow. FERNANDEZ encouraged today since it will be later this evening when pt will have colonoscopy and may feel increased fatigue tomorrow. Sit to stand with SBA then ambulated into bathroom using FWW with SBA. Pt transferred to toilet with SBA and complete toileting with SBA. Pt seems unsure of next steps though when given a moment she is able to come up with next step. Pt transferred into shower with CGA using FWW, shower chair and grabbars. Pt was able to bathe self with SBA in standing using grabbars to cleanse buttocks/kristina area then seated bathed rest of body using long handle sponge. Pt was able to doff/don nightgown by self after set up. Assist to get briefs over feet while using AE. Increased edema on R LE so unable to use sockaide effectively at this time. Pt complete grooming at w/c level by self. Mod A to get into bed, assist to lift LE's into bed. Pt feet elevated and R foot rewrapped due to tightness of wraps at that time. Nrsg in room after therapy. Pt took increased time to complete all ADL and functional tasks. Call light/phone in reach. All needs met in room. Functional [place] Measure 0=Not Assessed/NA 4=Minimal Assistance 1=Total Assistance 5=Supervision or Setup 2=Maximal Assistance 6=Modified [place] 3=Moderate Assistance 7=Complete IndependenceIRFPAI Quality Coding Scale 6 Independent with activity with or without an assistive device 5 Patient requires set up or clean up by helper. Patient completes activity by themselves 4 Supervision or touching assist (CGA). Keo provide cues , steadying assist 3 The helper provides less than half the effort to complete the activity 2 The helper provides more than half the effort to complete the activity 1 Dependent. The helper does all the effort to complete an activity 7 Patient refused to complete or attempt activity 9 The patient did not perform the activity before the current illness or injury 88 Not attempted due to Medical conditions or safety concerns Grooming (FIM): 6 (Sitting at w/c level, pt is able to complete all grooming by self.) Bathing (FIM): 5 (Using shower bench, long handle sponge and hand held shower pt able to complete areas while sitting with SBA in standing to cleanse buttocks and kristina area.) Upper Body (FIM): 5 Lower Body Dressing (FIM): 3 Toileting (FIM): 4 Transfers (B, C, W/C) (FIM): 5 Toilet/Commode Transfer (FIM): 5 Shower Transfer(FIM): 4 OT Short Term Goals Short Term Goals Time Frame: Feb 07, 2017 Bathing(FIM): 3 Lower Body Dressing(FIM): 3 Toileting(FIM): 3 Transfers (B,C,W/C) (FIM): 4 Shower Transfer(FIM): 4 Additional Short Term Goals: 1-Demonstrate ADL Tasks, 2-Verbalize Understanding , 3-ImproveStrength/Stewart 1=Demonstrate adherence to instructed precautions during ADL tasks. 2=Patient will verbalize/demonstrate understanding of assistive devices/ modifications for ADL. 3=Patient will improve strength/tolerance for activity to enable patient to perform ADL's. OT Carry In Worker Goals Carry In Worker Goals Time Frame: Feb 21, 2017 Eating (FIM): 6 Eating (QC): 6 Groomin Oral Hygiene (QC): 6 Bathing(FIM): 5 Shower/Bathe Self (QC): 5 Upper Body Dressing(FIM): 5 Upper Body Dressing (QC): 5 Lower Body Dressing(FIM): 5 Lower Body Dressing (QC): 5 On/Off Footwear (QC): 5 Toileting(FIM): 6 Toileting Hygiene (QC): 6 Toilet/Commode Transfer(FIM): 6 Toilet/Commode Transfer (QC): 6 Shower Transfer(FIM): 5 Additional Goals: 1-Demonstrate ADL Tasks, 2-Verbalize Understanding, 3- ImproveStrength/Stewart 1=Demonstrate adherence to instructed precautions during ADL tasks. 2=Patient will verbalize/demonstrate understanding of assistive devices/ modifications for ADL. 3=Patient will improve strength/tolerance for activity to enable patient to perform ADL's. OT Education/Plan Discharge Recommendations Plan/Recommendations: Continue POC Treatment Plan/Plan of Care Patient would benefit from OT for education, treatment and training to promote independence in ADL's, mobility, safety and/or upper extremity function for ADL' s. Plan of Care: ADL Retraining, Functional Mobility, Group Exercise/Act as Ind, UE Funct Exercise/Act Treatment Duration: Feb 21, 2017 Frequency: Twice Daily Estimated Hrs Per Day: 1.5 hours per day Agreement: Yes Rehab Potential: Fair Time/GCodes Start Time: 10:00 Stop Time: 12:00 Total Time Billed (hr/min): 120 Billed Treatment Time 1 visit-ADL 4 (60 min) FA 2 (30 min) ESTEBAN GRAY Feb 13, 2017 11:51
[2017-02-13] MEDS ORDERED: METOCLOPRAMIDE INJ 10 MG/2 ML (REGLAN) IVP ONE (15:30)
[2017-02-13] MEDS ORDERED: METOCLOPRAMIDE INJ 10 MG/2 ML (REGLAN) IVP NR (15:30)
[2017-02-13] MEDS: LORazepam 0.5 MG (ATIVAN) TABLET PO PRN (15:35)
[2017-02-13] MEDS ORDERED: GOLYTELY POWDER 4000 ML BTL PO NR (16:00)
[2017-02-13 18:52] VITALS: BP 119/65
[2017-02-13] MEDS: ONDANSETRON 4 MG (ZOFRAN) ORAL DISSOLVE TAB PO PRN (22:51)
[2017-02-14] MEDS: METRONIDAZOLE 250 MG/50 ML IV SCH ×6 (01:35→17:26)
[2017-02-14 05:11] VITALS: BP 127/78
--- NOTE | 2017-02-14 08:25 | PM & R (SOAP) Progress Note ---
Subjective Time Seen by Provider: 07:45 Subjective/Events-last exam Patient was seen in her room this AM Robbie from [facility] for Colonoscopy this AM Discussed case with therapy staff. Therapy on hold today due to Procedure. Objective Exam Last Set of Vital Signs Vital Signs Date Time Temp Pulse Resp B/P (MAP) Pulse Ox O2 Delivery O2 Flow Rate FiO2 02/14/17 05:11 98.9 96 18 127/78 93 Room Air Capillary Refill : Less Than 3 SecondsNONE I&O Intake and Output 02/14/17 00:00 Intake Total 1340 ml Balance 1340 ml Intake Oral 1240 ml IV Total 100 ml # Voids 9 # Bowel Movements 7 General: Alert, Oriented X3, Cooperative, No Acute Distress HEENT: Atraumatic, PERRLA, EOMI, Mucous Memb Moist/[place] Neck: Supple, No JVD Lungs: Clear to Auscultation Heart: Regular Rate Abdomen: Normal Bowel Sounds, Soft, No Tenderness Extremities: Other (edema 1+ BLES) Neuro: Other (guarding rt hip has functional strength distal RT Leg) Results Lab Laboratory Tests 02/12/17 14:36: Glucometer 144H 02/13/17 05:39: White Blood Count 5.3, Red Blood Count 2.57L, Hemoglobin 7.6L, Hematocrit 24L, Mean Corpuscular Volume 93, Mean Corpuscular Hemoglobin 30, Mean Corpuscular Hemoglobin Concent 32, Red Cell Distribution Width 15.4H, Platelet Count 386, Mean Platelet Volume 8.4, Neutrophils (%) (Auto) 69, Lymphocytes (%) (Auto) 13, Monocytes (%) (Auto) 13H, Eosinophils (%) (Auto) 5, Basophils (%) (Auto) 0, Neutrophils # (Auto) 3.6, Lymphocytes # (Auto) 0.7L, Monocytes # (Auto) 0.7, Eosinophils # (Auto) 0.3, Basophils # (Auto) 0.0, Sodium Level 139, Potassium Level 3.7, Chloride Level 109H, Carbon Dioxide Level 23, Anion Gap 7, Blood Urea Nitrogen 11, Creatinine 0.83, Estimat Glomerular Filtration Rate > 60, BUN/ Creatinine Ratio 13, Glucose Level 99, Calcium Level 8.0L, Total Bilirubin 0.3, Aspartate Amino Transf (AST/SGOT) 10, Alanine Aminotransferase (ALT/SGPT) 6, Alkaline Phosphatase 111, Total Protein 5.2L, Albumin 2.0L Microbiology 02/02/17 Stool Culture - Final, Complete Negative for Salmonella... 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 DR Christine 01/28/17 Postop anemia Anemia of blood loss Chronic diarrhea-associated with Stool +for OB times one-DR Roberts following and now with FUO started on antibiotics empirically now afebrile Hypoalbuminemia Peripheral edema-associated with Hypoalbuminemia-nutritional supplement ordered and legs elevated as much as possible Postop DVT prophylaxis on Lovenox Sub CUT Hypokalemia replaced Idiopathhic neuropathy Onychomycosis Hammer digit syndrome Hyperkeratosis Plan Resume PT/OT tomorrow Bowel prep ordered and done for Colonoscopy today - DR Roberts Manageing Diarrhea- and anemia-Colonoscopy pending for 11 AM D/C Questran as patients request -Immodium ordered=adjust dose as needed Probiotic d/cd as patients request=She feels that it may be contributing to her loose stools .Elevate legs as much as possible Continue with Nutritional supplement as tolerated Team Conference held yesterday- 02/12/17-See report for full functional update and POC and ELOS F/U with SW tomorrow re possible SNU placement next week Antibiotic for Low grade fever on an empirical basis-done Recheck Labs-done F/U with results of colonoscopy once completed DEB LOMBARDO MD Feb 14, 2017 08:25
[2017-02-14] MEDS: MENTHOL/ZINC OXIDE (CALMOSEPTINE) 113 GM TUBE TOP SCH ×2 (09:00→20:29)
[2017-02-14] MEDS: LORATADINE (CLARITIN) 10 MG TAB PO SCH (09:00)
[2017-02-14] MEDS: BENEFIBER (FROM DIETARY) DOCUMENTATION PURPOSE ONLY PO SCH (09:00)
[2017-02-14] MEDS: LOPERAMIDE 2 MG (IMODIUM) CAP PO SCH ×2 (09:00→20:35)
[2017-02-14] MEDS: HYDROCORTISONE 2.5% CREAM (ANUSOL-HC) 30 GM TOP SCH ×2 (09:00→20:29)
[2017-02-14] MEDS ORDERED: fentaNYL INJECTION 100 MCG/2 ML AMP ONE (10:45)
[2017-02-14] MEDS ORDERED: MIDAZOLAM 2 MG/2 ML (VERSED) VIAL ONE ×2 (10:45)
[2017-02-14] MEDS ORDERED: LIDOCAINE JELLY 2% (XYLOCAINE) 5 ML TUBE ONE (10:45)
[2017-02-14] MEDS ORDERED: 1/2 NS IV SOLUTION 1,000 ML IV ONE (10:48)
[2017-02-14] MEDS: LACTOBACILLUS Acidoph/Bulgar (LACTINEX/FLORANEX) TAB PO SCH ×2 (11:00→17:27)
[2017-02-14] MEDS ORDERED: methylPREDNISolone 40 MG/ML (Solu-MEDROL) VIAL IV NR (11:45)
--- NOTE | 2017-02-14 11:53 | Progress Note-Hospitalist ---
Subjective HPI/CC On Admission Date Seen by Provider: Feb 14, 2017 Time Seen by Provider: 11:45 Mrs. Caldera and used to have diarrhea with poor appetite. She's had some low- grade temperature. She denies abdominal pain or distention. She continues to have lower extremity swelling unchanged and has not seen any blood in her stool. With Lomotil diarrhea has diminished a little but still averaging 7-8 loose to semi-formed stools. She has been anxious about the thought of returning home. Currently she would not be able to care for herself due to diarrhea and fear of accidents. This in addition to continued fatigue with poor appetite. She is sided appropriately to look into senior living care when discharged from acute rehabilitation. Subjective/Events-last exam Mrs. Kaiser was able tolerate the prep and the nursing staff report that her stools are relatively clear. She had no abdominal pain and was doing a little better in regards to her diarrhea prior to the onset of her prep. She's had no chills or fever. She did note a small amount of blood with several of her stools bright red. Objective Exam Vital Signs Vital Sign - Last 12Hours 02/08/17 05:00 Temp 97.3 Pulse 84 Resp 20 B/P (MAP) 104/63 Pulse Ox 93 O2 Delivery Room Air Capillary Refill : Less Than 3 SecondsNONE General Appearance: Anxious, Chronically ill Respiratory: Chest Non Tender, Lungs Clear, Normal Breath Sounds, No Accessory Muscle Use, No Respiratory Distress Cardiovascular: Regular Rate, Rhythm, No Edema, No Gallop, No JVD, No Murmur, Normal Peripheral Pulses Gastrointestinal: Normal Bowel Sounds, No Organomegaly, No Pulsatile Mass, Non Tender, Soft Extremity: Other (Plus edema with mild erythema is diminished from yesterday.) Neurologic/Psychiatric: Alert, Oriented x3 Skin: Pallor Assessment/Plan Assessment and Plan Assess & Plan/Chief Complaint 1. 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 There was somewhat of a demarcation line at the distal ascending colon with less involvement of the cecum proximal ascending admitting ascending colon. There are several areas have the appearance of pseudopolyp formation that were biopsied. No definitive pseudomembrane formation was noted. We did send stool for repeat enteric pathogens and C. difficile toxin. Until we get the biopsy reports back I will continue antibiotics but we will add Solu-Medrol 40 now than 30 twice a day. Because of her frail status malnutrition and combined anemia of blood loss from her colitis and chronic disease from underlying inflammation we will repeat her blood counts over the weekend and not be surprised for white count goes up due to steroid effect. 2. Situational anxiety aggravating number 1. Number 3 malnutrition secondary to number 1 contributing to pedal edema continue elevation. 3. There has been progression of anemia but the patient is hemodynamically stable. Hold transfusion for now. YOLA AKHTAR MD Feb 14, 2017 11:53
[2017-02-14] MEDS: ENOXAPARIN 40 MG/0.4 ML (LOVENOX) SYR SC SCH (13:01)
[2017-02-14 18:55] VITALS: BP 132/76
[2017-02-14] MEDS: methylPREDNISolone 40 MG/ML (Solu-MEDROL) VIAL IV SCH (20:27)
[2017-02-14] MEDS: IBUPROFEN TABLET 200 MG TAB PO PRN (21:00)
[2017-02-15] MEDS: METRONIDAZOLE 250 MG/50 ML IV SCH ×6 (01:43→16:56)
[2017-02-15 04:53] VITALS: BP 107/60
[2017-02-15] MEDS: LACTOBACILLUS Acidoph/Bulgar (LACTINEX/FLORANEX) TAB PO SCH ×3 (06:22→16:56)
[2017-02-15] MEDS: KCL 20 MEQ TAB (K-DUR) PO SCH (06:22)
[2017-02-15] MEDS: LOPERAMIDE 2 MG (IMODIUM) CAP PO SCH ×3 (08:25→20:42)
[2017-02-15] MEDS: LORATADINE (CLARITIN) 10 MG TAB PO SCH (08:25)
[2017-02-15] MEDS: ENOXAPARIN 40 MG/0.4 ML (LOVENOX) SYR SC SCH (08:26)
[2017-02-15] MEDS: BENEFIBER (FROM DIETARY) DOCUMENTATION PURPOSE ONLY PO SCH (08:27)
[2017-02-15] MEDS: methylPREDNISolone 40 MG/ML (Solu-MEDROL) VIAL IV SCH ×2 (08:27→20:42)
[2017-02-15] MEDS: MENTHOL/ZINC OXIDE (CALMOSEPTINE) 113 GM TUBE TOP SCH ×2 (08:28→20:43)
[2017-02-15] MEDS: HYDROCORTISONE 2.5% CREAM (ANUSOL-HC) 30 GM TOP SCH ×2 (08:28→20:43)
[2017-02-15] MEDS: IBUPROFEN TABLET 200 MG TAB PO PRN ×2 (09:00→20:42)
--- NOTE | 2017-02-15 10:26 | Physical Therapy Daily Note ---
PT Daily Note-Current Subjective Patient in recliner pre tx, agrees to PT, she says she has a lot of pain but has already had pain meds, 8/10 pain right hip. Patient has had a BM in the chair, she had a colonoscopy yesterday, she will need to ambulate to the bathroom and use it and get cleaned up. Appearance Patient BTB post tx with nurse call, phone, tray, all needs met. Mental Status Patient Orientation: Normal For Age Transfers Functional [place] Measure 0=Not Assessed/NA 4=Minimal Assistance 1=Total Assistance 5=Supervision or Setup 2=Maximal Assistance 6=Modified [place] 3=Moderate Assistance 7=Complete IndependenceIRFPAI Quality Coding Scale 6 Independent with activity with or without an assistive device 5 Patient requires set up or clean up by helper. Patient completes activity by themselves 4 Supervision or touching assist (CGA). [place] provide cues , steadying assist 3 The helper provides less than half the effort to complete the activity 2 The helper provides more than half the effort to complete the activity 1 Dependent. The helper does all the effort to complete an activity 7 Patient refused to complete or attempt activity 9 The patient did not perform the activity before the current illness or injury 88 Not attempted due to Medical conditions or safety concerns Transfers (B, C, W/C) (FIM): 4 Scootin Rollin Supine to/from Sit: 5 Sit to/from Stand: 4 CGA for sit to stand, patient was able to get back into bed and get both legs into bed without assist Gait Training Gait (FIM): 1 Distance: 10'x2 Gait Level of Assist: 4 Gait Persons Needed: 1 Gait Assistive Device: FWW slow, antalgic, CGA Treatments patient was also toileted and would not clean herself, total assist, also has a brief on that needed to be changed Assessment Current Status: Poor Progress total assist with toileting PT Short Term Goals Short Term Goals Time Frame: Feb 07, 2017 Transfers (B,C,W/C) (FIM): 4 Gait (FIM): 4 Gait Distance Comment: 150' Gait Level of Assist: 4 Gait Assistive Device: FWW Wheelchair Distance: 50' PT Assisted Goals Water Reuse Program Manager Goals PT Water Reuse Program Manager Goals Time Frame: Feb 21, 2017 Transfers (B,C,W/C) (FIM): 5 (met 02/04/17) Sit to Lying (QC): 4 (met 02/04/17) Lying-Sitting on Side/Bed(QC): 4 (met 02/04/17) Sit to Stand (QC): 4 (met 02/04/17) Rollin Roll Left to Right (QC): 4 (met 02/04/17) Chair/Tew-sm-Xuvgv Xfer(QC): 4 Gait (FIM): 5 Distance: 200' Walk 10 feet (QC): 4 Walk 10ft-Uneven Surface(QC): 4 Walk 50ft with 2 Turns (QC): 4 Walk 150 ft (QC): 4 Gait Level of Assist: 5 Gait Assistive Device: FWW Stairs (FIM): 2 (met 02/04/17) # of Steps: 4 (met 02/04/17) 1 Step (curb) (QC): 4 (met 02/04/17) 4 Steps (QC): 4 (met 02/04/17) 12 Steps (QC): 88 Stairs Level Of Assist: 4 (met 02/04/17) PT Plan Problem List Problem List: Activity Tolerance, Functional Strength, Safety, Balance, Gait, Transfer, Bed Mobility, ROM Treatment/Plan Treatment Plan: Continue Plan of Care Treatment Plan: Bed Mobility, Education, Functional Activity [place], Functional Strength, Group Therapy, Gait, Safety, Therapeutic Exercise, Transfers Treatment Duration: Feb 21, 2017 Frequency: At least 5-7 days/Wk (IRF) Estimated Hrs Per Day: 1.5 hours per day Patient and/or Family Agrees t: Yes Safety Risks/Education Patient Education: Gait Training, Transfer Techniques, Correct Positioning, Safety Issues Teaching Recipient: Patient Teaching Methods: Demonstration, Discussion Response to Teaching: Reinforcement Needed Time/GCodes Time In: 930 Time Out: 1000 Total Billed Treatment Time: 30 Total Billed Treatment 1 visit GT 10' FA 20' CHICHO OSBORN PT Feb 15, 2017 10:26
[2017-02-15] MEDS: LEVOFLOXACIN 500 MG/100 ML IV 100 ML IV SCH (11:44)
[2017-02-15] MEDS: LORazepam 0.5 MG (ATIVAN) TABLET PO PRN (16:56)
[2017-02-15 18:58] VITALS: BP 125/64
[2017-02-16] MEDS: METRONIDAZOLE 250 MG/50 ML IV SCH ×6 (01:29→17:14)
[2017-02-16 06:00] VITALS: BP 150/74
[2017-02-16] MEDS: IBUPROFEN TABLET 200 MG TAB PO PRN (06:54)
[2017-02-16] MEDS: LACTOBACILLUS Acidoph/Bulgar (LACTINEX/FLORANEX) TAB PO SCH ×3 (06:54→17:14)
[2017-02-16] MEDS: KCL 20 MEQ TAB (K-DUR) PO SCH (09:07)
[2017-02-16] MEDS: LOPERAMIDE 2 MG (IMODIUM) CAP PO SCH ×2 (09:07→20:36)
[2017-02-16] MEDS: MENTHOL/ZINC OXIDE (CALMOSEPTINE) 113 GM TUBE TOP SCH ×2 (09:07→20:36)
[2017-02-16] MEDS: HYDROCORTISONE 2.5% CREAM (ANUSOL-HC) 30 GM TOP SCH ×2 (09:07→20:36)
[2017-02-16] MEDS: methylPREDNISolone 40 MG/ML (Solu-MEDROL) VIAL IV SCH ×2 (09:08→20:36)
[2017-02-16] MEDS: LORATADINE (CLARITIN) 10 MG TAB PO SCH (09:08)
[2017-02-16] MEDS: ENOXAPARIN 40 MG/0.4 ML (LOVENOX) SYR SC SCH (09:08)
[2017-02-16] MEDS: BENEFIBER (FROM DIETARY) DOCUMENTATION PURPOSE ONLY PO SCH (09:09)
[2017-02-16] MEDS: LORazepam 0.5 MG (ATIVAN) TABLET PO PRN (13:30)
[2017-02-16 18:27] VITALS: BP 143/75
[2017-02-17] MEDS: METRONIDAZOLE 250 MG/50 ML IV SCH ×6 (00:32→17:51)
[2017-02-17 05:20] VITALS: BP 147/76
[2017-02-17] MEDS: LACTOBACILLUS Acidoph/Bulgar (LACTINEX/FLORANEX) TAB PO SCH ×3 (06:25→17:51)
[2017-02-17] MEDS: KCL 20 MEQ TAB (K-DUR) PO SCH (06:25)
[2017-02-17 07:04] LABS: BASOPHILS % (AUTO) 0 % (0-10); EOSINOPHILS % (AUTO) 0 % (0-10); LYMPHOCYTES # (AUTO) 0.9 X 10^3 (1.0-4.0); LYMPHOCYTES % (AUTO) 15 % (12-44); MEAN CORPUSCULAR HEMOGLOBIN 30 PG (25-34); MEAN CORPUSCULAR HGB CONC 32 G/DL (32-36); MEAN CORPUSCULAR VOLUME 93 FL (80-99); MEAN PLATELET VOLUME 8.5 FL (7.4-10.4); MONOCYTES # (AUTO) 0.3 X 10^3 (0.0-1.0); MONOCYTES % (AUTO) 5 % (0-12); NEUTROPHILS # (AUTO) 5.1 X 10^3 (1.8-7.8); NEUTROPHILS % (AUTO) 80 % (42-75); PLATELET COUNT 593 10^3/uL (130-400); RED BLOOD COUNT 3.54 10^6/uL (4.35-5.85); WHITE BLOOD COUNT 6.3 10^3/uL (4.3-11.0)
[2017-02-17 07:23] LABS: ANION GAP 10 MMOL/L (5-14); BLOOD UREA NITROGEN 21 MG/DL (7-18); BUN/CREATININE RATIO 26; CALCIUM 8.7 MG/DL (8.5-10.1); CARBON DIOXIDE 22 MMOL/L (21-32); CHLORIDE 106 MMOL/L (98-107); CREATININE SERUM 0.81 MG/DL (0.60-1.30); GFR ESTIMATED > 60; GLUCOSE 127 MG/DL (70-105); POTASSIUM 4.2 MMOL/L (3.6-5.0); SODIUM 138 MMOL/L (135-145)
--- NOTE | 2017-02-17 08:41 | Progress Note-Hospitalist ---
Subjective HPI/CC On Admission Date Seen by Provider: Feb 17, 2017 Time Seen by Provider: 08:00 Mrs. Caldera and used to have diarrhea with poor appetite. She's had some low- grade temperature. She denies abdominal pain or distention. She continues to have lower extremity swelling unchanged and has not seen any blood in her stool. With Lomotil diarrhea has diminished a little but still averaging 7-8 loose to semi-formed stools. She has been anxious about the thought of returning home. Currently she would not be able to care for herself due to diarrhea and fear of accidents. This in addition to continued fatigue with poor appetite. She is sided appropriately to look into [place] [facility] when discharged from acute rehabilitation. Subjective/Events-last exam Mrs. Kaiser was ambulating in the hallway using her walker upon my arrival. There is been significant improvement in strength and stamina as well as increased appetite with resolution of diarrhea. Despite all these positive things all she could focus on more litany of worries. One of which was a lump in her right breast that she has noticed she believes for several months but felt again last night. She does not believe that it is changed in size. It is nontender. She was worried about chronic dizziness mild right neck pain that is been there for years in addition to work that she reports needs to be done on her kitchen. She exhibited ruminating thought patterns about these issues of worry. She denies abdominal pain or indigestion. She has noted no blood in her stool except for small amount right after colonoscopy at which time rectal biopsies were performed. Objective Exam Vital Signs Vital Sign - Last 12Hours 02/11/17 05:50 Temp 97.9 Pulse 87 Resp 17 B/P (MAP) 126/69 Pulse Ox 95 O2 Delivery Room Air Capillary Refill : Less Than 3 SecondsNONE General Appearance: Anxious, Moderate Distress (Due to anxiety) HEENT: Other (She has color in her cheeks for the first time) Respiratory: Chest Non Tender, Lungs Clear, Normal Breath Sounds, No Accessory Muscle Use, No Respiratory Distress Cardiovascular: Regular Rate, Rhythm, No Edema, No Gallop, No JVD, No Murmur, Normal Peripheral Pulses Gastrointestinal: Normal Bowel Sounds, No Organomegaly, No Pulsatile Mass, Non Tender, Soft Extremity: Other (2+ bilateral edema with resolution of erythema. No ulceration noted.) Lymphatic: Other (On breast examination there is a 1 cm mobile nontender mass that is not hard but does have a solid feel to it there is right nipple inversion the patient reports is been present for at least 20 years no axillary adenopathy was noted. The left breast was not examined. No skin changes and inflammation ulceration etc. are noted.) Results/Procedures Lab Laboratory Tests 02/17/17 06:45 Assessment/Plan Assessment and Plan Assess & Plan/Chief Complaint 1. 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 There was somewhat of a demarcation line at the distal ascending colon with less involvement of the cecum proximal ascending admitting ascending colon. There are several areas have the appearance of pseudopolyp formation that were biopsied. Fact ulcerative colitis histopathology pending. Patient is responding to steroids and is still on antibiotics. Will discontinue Levaquin and continue IV Flagyl for another day.. 2. Generalized anxiety aggravating number 1. Discussed and strongly recommended that treatment. We'll initiate low-dose Zoloft 25 mg tonight with dose escalation provided the patient has no significant side effects. Discussed her baseline lightheadedness was likely all anxiety related as it is been going on for some time and actually gets better with activity and distraction. 3. Anemia component of blood loss from the colon as well as chronic disease from probable underlying ulcerative colitis much improved up to 10.6. 4. Right benign feeling breast mass will need workup in the future but right now it would only aggravate anxiety and likely become a major point of focal obstruction and worry will recommend workup after she is hopefully tolerating and benefiting from anxiolytic therapy. YOLA AKHTAR MD Feb 17, 2017 08:41
[2017-02-17] MEDS ORDERED: LORATADINE (CLARITIN) 10 MG TAB ONE (08:57)
--- NOTE | 2017-02-17 09:07 | Physical Therapy Daily Note ---
PT Daily Note-Current Subjective pt. immediately states she is so worried about herself "they came and took 5 vials of blood and now I feel so dizzy like I might even pass out" Pt. was encouraged by this ASSOCIATE PROFESSOR OF GEOLOGY and the nurse as well as Dr Roberts that she may be having anxiety and should concentrate on the positive and distract herself as much as possible. Pt. also distracted by what she feels may be a suspicious lump in her breast. Dr Roberts palpated pts breast and mentioned that he may have her have a mammogram but wasnt real concerned as the small mass was soft and mobile, Pain Numeric Pain Scale: 3 Location: Right Location Body Site: Ankle Pain Description: Ache Comment: lateral area while on Nustep Mental Status Patient Orientation: Normal For Age Transfers Functional [place] Measure 0=Not Assessed/NA 4=Minimal Assistance 1=Total Assistance 5=Supervision or Setup 2=Maximal Assistance 6=Modified [place] 3=Moderate Assistance 7=Complete IndependenceIRFPAI Quality Coding Scale 6 Independent with activity with or without an assistive device 5 Patient requires set up or clean up by helper. Patient completes activity by themselves 4 Supervision or touching assist (CGA). [place] provide cues , steadying assist 3 The helper provides less than half the effort to complete the activity 2 The helper provides more than half the effort to complete the activity 1 Dependent. The helper does all the effort to complete an activity 7 Patient refused to complete or attempt activity 9 The patient did not perform the activity before the current illness or injury 88 Not attempted due to Medical conditions or safety concerns Transfers (B, C, W/C) (FIM): 6 Scootin Rollin Roll Left to Right (QC): 6 Supine to/from Sit: 6 Sit to/from Stand: 6 Sit to Lying (QC): 6 Sit to Stand (QC): 6 Chair/Wch-fv-Qjuui Xfer(QC): 6 Bed to/from Chair: 6 Weight Bearing Weight Bearing Restriction: Weight Bearing/Tolerated Location Restriction: R LE Gait Training Does the Patient Walk?: Yes Gait (FIM): 5 Distance (FIM): 3=150 ft (x3) Walk 10 feet (QC): 5 Walk 50 ft with 2 Turns(QC): 5 Walk 150 ft (QC): 5 Walking 10ft/uneven surface-QC: 5 Gait Level of Assist: 5 Gait Persons Needed: 1 Gait Assistive Device: FWW good equal step length no LOB Wheelchair Training Does the Pt Use a Wheelchair?: No Stair Training Stair Training: Handrails/: 2 handrails Stairs (FIM): 5 #of Steps: 4 1 Step (curb) (QC): 5 4 Steps (QC): 5 Stairs: Pattern: Step to Level of Assist: 5 household exception Exercises Supine Ex: Ankle pumps, Quad Set, Rolling, Glut sets, Heel Slides, Short Arc Quads, Scooting, Straight leg raise (w assist), Hip abd/add (w assist) NuStep Minutes: 10 NuStep Workload: 2 Treatments pt. all about unit this date for a tour to distract her, laundry room, kitchen as well as bathing center Assessment Current Status: Good Progress pt. moving well, no LOB, edema reduced, all TRFs mod I, diarrhea under control, but pt. appears to have significant anxiety and finds new subject to worry about when she really has much to be grateful for PT Short Term Goals Short Term Goals Time Frame: Feb 07, 2017 Transfers (B,C,W/C) (FIM): 4 Gait (FIM): 4 Gait Distance Comment: 150' Gait Level of Assist: 4 Gait Assistive Device: FWW Wheelchair Distance: 50' PT Chcf Goals Chcf Goals PT Chcf Goals Time Frame: Feb 21, 2017 Transfers (B,C,W/C) (FIM): 5 (met 02/04/17) Sit to Lying (QC): 4 (met 02/04/17) Lying-Sitting on Side/Bed(QC): 4 (met 02/04/17) Sit to Stand (QC): 4 (met 02/04/17) Rollin Roll Left to Right (QC): 4 (met 02/04/17) Chair/Nlp-qn-Kwtqi Xfer(QC): 4 Gait (FIM): 5 Distance: 200' Walk 10 feet (QC): 4 Walk 10ft-Uneven Surface(QC): 4 Walk 50ft with 2 Turns (QC): 4 Walk 150 ft (QC): 4 Gait Level of Assist: 5 Gait Assistive Device: FWW Stairs (FIM): 2 (met 02/04/17) # of Steps: 4 (met 02/04/17) 1 Step (curb) (QC): 4 (met 02/04/17) 4 Steps (QC): 4 (met 02/04/17) 12 Steps (QC): 88 Stairs Level Of Assist: 4 (met 02/04/17) PT Plan Treatment/Plan Treatment Plan: Continue Plan of Care Treatment Plan: Bed Mobility, Education, Functional Activity [place], Functional Strength, Group Therapy, Gait, Safety, Therapeutic Exercise, Transfers Treatment Duration: Feb 21, 2017 Frequency: At least 5-7 days/Wk (IRF) Estimated Hrs Per Day: 1.5 hours per day Patient and/or Family Agrees t: Yes Safety Risks/Education Patient Education: Gait Training, Transfer Techniques, Steps, Correct Positioning, Disease Process, Safety Issues Teaching Recipient: Patient Teaching Methods: Demonstration, Discussion Response to Teaching: Verbalize Understanding, Return Demonstration, Reinforcement Needed pt. c/o that nurses let her LEs down too fast and it hurts her RLE. This ASSOCIATE PROFESSOR OF GEOLOGY taught pt to let them down herself , this was practiced several times with pt. demontr good control Time/GCodes Time In: 800 Time Out: 900 Total Billed Treatment Time: 60 Total Billed Treatment 1,EX25m,FA20m,GT15m G Codes Necessary: TIANNA Menon ASSOCIATE PROFESSOR OF GEOLOGY Feb 17, 2017 09:07
[2017-02-17] MEDS: methylPREDNISolone 40 MG/ML (Solu-MEDROL) VIAL IV SCH ×2 (09:13→20:15)
[2017-02-17] MEDS: BENEFIBER (FROM DIETARY) DOCUMENTATION PURPOSE ONLY PO SCH (09:14)
[2017-02-17] MEDS: LOPERAMIDE 2 MG (IMODIUM) CAP PO SCH ×2 (09:15→20:14)
[2017-02-17] MEDS: ENOXAPARIN 40 MG/0.4 ML (LOVENOX) SYR SC SCH (09:15)
[2017-02-17] MEDS: MENTHOL/ZINC OXIDE (CALMOSEPTINE) 113 GM TUBE TOP SCH ×2 (09:15→20:16)
[2017-02-17] MEDS: HYDROCORTISONE 2.5% CREAM (ANUSOL-HC) 30 GM TOP SCH ×2 (09:15→20:15)
--- NOTE | 2017-02-17 11:54 | Occupational Ther Daily Note ---
OT Current Status-Daily Note Subjective Pt sitting in chair, worried about completing therapy secondary to recently placed IV in right arm. Pt agrees to therapy with encouragement. Mental Status/Objective Functional [place] Measure 0=Not Assessed/NA 4=Minimal Assistance 1=Total Assistance 5=Supervision or Setup 2=Maximal Assistance 6=Modified [place] 3=Moderate Assistance 7=Complete [place] Attachments: IV ADL-Treatment RN states pt okay to shower with IV covered. Pt sit to stand with modified independence. Gait to restroom with FWW. Pt transferred to walk in shower with SBA using grab bars for safety. Pt doffed clothing with SBA. Uses dressing stick to doff Depends and socks. Seated bathing completed using hand held shower and long handled sponge. Upper body bathing completed with set up. Pt stood with CGA for balance while washing buttocks and kristina area. Pt used long handled sponge to wash lower legs and feet. Pt repeatedly asks what she should do next throughout shower. Increased time for bathing. Pt donned pullover shirt with set up. Pt used stock crane operator to start Depends and shorts over feet with increased time. Stood with supervision for balance during pant hike using FWW. Pt donned bilateral socks with minimal assistance using sock aid; cues required for proper use. Pt stood at sink for grooming tasks. Pt brushed teeth and combed hair with supervision. Pt sat in w/c to dry hair. Transfer to [facility] over toilet with SBA. Pt able to manage clothing and hygiene with SBA. Stood at sink to wash hands without assistance. Pt returned to chair with supervision using FWW. Pt requires direction throughout session and often states "I don't think I can do that" before even attempting task. Pt is often able to complete task with encouragement and verbal cues. Pt sitting in chair with needs met after session. Functional [place] Measure 0=Not Assessed/NA 4=Minimal Assistance 1=Total Assistance 5=Supervision or Setup 2=Maximal Assistance 6=Modified [place] 3=Moderate Assistance 7=Complete IndependenceIRFPAI Quality Coding Scale 6 Independent with activity with or without an assistive device 5 Patient requires set up or clean up by helper. Patient completes activity by themselves 4 Supervision or touching assist (CGA). [place] provide cues , steadying assist 3 The helper provides less than half the effort to complete the activity 2 The helper provides more than half the effort to complete the activity 1 Dependent. The helper does all the effort to complete an activity 7 Patient refused to complete or attempt activity 9 The patient did not perform the activity before the current illness or injury 88 Not attempted due to Medical conditions or safety concerns Eating (FIM): 5 (Pt reports receiving assist to open containers) Eating (QC): 5 (set up) Grooming (FIM): 5 Oral Hygiene (QC): 4 (supervision) Bathing (FIM): 4 Shower/Bathe Self (QC): 4 (CGA) Upper Body (FIM): 5 Upper Body Dressing (QC): 5 (set up) Lower Body Dressing (FIM): 4 Lower Body Dressing (QC): 3 On/Off Footwear (QC): 3 Toileting (FIM): 5 Toileting Hygiene (QC): 4 Toilet/Commode Transfer (FIM): 5 Toilet Transfer (QC): 4 Shower Transfer(FIM): 5 OT Short Term Goals Short Term Goals Time Frame: Feb 07, 2017 Bathing(FIM): 3 Lower Body Dressing(FIM): 3 Toileting(FIM): 3 Transfers (B,C,W/C) (FIM): 4 Shower Transfer(FIM): 4 Additional Short Term Goals: 1-Demonstrate ADL Tasks, 2-Verbalize Understanding , 3-ImproveStrength/Stewart 1=Demonstrate adherence to instructed precautions during ADL tasks. 2=Patient will verbalize/demonstrate understanding of assistive devices/ modifications for ADL. 3=Patient will improve strength/tolerance for activity to enable patient to perform ADL's. OT Jail Goals Plant Changer Goals Time Frame: Feb 21, 2017 Eating (FIM): 6 (not met) Eating (QC): 6 (5-not met) Groomin (5-not met) Oral Hygiene (QC): 6 (4-not met) Bathing(FIM): 5 (not met) Shower/Bathe Self (QC): 5 (4-not met) Upper Body Dressing(FIM): 5 (met 02/17/17) Upper Body Dressing (QC): 5 (5-MET) Lower Body Dressing(FIM): 5 (not met) Lower Body Dressing (QC): 5 (3-not met) On/Off Footwear (QC): 5 (3-not met) Toileting(FIM): 6 (not met) Toileting Hygiene (QC): 6 (4-not met) Toilet/Commode Transfer(FIM): 6 (5-not met) Toilet/Commode Transfer (QC): 6 (4-not met) Shower Transfer(FIM): 5 (met 02/17/17) Additional Goals: 1-Demonstrate ADL Tasks, 2-Verbalize Understanding, 3- ImproveStrength/Stewart 1=Demonstrate adherence to instructed precautions during ADL tasks. 2=Patient will verbalize/demonstrate understanding of assistive devices/ modifications for ADL. 3=Patient will improve strength/tolerance for activity to enable patient to perform ADL's. OT Education/Plan Discharge Recommendations Plan/Recommendations: Continue POC Treatment Plan/Plan of Care Patient would benefit from OT for education, treatment and training to promote independence in ADL's, mobility, safety and/or upper extremity function for ADL' s. Plan of Care: ADL Retraining, Functional Mobility, Group Exercise/Act as Ind, UE Funct Exercise/Act Treatment Duration: Feb 21, 2017 Frequency: Twice Daily Estimated Hrs Per Day: 1.5 hours per day Agreement: Yes Rehab Potential: Fair Time/GCodes Start Time: 10:15 Stop Time: 11:40 Total Time Billed (hr/min): 85 Billed Treatment Time 1 visit, ADLx6(85minutes) YARED GOLDEN OT Feb 17, 2017 11:54
--- NOTE | 2017-02-17 14:50 | Therapy Group Daily Note ---
Therapy Daily Group Note Patient Education Topic Other List Below (pain) Exercises LE Seated Exercise, UE Exercise Other/Notes Pt ambulated to OT/PT group with CGA using FWW. OT/PT group consisted of introductions (name, place living, what do you do to relax), speaker for pain education, breathing techniques and UE/LE seated exercises. Pt was attentive throughout group. Contributed to discussions by giving personal examples of how to work through pain. Pt was appropriate with introductions and interactions with other group members. Pt verbalized understanding of pain education. Pt was able to complete breathing techniques appropriately. Able to complete UE/LE seated exercises. After therapy, pt sitting in recliner. Call light/phone in reach. All needs met in room. Start Time: 13:00 Stop Time: 14:05 Total Billed Treatment Time: 65 Total Billed Treatment 1-GRP ESTEBAN GRAY Feb 17, 2017 14:50
--- NOTE | 2017-02-17 18:03 | PM & R (SOAP) Progress Note ---
Subjective Time Seen by Provider: 18:00 Subjective/Events-last exam Patient was seen in his room this evening Appreciate DR Mancia note and orders ,SW texted me earlier today that discharge to local SNU set for tomorrow Patient Modified Independent for transfers Review of Systems Cardiovascular: Edema Objective Exam Last Set of Vital Signs Vital Signs Date Time Temp Pulse Resp B/P (MAP) Pulse Ox O2 Delivery O2 Flow Rate FiO2 02/17/17 09:00 Room Air 02/17/17 05:20 99.3 83 18 147/76 97 Capillary Refill : Less Than 3 SecondsNONE I&O Intake and Output 02/17/17 00:00 Intake Total 880 ml Balance 880 ml Intake Oral 880 ml # Voids 9 # Bowel Movements 3 General: Alert, Oriented X3, Cooperative, No Acute Distress HEENT: Atraumatic, PERRLA, EOMI, Mucous Memb Moist/[place] Neck: Supple, No JVD Lungs: Clear to Auscultation Heart: Regular Rate Abdomen: Normal Bowel Sounds, Soft, No Tenderness Extremities: Other (edema 1+ BLES) Neuro: Other (guarding rt hip has functional strength distal RT Leg) Results Lab Laboratory Tests 02/17/17 06:45: White Blood Count 6.3, Red Blood Count 3.54L, Hemoglobin 10.6#L, Hematocrit 33L , Mean Corpuscular Volume 93, Mean Corpuscular Hemoglobin 30, Mean Corpuscular Hemoglobin Concent 32, Red Cell Distribution Width 16.0H, Platelet Count 593H, Mean Platelet Volume 8.5, Neutrophils (%) (Auto) 80H, Lymphocytes (%) (Auto) 15 , Monocytes (%) (Auto) 5, Eosinophils (%) (Auto) 0, Basophils (%) (Auto) 0, Neutrophils # (Auto) 5.1, Lymphocytes # (Auto) 0.9L, Monocytes # (Auto) 0.3, Eosinophils # (Auto) 0.0, Basophils # (Auto) 0.0, Sodium Level 138, Potassium Level 4.2, Chloride Level 106, Carbon Dioxide Level 22, Anion Gap 10, Blood Urea Nitrogen 21H, Creatinine 0.81, Estimat Glomerular Filtration Rate > 60, BUN /Creatinine Ratio 26, Glucose Level 127H, Calcium Level 8.7 Microbiology 02/02/17 Stool Culture - Final, Complete Negative for Salmonella... 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 DR Christine 01/28/17 Postop anemia Anemia of blood loss Chronic diarrhea-associated with Stool +for OB times one-DR Roberts following and now with FUO started on antibiotics empirically now afebrile Hypoalbuminemia Peripheral edema-associated with Hypoalbuminemia-nutritional supplement ordered and legs elevated as much as possible Postop DVT prophylaxis on Lovenox Sub CUT Hypokalemia replaced Idiopathhic neuropathy Onychomycosis Hammer digit syndrome Hyperkeratosis Colitis by Colonscopy -IV steroids orederd and Flagyl Plan Discharge set for tomorrow to [facility] See orders F/U with PCP and Ortho DEB Levy MD Feb 17, 2017 18:03
[2017-02-17] MEDS ORDERED: SERT50TA9 PO (18:10)
[2017-02-17] MEDS ORDERED: DIPH1TAB25 PO (18:10)
[2017-02-17] MEDS ORDERED: POTA20TA8 PO (18:10)
[2017-02-17] MEDS ORDERED: GUAR GUM PO (18:10)
[2017-02-17] MEDS ORDERED: MENT71OI TOP (18:10)
[2017-02-17] MEDS ORDERED: HYDR30CR69 TOP (18:10)
[2017-02-17 18:16] VITALS: BP 144/75
[2017-02-17] MEDS ORDERED: SERTRALINE 50 MG (ZOLOFT) TABLET PO SCH (21:00)
[2017-02-18] MEDS: METRONIDAZOLE 250 MG/50 ML IV SCH ×2 (01:53)
[2017-02-18] MEDS: HYDROcodone/APAP 5 MG/325 MG (LORTAB) TAB PO PRN (02:21)
[2017-02-18 05:07] VITALS: BP 148/73
[2017-02-18] MEDS: LACTOBACILLUS Acidoph/Bulgar (LACTINEX/FLORANEX) TAB PO SCH (06:05)
[2017-02-18] MEDS: KCL 20 MEQ TAB (K-DUR) PO SCH (06:05)
--- NOTE | 2017-02-18 08:01 | PM & R (SOAP) Progress Note ---
Subjective Time Seen by Provider: 07:45 Subjective/Events-last exam Patient was seen in her room this AM All set for discharge today.Todays labs noted Review of Systems Cardiovascular: Edema Objective Exam Last Set of Vital Signs Vital Signs Date Time Temp Pulse Resp B/P (MAP) Pulse Ox O2 Delivery O2 Flow Rate FiO2 02/18/17 05:07 98.2 85 18 148/73 95 Room Air Capillary Refill : Less Than 3 SecondsNONE I&O Intake and Output 02/18/17 00:00 Intake Total 950 ml Balance 950 ml Intake Oral 950 ml # Voids 14 # Bowel Movements 2 General: Alert, Oriented X3, Cooperative, No Acute Distress HEENT: Atraumatic, PERRLA, EOMI, Mucous Memb Moist/[place] Neck: Supple, No JVD Lungs: Clear to Auscultation Heart: Regular Rate Abdomen: Normal Bowel Sounds, Soft, No Tenderness Extremities: Other (2+ pitting edema pretibial) Neuro: Other (guarding rt hip has functional strength distal RT Leg) Results Lab Laboratory Tests 02/17/17 06:45: White Blood Count 6.3, Red Blood Count 3.54L, Hemoglobin 10.6#L, Hematocrit 33L , Mean Corpuscular Volume 93, Mean Corpuscular Hemoglobin 30, Mean Corpuscular Hemoglobin Concent 32, Red Cell Distribution Width 16.0H, Platelet Count 593H, Mean Platelet Volume 8.5, Neutrophils (%) (Auto) 80H, Lymphocytes (%) (Auto) 15 , Monocytes (%) (Auto) 5, Eosinophils (%) (Auto) 0, Basophils (%) (Auto) 0, Neutrophils # (Auto) 5.1, Lymphocytes # (Auto) 0.9L, Monocytes # (Auto) 0.3, Eosinophils # (Auto) 0.0, Basophils # (Auto) 0.0, Sodium Level 138, Potassium Level 4.2, Chloride Level 106, Carbon Dioxide Level 22, Anion Gap 10, Blood Urea Nitrogen 21H, Creatinine 0.81, Estimat Glomerular Filtration Rate > 60, BUN /Creatinine Ratio 26, Glucose Level 127H, Calcium Level 8.7 Microbiology 02/02/17 Stool Culture - Final, Complete Negative for Salmonella... 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 DR Christine 7/4/17 Postop anemia Anemia of blood loss Chronic diarrhea-associated with Stool +for OB times one-DR Roberts following and now with FUO started on antibiotics empirically now afebrile Hypoalbuminemia Peripheral edema-associated with Hypoalbuminemia-nutritional supplement ordered and legs elevated as much as possible Postop DVT prophylaxis on Lovenox Sub CUT Hypokalemia replaced Idiopathhic neuropathy Onychomycosis Hammer digit syndrome Hyperkeratosis Colitis by Colonoscopy -IV steroids ordered and Flagyl [facility] Smith and [facility]ett See orders DEB LOMBARDO MD Feb 18, 2017 08:01
[2017-02-18] MEDS ORDERED: SERT50TA9 PO (08:42)
[2017-02-18] MEDS ORDERED: PRD20T PO (08:42)
[2017-02-18] MEDS ORDERED: ACET-2650 PO (08:44)
[2017-02-18] MEDS ORDERED: POTA8TAB6 PO (08:49)
[2017-02-18] MEDS: BENEFIBER (FROM DIETARY) DOCUMENTATION PURPOSE ONLY PO SCH (09:00)
[2017-02-18] MEDS: ENOXAPARIN 40 MG/0.4 ML (LOVENOX) SYR SC SCH (09:43)
[2017-02-18] MEDS: methylPREDNISolone 40 MG/ML (Solu-MEDROL) VIAL IV SCH (09:43)
[2017-02-18] MEDS: HYDROCORTISONE 2.5% CREAM (ANUSOL-HC) 30 GM TOP SCH (09:44)
[2017-02-18] MEDS: LOPERAMIDE 2 MG (IMODIUM) CAP PO SCH (09:44)
[2017-02-18] MEDS: MENTHOL/ZINC OXIDE (CALMOSEPTINE) 113 GM TUBE TOP SCH (09:44)
--- NOTE | 2017-02-18 09:45 | Progress Note-Hospitalist ---
Subjective HPI/CC On Admission Date Seen by Provider: Feb 18, 2017 Time Seen by Provider: 08:00 Mrs. Caldera and used to have diarrhea with poor appetite. She's had some low- grade temperature. She denies abdominal pain or distention. She continues to have lower extremity swelling unchanged and has not seen any blood in her stool. With Lomotil diarrhea has diminished a little but still averaging 7-8 loose to semi-formed stools. She has been anxious about the thought of returning home. Currently she would not be able to care for herself due to diarrhea and fear of accidents. This in addition to continued fatigue with poor appetite. She is sided appropriately to look into [facility] care when discharged from acute rehabilitation. Subjective/Events-last exam other than generalized anxiety aggravated by her impending transfer Mrs. Kaiser is doing well now. Diarrhea has resolved and she denies abdominal pain. There've been no chills or fever. Objective Exam Vital Signs Vital Sign - Last 12Hours 02/12/17 05:04 Temp 98.7 Pulse 91 Resp 18 B/P (MAP) 128/70 Pulse Ox 96 O2 Delivery Room Air Capillary Refill : Less Than 3 SecondsNONE General Appearance: No Apparent Distress, Anxious, Chronically ill Respiratory: Lungs Clear, Normal Breath Sounds, No Accessory Muscle Use, No Respiratory Distress Gastrointestinal: Normal Bowel Sounds, No Organomegaly, No Pulsatile Mass, Non Tender, Soft Extremity: Other (2-3+ edema of the right lower extremity 1-2+ of the left. There is no erythema noted.) Assessment/Plan Assessment and Plan Assess & Plan/Chief Complaint 1. reported now nearly 2 month history of diarrheal illness culture negative and C. difficile negative on 2 occasions with colonoscopy findings concerning for ulcerative colitis. The demarcation change for inflammation was noted in the proximal ascending colon. Biopsies of the proximal ascending colon were reportedly normal. While active colitis was reported on more distended biopsies and obvious on visual inspection more classic histopathologic findings for ulcerative colitis were not reported. For now will continue prednisone taper. If the patient has recurrence of diarrhea off of prednisone would repeat culture for enteric pathogens but reinitiate prednisone and add sulfasalazine with GI referral to follow for likely ongoing need for treatment for ulcerative colitis. The patient did finish up a 1 week course of Flagyl and levofloxacin. With resolution of her symptoms will not be discharged on antibiotic therapy. She was discharged on prednisone 20 mg twice a day tapering 10 mg weekly tell off. 2. Generalized anxiety aggravating number 1. Discussed and strongly recommended that treatment. We'll initiate low-dose Zoloft 25 mg tonight with dose escalation provided the patient has no significant side effects. Discussed her baseline lightheadedness was likely all anxiety related as it is been going on for some time and actually gets better with activity and distraction. 3. Anemia component of blood loss from the colon as well as chronic disease from probable underlying ulcerative colitis much improved up to 10.6. CBC and a CMP will be repeated in one week at the [facility]. 4. Right benign feeling breast mass will need to consider workup in the future. The patient feels it is been present for several years now has any change however lending further credence to this being a benign process however. 5. 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 Christine in several weeks. Copy Copies To 1: ALCIDES LOCKE MD, MARK D MD Feb 18, 2017 09:45
[2017-02-18 11:00] VITALS: BP 148/73
--- NOTE | 2017-02-18 14:41 | Therapy Team Discharge Summary ---
Therapy Discharge Summary Discharge Recommendations Date of Discharge Feb 18, 2017 at 11:00 Therapy D/C Recommendations: Physical Therapy Home Care Physical Therapy Patient came to rehab following a right EFRAIN. Upon evaluation patient performs bed mobility with min assist except for supine <-> sit which is max assist, she performs sit to stand with min assist and stand pivot transfer with CGA, ambulated 100' with a rolling walker with CGA, she propelled a manual wheelchair 50' with SBA, and she could go up and down 1 step using a rolling walker with min assist. Patient has been performing bed mobility and transfer training, balance and endurance training, functional strengthening, stair training, gait training, and education. Patient has made fair progress but has not met all of her snf goals. She has met her bed mobility,stair, and transfer goals but not her transfer and ambulation snf goals. Now, patient performs bed mobility and transfers with mod I, ambulates 150' with a rolling walker with SBA (including 50' with at least 2 turns of 90 degrees and 10' over an uneven surface), and can go up and down 4 steps using 2 handrails with SBA. Patient was discharged from this facility today and will be discharged from PT at this time. PT Residential Goals Catering Administrative Assistant Goals PT Catering Administrative Assistant Goals Time Frame: Feb 21, 2017 Transfers (B,C,W/C) (FIM): 5 (met 02/04/17) Roll Left to Right (QC): 4 (met 02/04/17) Sit to Lying (QC): 4 (met 02/04/17) Lying-Sitting on Side/Bed(QC): 4 (met 02/04/17) Sit to Stand (QC): 4 (met 02/04/17) Chair/Npt-wm-[place] Xfer(QC): 4 Gait (FIM): 5 Distance: 200' Walk 10 feet (QC): 4 Walk 10ft-Uneven Surface(QC): 4 Walk 50ft with 2 Turns (QC): 4 Walk 150 ft (QC): 4 Gait Level of Assist: 5 Gait Assistive Device: FWW Stairs (FIM): 2 (met 02/04/17) # of Steps: 4 (met 02/04/17) 1 Step (curb) (QC): 4 (met 02/04/17) 4 Steps (QC): 4 (met 02/04/17) 12 Steps (QC): 88 Stairs Level Of Assist: 4 (met 02/04/17) OT Catering Administrative Assistant Goals Catering Administrative Assistant Goals Time Frame: Feb 21, 2017 Eating (FIM): 6 (not met) Eating (QC): 6 (5-not met) Oral Hygiene (QC): 6 (4-not met) Grooming(FIM): 6 (5-not met) Bathing(FIM): 5 (not met) Shower/Bathe Self (QC): 5 (4-not met) Upper Body Dressing(FIM): 5 (met 02/17/17) Upper Body Dressing (QC): 5 (5-MET) Lower Body Dressing(FIM): 5 (not met) Lower Body Dressing (QC): 5 (3-not met) On/Off Footwear (QC): 5 (3-not met) Toileting(FIM): 6 (not met) Toileting Hygiene (QC): 6 (4-not met) Toilet/Commode Transfer(FIM): 6 (5-not met) Toilet/Commode Transfer (QC): 6 (4-not met) Shower Transfer(FIM): 5 (met 02/17/17) Additional Goals: 1-Demonstrate ADL Tasks, 2-Verbalize Understanding, 3- ImproveStrength/[place] 1=Demonstrate adherence to instructed precautions during ADL tasks. 2=Patient will verbalize/demonstrate understanding of assistive devices/ modifications for ADL. 3=Patient will improve strength/tolerance for activity to enable patient to perform ADL's. CHICHO OSBORN PT Feb 18, 2017 14:41
--- NOTE | 2017-02-19 15:05 | Therapy Team Discharge Summary ---
Therapy Discharge Summary Discharge Recommendations Date of Discharge Feb 18, 2017 at 11:00 Therapy D/C Recommendations: Physical Therapy Home Care Occupational Therapy Pt admitted to ARU with right EFRAIN. On admission pt required minimal assistance with transfers, max assist with bathing, and total assist with LE dressing and toileting. Skilled OT intervention focused on ADL training, transfers, strengthening, and safety education. Pt progressed with therapy and by discharge is completing eating, grooming, UE dressing, toileting, and transfers with SBA and bathing and LE dressing with minimal assistance. Pt met goals for UE dressing and shower transfer, but did not meet other goals. Pt discharged to [facility] for continued care. D/C ARU OT. PT Road Machine Operator Goals Longterm Goals PT Longterm Goals Time Frame: Feb 21, 2017 Transfers (B,C,W/C) (FIM): 5 (met 02/04/17) Roll Left to Right (QC): 4 (met 02/04/17) Sit to Lying (QC): 4 (met 02/04/17) Lying-Sitting on Side/Bed(QC): 4 (met 02/04/17) Sit to Stand (QC): 4 (met 02/04/17) Chair/Nqy-tq-Txqmi Xfer(QC): 4 Gait (FIM): 5 Distance: 200' Walk 10 feet (QC): 4 Walk 10ft-Uneven Surface(QC): 4 Walk 50ft with 2 Turns (QC): 4 Walk 150 ft (QC): 4 Gait Level of Assist: 5 Gait Assistive Device: FWW Stairs (FIM): 2 (met 02/04/17) # of Steps: 4 (met 02/04/17) 1 Step (curb) (QC): 4 (met 02/04/17) 4 Steps (QC): 4 (met 02/04/17) 12 Steps (QC): 88 Stairs Level Of Assist: 4 (met 02/04/17) OT Longterm Goals Road Machine Operator Goals Time Frame: Feb 21, 2017 Eating (FIM): 6 (not met) Eating (QC): 6 (5-not met) Oral Hygiene (QC): 6 (4-not met) Grooming(FIM): 6 (5-not met) Bathing(FIM): 5 (not met) Shower/Bathe Self (QC): 5 (4-not met) Upper Body Dressing(FIM): 5 (met 02/17/17) Upper Body Dressing (QC): 5 (5-MET) Lower Body Dressing(FIM): 5 (not met) Lower Body Dressing (QC): 5 (3-not met) On/Off Footwear (QC): 5 (3-not met) Toileting(FIM): 6 (not met) Toileting Hygiene (QC): 6 (4-not met) Toilet/Commode Transfer(FIM): 6 (5-not met) Toilet/Commode Transfer (QC): 6 (4-not met) Shower Transfer(FIM): 5 (met 02/17/17) Additional Goals: 1-Demonstrate ADL Tasks, 2-Verbalize Understanding, 3- ImproveStrength/[place] 1=Demonstrate adherence to instructed precautions during ADL tasks. 2=Patient will verbalize/demonstrate understanding of assistive devices/ modifications for ADL. 3=Patient will improve strength/tolerance for activity to enable patient to perform ADL's. YARED GOLDEN OT Feb 19, 2017 15:04
--- NOTE | 2017-03-04 10:18 | DISCHARGE SUMMARY ---
DATE OF SERVICE: HISTORY OF PRESENT ILLNESS: The patient is a 79-year-old female who lives alone, had been independent with a wheeled walker, who fell at home and sustained a subcapital femoral neck fracture of the right hip. The patient was admitted to [facility] and followed by hospitalist service and orthopedics after being admitted on 01/28/2017 and underwent a bipolar femoral hemiarthroplasty of right hip and repair chronic gluteus medius tendon avulsion, right hip with Dr. Christine. The patient was made weightbearing as tolerated postoperatively. The patient had a decline in functional independence due to this. She was referred to inpatient rehabilitation unit for comprehensive program and orthopedic rehabilitation prior to discharge home. PAST MEDICAL HISTORY: PCP is Dr. Smith. She reports chronic edema in her ankles for the past two weeks. I don't believe Dr. Smith has actually seen her yet as a new patient. She apparently has not seen a physician in many years. Also, hyponatremia was found with a serum sodium of 132. She had postoperative anemia with a hemoglobin 10.2. Also noted was hypoalbuminemia and chronic edema. MEDICAL COURSE: The patient was followed by hospitalist service including Dr. Albright as well as Dr. Martinez while on the medical unit. She continued with diarrhea loose stools and stools positive for occult blood. She underwent colonoscopy with Dr. Roberts, which revealed lynne colitis. She was placed on steroids for this. She completed a course of antibiotics as well. The patient did not care for support hose or Zachery wraps for her edema. Elevation was provided with some improvement. CBC on 02/17/2017 showed improvement of H and H at 10.6/33 up from 7.6/24 on 02/13/2017. WBC on 02/17/2017 was 6.3. Platelet count 593k. Chemistry on 02/13/2017 showed chloride 109. Calcium 8.0, replacement provided. Albumin 2.0 and total protein 5.2. On 02/17/2017 BUN was 21, otherwise normal electrolytes. Blood glucose 127. Stool for occult blood was positive on 02/05/2017. The patient was placed on scheduled medication for her loose stools with improvement. Stool for C. diff was negative on 02/02/2017. She had some nausea as well, which responded to Reglan. She was afebrile during her stay. Pulse on 02/18/2017 was 85, respirations 18, blood pressure 148/73, O2 sat 95% on room air. X-ray of the abdomen on 02/03/2017 revealed scoliosis with degenerative changes in the lumbar spine. No acute abnormality was seen in the abdomen. The patient was seen by Dr. Martins, workforce consultant, and her hyperkeratotic lesion and onychomycosis was treated. REHABILITATION COURSE: She was assessed by speech therapy upon admission to unit, found to be cognitively intact and they signed off. OT notes upon admission, the patient required min assist for transfers, max assist for bathing and total assist for lower body dressing and toileting. The patient progressed with therapy and by discharge was completing eating, grooming, upper body dressing, toileting and transfers with standby assist and bathing and lower body dressing with min assist. The patient felt that she could not return home alone at this time and requested to go to [facility] for ongoing skilled care. heating worker helped facilitate this for the patient. PT notes upon admission, the patient performed bed mobility with min assist other than supine to sit, which was max assist. The patient performed bed mobility with min to max assist and performed transfers with contact guard to min assist. Could ambulate 100 feet with a wheeled walker with contact guard and could propel a manual wheelchair 50 feet with standby assist. Upon discharge, the patient's modified independent for bed mobility and transfers could ambulate 150 feet with a wheel walker with standby assistance. DISCHARGE INSTRUCTIONS: The patient will have followup with Dr. Smith, PCP and Dr. Christine of orthopedics. Follow up PT and OT at fdc unit at [facility]. Continue current diet. DISCHARGE MEDICATIONS: 1. Tylenol 650 mg p.o. 4 hours p.r.n. pain. 2. Lomotil one tablet p.o. q.i.d. p.r.n. diarrhea. 3. Proctozone topically b.i.d. to affected area. 4. Calmoseptine apply b.i.d. to affected area. 5. KCl 8 mEq p.o. daily. 6. Prednisone 20 mg p.o. b.i.d. with meals for seven days. 7. Zoloft 50 mg p.o. at bedtime. 8. Benefiber 6 ounces p.o. daily. DISCHARGE DIAGNOSES: 1. Rehabilitation ambulatory dysfunction secondary to right subcapital femoral neck fracture status post repair by Dr. Christine. 2. Postop anemia due to blood loss, improved. 3. Hyponatremia, improved. 4. Hypokalemia, corrected. 5. Hypoalbuminemia. 6. Peripheral edema. 7. Pancolitis on steroid taper. 8. Malnutrition. 9. Cerumen impaction right ear. 10. Hammertoe, left foot. 11. Onychomycosis. 12. Idiopathic peripheral neuropathy. 13. Situational anxiety. 14. Hyperkeratotic lesion. CONDITION AT DISCHARGE: Improved and stable. PROGNOSIS: Appears good for some continued improvement with ongoing therapies so hopefully she will be able to return home with home health care or perhaps to an assisted living facility due to her age and multiple comorbidities. Job ID: [id number] DocumentID: [id number] Dictated Date: 03/04/2017 09:40:41 Weight Loss Sales Consultant Date: 03/04/2017 10:17:44 Dictated By: DEB MARTINEZ MD
== END 2017-02-18 11:00 | DRG 560 ==
LOC: ENPENDDIS 02-18 10:00
PROVIDERS: ADMIT Physical Medicine & Rehabilitation; ATTEND Physical Medicine & Rehabilitation
PROC: 0DBK8ZX Excision of Ascending Colon, Via Natural or Artificial Opening Endoscopic, Diagnostic (ICD-10-PCS; principal; 2017-02-17)
PROC: 0DBL8ZX Excision of Transverse Colon, Via Natural or Artificial Opening Endoscopic, Diagnostic (ICD-10-PCS; 2017-02-17)
PROC: 0DBP8ZX Excision of Rectum, Via Natural or Artificial Opening Endoscopic, Diagnostic (ICD-10-PCS; 2017-02-17)
DX: S72.011D Unspecified intracapsular fracture of right femur, subsequent encounter for closed fracture with routine healing (principal); D50.0 Iron deficiency anemia secondary to blood loss (chronic); K51.00 Ulcerative (chronic) pancolitis without complications; E46 Unspecified protein-calorie malnutrition; E87.1 Hypo-osmolality and hyponatremia; E87.6 Hypokalemia; E88.09 Other disorders of plasma-protein metabolism, not elsewhere classified; R60.9 Edema, unspecified; H61.21 Impacted cerumen, right ear; M20.42 Other hammer toe(s) (acquired), left foot; B35.1 Tinea unguium; G60.9 Hereditary and idiopathic neuropathy, unspecified; F41.9 Anxiety disorder, unspecified; L85.9 Epidermal thickening, unspecified
CPT/HCPCS: 36415; 74000; 80048; 80053; 82274; 82962; 85025; 87045; 87046; 87324; 87449; 88305; 94664

== ENCOUNTER 2017-04-10 13:25 | Emergency (ER) | payer MEDICARE ==
[~2017-04-10] VITALS: Ht 167.6 cm; Wt 50.8 kg
[~2017-04-10 13:25] MED LIST changes: +ACET-2650 PO; +ACID1TAB PO; +BISA10SU12 PR; +CHOL4PAC3 PO; +DIPH1TAB25 PO; +ENOX40DI8 SC; +GUAR GUM PO; +HYDR30CR69 TOP; +MENT71OI TOP; +POTA20TA8 PO; +POTA8TAB6 PO; +PRD20T PO; +SERT50TA9 PO; +TRAM50TA2 PO
[2017-04-10 14:20] LABS: BASOPHILS % (AUTO) 1 % (0-10); EOSINOPHILS # (AUTO) 0.2 10^3/uL (0.0-0.3); EOSINOPHILS % (AUTO) 4 % (0-10); LYMPHOCYTES # (AUTO) 0.9 X 10^3 (1.0-4.0); LYMPHOCYTES % (AUTO) 17 % (12-44); MEAN CORPUSCULAR HEMOGLOBIN 30 PG (25-34); MEAN CORPUSCULAR HGB CONC 32 G/DL (32-36); MEAN CORPUSCULAR VOLUME 94 FL (80-99); MEAN PLATELET VOLUME 9.2 FL (7.4-10.4); MONOCYTES # (AUTO) 0.5 X 10^3 (0.0-1.0); MONOCYTES % (AUTO) 9 % (0-12); NEUTROPHILS # (AUTO) 3.8 X 10^3 (1.8-7.8); NEUTROPHILS % (AUTO) 70 % (42-75); PLATELET COUNT 274 10^3/uL (130-400); RED CELL DISTRIBUTION WIDTH 16.7 % (10.0-14.5); WHITE BLOOD COUNT 5.4 10^3/uL (4.3-11.0)
--- NOTE | 2017-04-10 14:22 | Diagnostic Imaging Report ---
EXAM: Postoperative radiograph of the chest. INDICATION: Irregular heart rate. FINDINGS: The lungs demonstrate prominent interstitial markings with probable element of vascular congestion. The heart size is mildly enlarged. No effusion or pneumothorax. The mediastinum and shruti appear unremarkable. IMPRESSION: Cardiomegaly with mild pulmonary vascular congestion. Dictated by: Dictated on workstation # [id number]
[2017-04-10 14:40] LABS: ALANINE AMINOTRANSFERASE 7 U/L (0-55); ALBUMIN 3.7 GM/DL (3.2-4.5); ANION GAP 9 MMOL/L (5-14); ASPARTATE AMINO TRANSFERASE 15 U/L (5-34); BILIRUBIN,TOTAL 0.4 MG/DL (0.1-1.0); BLOOD UREA NITROGEN 21 MG/DL (7-18); BUN/CREATININE RATIO 23; CALCIUM 9.8 MG/DL (8.5-10.1); CARBON DIOXIDE 24 MMOL/L (21-32); CHLORIDE 107 MMOL/L (98-107); CREATININE SERUM 0.93 MG/DL (0.60-1.30); GFR ESTIMATED 58; GLUCOSE 119 MG/DL (70-105); POTASSIUM 3.6 MMOL/L (3.6-5.0); SODIUM 140 MMOL/L (135-145); TOTAL PROTEIN 7.2 GM/DL (6.4-8.2)
[2017-04-10 14:42] LABS: BILIRUBIN,URINE NEGATIVE (NEGATIVE); KETONES,URINE NEGATIVE (NEGATIVE); LEUKOCYTE ESTERASE ,URINE 1+ (NEGATIVE); NITRITE,URINE NEGATIVE (NEGATIVE); PH,URINE 6 (5-9); PROTEIN,URINE 1+ (NEGATIVE); UROBILINOGEN,URINE NORMAL (NORMAL)
[2017-04-10 14:47] LABS: TROPONIN I < 0.30 NG/ML (<0.30)
[2017-04-10 14:54] LABS: SQUAMOUS EPITHELIAL CELL,UR 0-2 /HPF; WBC,URINE 0-2 /HPF
--- NOTE | 2017-04-10 15:11 | ED General ---
General Chief Complaint: Cardiac/General Problems Stated Complaint: IRR HEART RATE Nursing Triage Note: PT ARRIVED PER EMS, PT DAUGHTER CALLED EMS STATES PT HAS IRREGULAR PULSE AND WAS SWEATY, PT DENIES ANY CO AT THIS X BUT CHRONIC NECK PAIN, PT HAS IRREGULAR PULSE RATE 70'S. NO DIAPHORISIS NOTED Nursing Sepsis Screen: No Definite Risk Source of Information: Patient Exam Limitations: No Limitations History of Present Illness Time Seen by Provider: 15:06 Initial Comments The patient is an 81-year-old white female known to me from previous contacts. She had fallen in January and fractured her hip. She had gone to [facility] for extended therapy. She just returned home this week. Her daughters were interviewing a retired nurse for the possibility of providing some in-home care further mother. She reports that she had been having considerable problems with neck pain following an occupational therapy session in which they asked her to repeatedly tie her shoes. She found this to be quite painful and was scarcely able to turn her head. During the nursing interview the patient complained of lightheadedness. The daughters thought she became sweaty. The nurse felt that she was having an irregular heartbeat. The ambulance was summoned and she came to the emergency room. Upon arriving here an EKG was done which showed a normal sinus rhythm without tachycardia or arrhythmia. Timing/Duration: 1 Hour Severity: Mild Associated Systoms: Diaphoresis Allergies and Home Medications Allergies Coded Allergies: nystatin (Verified Allergy, Mild, HIVES, 01/29/17) amoxicillin (Verified Allergy, Unknown, 02/14/17) chlorhexidine (Verified Allergy, Unknown, HIVES, 01/29/17) clindamycin (Verified Allergy, Unknown, 02/14/17) sulfamethoxazole (Unverified Allergy, Unknown, 05/12/14) trimethoprim (Unverified Allergy, Unknown, 05/12/14) Home Medications Acetaminophen 650 Mg Tablet.er, 650 MG PO Q4H for 30 Days, #100 Prescribed by: YOLA AKHTAR on 02/18/17 0844 Diphenoxylate HCl/Atropine 1 Each Tablet, 1 EA PO QID PRN for DIARRHEA for 30 Days, #60 Prescribed by: DEB LOMBARDO on 02/17/17 1810 Hydrocortisone 30 Gm Cream.appl, 0 GM TOP BID for 14 Days, #1 Prescribed by: DEB LOMBARDO on 7/24/17 1810 Menthol/Lanolin/Calamine/Znox 71 Gm Oint, 0 GM TOP BID for 30 Days, #1 Prescribed by: DEB LOMBARDO on 02/17/17 1810 Potassium Chloride 8 Meq Tablet.er, 8 MEQ PO DAILY for 10 Days, #10 Prescribed by: YOLA AKHTAR on 02/18/17 0849 Prednisone 20 Mg Tab, 20 MG PO BID WITH MEALS for 7 Days Prescribed by: YOLA AKHTAR on 02/18/17 0842 Sertraline HCl 50 Mg Tablet, 50 MG PO HS for 30 Days, #30 Ref 5 Prescribed by: YOLA AKHTAR on 02/18/17 0842 [Guar Gum] 6 OZ POWDER, 0 OZ PO DAILY for 30 Days, #1 Prescribed by: DEB LOMBARDO on 02/17/170 Constitutional: see HPI EENTM: no symptoms reported Respiratory: no symptoms reported Cardiovascular: see HPI Gastrointestinal: no symptoms reported Genitourinary: no symptoms reported Musculoskeletal: neck pain Skin: no symptoms reported Psychiatric/Neurological: No Symptoms Reported Hematologic/Lymphatic: No Symptoms Reported Immunological/Allergic: no symptoms reported Past Njdytxl-Lcagoz-Ixlmlj Hx Patient Social History Recent Foreign Travel: No Contact w/Someone Who Travel: No Recent Infectious Disease Expo: No Recent Hopitalizations: Yes (Rt hip fx post fall) Seasonal Allergies Seasonal Allergies: Yes Surgeries History of Surgeries: Yes (RIGHT KNEE SURGERY (SCOPE) ) Surgeries: Adenoidectomy, Breast Respiratory History of Respiratory Disorde: Yes Respiratory Disorders: Pneumonia Cardiovascular History of Cardiac Disorders: Yes (dependent edema of legs) Cardiac Disorders: Chronic Edema/Swelling Neurological History of Neurological Disord: No Genitourinary History of Genitourinary Disor: No (RECENT UTI, 01/24/17, had ly cath 01/28/17) Gastrointestinal History of Gastrointestinal Di: Yes (FISSURE) Gastrointestinal Disorders: Hemorrhoids, Chronic Diarrhea Musculoskeletal History of Musculoskeletal Dis: Yes (SPRAINED RT ANKLE 3 YRS. AGO AND WEARS BRACE TO RIGHT ANKLE. KNEE SCOPED) Musculoskeletal Disorders: Chronic Back Pain Endocrine History of Endocrine Disorders: No HEENT History of HEENT Disorders: Yes Hearing Impairment: Hard of Hearing Cancer History of Cancer: No Psychosocial History of Psychiatric Problem: No Integumentary History of Skin or Integumenta: No Blood Transfusions History of Blood Disorders: No Family Medical History Significant Family History: No Pertinent Family Hx Physical Exam Vital Signs Vital Sign - Last 12Hours 04/10/17 13:25 Temp 97.9 Pulse 80 Resp 22 B/P (MAP) 137/69 Pulse Ox 95 Capillary Refill : Less Than 3 Seconds General Appearance: No Apparent Distress, WD/WN Eyes: Bilateral Eye Normal Inspection HEENT: Normal ENT Inspection Neck: Other (pain to passive range of motion. Pain to anoro flexion) Respiratory: Chest Non Tender, Lungs Clear, Normal Breath Sounds, No Accessory Muscle Use, No Respiratory Distress Cardiovascular: Regular Rate, Rhythm, No Edema, No Gallop, No JVD, No Murmur, Normal Peripheral Pulses Gastrointestinal: Normal Bowel Sounds, No Organomegaly, No Pulsatile Mass, Non Tender, Soft Back: Normal Inspection, No CVA Tenderness, No Vertebral Tenderness Extremity: Normal Capillary Refill, Normal Inspection, Normal Range of Motion, Non Tender, No Calf Tenderness, No Pedal Edema Neurologic/Psychiatric: Alert, Oriented x3, No Motor/Sensory Deficits, Normal Mood/Affect Skin: Normal Color, Warm/Dry Lymphatic: No Adenopathy Progress/Results/Core Measures Results/Orders Lab Results Laboratory Tests Test 04/10/17 14:09 04/10/17 14:35 Range/Units White Blood Count 5.4 4.3-11.0 10^3/uL Red Blood Count 4.00 L 4.35-5.85 10^6/uL Hemoglobin 11.8 11.5-16.0 G/DL Hematocrit 37 35-52 % Mean Corpuscular Volume 94 80-99 FL Mean Corpuscular Hemoglobin 30 25-34 PG Mean Corpuscular Hemoglobin Concent 32 32-36 G/DL Red Cell Distribution Width 16.7 H 10.0-14.5 % Platelet Count 274 130-400 10^3/uL Mean Platelet Volume 9.2 7.4-10.4 FL Neutrophils (%) (Auto) 70 42-75 % Lymphocytes (%) (Auto) 17 12-44 % Monocytes (%) (Auto) 9 0-12 % Eosinophils (%) (Auto) 4 0-10 % Basophils (%) (Auto) 1 0-10 % Neutrophils # (Auto) 3.8 1.8-7.8 X 10^3 Lymphocytes # (Auto) 0.9 L 1.0-4.0 X 10^3 Monocytes # (Auto) 0.5 0.0-1.0 X 10^3 Eosinophils # (Auto) 0.2 0.0-0.3 10^3/uL Basophils # (Auto) 0.0 0.0-0.1 10^3/uL Sodium Level 140 135-145 MMOL/L Potassium Level 3.6 3.6-5.0 MMOL/L Chloride Level 107 98-107 MMOL/L Carbon Dioxide Level 24 21-32 MMOL/L Anion Gap 9 5-14 MMOL/L Blood Urea Nitrogen 21 H 7-18 MG/DL Creatinine 0.93 0.60-1.30 MG/DL Estimat Glomerular Filtration Rate 58 BUN/Creatinine Ratio 23 Glucose Level 119 H 70-105 MG/DL Calcium Level 9.8 8.5-10.1 MG/DL Total Bilirubin 0.4 0.1-1.0 MG/DL Aspartate Amino Transf (AST/SGOT) 15 5-34 U/L Alanine Aminotransferase (ALT/SGPT) 7 0-55 U/L Alkaline Phosphatase 108 40-136 U/L Troponin I < 0.30 <0.30 NG/ML Total Protein 7.2 6.4-8.2 GM/DL Albumin 3.7 3.2-4.5 GM/DL Urine Color YELLOW Urine Clarity CLEAR Urine pH 6 5-9 Urine Specific [place] 1.020 1.016-1.022 Urine Protein 1+ H NEGATIVE Urine Glucose (UA) NEGATIVE NEGATIVE Urine Ketones NEGATIVE NEGATIVE Urine Nitrite NEGATIVE NEGATIVE Urine Bilirubin NEGATIVE NEGATIVE Urine Urobilinogen NORMAL NORMAL MG/DL Urine Leukocyte Esterase 1+ H NEGATIVE Urine RBC (Auto) 1+ H NEGATIVE Urine RBC RARE /HPF Urine WBC 0-2 /HPF Urine Squamous Epithelial Cells 0-2 /HPF Urine Crystals NONE /LPF Urine Bacteria NEGATIVE /HPF Urine Casts NONE /LPF Urine Mucus NEGATIVE /LPF Urine Culture Indicated NO My Orders Orders - HUMAIRA ROQUE MD Cbc With Automated Diff (04/10/17 13:44) Comprehensive Metabolic Panel (04/10/17 13:44) Troponin I (04/10/17 13:44) Ua Culture If Indicated (04/10/17 13:44) Ekg Tracing (04/10/17 13:44) Chest 1 View, Ap/Pa Only (04/10/17 ) Vital Signs/I&O Vital Sign - Last 12Hours 04/10/17 13:25 Temp 97.9 Pulse 80 Resp 22 B/P (MAP) 137/69 Pulse Ox 95 Blood Pressure Mean: 91 Departure Impression Impression: Primary Impression: Arthralgia, cervical spine Disposition: HOME, SELF-CARE Condition: Stable/Unchanged Departure-Patient Inst. Referrals: ALCIDES LOCKE MD (PCP/Family) Primary Care Physician Add. Discharge Instructions: All discharge instructions reviewed with patient and/or family. Voiced understanding. Use hot packs to neck as tolerated. Use neck support when sleeping and avoid flexing the chin forward. HUMAIRA ROQUE MD Apr 10, 2017 15:11
[2017-04-10 15:35] VITALS: BP 136/69
== END 2017-04-10 15:35 | disposition home or self-care (01) ==
LOC: EDUNIT# 13:25 → ER 13:26
DX: M54.2 Cervicalgia (principal); Z87.01 Personal history of pneumonia (recurrent); Z87.81 Personal history of (healed) traumatic fracture; Z90.89 Acquired absence of other organs; Z87.440 Personal history of urinary (tract) infections
CPT/HCPCS: 36415; 71010; 80053; 81000; 84484; 85025; 93005

== ENCOUNTER 2019-03-10 13:30 | Outpatient (CLI) | payer MEDICARE ==
[~2019-03-10] VITALS: Ht 167.6 cm; Wt 44.0 kg
[~2019-03-10 13:30] MED LIST changes: +METR-145 PO; -METR500T21 PO
[2019-03-10] MEDS ORDERED: LOPE-134 PO (14:10)
[2019-03-10] MEDS ORDERED: BACI1TAB3 PO (14:10)
[2019-03-10] MEDS ORDERED: LORA10TA76 PO (14:10)
[2019-03-10] MEDS ORDERED: KRIL1CAP PO (14:10)
[2019-03-10] MEDS ORDERED: ASCO1CAP4 PO (14:10)
[2019-03-12] MEDS ORDERED: BUDE3CAP15 PO (11:10)
== END 2019-03-10 14:12 ==
LOC: PREOP 13:30
PROVIDERS: ATTEND Internal Medicine
DX: R19.7 Diarrhea, unspecified (principal); R63.4 Abnormal weight loss

== ENCOUNTER 2019-03-12 08:32 | Day surgery (SDC) | payer MEDICARE ==
--- NOTE | 2017-02-14 10:45 | Pre-Op Note & Conscious Sedat ---
Pre-Operative Progress Note H&P Reviewed The H&P was reviewed, patient examined and no changes noted. Date H&P Reviewed: Feb 14, 2017 Time H&P Reviewed: 07:50 Conscious Sedation Pre-Proced ASA Class: 3 Airway Mallampati Classification: ([place] appropriate class) I. II. III, IV Lungs Heart ASA score ASA 1: a normal healthy patient ASA 2: a patient with a mild systemic disease (mid diabetes, controlled hypertension, obesity ASA 3: a patient with a severe systemic disease that limits activity (angina , COPD, prior Myocardial infarction) ASA 4: a patient with an incapacitating disease that is a constant threat to life (CHF, renal failure) ASA 5: a moribund patient not expected to survive 24 hrs. (ruptured aneurysm) ASA 6: a declared brain patient whose organs are being harvested. For emergent operations, add the letter E after the classification Grade 2 Sedation Plan: Analgesia, Amnesia, Plan communicated to team members, Discussed options with patient/fam, Discussed risks with patient/fam Note The patient is an appropriate candidate to undergo the planned procedure, sedation, and anesthesia. The patient immediately re-assessed prior to indication. YOLA AKHTAR MD Feb 14, 2017 10:45
--- NOTE | 2017-02-17 00:59 | OPERATIVE REPORT ---
PROCEDURE PHYSICIAN: YOLA AKHTAR DATE OF PROCEDURE: 02/14/2017 COLONOSCOPY SUMMARY: PROCEDURE: Colonoscopy was performed for evaluation of rectal bleeding with diarrhea. The patient was placed in left lateral decubitus position. Prior to undergoing colonoscopy, digital rectal evaluation was performed. Anal sphincter tone was normal and the perianal reflex was intact. No abnormalities were noted to digital inspection of the anal canal or distal rectal vault. The colonoscope was then inserted into the rectum and under direct visualization, advanced to cecum. The cecum was identified by identification of the ileocecal valve and cecal strap. Photographic documentation was obtained. Careful inspection was made as colonoscope was withdrawn. FINDINGS: There was diffuse colonic inflammation with loss of usual vascular markings with underlying erythema. There was somewhat of a demarcation line present in the distal ascending colon. The mid and proximal ascending colon and cecum revealed far less inflammation and the ileocecal valve was unremarkable. There were areas in the transverse colon where there appeared to be pseudopolyp formation. The most prominent one was biopsied and submitted for pathology. Biopsies from the proximal ascending colon, hepatic flexure, distal transverse colon and rectum were obtained as well as photographs. There was no evidence for overt pseudomembrane formation.A trap was placed and stool obtain and sent for repeat enteric pathogens and C. diff. toxin evaluation. A/P Pancolitis; although, the mid and proximal ascending colon and cecum were not nearly as involved as colon distal to this level. Findings are suspicious for underlying ulcerative colitis although an infectious process considering this patient's history is still in the differential diagnosis. Considering her significant deconditioning and malnutrition for now, we will continue IV antibiotics but add b.i.d. IV Solu-Medrol, will be replaced when she is discharged by prednisone while we await biopsy results. We will need to keep the patient in the hospital for close monitoring at least over the weekend. Job ID: [id number] Dictated Date: 02/14/2017 11:32:58 Processor Helper Date: 02/17/2017 00:49:22 / brandyn BRADY
--- NOTE | 2019-03-05 12:45 | HISTORY AND PHYSICAL ---
DATE OF SERVICE: DATE OF ADMISSION: 03/12/2019. REFERRING PHYSICIAN: Dr. Michael Smith. HISTORY OF PRESENT ILLNESS: The patient is an 83-year-old white male referred for colonoscopy due to weight loss and diarrhea. I initially performed colonoscopy on the patient for similar symptoms and occult positive blood in the stool in January of 2017. At that time, she had diffuse colitis with a demarcation line in the distal ascending colon with endoscopic findings suggesting the possibility of ulcerative colitis. Biopsy thought that either an infectious colitis or an adverse drug effect, particularly NSAIDs were more likely. The patient did finish course of prednisone, unknown duration and both she and her daughter did note improvement in appetite and improvement in diarrheal symptoms. She had been seeing another buffet waiter/waitress that she was not happy with and has not had subsequent colonoscopy, but reports 2 to 5 loose stools with episodes of nocturnal bowel movements with urgency. She has a sensation of intermittent abdominal bloating. Does have stool urgency with occasional incontinence as I recall with minimal cramping. She has had no night sweats, chills or fever. She has lost another 6 pounds, she and her daughter believe since November of this year. At the time of her last colonoscopy in January 2017, during a hospital stay, she weighed between 125 to 130 pounds and currently in our office was down to 97 pounds. She denies nonsteroidal medication usage and has not noted any melena or bright red blood per rectum. They are not aware of any family history for inflammatory bowel disease. PAST MEDICAL HISTORY: Significant for osteoporosis. PAST SURGICAL HISTORY: Significant for right bipolar hip replacement due to a fracture from a fall at home, not from height. The patient reports that she has had some blood drawn at Dr. Dunbar's office and had a hydrogen breath test that was reportedly positive. She does not recall being given any antibiotics. SOCIAL HISTORY: She is with no past smoking or drinking history. PHYSICAL EXAMINATION: GENERAL: Reveals a thin white female, alert, articulate, did not appear to be in acute distress. VITAL SIGNS: Weight 97 pounds, blood pressure 110/70, heart rate 72 and regular. HEENT: Unremarkable. NECK: Revealed no JVD, adenopathy or bruits. CHEST: Clear to auscultation. CARDIOVASCULAR: Revealed a regular rate and rhythm without murmur, S3 or S4. ABDOMEN: Soft, supple without mass, organomegaly or tenderness. EXTREMITIES: Reveal no cyanosis, clubbing or edema. ASSESSMENT: For further evaluation of diarrhea with weight loss, the patient is being set up for flexible sigmoidoscopy as she did not feel that she could go through prep. I am most concerned again about ulcerative colitis. An underlying neoplastic process is unlikely considering there was no evidence for neoplasia on colonoscopy 2 years ago. Further recommendations will be pending evaluation. The patient did sign a release of information to obtain records from Dr. Dunbar's office and reviewed recent blood tests from 02/23/2019 revealing an unremarkable chemistry panel, CBC and TSH say for mild anemia with a hemoglobin of 12.5, which was normocytic with an MCV of 91. I thank you for the referral of this pleasant lady. In discussion with the patient and her daughter and answering questions, with review of her electronic medical record, 30 minutes care time was spent, 25 of it face to face. Job ID: [id number] DocumentID: [id number] Dictated Date: 03/05/2019 12:12:55 Roofing Machine Tender Date: 03/05/2019 12:44:30 Dictated By: YOLA AKHTAR MD MTDD
[~2019-03-12] VITALS: Ht 167.6 cm; Wt 44.0 kg
[2019-03-12] VITALS (9 sets, daily range): BP systolic 123–180; BP diastolic 61–76
[~2019-03-12 08:32] MED LIST changes: +1/2 NS IV SOLUTION 1,000 ML IV PRN; +ASCO1CAP4 PO; +BACI1TAB3 PO; +KRIL1CAP PO; +LIDOCAINE JELLY 2% (XYLOCAINE) 5 ML TUBE MM PRN; +LOPE-134 PO; +MIDAZOLAM 2 MG/2 ML (VERSED) VIAL IVP PRN; +fentaNYL INJECTION 100 MCG/2 ML AMP IVP PRN
[2019-03-12] MEDS ORDERED: D5 LR IV SOLUTION 1,000 ML IV STA (08:48)
[2019-03-12] MEDS ORDERED: FLEET ENEMA ADULT 1 EA BTL ONE (08:51)
[2019-03-12] MEDS ORDERED: HURRICAINE EXT TUBE (BENZOCAINE) XX PRN (09:00)
[2019-03-12] MEDS ORDERED: LIDOCAINE JELLY 2% 6 ML SYRINGE MM PRN (09:00)
[2019-03-12] MEDS ORDERED: MIDAZOLAM 2 MG/2 ML (VERSED) VIAL IVP ONE (09:00)
[2019-03-12] MEDS ORDERED: fentaNYL INJECTION 100 MCG/2 ML AMP IVP ONE (09:00)
--- NOTE | 2019-03-12 09:35 | Pre-Op Note & Conscious Sedat ---
Pre-Operative Progress Note H&P Reviewed The H&P was reviewed, patient examined and no changes noted. Date H&P Reviewed: Mar 12, 2019 Time H&P Reviewed: 09:35 Conscious Sedation Pre-Proced Time 07:50 ASA Score 3 For ASA 3 and 4: Consider anesthesia and medical clearance. Also, for patients with a history of failed moderate sedation consider anesthesia. Airway Lungs Heart ASA score ASA 1: a normal healthy patient ASA 2: a patient with a mild systemic disease (mid diabetes, controlled hypertension, obesity ASA 3: a patient with a severe systemic disease that limits activity (angina, COPD, prior Myocardial infarction) ASA 4: a patient with an incapacitating disease that is a constant threat to life (CHF, renal failure) ASA 5: a moribund patient not expected to survive 24 hrs. (ruptured aneurysm) ASA 6: a declared brain- patient whose organs are being harvested. For emergent operations, add the letter E after the classification Mallampati Classification Grade 2 Sedation Plan Analgesia, Amnesia, Plan communicated to team members, Discussed options with patient/fam, Discussed risks with patient/fam The patient is an appropriate candidate to undergo the planned procedure, sedation, and anesthesia. The patient immediately re-assessed prior to indication. YOLA AKHTAR MD Mar 12, 2019 09:35
[2019-03-12] MEDS ORDERED: LIDOCAINE JELLY 2% 6 ML SYRINGE ONE (09:40)
[2019-03-12] MEDS ORDERED: MIDAZOLAM 2 MG/2 ML (VERSED) VIAL ONE (09:40)
[2019-03-12] MEDS ORDERED: fentaNYL INJECTION 100 MCG/2 ML AMP ONE (09:40)
[2019-03-12] MEDS ORDERED: BUDE3CAP15 PO (11:10)
--- NOTE | 2019-03-13 00:48 | OPERATIVE REPORT ---
DATE OF SERVICE: FLEXIBLE SIGMOIDOSCOPY SUMMARY INDICATION FOR THE PROCEDURE: The patient is an 83-year-old white female undergoing flexible sigmoidoscopy for diarrhea, weight loss, and intermittent small volume bright red blood per rectum. She has lost a significant amount of weight, over 30 pounds in the last 2 years and did not feel that she was going to be able to tolerate colonoscopy prep. The patient was placed in the left lateral decubitus position. Digital rectal evaluation was performed. No abnormalities, no additional inspection of the anal canal or distal rectal vault. The colonoscope was inserted into the rectum and advanced to proximal sigmoid colon. Stool prevented visualization proximal to this. The patient tolerated the procedure well. FINDINGS: There was no evidence for internal or external hemorrhoids. The anal canal was unremarkable. Beginning at the dentate line and involving the entire visualized rectum and sigmoid colon, was evidence for diffuse colitis with loss of usual vascular markings. No ulceration was noted and no evidence for pseudomembrane formation or diverticular disease was noted. There was also loss of the usual haustral fold pattern likely due to the underlying colitis. Biopsies were obtained and submitted for histopathology. ASSESSMENT: Flexible sigmoidoscopy is compatible with underlying colitis. The fact that the patient had the same pattern of colitis when I performed a colonoscopy on her roughly 2 years ago where there was a sharp demarcation line noted at the distal ascending colon in addition to reported improvement with prednisone is strongly suspicious for underlying ulcerative colitis. This is despite the pathology report at that time not revealing more typical features for ulcerative colitis. The patient was not on any medication that I am aware of that could have likely contributed to colotis and her stool cultures including ova and parasite were negative. Considering failure to thrive with weight loss and no underlying infectious symptoms with recent unremarkable CBC, we have initiated Entocort 9 mg daily in divided doses and have advised patient to follow up with her primary care provider, Dr. Smith. Histopathology is pending at the time of this dictation. We discussed treatment expectations and that if improvement was not noted after 2 weeks of the medication, she would likely be discontinued and other diagnoses entertained. We discussed need for G.I. referral to discuss further treatment options for steroid sparing as it is a quicker acting bridging therapy only due to dedicated intermodal truck driver side effect risk. I opted for Entocort as the patient likely has osteoporosis considering her age, significant weight loss and a history of hip fracture requiring total hip replacement from a fall from standing position not reportedly from height. Job ID: [id number] DocumentID: [id number] Dictated Date: 03/12/2019 16:49:33 Blasting Clay Miner Date: 03/13/2019 00:47:44 Dictated By: YOLA AKHTAR MD MTDD
== END 2019-03-12 11:15 | disposition home or self-care (01) ==
LOC: ENDO 08:32
PROVIDERS: ATTEND Internal Medicine
DX: K62.89 Other specified diseases of anus and rectum (principal); M81.0 Age-related osteoporosis without current pathological fracture; Z88.1 Allergy status to other antibiotic agents; Z88.2 Allergy status to sulfonamides; Z88.8 Allergy status to other drugs, medicaments and biological substances; Z96.641 Presence of right artificial hip joint
CPT/HCPCS: 87045; 87046; 87324; 87449; 88305

== ENCOUNTER 2020-05-03 14:30 | Emergency (ER) | payer MEDICARE ==
[~2020-05-03] VITALS: Ht 167 cm; Wt 49.0 kg
[~2020-05-03 14:30] MED LIST changes: -1/2 NS IV SOLUTION 1,000 ML IV PRN; -LIDOCAINE JELLY 2% (XYLOCAINE) 5 ML TUBE MM PRN; -MIDAZOLAM 2 MG/2 ML (VERSED) VIAL IVP PRN; +NF-BUDE3C PO; -TRAM50TA2 PO; +TRM50T PO; -fentaNYL INJECTION 100 MCG/2 ML AMP IVP PRN
[2020-05-03] MEDS ORDERED: TETANUS,DIPTH,PERTUSS P/F (BOOSTRIX) 0.5 ML VIAL IM ONE (14:45)
[2020-05-03] MEDS ORDERED: LIDOCAINE 1% INJ 20 ML 20 ML VIAL INJ ONE (15:30)
[2020-05-03] MEDS ORDERED: fentaNYL INJECTION 100 MCG/2 ML AMP IVP ONE (15:30)
[2020-05-03 15:32] LABS: BASOPHILS # (AUTO) 0.1 10^3/uL (0.0-0.1); BASOPHILS % (AUTO) 0 % (0-10); EOSINOPHILS % (AUTO) 0 % (0-10); HEMATOCRIT 38 % (35-52); HEMOGLOBIN 12.3 g/dL (11.5-16.0); LYMPHOCYTES # (AUTO) 0.8 10^3/uL (1.0-4.0); LYMPHOCYTES % (AUTO) 5 % (12-44); MEAN CORPUSCULAR HEMOGLOBIN 32 pg (25-34); MEAN CORPUSCULAR HGB CONC 32 g/dL (32-36); MEAN CORPUSCULAR VOLUME 99 fL (80-99); MEAN PLATELET VOLUME 8.8 fL (9.0-12.2); MONOCYTES # (AUTO) 1.1 10^3/uL (0.0-1.0); MONOCYTES % (AUTO) 7 % (0-12); NEUTROPHILS % (AUTO) 86 % (42-75); PLATELET COUNT 262 10^3/uL (130-400); WHITE BLOOD COUNT 15.1 10^3/uL (4.3-11.0)
--- NOTE | 2020-05-03 15:34 | Diagnostic Imaging Report ---
INDICATION: Fall. TIME OF EXAM: 2:58 p.m. EXAMINATION: An AP view of the pelvis and two views of the right hip were obtained. FINDINGS: Postop changes of right hip arthroplasty. Prosthetic elements appear to be in good position. There is generalized demineralization of the pelvis. Left hip is intact. The rami appear intact. No fracture is seen. IMPRESSION: No acute bony abnormality is detected. Dictated by: Dictated on workstation # [id number]
--- NOTE | 2020-05-03 15:34 | NUR ---
LACERATION TO RIGHT EYE LID CLEANED WITH NS ET SURGICAL SCRUB. SKIN TEAR LEFT LOWER ARM CLEANED ET TRIPPLE ANTIBIOTIIC OINTMENT AND BANDAID APPLIED.
--- NOTE | 2020-05-03 15:36 | Diagnostic Imaging Report ---
INDICATION: Injury with pain. FINDINGS: There is complete anterior subcoracoid glenohumeral dislocation. No identifiable fracture deformity but post reduction radiographs are recommended. IMPRESSION: Complete anterior subcoracoid glenohumeral dislocation. Dictated by: Dictated on workstation # [id number]
--- NOTE | 2020-05-03 15:38 | Diagnostic Imaging Report ---
INDICATION: Fall. TIME OF EXAM: 02:55 p.m. COMPARISON: Comparison is made with prior chest from 04/10/2017. FINDINGS: Right convexity thoracic scoliotic curvature is noted. Lungs appear to be clear. No infiltrates are detected. There is no effusion or pneumothorax identified. IMPRESSION: No acute cardiopulmonary process is detected. Dictated by: Dictated on workstation # [id number]
[2020-05-03 15:42] LABS: ALBUMIN 3.4 GM/DL (3.2-4.5)
[2020-05-03 15:43] LABS: CHLORIDE 106 MMOL/L (98-107); POTASSIUM 4.4 MMOL/L (3.6-5.0); SODIUM 138 MMOL/L (135-145)
[2020-05-03 15:44] LABS: CALCIUM 8.8 MG/DL (8.5-10.1)
[2020-05-03 15:45] LABS: GLUCOSE 167 MG/DL (70-105); TOTAL PROTEIN 6.6 GM/DL (6.4-8.2)
[2020-05-03 15:46] LABS: CARBON DIOXIDE 20 MMOL/L (21-32)
[2020-05-03 15:47] LABS: BILIRUBIN,TOTAL 0.4 MG/DL (0.1-1.0)
[2020-05-03 15:48] LABS: ALKALINE PHOSPHATASE 88 U/L (40-136)
[2020-05-03] MEDS ORDERED: morphine INJ 10 MG/ML 1ML (SYR OR VIAL) ONE (15:48)
[2020-05-03 15:49] LABS: CREATININE SERUM 0.83 MG/DL (0.60-1.30); GFR ESTIMATED > 60
--- NOTE | 2020-05-03 15:49 | NUR ---
IN ROOM PUTTING SHOULDER BACK IN PLACE.
[2020-05-03 15:50] LABS: BUN/CREATININE RATIO 23
[2020-05-03 15:52] LABS: ALANINE AMINOTRANSFERASE 7 U/L (0-55); MAGNESIUM 1.9 MG/DL (1.6-2.4)
[2020-05-03] MEDS ORDERED: morphine INJ 10 MG/ML 1ML (SYR OR VIAL) IVP STA ×2 (15:52→17:03)
[2020-05-03] MEDS ORDERED: ETOMIDATE IV SOLN 20 MG/10 ML VIAL ONE (15:54)
[2020-05-03 15:59] LABS: BAND NEUTROPHILS 16 %; BASOPHILS % (MANUAL) 0 %; EOSINOPHILS % (MANUAL) 0 %; LYMPHOCYTES % (MANUAL) 10 %; MONOCYTES % (MANUAL) 6 %; NEUTROPHILS % (MANUAL) 66 %; RBC MORPH NORMAL; REACTIVE LYMPHOCYTES 2 %
[2020-05-03] MEDS ORDERED: ETOMIDATE IV SOLN 20 MG/10 ML VIAL IV ONE (16:00)
[2020-05-03 16:06] VITALS: BP 141/76
--- NOTE | 2020-05-03 16:17 | NUR ---
DR PAPPAS UNABLE TO GET THE SHOULDER INTO PLACE. PLANS ARE FOR HIM TO CALL DR CASTLE.
--- NOTE | 2020-05-03 16:28 | NUR ---
PTS AWAKE ET TALKING. UPDATED ON CONDITION.
--- NOTE | 2020-05-03 16:31 | NUR ---
IN TALKING TO THE PT AT THIS TIME.
--- NOTE | 2020-05-03 16:34 | NUR ---
DR STATES HE WILL CALL AND TALK TO THE DAUGHTER. ALSO STATES DR FIORE IS ON HIS WAY.
--- NOTE | 2020-05-03 17:05 | NUR ---
DR FIORE HERE TO SEE PT.
[2020-05-03] MEDS ORDERED: ETOMIDATE IV SOLN 20 MG/10 ML VIAL IV STA (17:10)
[2020-05-03] MEDS ORDERED: MIDAZOLAM 2 MG/2 ML (VERSED) VIAL IVP ONE (17:15)
[2020-05-03] MEDS ORDERED: ORPHENADRINE 60 MG/2 ML (NORFLEX) AMP (ED ONLY) IM ONE (17:15)
--- NOTE | 2020-05-03 17:18 | NUR ---
DR FIORE ATTEMPTING TO PUT PTS SHOULDER IN PLACE
--- NOTE | 2020-05-03 17:24 | NUR ---
TO CT WITH THIS RN AND RT.
--- NOTE | 2020-05-03 17:45 | NUR ---
BACK FROM RADIOLOGY. PT CONTINUES TO SLEEP.
--- NOTE | 2020-05-03 17:59 | Consultation - Ortho ---
Consult - Ortho Subjective Date of Exam 05/03/20 Chief Complaint Anterior inferior dislocation right shoulder HPI/Events since last exam Mrs. Kaiser is an 84-year-old white female who was cleaning her floor and slipped on the wet floor injuring her right shoulder. She is seen in emergency room and evaluated and x-rayed noted to have an anterior-inferior dislocation of the right shoulder. She denies any previous problem with the right shoulder. She's had previous orthopedic surgery including knee arthroscopy and hemiarthroplasty right hip. Dr. Alonso attempted reduction under sedation which was unsuccessful using different techniques. He called me to come and evaluate patient attempt another reduction under sedation. The patient would like to go home if the reduction is successful Medical, Surgical History Reviewed and no additions or changes Social History Reviewed and no additions or changes Family History Reviewed and no additions or changes Review of Systems Reviewed and no additions or changes Allergies: Coded Allergies: nystatin (Verified Allergy, Mild, HIVES, 01/29/17) Sulfa (Sulfonamide Antibiotics) (Verified Allergy, Unknown, 03/10/19) amoxicillin (Verified Allergy, Unknown, 02/14/17) balsalazide (Verified Allergy, Unknown, 05/03/20) chlorhexidine (Verified Allergy, Unknown, HIVES, 01/29/17) clindamycin (Verified Allergy, Unknown, 02/14/17) dicyclomine (Verified Allergy, Unknown, 03/10/19) mesalamine (Verified Allergy, Unknown, 05/03/20) sulfamethoxazole (Unverified Allergy, Unknown, 05/12/14) trimethoprim (Unverified Allergy, Unknown, 05/12/14) Home Meds Active Scripts Budesonide (Entocort EC) 3 Mg Capdr...er, 3 MG PO PC for Diarrhea for 30 Days, #90 CAP 1 Refill Prov:YOLA AKHTAR MD 03/12/19 Reported Medications Ascorbic Acid/Collagen Hydr (Collagen Plus Vit C Capsule) 1 Each Capsule, 1 EACH PO DAILY, CAP 03/10/19 Loratadine (Claritin) 10 Mg Tablet, 10 MG PO DAILY, TAB 03/10/19 Bacillus Coagulans (Probiotic) 1 Each Tab.chew, 1 EACH PO DAILY, TAB 03/10/19 Krill/Om3/Dha/Epa/Om6/Lip/Astx (Krill Oil 1,000 mg Softgel) 1 Each Capsule, 1 EACH PO DAILY, CAP 03/10/19 Loperamide HCl (Imodium A-D) 2 Mg Tablet, 2 MG PO TID PRN for DIAPER CHANGE, TAB 03/10/19 Loratadine (Claritin) 10 Mg Tablet, 10 MG PO DAILY PRN for ALLERGIES, TAB 01/29/17 Objective Exam Constitutional: [] HEENT: [] Neck: [] Cardiovascular: [] Respiratory: [] Gastrointestinal: [] Genitourinary: [] Skin: [] Back/Spine: [] Extremities: [Obvious deformity right shoulder with anterior-inferior disl ocation of the glenohumeral joint. She states she has normal sensation around the shoulder including the lateral deltoid region. She has no pain at the elbow. No pain in the wrist or forearm. She states she has a little altered sensation in the thumb and index finger been normal sensation in the middle, ring and fifth finger. There is bruising in the right upper extremity.] Neurologic: [] Psychiatric: [] Hematologic/lymphatic/immunologic: [] Vital Signs Vital Signs Date Time Temp Pulse Resp B/P (MAP) Pulse Ox O2 Delivery O2 Flow Rate FiO2 05/03/20 17:18 2.00 05/03/20 16:06 36.8 56 6 141/76 95 Nasal Cannula 2.00 05/03/20 14:30 37.0 64 16 138/68 (91) 95 Room Air Lab Results Laboratory Tests 05/03/20 15:20: White Blood Count 15.1H, Red Blood Count 3.87, Hemoglobin 12.3, Hematocrit 38, Mean Corpuscular Volume 99, Mean Corpuscular Hemoglobin 32, Mean Corpuscular Hemoglobin Concent 32, Red Cell Distribution Width 13.2, Platelet Count 262, Mean Platelet Volume 8.8L, Immature Granulocyte % (Auto) 1, Neutrophils (%) (Auto) 86H, Lymphocytes (%) (Auto) 5L, Monocytes (%) (Auto) 7, Eosinophils (%) (Auto) 0, Basophils (%) (Auto) 0, Neutrophils # (Auto) 13.0H, Lymphocytes # (Auto) 0.8L, Monocytes # (Auto) 1.1H, Eosinophils # (Auto) 0.0, Basophils # (Auto) 0.1, Immature Granulocyte # (Auto) 0.1, Neutrophils % (Manual) 66, Lymphocytes % (Manual) 10, Monocytes % (Manual) 6, Eosinophils % (Manual) 0, Basophils % (Manual) 0, Band Neutrophils 16, Reactive Lymphocytes 2, Blood Morphology Comment NORMAL, Sodium Level 138, Potassium Level 4.4, Chloride Level 106, Carbon Dioxide Level 20L, Anion Gap 12, Blood Urea Nitrogen 19H, Creatinine 0.83, Estimat Glomerular Filtration Rate > 60, BUN/Creatinine Ratio 23, Glucose Level 167H, Calcium Level 8.8, Corrected Calcium 9.3, Magnesium Level 1.9, Total Bilirubin 0.4, Aspartate Amino Transf (AST/SGOT) 16, Alanine Aminotransferase (ALT/SGPT) 7, Alkaline Phosphatase 88, C-Reactive Protein High Sensitivity 0.57H, Total Protein 6.6, Albumin 3.4 Imaging X-rays of the right shoulder show an anterior inferior dislocation right shoulder with no evidence of fracture Assessment and Plan Assessment Anterior inferior dislocation right shoulder Problem List Unchanged Plan Will attempt another closed reduction in the emergency room under conscious sedation. I discussed this with the patient she would like to proceed. Again she would like to go home. She has a daughter lives in town here that hopefully will be able to take care of her as I told her she would be immobilized in a sling for several weeks and probably undergo physical therapy after that. I explained to her that with shoulder dislocations are can be some stretch of the brachial plexus or nerves around the shoulder and upper arm. Most likely if this is present it should recover. The numbness and tingling in her index and thumb is most likely related to the shoulder dislocation Procedurepatient was given IV morphine 5 mg, Versed 2 mg and etomidate 10 mg. This combination provided very good sedation. The dislocation was then reduced using traction countertraction with the arm abducted about 40. There is no definite reduction but after approximately 30-45 seconds the shoulder was checked and it was reduced. It was brought up in abduction and external rotation and there was no instability with anterior and posterior pressure on the proximal humerus. Patient had good radial pulse post reduction. Postreduction x-rays AP and scapular Y views showed the glenohumeral dislocation has been reduced and is stable. When I left the emergency room after x-rays, the patient was still sedated so I I wasn't able to evaluate her sensory exam. She is placed in a sling with abdominal strap and follow-up the office in approximately 10 days for recheck or sooner if she has problems Final Diagonsis Anterior inferior dislocation right shoulder reduced under conscious sedation Level of the visit: Level 3 MARIO ALBERTO FIORE MD May 03, 2020 17:59
--- NOTE | 2020-05-03 17:59 | Diagnostic Imaging Report ---
CLINICAL HISTORY: Postreduction. Right shoulder dislocation. COMPARISON: Right shoulder radiographs performed earlier the same date. TECHNIQUE: Two views of the right shoulder. FINDINGS: Successful postreduction of the right shoulder with normal alignment of the right shoulder. No evidence of acute fracture. The included right chest is clear. IMPRESSION: Successful postreduction of the right shoulder with normal alignment now present. No evidence of fracture. Dictated by: Dictated on workstation # [id number]
--- NOTE | 2020-05-03 18:02 | Diagnostic Imaging Report ---
EXAMINATION: CT head and CT cervical spine without contrast. TECHNIQUE: Multiple contiguous axial images were obtained through the brain and cervical spine without the use of intravenous contrast. Sagittal and coronal reformations through the cervical spine were then performed. All CT scans use one or more of the following dose optimizing techniques: automated exposure control, MA and/or KvP adjustment based on patient size and exam type or iterative reconstruction. HISTORY: Trauma. COMPARISON: None available. FINDINGS: CT head: Mild diffuse cerebral volume loss with proportional enlargement of the ventricles and sulci. Mild hypodensities throughout the supratentorial white matter of both cerebral hemispheres. No acute intracranial hemorrhage or abnormal extra-axial fluid collections are present. Calcification of the intracranial ICAs. No hyperdense vessel. The calvarium is intact. The mastoid air cells are clear. The visualized paranasal sinuses are clear. The orbits are normal. CT cervical spine: There is mild reversal of the normal cervical lordosis. Grade 1 anterolisthesis of C3 on C4 and C4 on C5. Grade 1 retrolisthesis of C5 on C6. Loss of disc height at C4-C5 and C5-C6. Vertebral body height are preserved. No acute fracture, dislocation or destructive osseous process. Multilevel facet hypertrophy. Moderate central canal stenosis and severe bilateral neuroforaminal stenosis at C5-C6. Additional levels of mild central canal and foraminal stenosis. The paraspinous soft tissues are normal. The visualized thyroid gland is normal. The visualized lung apices are normal. IMPRESSION: 1. No acute intracranial abnormality. 2. Degenerative changes of the cervical spine without acute osseous abnormality. 3. Mild chronic senescent changes. Dictated by: Dictated on workstation # [id number]
--- NOTE | 2020-05-03 18:10 | NUR ---
Miryam bright in [facility] - 05/03/20 at 1817 by PANFILO FAMILY UPDATED
[2020-05-03] MEDS ORDERED: ACHD5005 PO (18:15)
--- NOTE | 2020-05-03 18:16 | NUR ---
DAUGHTER UPDATED THAT WILL SEND SCRIPTS TO [facility] SO THEY CAN BE PICKED UP BEFORE 1999.
[2020-05-03] MEDS ORDERED: L.AC1CAP6 PO (18:17)
--- NOTE | 2020-05-03 18:19 | ED Fall/Injury ---
General Chief Complaint: Conscious Sedation Stated Complaint: FALL Nursing Triage Note: ARRIVED VIA EMS FROM HOME VIA EMS. STATES SHE WAS CLEANING HER FLOOR WHEN SHE TRIPPED AND FELL FALLING HEAD FIRST. DENIES LOC OR NECK PAIN. COMPLAINS OF RIGHT SHOULDER PAIN. PT RECIEVED FENTENYL 50MCG IV SKULL SPLITTER. Source: patient, family, EMS Exam Limitations: no limitations History of Present Illness Date Seen by Provider: May 03, 2020 Time Seen by Provider: 14:31 Initial Comments This 84-year-old woman presents to the emergency room via EMS after slipping and falling on the floor while she was cleaning. She has a laceration beneath the right brow but denies any head or neck pain. She denies loss of consciousness. She has obvious disfigurement of the right shoulder where the focus of her pain is. EMS administered fentanyl 50 g. She denies any other injuries. She felt normal prior to the fall. She has been struggling with diarrhea which is a ch ronic problem from chronic colitis. She has seen a hr administrative assistant in the past for this problem. Allergies and Home Medications Allergies Coded Allergies: nystatin (Verified Allergy, Mild, HIVES, 01/29/17) Sulfa (Sulfonamide Antibiotics) (Verified Allergy, Unknown, 03/10/19) amoxicillin (Verified Allergy, Unknown, 02/14/17) balsalazide (Verified Allergy, Unknown, 05/03/20) chlorhexidine (Verified Allergy, Unknown, HIVES, 01/29/17) clindamycin (Verified Allergy, Unknown, 02/14/17) dicyclomine (Verified Allergy, Unknown, 03/10/19) mesalamine (Verified Allergy, Unknown, 05/03/20) sulfamethoxazole (Unverified Allergy, Unknown, 05/12/14) trimethoprim (Unverified Allergy, Unknown, 05/12/14) Home Medications Ascorbic Acid/Collagen Hydr 1 Each Capsule, 1 EACH PO DAILY, (Reported) Bacillus Coagulans 1 Each Tab.chew, 1 EACH PO DAILY, (Reported) Budesonide 3 Mg Capdr...er, 3 MG PO PC Prescribed by: YOLA AKHTAR on 03/12/19 1110 Hydrocodone/Acetaminophen 1 Each Tablet, 0.5-1 TAB PO Q4H PRN for PAIN-MODERATE (5-7) Prescribed by: SEFERINO DIAZ on 10/7/20 1816 Krill/Om3/Dha/Epa/Om6/Lip/Astx 1 Each Capsule, 1 EACH PO DAILY, (Reported) L.acidoph & Praneeth,B.lactis 1 Each Capsule, 1 EACH PO TID Prescribed by: SEFERINO DIAZ on 05/03/201816 Loperamide HCl 2 Mg Tablet, 2 MG PO TID PRN for DIAPER CHANGE, (Reported) Loratadine 10 Mg Tablet, 10 MG PO DAILY PRN for ALLERGIES, (Reported) Loratadine 10 Mg Tablet, 10 MG PO DAILY, (Reported) Patient Home Medication List Home Medication List Reviewed: Yes Review of Systems Review of Systems Constitutional: no symptoms reported Eyes: No Symptoms Reported Ears, Nose, Mouth, Throat: no symptoms reported Respiratory: no symptoms reported Cardiovascular: no symptoms reported Gastrointestinal: see HPI Genitourinary: no symptoms reported : No Musculoskeletal: see HPI Skin: no symptoms reported Psychiatric/Neurological: No Symptoms Reported Past Jekhkat-Mfoagp-Gpxbch Hx Past Med/Social Hx: Reviewed Nursing Past Med/Soc Hx Patient Social History 2nd Hand Smoke Exposure: No Recent Foreign Travel: No Contact w/Someone Who Travel: No Recent Infectious Disease Expo: No Recent Hopitalizations: No Seasonal Allergies Seasonal Allergies: Yes Past Medical History Surgeries: Yes (RIGHT KNEE SURGERY (SCOPE) R hip fx) Adenoidectomy, Breast Respiratory: No Pneumonia Cardiac: Yes (dependent edema of legs) Chronic Edema/Swelling Neurological: No Genitourinary: No Gastrointestinal: Yes (FISSURE) Colitis (chronic), Hemorrhoids, Chronic Diarrhea Musculoskeletal: Yes (SPRAINED RT ANKLE 3 YRS. AGO AND WEARS BRACE TO RIGHT ANKLE. KNEE SCOPED) Chronic Back Pain Endocrine: No HEENT: Yes Hearing Impairment: Hard of Hearing Cancer: No Psychosocial: No Integumentary: No Blood Disorders: No Family Medical History No Pertinent Family Hx Physical Exam Vital Signs Vital Signs - First Documented 05/03/20 05/03/20 14:30 16:06 Temp 37.0 Pulse 64 Resp 16 B/P (MAP) 138/68 (91) Pulse Ox 95 O2 Delivery Room Air O2 Flow Rate 2.00 Capillary Refill : Less Than 3 Seconds Height, Weight, BMI Height: 5'6.00" Weight: 97lbs. 0.0oz. 43.806126gk; 17.00 BMI Method:Stated General Appearance: WD/WN, mild distress, thin HEENT: PERRL/EOMI, normal ENT inspection, other (shallow laceration beneath the right brow) Neck: non-tender, normal inspection Cardiovascular: regular rate, rhythm, no edema, no murmur Respiratory: lungs clear, normal breath sounds, no respiratory distress, no accessory muscle use Gastrointestinal: non tender, soft Extremities: no pedal edema, other (obvious disfigurement of the right shoulder. There is bruising of the shoulder and elbow. No tenderness over the elbow. Distal sensation, capillary refill, and radial pulses intact) Neurologic/Psychiatric: podiatric surgeon II-XII nml as tested, no motor/sensory deficits, alert, normal mood/affect, oriented x 3 Skin: normal color, warm/dry [place] Coma Score Best Eye Response: (4) Open Spontaneously Best Verbal Response: (5) Oriented Best Motor Response: (6) Obeys Commands Dejon Total: 15 Procedures/Interventions Procedure: DISLCOACTION OF RIGHT SHOULDR Patient Education: Explained Benefits, Explained Risks, Pt. Ack. Understanding Agreement on procedure with pt: Yes Breath Sounds per Auscultation: Clear Heart Sounds per Auscultation: Regular Airway Exam: Mouth opens >2 fingers During the first reduction attempt patient was pretreated with fentanyl and morphine. She was then sedated with etomidate 20 mg. During the second reduction attempt she was pretreated with morphine. Sedation was provided with etomidate 20 mg and Versed 2 mg with good results. Splinting and Joint Reduction : Pre-Proc Neuro Vasc Exam: normal Post-Proc Neuro Vasc Exam: normal Joint Reduction Site: shoulder (R) Pre-Procedure NV Exam: Yes post joint reduction film: no fracture seen Progress Patient was given conscious sedation with fentanyl, morphine, and etomidate. Attempts at reduction by this provider assisted by Juarez Juan NP were not successful. Dr. Fiore was consulted and presented to the ER. Patient was further sedated with morphine, etomidate, and Versed. Dr. Fiore was able to reduce the shoulder with assistance from Dr. Diaz by forceful inferior and lateral traction. Patient recovered well from sedation and reported significantly decreased pain. Immobilizers: Medium Shoulder Progress/Results/Core Measures Results/Orders Lab Results Laboratory Tests Test 05/03/20 15:20 Range/Units White Blood Count 15.1 H 4.3-11.0 10^3/uL Red Blood Count 3.87 3.80-5.11 10^6/uL Hemoglobin 12.3 11.5-16.0 g/dL Hematocrit 38 35-52 % Mean Corpuscular Volume 99 80-99 fL Mean Corpuscular Hemoglobin 32 25-34 pg Mean Corpuscular Hemoglobin Concent 32 32-36 g/dL Red Cell Distribution Width 13.2 10.0-14.5 % Platelet Count 262 130-400 10^3/uL Mean Platelet Volume 8.8 L 9.0-12.2 fL Immature Granulocyte % (Auto) 1 % Neutrophils (%) (Auto) 86 H 42-75 % Lymphocytes (%) (Auto) 5 L 12-44 % Monocytes (%) (Auto) 7 0-12 % Eosinophils (%) (Auto) 0 0-10 % Basophils (%) (Auto) 0 0-10 % Neutrophils # (Auto) 13.0 H 1.8-7.8 10^3/uL Lymphocytes # (Auto) 0.8 L 1.0-4.0 10^3/uL Monocytes # (Auto) 1.1 H 0.0-1.0 10^3/uL Eosinophils # (Auto) 0.0 0.0-0.3 10^3/uL Basophils # (Auto) 0.1 0.0-0.1 10^3/uL Immature Granulocyte # (Auto) 0.1 0.0-0.1 10^3/uL Neutrophils % (Manual) 66 % Lymphocytes % (Manual) 10 % Monocytes % (Manual) 6 % Eosinophils % (Manual) 0 % Basophils % (Manual) 0 % Band Neutrophils 16 % Reactive Lymphocytes 2 % Blood Morphology Comment NORMAL Sodium Level 138 135-145 MMOL/L Potassium Level 4.4 3.6-5.0 MMOL/L Chloride Level 106 98-107 MMOL/L Carbon Dioxide Level 20 L 21-32 MMOL/L Anion Gap 12 5-14 MMOL/L Blood Urea Nitrogen 19 H 7-18 MG/DL Creatinine 0.83 0.60-1.30 MG/DL Estimat Glomerular Filtration Rate > 60 BUN/Creatinine Ratio 23 Glucose Level 167 H 70-105 MG/DL Calcium Level 8.8 8.5-10.1 MG/DL Corrected Calcium 9.3 8.5-10.1 MG/DL Magnesium Level 1.9 1.6-2.4 MG/DL Total Bilirubin 0.4 0.1-1.0 MG/DL Aspartate Amino Transf (AST/SGOT) 16 5-34 U/L Alanine Aminotransferase (ALT/SGPT) 7 0-55 U/L Alkaline Phosphatase 88 40-136 U/L C-Reactive Protein High Sensitivity 0.57 H 0.00-0.50 MG/DL Total Protein 6.6 6.4-8.2 GM/DL Albumin 3.4 3.2-4.5 GM/DL My Orders Orders - SEFERINO PAPPAS MD Cbc With Automated Diff (05/03/20 14:42) Comprehensive Metabolic Panel (05/03/20 14:42) Hs C Reactive Protein (05/03/20 14:42) Ua Culture If Indicated (05/03/20 14:42) Chest 1 View, Ap/Pa Only (05/03/20 14:42) Pelvis With Right Hip 2-3views (05/03/20 14:42) Magnesium (05/03/20 14:42) Ct Head/Cervical Spine Wo (05/03/20 14:44) Dipht,Pertuss(Acell),Tet Adult (Boostrix (05/03/20 14:45) Shoulder, Right, 3 Views (05/03/20 14:42) Fentanyl Injection (Sublimaze Injection (05/03/20 15:30) Lidocaine 1% Inj 20 Ml (Xylocaine 1% Inj (05/03/20 15:30) Manual Differential (05/03/20 15:20) Morphine Injection (Morphine Injection (05/03/20 15:52) Morphine Injection (Morphine Injection (05/03/20 15:48) Etomidate Injection (Amidate Injection) (05/03/20 15:54) Etomidate Injection (Amidate Injection) (05/03/20 16:00) Morphine Injection (Morphine Injection (05/03/20 17:03) Orphenadrine Inj (Ed Only) (Norflex Inje (05/03/20 17:15) Midazolam Injection (Versed Injection) (05/03/20 17:15) Etomidate Injection (Amidate Injection) (05/03/20 17:10) Shoulder, Right, 2 Views (05/03/20 17:25) Medications Given in ED Current Medications Medications Dose Ordered Sig/Sabi Route Start Time Stop Time Status Last Admin Dose Admin Diphtheria/ Tetanus/Acell Pertussis 0.5 ml ONCE ONCE IM 05/03/20 14:45 05/03/20 14:46 DC 05/03/20 15:22 0.5 ML Etomidate 10 mg ONCE ONCE IV 05/03/20 16:00 05/03/20 16:02 DC 05/03/20 16:03 10 MG Fentanyl Citrate 50 mcg ONCE ONCE IVP 05/03/20 15:30 05/03/20 15:31 DC 05/03/20 15:45 50 MCG Lidocaine HCl 20 ml ONCE ONCE INJ 05/03/20 15:30 05/03/20 15:31 DC 05/03/20 15:45 20 ML Midazolam HCl 2 mg ONCE ONCE IVP 05/03/20 17:15 05/03/20 17:16 DC 05/03/20 17:14 2 MG Vital Signs/I&O 05/03/20 05/03/20 05/03/20 14:30 16:06 17:18 Temp 37.0 36.8 Pulse 64 56 Resp 16 6 B/P (MAP) 138/68 (91) 141/76 Pulse Ox 95 95 O2 Delivery Room Air Nasal Cannula O2 Flow Rate 2.00 2.00 Blood Pressure Mean: 91 Progress Progress Note : Progress Note Wound above the eye was cleaned and dressed with antibiotic ointment. x-rays confirmed dislocated shoulder without fracture. The first attempt at reduction by this provider was not successful. Dr. Fiore was consulted and was able to reduce the shoulder. Patient was ultimately discharged home. I discussed the situation with her daughter. I advised family to provide significant support at home. Admission with placement to rehabilitation or alf was considered, but this was felt to be a poor choice due to potential for exposure to [place] virus in the current hospital population. Her chronic diarrhea and colitis was addressed. Patient has received care from a hr administrative assistant in the past. This is been an ongoing problem for a couple of years. I'm recommending starting probiotics and close follow-up with the primary care team and hr administrative assistant. Diagnostic Imaging Diagonstic Imaging: CT Plain Films/CT/US/NM/MRI: c-spine, head Comments CT head and C-spine viewed by me and report reviewed. See report below: NAME: [facility] REC#: [id number] PT STATUS: REG ER : 1935 PHYSICIAN: SEFERINO PAPPAS MD ADMIT DATE: 05/03/20/ER Draft Date of Exam:05/03/20 CT HEAD/CERVICAL SPINE WO EXAMINATION: CT head and CT cervical spine without contrast. TECHNIQUE: Multiple contiguous axial images were obtained through the brain and cervical spine without the use of intravenous contrast. Sagittal and coronal reformations through the cervical spine were then performed. All CT scans use one or more of the following dose optimizing techniques: automated exposure control, MA and/or KvP adjustment based on patient size and exam type or iterative reconstruction. HISTORY: Trauma. COMPARISON: None available. FINDINGS: CT head: Mild diffuse cerebral volume loss with proportional enlargement of the ventricles and sulci. Mild hypodensities throughout the supratentorial white matter of both cerebral hemispheres. No acute intracranial hemorrhage or abnormal extra-axial fluid collections are present. Calcification of the intracranial ICAs. No hyperdense vessel. The calvarium is intact. The mastoid air cells are clear. The visualized paranasal sinuses are clear. The orbits are normal. CT cervical spine: There is mild reversal of the normal cervical lordosis. Grade 1 anterolisthesis of C3 on C4 and C4 on C5. Grade 1 retrolisthesis of C5 on C6. Loss of disc height at C4-C5 and C5-C6. Vertebral body height are preserved. No acute fracture, dislocation or destructive osseous process. Multilevel facet hypertrophy. Moderate central canal stenosis and severe bilateral neuroforaminal stenosis at C5-C6. Additional levels of mild central canal and foraminal stenosis. The paraspinous soft tissues are normal. The visualized thyroid gland is normal. The visualized lung apices are normal. IMPRESSION: 1. No acute intracranial abnormality. 2. Degenerative changes of the cervical spine without acute osseous abnormality. 3. Mild chronic senescent changes. Dictated on workstation # [id number] Dict: 05/03/20 1744 Trans: 05/03/201801 E [id number] Interpreted by: KATINA BOB DO Diagonstic Imaging: Xray Plain Films/CT/US/NM/MRI: pelvis, hip Comments Hip and pelvis x-ray viewed by me and report reviewed. See report below: NAME: [facility] REC#: [id number] PT STATUS: REG ER : 1935 PHYSICIAN: SEFERINO PAPPAS MD ADMIT DATE: 05/03/20/ER Signed Date of Exam:05/03/20 PELVIS WITH RIGHT HIP 2-3VIEWS INDICATION: Fall. TIME OF EXAM: 2:58 p.m. EXAMINATION: An AP view of the pelvis and two views of the right hip were obtained. FINDINGS: Postop changes of right hip arthroplasty. Prosthetic elements appear to be in good position. There is generalized demineralization of the pelvis. Left hip is intact. The rami appear intact. No fracture is seen. IMPRESSION: No acute bony abnormality is detected. Dictated by: Dictated on workstation # [id number] Dict: 05/03/20 1523 Trans: 05/03/20 1558 PJE [id number] Interpreted by: BOAZ KHAN MD Electronically signed by: BOAZ KHAN MD 05/03/20 1558 Diagonstic Imaging: Xray Plain Films/CT/US/NM/MRI: other (right shoulder) Comments Right shoulder x-ray viewed by me and report reviewed. See report below: NAME: [facility] REC#: [id number] PT STATUS: REG ER : 1935 PHYSICIAN: SEFERINO PAPPAS MD ADMIT DATE: 05/03/20/ER Signed Date of Exam:05/03/20 SHOULDER, RIGHT, 3 VIEWS INDICATION: Injury with pain. FINDINGS: There is complete anterior subcoracoid glenohumeral dislocation. No identifiable fracture deformity but post reduction radiographs are recommended. IMPRESSION: Complete anterior subcoracoid glenohumeral dislocation. Dictated by: Dictated on workstation # [id number] Dict: 05/03/20 1524 Trans: 05/03/20 1636 [id number] Interpreted by: SALONI PAREKH Electronically signed by: SALONI PAREKH 05/03/20 1636 Diagonstic Imaging: Xray Plain Films/CT/US/NM/MRI: chest Comments Chest x-ray viewed by me and report reviewed. See report below: NAME: [facility] REC#: [id number] PT STATUS: REG ER : 1935 PHYSICIAN: SEFERINO PAPPAS MD ADMIT DATE: 05/03/20/ER Signed Date of Exam:05/03/20 CHEST 1 VIEW, AP/PA ONLY INDICATION: Fall. TIME OF EXAM: 02:55 p.m. COMPARISON: Comparison is made with prior chest from 04/10/2017. FINDINGS: Right convexity thoracic scoliotic curvature is noted. Lungs appear to be clear. No infiltrates are detected. There is no effusion or pneumothorax identified. IMPRESSION: No acute cardiopulmonary process is detected. Dictated by: Dictated on workstation # [id number] Dict: 05/03/20 1522 Trans: 05/03/20 1557 [id number] Interpreted by: BOAZ KHAN MD Electronically signed by: BOAZ KHAN MD 05/03/20 1557 Diagonstic Imaging: Xray Plain Films/CT/US/NM/MRI: other (postreduction right shoulder) Comments Postreduction right shoulder x-ray viewed by me and report reviewed. See report below: NAME: [facility] REC#: [id number] PT STATUS: REG ER : 1935 PHYSICIAN: SEFERINO PAPPAS MD ADMIT DATE: 05/03/20/ER Signed Date of Exam:05/03/20 CT HEAD/CERVICAL SPINE WO EXAMINATION: CT head and CT cervical spine without contrast. TECHNIQUE: Multiple contiguous axial images were obtained through the brain and cervical spine without the use of intravenous contrast. Sagittal and coronal reformations through the cervical spine were then performed. All CT scans use one or more of the following dose optimizing techniques: automated exposure control, MA and/or KvP adjustment based on patient size and exam type or iterative reconstruction. HISTORY: Trauma. COMPARISON: None available. FINDINGS: CT head: Mild diffuse cerebral volume loss with proportional enlargement of the ventricles and sulci. Mild hypodensities throughout the supratentorial white matter of both cerebral hemispheres. No acute intracranial hemorrhage or abnormal extra-axial fluid collections are present. Calcification of the intracranial ICAs. No hyperdense vessel. The calvarium is intact. The mastoid air cells are clear. The visualized paranasal sinuses are clear. The orbits are normal. CT cervical spine: There is mild reversal of the normal cervical lordosis. Grade 1 anterolisthesis of C3 on C4 and C4 on C5. Grade 1 retrolisthesis of C5 on C6. Loss of disc height at C4-C5 and C5-C6. Vertebral body height are preserved. No acute fracture, dislocation or destructive osseous process. Multilevel facet hypertrophy. Moderate central canal stenosis and severe bilateral neuroforaminal stenosis at C5-C6. Additional levels of mild central canal and foraminal stenosis. The paraspinous soft tissues are normal. The visualized thyroid gland is normal. The visualized lung apices are normal. IMPRESSION: 1. No acute intracranial abnormality. 2. Degenerative changes of the cervical spine without acute osseous abnormality. 3. Mild chronic senescent changes. Dictated by: Dictated on workstation # [id number] Dict: 05/03/20 174 Trans: 05/03/201810 [facility] [id number] Interpreted by: KATINA BOB DO Electronically signed by: KATINA BOB DO 05/03/201810 Departure Impression Primary Impression: Anterior shoulder dislocation Qualified Codes: S43.014A - Anterior dislocation of right humerus, initial encounter Additional Impressions: Fall on same level Qualified Codes: W18.30XA - Fall on same level, unspecified, initial encounter Facial contusion Qualified Codes: S00.83XA - Contusion of other part of head, initial encounter Facial laceration Qualified Codes: S01.81XA - Laceration without foreign body of other part of head, initial encounter Disposition: 01 HOME, SELF-CARE Condition: Improved Departure-Patient Inst. Referrals: MARIO ALBERTO FIORE MD, JOHN D MD (PCP/Family) Primary Care Physician Patient Instructions: Moderate Sedation in Adults (DC), Shoulder Dislocation Add. Discharge Instructions: Keep the right arm in the sling is much as possible. When the arm must be out of the sling, move it as little as possible to avoid dislocating again. Follow- up with Dr. Fiore in 10 days. Please call his office for an appointment time tomorrow. You may use pain medication as prescribed. Regarding your colitis, please follow-up with your primary care provider and hr administrative assistant. In the meantime, use probiotics as prescribed. Call or return to care if you have worsening symptoms. Scripts L.acidoph & Paracasei,B.lactis (Probiotic) 1 Each Capsule 1 EACH PO TID, #90 CAP Prov: SEFERINO PAPPAS MD 05/03/20 Hydrocodone/Acetaminophen (Hydrocodone-Acetamin 5-325 mg) 1 Each Tablet 0.5-1 TAB PO Q4H PRN for PAIN-MODERATE (5-7), #10 TAB Prov: SEFERINO PAPPAS MD 05/03/20 SEFERINO PAPPAS MD May 03, 2020 18:19
--- NOTE | 2020-05-03 18:47 | NUR ---
PT AWAKE ET TALKING. DR IN TALKING WITH HER AT THIS TIME. CMS CHECK TO RIGHT UPPER EXT WITHIN NORMAL LIMITS.
--- NOTE | 2020-05-03 18:50 | NUR ---
TAKING SIPS OF WATER CONTINUES TO BE DROWSY.
--- NOTE | 2020-05-03 18:54 | NUR ---
DAUGHTER UPDATED THAT SHE WILL PROBABLY BE READY IN ABOUT 30 MINS AND TO CALL AND LET US KNOW WHEN SHE IS HERE.
--- NOTE | 2020-05-03 19:48 | NUR ---
GRADY Chairez RN ASSISTED PT TO DAUGHTERS VEHICLE VIA W/C AND ALL DC INSTRUCTION PAPERWORK GIVEN TO PT DAUGHTER AND DC INSTRUCTIONS REVIEWED.
== END 2020-05-03 19:48 | disposition home or self-care (01) ==
LOC: EDUNIT# 14:30 → ER 14:31
DX: S01.81XA Laceration without foreign body of other part of head, initial encounter (principal); S43.004A Unspecified dislocation of right shoulder joint, initial encounter; R40.2410 Glasgow coma scale score 13-15, unspecified time; G89.29 Other chronic pain; M54.9 Dorsalgia, unspecified; Z88.1 Allergy status to other antibiotic agents; Z88.2 Allergy status to sulfonamides; Z88.8 Allergy status to other drugs, medicaments and biological substances; Z23 Encounter for immunization; Z79.891 Long term (current) use of opiate analgesic; W01.0XXA Fall on same level from slipping, tripping and stumbling without subsequent striking against object, initial encounter
CPT/HCPCS: 23650; 36415; 70450; 71045; 72125; 73030; 80053; 83735; 85007; 85027; 86141; 90715; 93041

== ENCOUNTER → 2020-05-15 | Outpatient (CLI) | payer MEDICARE ==
[~2020-05-15] MED LIST changes: +ACHD5005 PO; +L.AC1CAP6 PO
--- NOTE | 2020-05-15 12:58 | Diagnostic Imaging Report ---
EXAMINATION: Right shoulder 1037 hours. INDICATION: Shoulder pain. 2 views were obtained. FINDINGS: There is no fracture, dislocation or acute bony abnormality evident. There is mild degenerative disease of the glenohumeral joint and at least moderate degenerative disease of the acromioclavicular joint. These findings are similar to the prior exam of 05/03/2020. The space between the humeral head and the acromion is narrowed and I suspect that there has been injury to the rotator cuff. If further imaging is desired, then MRI would be recommended. The soft tissues are unremarkable. IMPRESSION: 1. There is no evidence for an acute bony abnormality. 2. The space between the undersurface of the acromion and the humeral head is narrowed and most likely rotator cuff has been injured. Recommendations as above. Dictated by: Dictated on workstation # [id number]
== END ==
LOC: ORTHO 10:12
PROVIDERS: ATTEND Orthopaedic Surgery
DX: S43.084A Other dislocation of right shoulder joint, initial encounter (principal); X58.XXXA Exposure to other specified factors, initial encounter
CPT/HCPCS: 73030

== ENCOUNTER → 2020-05-29 | Outpatient (CLI) | payer MEDICARE ==
--- NOTE | 2020-05-29 09:36 | Diagnostic Imaging Report ---
INDICATION: Dislocation. Two-view shoulder shows no glenohumeral dislocation. Deformity to the inferior glenoid stable from comparison study of 10.19. No acute appearing abnormality. IMPRESSION: No dislocation or acute abnormality. Dictated by: Dictated on workstation # [id number]
== END ==
LOC: ORTHO 08:50
PROVIDERS: ATTEND Orthopaedic Surgery
DX: S43.084A Other dislocation of right shoulder joint, initial encounter (principal); X58.XXXA Exposure to other specified factors, initial encounter
CPT/HCPCS: 73030

== ENCOUNTER → 2020-06-12 | Outpatient (CLI) | payer MEDICARE ==
--- NOTE | 2020-06-12 09:12 | Diagnostic Imaging Report ---
Indication: Right shoulder dislocation AP and transscapular Y views of the right shoulder are obtained. Comparison is made to study of 05/29/2020. Study somewhat limited due to positioning on the transscapular view however no definite dislocation is identified. There may be mild superior subluxation of the humeral head with respect to glenoid process compared to previous study. This can be seen with rotator cuff injury. IMPRESSION: Stable irregularity and inferior glenoid may be related to previous dislocation and relocation without persistent dislocation. Mild elevation of the humeral head with respect to glenoid process can be due to rotator cuff injury and clinical correlation would be useful. Dictated by: Dictated on workstation # [id number]
== END ==
LOC: ORTHO 08:26
PROVIDERS: ATTEND Orthopaedic Surgery
DX: S43.084A Other dislocation of right shoulder joint, initial encounter (principal); X58.XXXA Exposure to other specified factors, initial encounter
CPT/HCPCS: 73030

== ENCOUNTER 2020-10-11 09:00 | Emergency (ER) | payer MEDICARE ==
[~2020-10-11] VITALS: Ht 165.1 cm; Wt 49.5 kg
[~2020-10-11 09:00] MED LIST changes: +SERT-413 PO; -SERT50TA9 PO
--- NOTE | 2020-10-11 09:33 | ED Lower Extremity ---
General Chief Complaint: Lower Extremity Stated Complaint: KNEE/FOOT PAIN Nursing Triage Note: TO ED PER EMS FROM HOME. PATIENT REPORTS HAS CHRONIC PIAN IN L KNEE RECEIVED A INJECTION ON FRIDAY. LAST NIGHT WAS WALKING AND STARTED HAVING PAIN IN R ANKLE. Nursing Sepsis Screen: No Definite Risk Source: patient Exam Limitations: no limitations History of Present Illness Date Seen by Provider: Oct 11, 2020 Time Seen by Provider: 09:15 Initial Comments Patient is an 84-year-old female who presents to the emergency department today with a chief complaint of right forefoot pain. Patient states that she stepped wrong yesterday and started having pain just proximal to the fourth toe on the right foot. Patient states that it was so painful that she could not bear weight on her foot. Patient lives alone and is quite debilitated. Patient has chronic bilateral knee pain with significant arthritis in her knees. She recently had knee injections per Dr. Villavicencio in the left knee about a week ago. Patient states that she takes Tylenol [id number] 3 times daily. She states this helped a little bit last evening. She did take some Tylenol this morning and had some relief of her symptoms. Patient has had some swelling in her bilateral lower extremities and recent days. She denies any chest pain, shortness of breath. No nausea, vomiting or diarrhea. No urinary complaints. All other review of systems reviewed and negative except as stated above. Onset: yesterday Severity: moderate Pain/Injury Location: right 4th toe Method of Injury: twisted Modifying Factors: Worse With Movement; Improves With Pain Medication (Reww-fzj-epuvati Tylenol) Allergies and Home Medications Allergies Coded Allergies: nystatin (Verified Allergy, Mild, HIVES, 01/29/17) Sulfa (Sulfonamide Antibiotics) (Verified Allergy, Unknown, 03/10/19) amoxicillin (Verified Allergy, Unknown, 02/14/17) balsalazide (Verified Allergy, Unknown, 05/03/20) chlorhexidine (Verified Allergy, Unknown, HIVES, 01/29/17) clindamycin (Verified Allergy, Unknown, 02/14/17) dicyclomine (Verified Allergy, Unknown, 03/10/19) mesalamine (Verified Allergy, Unknown, 05/03/20) sulfamethoxazole (Unverified Allergy, Unknown, 05/12/14) trimethoprim (Unverified Allergy, Unknown, 05/12/14) Home Medications Ascorbic Acid/Collagen Hydr 1 Each Capsule, 1 EACH PO DAILY, (Reported) Bacillus Coagulans 1 Each Tab.chew, 1 EACH PO DAILY, (Reported) Budesonide 3 Mg Capdr...er, 3 MG PO PC Prescribed by: YOLA AKHTAR on 03/12/19 1110 Hydrocodone/Acetaminophen 1 Each Tablet, 0.5-1 TAB PO Q4H PRN for PAIN-MODERATE (5-7) Prescribed by: SEFERINO CEDILLO on 05/03/20 181 Krill/Om3/Dha/Epa/Om6/Lip/Astx 1 Each Capsule, 1 EACH PO DAILY, (Reported) L.acidoph & Paracasei,B.lactis 1 Each Capsule, 1 EACH PO TID Prescribed by: SEFERINO CEDILLO on 05/03/201816 Loperamide HCl 2 Mg Tablet, 2 MG PO TID PRN for DIAPER CHANGE, (Reported) Loratadine 10 Mg Tablet, 10 MG PO DAILY PRN for ALLERGIES, (Reported) Loratadine 10 Mg Tablet, 10 MG PO DAILY, (Reported) Patient Home Medication List Home Medication List Reviewed: Yes Review of Systems Constitutional: see HPI EENTM: no symptoms reported Respiratory: no symptoms reported Cardiovascular: edema (Bilateral lower extremities) Gastrointestinal: no symptoms reported Genitourinary: no symptoms reported : No Musculoskeletal: joint pain (Right forefoot base of fourth toe) Skin: no symptoms reported All Other Systems Reviewed Negative Unless Noted: Yes Past Ucgqwpf-Pabiez-Ptidwb Hx Patient Social History Alcohol Use: Denies Use Smoking Status: Never a Smoker 2nd Hand Smoke Exposure: No Recent Infectious Disease Expo: No Recent Hopitalizations: No Seasonal Allergies Seasonal Allergies: Yes Past Medical History Surgeries: Yes (RIGHT KNEE SURGERY (SCOPE) R hip fx) Adenoidectomy, Breast Respiratory: No Pneumonia Cardiac: Yes (dependent edema of legs) Chronic Edema/Swelling Neurological: No Genitourinary: No Gastrointestinal: Yes (FISSURE) Colitis, Hemorrhoids, Chronic Diarrhea Musculoskeletal: Yes (SPRAINED RT ANKLE 3 YRS. AGO AND WEARS BRACE TO RIGHT ANKLE. KNEE SCOPED) Chronic Back Pain Endocrine: No HEENT: Yes Hearing Impairment: Hard of Hearing Cancer: No Psychosocial: No Integumentary: No Blood Disorders: No Family Medical History No Pertinent Family Hx Physical Exam Vital Signs Vital Signs - First Documented 3/17/21 09:00 Temp 36.4 Pulse 70 Resp 18 B/P (MAP) 122/72 (89) O2 Delivery Room Air Capillary Refill : Less Than 3 Seconds Height, Weight, BMI Height: 5'6.00" Weight: 97lbs. 0.0oz. 43.437189yn; 18.00 BMI Method:Stated General Appearance: WD/WN, no apparent distress HEENT: PERRL/EOMI Cardiovascular: regular rate, rhythm Respiratory: lungs clear, normal breath sounds, no respiratory distress, no accessory muscle use Hips: bilateral hip non-tender, bilateral hip normal inspection, bilateral hip normal range of motion, bilateral hip no evidence of injury Legs: bilateral leg non-tender, bilateral leg normal inspection (Patient noted to have 2+ pitting edema from the knees distally bilaterally), bilateral leg normal range of motion, bilateral leg no evidence of injury Knees: bilateral knee bone tenderness (Patient has significant crepitance with range of motion bilateral knees) Ankles: bilateral ankle non-tender, bilateral ankle normal range of motion, bilateral ankle no evidence of injury Feet: right foot bone tenderness (Distal fourth metatarsal mild overlying erythema on the dorsum of the foot) Neurologic/Tendon: normal sensation, normal motor functions, normal tendon functions Neurologic/Psychiatric: alert, normal mood/affect, other (oriented to self and location but not to time) Skin: normal color, warm/dry Procedures/Interventions Patient Education: Explained Benefits, Explained Risks, Pt. Ack. Understanding Breath Sounds per Auscultation: Clear Heart Sounds per Auscultation: Regular Airway Exam: Mouth opens >2 fingers Progress/Results/Core Measures Results/Orders Lab Results Laboratory Tests Test 10/11/20 10:57 10/11/20 12:35 10/11/20 14:19 Range/Units Urine Color YELLOW Urine Clarity CLEAR Urine pH 7.5 5-9 Urine Specific [place] 1.010 L 1.016-1.022 Urine Protein NEGATIVE NEGATIVE Urine Glucose (UA) NEGATIVE NEGATIVE Urine Ketones NEGATIVE NEGATIVE Urine Nitrite NEGATIVE NEGATIVE Urine Bilirubin NEGATIVE NEGATIVE Urine Urobilinogen 0.2 < = 1.0 MG/DL Urine Leukocyte Esterase 2+ H NEGATIVE Urine RBC (Auto) 3+ H NEGATIVE Urine RBC TNTC H /HPF Urine WBC 10-25 H /HPF Urine Squamous Epithelial Cells 2-5 /HPF Urine Crystals NONE /LPF Urine Bacteria FEW H /HPF Urine Casts NONE /LPF Urine Mucus NEGATIVE /LPF Urine Culture Indicated YES White Blood Count 6.2 4.3-11.0 10^3/uL Red Blood Count 4.28 3.80-5.11 10^6/uL Hemoglobin 13.5 11.5-16.0 g/dL Hematocrit 42 35-52 % Mean Corpuscular Volume 98 80-99 fL Mean Corpuscular Hemoglobin 32 25-34 pg Mean Corpuscular Hemoglobin Concent 32 32-36 g/dL Red Cell Distribution Width 13.8 10.0-14.5 % Platelet Count 341 130-400 10^3/uL Mean Platelet Volume 8.8 L 9.0-12.2 fL Immature Granulocyte % (Auto) 0 % Neutrophils (%) (Auto) 79 H 42-75 % Lymphocytes (%) (Auto) 12 12-44 % Monocytes (%) (Auto) 8 0-12 % Eosinophils (%) (Auto) 1 0-10 % Basophils (%) (Auto) 1 0-10 % Neutrophils # (Auto) 4.9 1.8-7.8 10^3/uL Lymphocytes # (Auto) 0.8 L 1.0-4.0 10^3/uL Monocytes # (Auto) 0.5 0.0-1.0 10^3/uL Eosinophils # (Auto) 0.1 0.0-0.3 10^3/uL Basophils # (Auto) 0.0 0.0-0.1 10^3/uL Immature Granulocyte # (Auto) 0.0 0.0-0.1 10^3/uL Sodium Level 139 135-145 MMOL/L Potassium Level 4.3 3.6-5.0 MMOL/L Chloride Level 105 98-107 MMOL/L Carbon Dioxide Level 23 21-32 MMOL/L Anion Gap 11 5-14 MMOL/L Blood Urea Nitrogen 16 7-18 MG/DL Creatinine 0.69 0.60-1.30 MG/DL Estimat Glomerular Filtration Rate > 60 BUN/Creatinine Ratio 23 Glucose Level 99 70-105 MG/DL Calcium Level 9.4 8.5-10.1 MG/DL Corrected Calcium 9.7 8.5-10.1 MG/DL Total Bilirubin 0.4 0.1-1.0 MG/DL Aspartate Amino Transf (AST/SGOT) 14 5-34 U/L Alanine Aminotransferase (ALT/SGPT) 6 0-55 U/L Alkaline Phosphatase 203 H 40-136 U/L Total Protein 7.5 6.4-8.2 GM/DL Albumin 3.6 3.2-4.5 GM/DL Coronavirus 2019 ([facility]) Negative Negative My Orders Orders - NIKHIL VALERA MD Foot, Right, 3 View (10/11/20 09:21) General/Regular (10/11/20 Lunch) Cbc With Automated Diff (10/11/20 11:55) Comprehensive Metabolic Panel (10/11/20 11:55) Ua Culture If Indicated (10/11/20 11:55) Urine Culture (10/11/20 10:57) Covid 19 Inhouse Test (10/11/20 14:14) Vital Signs/I&O 10/11/20 09:00 Temp 36.4 Pulse 70 Resp 18 B/P (MAP) 122/72 (89) O2 Delivery Room Air Blood Pressure Mean: 89 Progress Progress Note : Time: 15:49 Progress Note Patient seen and evaluated in the emergency department today 84-year-old with a chief complaint of right forefoot pain. Evaluation today includes a physical exam, x-rays of the right foot, basic laboratory studies including CBC, BMP and urinalysis. Patient is quite debilitated and very apprehensive about returning home. She would like to be discharged to home but states that she has a significant amount of pain related to arthritis in her knees and now this pain in her foot. X-rays of the right foot showed that the patient had a distal impacted metatarsal head fracture. This was nondisplaced. Patient was placed in a postop shoe. Patient's pain has been controlled with qkou-zow-zkiumic Tylenol for the last couple of days at home. Patient is counseled on using the shoe at all times when she is ambulating. She also takes Tylenol for her severe arthritis. Patient was found incidentally to have microscopic hematuria on urinalysis. Her renal function is adequate her CBC is normal. In consultation with the patient and her family it was decided that the patient would be best served by entering a nursing facility for rehab, physical therapy occupational therapy and evaluation to see whether or not she is able to continue to live independently. community services coordinator was used to facilitate placement at [facility]. Patient will be discharged to [facility] today. It is recommended that the patient have close follow-up with her physician, Dr. Locke, in order to follow-up on the hematuria as well as the metatarsal fracture in her right foot. Diagnostic Imaging Diagonstic Imaging: Xray Plain Films/CT/US/NM/MRI: other (foot) Comments [facility], [place] NAME: DAMIEN ABERNATHY [facility] REC#: [id number] PT STATUS: REG ER : 1935 PHYSICIAN: NIKHIL VALERA MD ADMIT DATE: 10/11/20/ER Draft Date of Exam:10/11/20 FOOT, RIGHT, 3 VIEW HISTORY: Right forefoot pain, injury. Superimposed on chronic pain. COMPARISON: None TECHNIQUE: 3 views of the right foot FINDINGS: There is diffuse osteopenia. There is mild deformity at the 4th metatarsal neck. There are advanced degenerative changes in the midfoot, particularly the tarsometatarsal joints. There are degenerative changes throughout the distal interphalangeal joints and in the 2nd MTP joint. There is a small plantar calcaneal enthesophyte. There is a small ankle joint effusion. IMPRESSION: 1. Mild deformity at the 4th metatarsal neck. If pain localizes to this region, this could represent a mildly impacted fracture. 2. Advanced degenerative changes in the midfoot, particularly at the tarsometatarsal joints. 3. Small ankle joint effusion Dictated on workstation # [id number] Dict: 10/11/20 1052 Trans: 10/11/20 1059 [facility] [id number] Interpreted by: GHAZAL HENDERSON MD Electronically signed by: Departure Impression Primary Impression: Closed fracture of fourth metatarsal bone of right foot Qualified Codes: S92.344A - Nondisplaced fracture of fourth metatarsal bone, right foot, initial encounter for closed fracture Additional Impressions: Hematuria Qualified Codes: R31.9 - Hematuria, unspecified Arthritis Disposition: 01 HOME, SELF-CARE Condition: Stable Departure-Patient Inst. Decision time for Depature: 15:48 Referrals: ALCIDES LOCKE MD (PCP/Family) Primary Care Physician Patient Instructions: Foot Fracture (DC) Add. Discharge Instructions: Please follow-up with Dr. Locke within the next week to 10 days for your foot fracture. You will need to call his office for an appointment. Please use the walking shoe we have given you at all times when you are walking. Continue to take your Tylenol 1 tablet every 4-6 hours as needed for pain. Return to the emergency room for any fevers, abdominal pain, vomiting, increased pain in your foot or any other emergent concerning symptoms. Copy Copies To 1: ALCIDES LOCKE MD, KATHRYN M MD Oct 11, 2020 09:32
--- NOTE | 2020-10-11 10:59 | Diagnostic Imaging Report ---
HISTORY: Right forefoot pain, injury. Superimposed on chronic pain. COMPARISON: None TECHNIQUE: 3 views of the right foot FINDINGS: There is diffuse osteopenia. There is mild deformity at the 4th metatarsal neck. There are advanced degenerative changes in the midfoot, particularly the tarsometatarsal joints. There are degenerative changes throughout the distal interphalangeal joints and in the 2nd MTP joint. There is a small plantar calcaneal enthesophyte. There is a small ankle joint effusion. IMPRESSION: 1. Mild deformity at the 4th metatarsal neck. If pain localizes to this region, this could represent a mildly impacted fracture. 2. Advanced degenerative changes in the midfoot, particularly at the tarsometatarsal joints. 3. Small ankle joint effusion Dictated by: Dictated on workstation # [id number]
[2020-10-11 12:21] LABS: BILIRUBIN,URINE NEGATIVE (NEGATIVE); CLARITY,URINE CLEAR; COLOR,URINE YELLOW; GLUCOSE, URINE (UA) NEGATIVE (NEGATIVE); KETONES,URINE NEGATIVE (NEGATIVE); LEUKOCYTE ESTERASE ,URINE 2+ (NEGATIVE); NITRITE,URINE NEGATIVE (NEGATIVE); PH,URINE 7.5 (5-9); PROTEIN,URINE NEGATIVE (NEGATIVE)
[2020-10-11 12:37] LABS: BACTERIA,URINE FEW /HPF; RBC,URINE TNTC /HPF
[2020-10-11 12:41] LABS: BASOPHILS % (AUTO) 1 % (0-10); EOSINOPHILS # (AUTO) 0.1 10^3/uL (0.0-0.3); EOSINOPHILS % (AUTO) 1 % (0-10); HEMATOCRIT 42 % (35-52); HEMOGLOBIN 13.5 g/dL (11.5-16.0); LYMPHOCYTES # (AUTO) 0.8 10^3/uL (1.0-4.0); LYMPHOCYTES % (AUTO) 12 % (12-44); MEAN CORPUSCULAR HEMOGLOBIN 32 pg (25-34); MEAN CORPUSCULAR HGB CONC 32 g/dL (32-36); MEAN CORPUSCULAR VOLUME 98 fL (80-99); MEAN PLATELET VOLUME 8.8 fL (9.0-12.2); MONOCYTES # (AUTO) 0.5 10^3/uL (0.0-1.0); MONOCYTES % (AUTO) 8 % (0-12); NEUTROPHILS # (AUTO) 4.9 10^3/uL (1.8-7.8); NEUTROPHILS % (AUTO) 79 % (42-75); PLATELET COUNT 341 10^3/uL (130-400); WHITE BLOOD COUNT 6.2 10^3/uL (4.3-11.0)
[2020-10-11 13:10] LABS: ALANINE AMINOTRANSFERASE 6 U/L (0-55); ALBUMIN 3.6 GM/DL (3.2-4.5); ALKALINE PHOSPHATASE 203 U/L (40-136); BILIRUBIN,TOTAL 0.4 MG/DL (0.1-1.0); BUN/CREATININE RATIO 23; CALCIUM 9.4 MG/DL (8.5-10.1); CARBON DIOXIDE 23 MMOL/L (21-32); CHLORIDE 105 MMOL/L (98-107); CREATININE SERUM 0.69 MG/DL (0.60-1.30); GFR ESTIMATED > 60; GLUCOSE 99 MG/DL (70-105); POTASSIUM 4.3 MMOL/L (3.6-5.0); SODIUM 139 MMOL/L (135-145); TOTAL PROTEIN 7.5 GM/DL (6.4-8.2)
[2020-10-11 16:46] VITALS: BP 123/64
== END 2020-10-11 16:45 | disposition home or self-care (01) ==
LOC: EDUNIT# 09:00 → ER 09:01
DX: S92.344A Nondisplaced fracture of fourth metatarsal bone, right foot, initial encounter for closed fracture (principal); R31.9 Hematuria, unspecified; M17.0 Bilateral primary osteoarthritis of knee; M25.471 Effusion, right ankle; R60.0 Localized edema; K52.9 Noninfective gastroenteritis and colitis, unspecified; Z20.822 Contact with and (suspected) exposure to COVID-19; Z87.81 Personal history of (healed) traumatic fracture; Z98.890 Other specified postprocedural states; Z79.52 Long term (current) use of systemic steroids; Z88.1 Allergy status to other antibiotic agents; Z88.2 Allergy status to sulfonamides; Z88.3 Allergy status to other anti-infective agents; Z88.6 Allergy status to analgesic agent; Z88.8 Allergy status to other drugs, medicaments and biological substances; Z79.1 Long term (current) use of non-steroidal anti-inflammatories (NSAID); X50.1XXA Overexertion from prolonged static or awkward postures, initial encounter
CPT/HCPCS: 73630; 80053; 81000; 85025; 87077; 87088; 99283; U0002; 36415; 87635

== ENCOUNTER 2020-11-11 10:28 | Inpatient (IN) | payer MEDICARE ==
[~2020-11-11] VITALS: Ht 165 cm; Wt 60.9 kg
[2020-11-11] VITALS (7 sets, daily range): BP systolic 66–131; BP diastolic 44–71
[2020-11-11] MEDS ORDERED: LACTATED RINGERS 1,000 ML IV ONE ×3 (10:45→17:15)
[2020-11-11] MEDS ORDERED: cefTRIAXone FOR IV USE 1,000 MG in WATER (STERILE) FOR INJECTION 10 ML IV ONE (10:45)
--- NOTE | 2020-11-11 11:04 | ED General ---
General Stated Complaint: ULTER MENTAL STATUS Source of Information: Patient, EMS, Jail Records Exam Limitations: No Limitations History of Present Illness Date Seen by Provider: Nov 11, 2020 Time Seen by Provider: 10:30 Initial Comments The patient arrives to the ER by EMS from [facility] where she lives with chief complaint of 1 day worsening confusion. Yesterday she was started on Macrobid for UTI. She has history of urine cultures growing out E. coli pansens itive. She was at the custodial for rehab after a fall which broke her right metatarsal. She has no history of need for supplemental oxygen but EMS stated was very difficult to get a good oxygen sat above the mid 80s so they put her on 2 L. Patient's blood pressure was 82/54 by nursing staff when they examined the patient this morning. Concern was for urosepsis. The patient is very confused and states that she is concerned about loperamide being stuck in her teeth and does not contribute much other meaningful history. She says she is having some pain on the right side of her chest that is burning and very exquisitely sensit angelica to touch. The patient received her first Covid vaccine on October 27, 2015 days ago. Allergies and Home Medications Allergies Coded Allergies: nystatin (Verified Allergy, Mild, HIVES, 01/29/17) Sulfa (Sulfonamide Antibiotics) (Verified Allergy, Unknown, 03/10/19) amoxicillin (Verified Allergy, Unknown, 02/14/17) balsalazide (Verified Allergy, Unknown, 05/03/20) chlorhexidine (Verified Allergy, Unknown, HIVES, 01/29/17) clindamycin (Verified Allergy, Unknown, 02/14/17) dicyclomine (Verified Allergy, Unknown, 03/10/19) mesalamine (Verified Allergy, Unknown, 05/03/20) sulfamethoxazole (Unverified Allergy, Unknown, 05/12/14) trimethoprim (Unverified Allergy, Unknown, 05/12/14) Home Medications Ascorbic Acid/Collagen Hydr 1 Each Capsule, 1 EACH PO DAILY, (Reported) Bacillus Coagulans 1 Each Tab.chew, 1 EACH PO DAILY, (Reported) Budesonide 3 Mg Capdr...er, 3 MG PO PC Prescribed by: YOLA AKHTAR on 03/12/19 1110 Hydrocodone/Acetaminophen 1 Each Tablet, 0.5-1 TAB PO Q4H PRN for PAIN-MODERATE (5-7) Prescribed by: SEFERINO CEDILLO on 05/03/201815 Krill/Om3/Dha/Epa/Om6/Lip/Astx 1 Each Capsule, 1 EACH PO DAILY, (Reported) Chavaacidoph & Yue Dacostalactis 1 Each Capsule, 1 EACH PO TID Prescribed by: SEFERINO CEDILLO on 05/03/201816 Loperamide HCl 2 Mg Tablet, 2 MG PO TID PRN for DIAPER CHANGE, (Reported) Loratadine 10 Mg Tablet, 10 MG PO DAILY PRN for ALLERGIES, (Reported) Loratadine 10 Mg Tablet, 10 MG PO DAILY, (Reported) Patient Home Medication List Home Medication List Reviewed: Yes Review of Systems Review of Systems Constitutional: see HPI (History per patient, nursing staff, EMS and records); No chills, No diaphoresis EENTM: No ear discharge, No ear pain Respiratory: No cough, No short of breath Cardiovascular: chest pain; No edema Gastrointestinal: No abdominal pain, No nausea Genitourinary: see HPI; No discharge, No dysuria Musculoskeletal: see HPI, joint pain Skin: rash (Right anterior chest wall) Hematologic/Lymphatic: Anemia; Denies Blood Clots All Other Systems Reviewed Negative Unless Noted: Yes Past Kttbtaz-Lfczbu-Npknxf Hx Patient Social History Alcohol Use: Denies Use Smoking Status: Never a Smoker 2nd Hand Smoke Exposure: No Recent Hopitalizations: No Seasonal Allergies Seasonal Allergies: Yes Past Medical History Surgeries: Yes (RIGHT KNEE SURGERY (SCOPE) R hip fx) Adenoidectomy, Breast Respiratory: No Pneumonia Cardiac: Yes (dependent edema of legs) Chronic Edema/Swelling Neurological: No Genitourinary: No Gastrointestinal: Yes (FISSURE) Colitis, Hemorrhoids, Chronic Diarrhea Musculoskeletal: Yes (SPRAINED RT ANKLE 3 YRS. AGO AND WEARS BRACE TO RIGHT ANKLE. KNEE SCOPED) Chronic Back Pain Endocrine: No HEENT: Yes Hearing Impairment: Hard of Hearing Cancer: No Psychosocial: No Integumentary: No Blood Disorders: No Family Medical History No Pertinent Family Hx Physical Exam Vital Signs Vital Signs - First Documented 11/11/20 10:30 Temp 35.7 Pulse 92 Resp 18 B/P (MAP) 105/43 (63) Pulse Ox 4 O2 Delivery Nasal Cannula O2 Flow Rate 2.00 Capillary Refill : Height, Weight, BMI Height: 5'6.00" Weight: 97lbs. 0.0oz. [id number]; 18.00 BMI Method:Stated General Appearance: Mild Distress, Thin Eyes: Bilateral Eye Normal Inspection, Bilateral Eye PERRL, Bilateral Eye EOMI HEENT: PERRL/EOMI, TMs Normal, Normal ENT Inspection (Atraumatic head), Pharynx Normal; No Moist Mucous Membranes (Mildly dry oral mucosa) Neck: Full Range of Motion, Normal Inspection, Non Tender Respiratory: Lungs Clear, Normal Breath Sounds, No Accessory Muscle Use, No Respiratory Distress, Other (Her hands are very cool and her capillary refill is prolonged and oxygen saturations read in the upper 80s. 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 Ack. Understanding Breath Sounds per Auscultation: Clear Heart Sounds per Auscultation: Regular Airway Exam: Mouth opens >2 fingers Progress/Results/Core Measures Suspected Sepsis SIRS Temperature: Pulse: Respiratory Rate: Laboratory Tests 11/11/20 11:38: White Blood Count 16.8H Blood Pressure / Mean: 11/11/20 11:42: Lactic Acid Level 4.75*H Laboratory Tests 11/11/20 11:38: Creatinine 2.23H, INR Comment 1.0, Platelet Count 221, Total Bilirubin 0.5 Results/Orders Lab Results Laboratory Tests Test 11/11/20 11:05 11/11/20 11:29 11/11/20 11:38 11/11/20 11:42 Range/Units Urine Color YELLOW Urine Clarity SL CLOUDY Urine pH 5.0 5-9 Urine Specific [place] 1.025 H 1.016-1.022 Urine Protein 2+ H NEGATIVE Urine Glucose (UA) NEGATIVE NEGATIVE Urine Ketones TRACE H NEGATIVE Urine Nitrite NEGATIVE NEGATIVE Urine Bilirubin 1+ H NEGATIVE Urine Urobilinogen 0.2 < = 1.0 MG/DL Urine Leukocyte Esterase 2+ H NEGATIVE Urine RBC (Auto) 2+ H NEGATIVE Urine RBC NONE /HPF Urine WBC TNTC H /HPF Urine Crystals NONE /LPF Urine Bacteria FEW H /HPF Urine Casts NONE /LPF Urine Mucus NEGATIVE /LPF Urine Culture Indicated NO Blood Gas Puncture Site RT RAD Blood Gas Patient Temperature 35.8 Arterial Blood pH 7.42 7.37-7.43 Arterial Blood Partial Pressure CO2 28 L 35-45 MMHG Arterial Blood Partial Pressure O2 84 79-93 MMHG Arterial Blood HCO3 18 L 23-27 MMOL/L Arterial Blood Total CO2 18.9 L 21.0-31.0 MMOL/L Arterial Blood Oxygen Saturation 97 94-100 % Arterial Blood Base Excess -5.8 L -2.5-2.5 MMOL/L Jose Alberto Test YES-POS Blood Gas Ventilator Setting NO Blood Gas Inspired Oxygen 2 L White Blood Count 16.8 H 4.3-11.0 10^3/uL Red Blood Count 4.41 3.80-5.11 10^6/uL Hemoglobin 13.8 11.5-16.0 g/dL Hematocrit 42 35-52 % Mean Corpuscular Volume 94 80-99 fL Mean Corpuscular Hemoglobin 31 25-34 pg Mean Corpuscular Hemoglobin Concent 33 32-36 g/dL Red Cell Distribution Width 14.4 10.0-14.5 % Platelet Count 221 130-400 10^3/uL Mean Platelet Volume 9.8 9.0-12.2 fL Immature Granulocyte % (Auto) 1 % Neutrophils (%) (Auto) 87 H 42-75 % Lymphocytes (%) (Auto) 1 L 12-44 % Monocytes (%) (Auto) 1 0-12 % Eosinophils (%) (Auto) 10 0-10 % Basophils (%) (Auto) 0 0-10 % Neutrophils # (Auto) 14.6 H 1.8-7.8 10^3/uL Lymphocytes # (Auto) 0.2 L 1.0-4.0 10^3/uL Monocytes # (Auto) 0.2 0.0-1.0 10^3/uL Eosinophils # (Auto) 1.6 H 0.0-0.3 10^3/uL Basophils # (Auto) 0.0 0.0-0.1 10^3/uL Immature Granulocyte # (Auto) 0.1 0.0-0.1 10^3/uL Neutrophils % (Manual) 48 % Lymphocytes % (Manual) 3 % Monocytes % (Manual) 3 % Eosinophils % (Manual) 8 % Metamyelocytes % 2 % Band Neutrophils 36 % Toxic Granulation 1+ Blood Morphology Comment NORMAL Prothrombin Time 13.8 12.2-14.7 SEC INR Comment 1.0 0.8-1.4 Activated Partial Thromboplast Time 30 24-35 SEC Sodium Level 128 L 135-145 MMOL/L Potassium Level 4.4 3.6-5.0 MMOL/L Chloride Level 95 L 98-107 MMOL/L Carbon Dioxide Level 18 L 21-32 MMOL/L Anion Gap 15 H 5-14 MMOL/L Blood Urea Nitrogen 30 H 7-18 MG/DL Creatinine 2.23 H 0.60-1.30 MG/DL Estimat Glomerular Filtration Rate 21 BUN/Creatinine Ratio 13 Glucose Level 142 H 70-105 MG/DL Calcium Level 8.7 8.5-10.1 MG/DL Corrected Calcium 9.5 8.5-10.1 MG/DL Total Bilirubin 0.5 0.1-1.0 MG/DL Aspartate Amino Transf (AST/SGOT) 13 5-34 U/L Alanine Aminotransferase (ALT/SGPT) 6 0-55 U/L Alkaline Phosphatase 126 40-136 U/L B-Type Natriuretic Peptide 113.3 H <100.0 PG/ML Total Protein 6.0 L 6.4-8.2 GM/DL Albumin 3.0 L 3.2-4.5 GM/DL Lactic Acid Level 4.75 *H 0.50-2.00 MMOL/L Test 11/11/20 13:05 Range/Units Coronavirus 2019 (JAKE) Not Detected Not Detecte My Orders Orders - NANCY AMIN Cbc With Automated Diff (11/11/20 10:40) Comprehensive Metabolic Panel (11/11/20 10:40) Ua Culture If Indicated (11/11/20 10:40) Straight Cath For Spec.-Adult (11/11/20 10:40) Chest 1 View, Ap/Pa Only (11/11/20 10:40) Blood Culture (11/11/20 10:40) Sputum Culture (11/11/20 10:40) Urine Culture (11/11/20 10:40) Protime With Inr (11/11/20 10:40) Partial Thromboplastin Time (11/11/20 10:40) Ed Iv/Invasive Line Start (11/11/20 10:40) Ed Iv/Invasive Line Start (11/11/20 10:40) Vital Signs Adult Sepsis Patie Q15M (11/11/20 10:40) O2 (11/11/20 10:40) Remove Rings In Anticipation O (11/11/20 10:40) Lactic Acid Analyzer (11/11/20 10:40) Lactated Ringers (Lr 1000 Ml Iv Solution (11/11/20 10:45) Ceftriaxone For Iv Use (Rocephin For I (11/11/20 10:45) Acyclovir Capsule/Tablet (Zovirax Caps (11/11/20 11:15) Arterial Blood Gas (11/11/20 11:13) Manual Differential (11/11/20 11:38) Ed Iv/Invasive Line Start (11/11/20 12:07) Ns Iv 1000 Ml (Sodium Chloride 0.9%) (11/11/20 12:15) Loratadine Tablet (Claritin Tablet) (11/11/20 13:00) BNP (11/11/20 12:59) Covid 19 Inhouse Test (11/11/20 12:59) Medications Given in ED Current Medications Medications Dose Ordered Sig/Sabi Route Start Time Stop Time Status Last Admin Dose Admin Acyclovir 800 mg ONCE ONCE PO 11/11/20 11:15 11/11/20 11:16 DC 11/11/20 12:29 800 MG Ceftriaxone Sodium 1000 mg/ Sterile Water 10 ml @ 200 mls/hr ONCE ONCE IV 11/11/20 10:45 11/11/20 10:47 DC 11/11/20 11:37 200 MLS/HR Lactated Ringer's 1,000 ml @ 0 mls/hr Q0M ONCE IV 11/11/20 10:45 11/11/20 10:46 DC 11/11/20 11:37 1,000 MLS/HR Loratadine 10 mg ONCE ONCE PO 11/11/20 13:00 11/11/20 13:01 DC 11/11/20 13:55 10 MG Vital Signs/I&O 11/11/20 11/11/20 10:30 10:50 Temp 35.7 Pulse 92 Resp 18 B/P (MAP) 105/43 (63) Pulse Ox 4 89 O2 Delivery Nasal Cannula Nasal Cannula O2 Flow Rate 2.00 2.00 Capillary Refill : Progress Note #1: Time: 11:04 Progress Note Her rash appears to be shingles. However there are new evidence of trauma. Suspect she has a UTI not controlled with 1 day of antibiotics. Septic work-up based on her heart rate and suspicion for UTI as well as her acute encephalopathy. Acyclovir. Progress Note #2: Time: 14:18 Progress Note The patient's rash is expanded all over her whole body. It is macular, blanchable, erythema without pruritus. Suspect this may be related to the Rocephin since she has a stated amoxicillin allergy we will switch her to Levaquin. Loratadine Diagnostic Imaging Diagonstic Imaging: Xray Plain Films/CT/US/NM/MRI: chest Comments NAME: DAMIEN ABERNATHY [facility] REC#: [id number] PT STATUS: REG ER : 1935 PHYSICIAN: NANCY AMIN MD ADMIT DATE: 11/11/20/ER Draft Date of Exam:11/11/20 CHEST 1 VIEW, AP/PA ONLY Portable erect AP chest at 11:46. Indication: Right rib pain Both the heart and the central pulmonary vascularity do seem somewhat more prominent than noted on the prior exam of 05/03/2020. These findings do raise a question of early/mild pulmonary congestion. There are also small patchy areas of increased density in the right midlung, right lung base and left lower lobe. These findings may be related to mild pneumonia/atelectasis. There is no significant pleural effusion identified. The mediastinum is not widened. The osseous structures are intact. Impression: There is slight prominence of the heart and the central pulmonary vasculature when compared to the prior study, does raise a question of early/mild pulmonary congestion. There are patchy densities in the lungs, may also be related to mild pneumonia/atelectasis. A followup study would be recommended for continued evaluation. Dictated on workstation # [id number] Dict: 11/11/20 1205 Trans: 11/11/20 1214 CV [id number] Interpreted by: ROSELINE RAPHAEL MD Electronically signed by: Reviewed: Reviewed by Me Departure Communication (Admissions) Time/Spoke to Admitting Phy: 13:[address] Ventura and he agrees to accept the patient to the stepdown Impression Primary Impression: Sepsis Qualified Codes: A41.9 - Sepsis, unspecified organism; R65.21 - Severe sepsis with septic shock; G93.40 - Encephalopathy, unspecified Additional Impressions: UTI (urinary tract infection) Qualified Codes: N30.00 - Acute cystitis without hematuria Delirium due to another medical condition Disposition: ADMITTED INPATIENT Condition: Stable Admissions Decision to Admit Reason: Admit from ER (General) Decision to Admit/Date: Nov 11, 2020 Time/Decision to Admit Time: 12:30 Departure-Patient Inst. Referrals: ALCIDES LOCKE MD (PCP/Family) Primary Care Physician NANCY AMIN Nov 11, 2020 11:04
[2020-11-11] MEDS ORDERED: ACYCLOVIR 400 MG TABLET (ZOVIRAX) PO ONE (11:15)
[2020-11-11 11:22] LABS: BILIRUBIN,URINE 1+ (NEGATIVE); CLARITY,URINE SL CLOUDY; COLOR,URINE YELLOW; GLUCOSE, URINE (UA) NEGATIVE (NEGATIVE); KETONES,URINE TRACE (NEGATIVE); LEUKOCYTE ESTERASE ,URINE 2+ (NEGATIVE); NITRITE,URINE NEGATIVE (NEGATIVE); PROTEIN,URINE 2+ (NEGATIVE)
[2020-11-11 11:40] LABS: ABG BASE EXCESS -5.8 MMOL/L (-2.5-2.5); ABG OXYGEN SATURATION 97 % (94-100); ABG PCO2 28 MMHG (35-45); ABG PH 7.42 (7.37-7.43); ABG PO2 84 MMHG (79-93); ABG TCO2 18.9 MMOL/L (21.0-31.0)
[2020-11-11 11:41] LABS: ALLENS TEST YES-POS; INSPIRED O2 2 L; PATIENT TEMP 35.8; VENTILATOR NO
[2020-11-11 11:53] LABS: HEMATOCRIT 42 % (35-52); HEMOGLOBIN 13.8 g/dL (11.5-16.0); MEAN CORPUSCULAR HGB CONC 33 g/dL (32-36); MONOCYTES % (AUTO) 1 % (0-12)
[2020-11-11 11:55] LABS: BASOPHILS % (AUTO) 0 % (0-10); EOSINOPHILS # (AUTO) 1.6 10^3/uL (0.0-0.3); EOSINOPHILS % (AUTO) 10 % (0-10); LYMPHOCYTES # (AUTO) 0.2 10^3/uL (1.0-4.0); LYMPHOCYTES % (AUTO) 1 % (12-44); MEAN CORPUSCULAR HEMOGLOBIN 31 pg (25-34); MEAN CORPUSCULAR VOLUME 94 fL (80-99); MEAN PLATELET VOLUME 9.8 fL (9.0-12.2); MONOCYTES # (AUTO) 0.2 10^3/uL (0.0-1.0); NEUTROPHILS # (AUTO) 14.6 10^3/uL (1.8-7.8); NEUTROPHILS % (AUTO) 87 % (42-75); PLATELET COUNT 221 10^3/uL (130-400); WHITE BLOOD COUNT 16.8 10^3/uL (4.3-11.0)
[2020-11-11 11:55] LABS: BACTERIA,URINE FEW /HPF; WBC,URINE TNTC /HPF
[2020-11-11 12:00] LABS: POTASSIUM 4.4 MMOL/L (3.6-5.0)
[2020-11-11 12:01] LABS: CALCIUM 8.7 MG/DL (8.5-10.1)
[2020-11-11 12:04] LABS: BILIRUBIN,TOTAL 0.5 MG/DL (0.1-1.0)
[2020-11-11 12:06] LABS: CREATININE SERUM 2.23 MG/DL (0.60-1.30)
[2020-11-11 12:08] LABS: PROTHROMBIN TIME PATIENT 13.8 SEC (12.2-14.7)
--- NOTE | 2020-11-11 12:14 | Diagnostic Imaging Report ---
Portable erect AP chest at 11:46. Indication: Right rib pain Both the heart and the central pulmonary vascularity do seem somewhat more prominent than noted on the prior exam of 05/03/2020. These findings do raise a question of early/mild pulmonary congestion. There are also small patchy areas of increased density in the right midlung, right lung base and left lower lobe. These findings may be related to mild pneumonia/atelectasis. There is no significant pleural effusion identified. The mediastinum is not widened. The osseous structures are intact. Impression: There is slight prominence of the heart and the central pulmonary vasculature when compared to the prior study, does raise a question of early/mild pulmonary congestion. There are patchy densities in the lungs, may also be related to mild pneumonia/atelectasis. A followup study would be recommended for continued evaluation. Dictated by: Dictated on workstation # [id number]
[2020-11-11] MEDS ORDERED: NS IV 1000 ML 1,000 ML IV SCH (12:15)
[2020-11-11] MEDS ORDERED: LORATADINE (CLARITIN) 10 MG TAB PO ONE (13:00)
[2020-11-11 13:12] LABS: BAND NEUTROPHILS 36 %; EOSINOPHILS % (MANUAL) 8 %; LYMPHOCYTES % (MANUAL) 3 %; MONOCYTES % (MANUAL) 3 %; NEUTROPHILS % (MANUAL) 48 %
[2020-11-11 13:13] LABS: METAMYELOCYTES % 2 %; RBC MORPH NORMAL; TOXIC GRANULATION/VACUOLAZATIO 1+
[2020-11-11] MEDS ORDERED: ONDANSETRON 4 MG/2 ML (SDV) Z0FRAN IV PRN ×2 (15:00→15:45)
[2020-11-11] MEDS ORDERED: HYDROcodone/APAP 5 MG/325 MG (LORTAB) TAB PO PRN (15:00)
[2020-11-11] MEDS ORDERED: CIPROFLOXACIN IV 400MG/200ML 200 ML IV SCH (15:00)
[2020-11-11] MEDS ORDERED: CATHETER FLUSH 10 ML SYR IV PRN (15:00)
[2020-11-11] MEDS: LACTATED RINGERS 1,000 ML IV SCH (15:24)
[2020-11-11] MEDS ORDERED: polyethylene glycoL POWDER 17 GM (MIRALAX) PACK PO PRN (15:45)
[2020-11-11] MEDS ORDERED: ANTACID SUSP 30 ML UDC (MYLANTA) PO PRN (15:45)
[2020-11-11] MEDS ORDERED: BISACODYL 10 MG SUPP (DULCOLAX) PR PRN (15:45)
[2020-11-11] MEDS ORDERED: MELATONIN 3 MG TABLET PO PRN (15:45)
[2020-11-11] MEDS: dilTIAZem DRIP PRE-MIX 125 ML IV SCH (19:20)
[2020-11-11] MEDS ORDERED: NS IV 1000 ML 1,000 ML ONE (19:22)
[2020-11-11] MEDS ORDERED: NOREPINEPHRINE 8 MG/250 ML 250 ML IV ONE (20:05)
--- NOTE | 2020-11-11 20:14 | Diagnostic Imaging Report ---
EXAMINATION: Chest 1 view. HISTORY: Central line placement. COMPARISON: 11/11/2020 at 11:00 a.m. FINDINGS: There has been placement of a left PICC with the tip overlying the mid SVC. There is continued cardiomegaly with increased central pulmonary vessel congestion and pulmonary edema. No large pleural effusion or pneumothorax. IMPRESSION: 1. Cardiomegaly with increasing pulmonary edema. 2. Left PICC with the tip overlying the mid SVC. Dictated by: Dictated on workstation # [id number]
[2020-11-11] MEDS: NOREPINEPHRINE 8 MG/250 ML 250 ML IV SCH (20:29)
--- NOTE | 2020-11-11 20:31 | CONSULTATION REPORT ---
DATE OF SERVICE: 11/11/2020 ATTENDING PRIMARY CARE PHYSICIAN: Dr. Michael Smith. HISTORY OF PRESENT ILLNESS: The patient is an 85-year-old female who was brought to the Emergency Department from [facility] due to a 1-day history of worsening confusion. She was found to have urinary obstruction and was started on Macrobid. Current urine cultures did grow out E. coli. Long-Term states that during rehabilitation, she did have a fall and did break her right metatarsal. Since that time, she has had more difficult time with ambulation. She has also required supplemental oxygen. She was also found to be hypotensive with a blood pressure of 82/54 and concerns for urosepsis. Since admission, she has also developed atrial fibrillation as well as rapid ventricular response and continues to be hypotensive. She will require a central venous catheter for multiple medications, IV fluids as well as possible vasopressors and antiarrhythmics. PAST MEDICAL HISTORY: History of pneumonia, bilateral lower extremity edema, history of colitis, and degenerative joint disease. PAST SURGICAL HISTORY: Right knee arthroscopy, right hip ORIF and anal fissurectomy. ALLERGIES: NYSTATIN, SULFA, AMOXICILLIN, BALSALAZIDE, CHLORHEXIDINE, CLINDAMYCIN, DOXYCYCLINE, MESALAMINE, SULFAMETHOXAZOLE, TRIMETHOPRIM. MEDICATIONS: Budesonide 3 mg daily, hydrocodone p.r.n., and loperamide p.r.n. SOCIAL HISTORY: Negative smoke, negative alcohol. FAMILY HISTORY: Noncontributory. VITAL SIGNS: Temperature 37.7, blood pressure 105/50, pulse 91, respirations 19, pulse ox 95% on 2 liters nasal cannula. REVIEW OF SYSTEMS: A thin-appearing female, who is confused and does repeat sentences. She does not report any shortness of breath or difficulty breathing. No chest pain, palpitations, diaphoresis. No nausea, vomiting with a longstanding history of diarrhea, no red blood per rectum, no dark tarry stools. No fever or chills, no recent inadvertent weight loss. All other review of systems negative. PHYSICAL EXAMINATION: CHEST: Few scattered rales bilaterally. HEART: Regular, no murmurs. EXTREMITIES: No lower extremity edema, negative Homans sign. HEENT: No scleral icterus. NECK: No cervical lymphadenopathy. ABDOMEN: Soft, nontender, nondistended. SKIN: Warm, dry. LABORATORY DATA: WBC 16.8, hemoglobin 13.8, hematocrit 42, and platelets 221. Lactic acid 3.99. BUN 30, creatinine 2.23. Urinalysis - 2+ leukocyte esterase, positive for bacteria. ASSESSMENT AND PLAN: An 85-year-old female with urosepsis and development of atrial fibrillation with rapid ventricular response. She will likely need vasopressors as well as multiple IV medications including antiarrhythmics and we will proceed with placement of a central venous catheter. Job ID: [id number] DocumentID: [id number] Dictated Date: 11/11/2020 20:18:18 Blue Leather Setter Date: 11/11/2020 20:31:10 Dictated By: BEBETO GAMBLE MD
--- NOTE | 2020-11-11 20:59 | OPERATIVE REPORT ---
DATE OF SERVICE: 11/11/2020 ATTENDING PRIMARY CARE PHYSICIAN: Dr. Michael Smith. PREOPERATIVE DIAGNOSES: Urosepsis, hypotension, atrial fibrillation with rapid ventricular response. POSTOPERATIVE DIAGNOSES: Urosepsis, hypotension, atrial fibrillation with rapid ventricular response. PROCEDURE: Placement of left subclavian central venous catheter. SURGEON: Bebeto Gamble MD ANESTHESIA: Local. ESTIMATED BLOOD LOSS: Minimal. FINDINGS: Catheter tip at superior vena caval - right atrial junction. DISPOSITION: The patient tolerated the procedure well. INDICATIONS: The patient is an 85-year-old female brought over from [facility] due to confusion as well as hypotension. She was found to have urinary tract infection and was started on Macrobid; however, has had declining blood pressure as well as confusion. She was admitted to [facility] where she was again found to be hypotensive and she also developed atrial fibrillation as well as rapid ventricular response and continued to be hypotensive. She will require a central venous catheter for multiple medications including vasopressors as well as antiarrhythmics. DESCRIPTION OF PROCEDURE: The chest and neck were prepped and draped in standard surgical fashion. A 1% lidocaine was then used to anesthetize the left subclavian region. The left subclavian vein was then cannulated with drawing of venous blood and the guidewire was then inserted without any resistance. The cannulating needle removed and a skin incision made using a #11 blade and a tract was then created using a venous dilator. Through this opening, a triple lumen central venous catheter was placed over the guidewire using the Seldinger technique. Guidewire was removed and all three ports katelin venous blood and saline pushed in without any resistance. The catheter was then sutured to the skin using interrupted 3-0 silk sutures. Catheter was then cleaned and covered with Op-Site. The patient tolerated the procedure well. Postprocedure, chest x-ray showed adequate placement and the catheter may be used at any time. Job ID: [id number] DocumentID: [id number] Dictated Date: 11/11/2020 20:21:20 Wire Drawing Die Maker Date: 11/11/2020 20:58:42 Dictated By: BEBETO GAMBLE MD
[2020-11-11] MEDS ORDERED: ENOXAPARIN 30 MG/0.3 ML (LOVENOX) SYR ONE (23:45)
[2020-11-12] VITALS (25 sets, daily range): BP systolic 81–130; BP diastolic 51–88
[2020-11-12] MEDS ORDERED: ENOXAPARIN 30 MG/0.3 ML (LOVENOX) SYR SC ONE
[2020-11-12] MEDS: LACTATED RINGERS 1,000 ML IV SCH ×3 (00:01→22:38)
[2020-11-12] MEDS: ACETAMINOPHEN 325 MG TABLET PO PRN (02:11)
[2020-11-12 02:33] LABS: BASOPHILS % (AUTO) 0 % (0-10); EOSINOPHILS # (AUTO) 2.1 10^3/uL (0.0-0.3); EOSINOPHILS % (AUTO) 14 % (0-10); HEMATOCRIT 34 % (35-52); HEMOGLOBIN 11.5 g/dL (11.5-16.0); LYMPHOCYTES # (AUTO) 0.4 10^3/uL (1.0-4.0); LYMPHOCYTES % (AUTO) 3 % (12-44); MEAN CORPUSCULAR HEMOGLOBIN 32 pg (25-34); MEAN CORPUSCULAR HGB CONC 34 g/dL (32-36); MEAN CORPUSCULAR VOLUME 94 fL (80-99); MONOCYTES # (AUTO) 0.4 10^3/uL (0.0-1.0); MONOCYTES % (AUTO) 3 % (0-12); NEUTROPHILS # (AUTO) 12.1 10^3/uL (1.8-7.8); NEUTROPHILS % (AUTO) 80 % (42-75); PLATELET COUNT 176 10^3/uL (130-400); WHITE BLOOD COUNT 15.1 10^3/uL (4.3-11.0)
[2020-11-12 02:44] LABS: POTASSIUM 3.9 MMOL/L (3.6-5.0)
[2020-11-12 02:45] LABS: CALCIUM 7.4 MG/DL (8.5-10.1)
[2020-11-12 02:49] LABS: CREATININE SERUM 2.06 MG/DL (0.60-1.30); PHOSPHORUS 2.9 MG/DL (2.3-4.7)
[2020-11-12 02:51] LABS: MAGNESIUM 1.2 MG/DL (1.6-2.4)
[2020-11-12] MEDS: POTASSIUM CL 10MEQ/50ML IVPB 50 ML IV SCH (04:31)
[2020-11-12] MEDS: KCL 20 MEQ TAB (K-DUR) PO SCH (04:31)
[2020-11-12] MEDS: MAGNESIUM 1 GM/100 ML IVPB 100 ML IV SCH ×4 (04:32→15:25)
--- NOTE | 2020-11-12 06:22 | Diagnostic Imaging Report ---
EXAMINATION: Portable erect AP chest at 3:05 AM INDICATION: Sepsis, respiratory distress The appearance of the chest has improved somewhat since the prior exam of 11/11/2020 as the central pulmonary vascularity and interstitial densities in both lungs do not seem as prominent. There still appears to be an element of at least mild pulmonary congestion present with associated atelectasis/infiltrate in each lung base and small effusions. The heart is stable in size. The mediastinum is not widened. The osseous structures are intact. The central venous catheter on the left is stable in position. IMPRESSION: The appearance of the chest has improved as there is less pulmonary congestion than noted on the previous exam. A follow-up study would be recommended for continued evaluation. Dictated by: Dictated on workstation # [id number]
[2020-11-12] MEDS: NOREPINEPHRINE 8 MG/250 ML 250 ML IV SCH (08:27)
[2020-11-12] MEDS ORDERED: PHARMACY TO DOSE SQ SCH (09:00)
[2020-11-12] MEDS ORDERED: ENOXAPARIN 30 MG/0.3 ML (LOVENOX) SYR SC SCH ×2 (09:00→14:00)
--- NOTE | 2020-11-12 13:47 | History & Physical-Hospitalist ---
History of Present Illness HPI/Chief Complaint Kriss Kaiser is an 85-year-old female with history of colitis, hip fracture, seasonal allergies, debility currently at [facility], who presented with confusion. She denies any fevers or chills. She denies any shortness of breath or cough. She denies any dysuria or urinary symptoms. She denies any abdominal pain, nausea, vomiting, or diarrhea. She says she had no idea that she was sick. She is oriented to person, place, and date at the time of my examination. Source: patient Exam Limitations: no limitations Date Seen 11/12/20 Time Seen by a Provider: 09:55 Attending Physician London Smith MD PCP Michael Smith MD Referring Physician Date of Admission Nov 11, 2020 at 14:25 Home Medications & Allergies Home Medications Reviewed patient Home Medication Reconciliation performed by pharmacy medication reconciliations apprentice technician and/or nursing. Patients Allergies have been reviewed. Allergies Allergies Coded Allergies nystatin (Verified Allergy, Mild, HIVES, 01/29/17) Sulfa (Sulfonamide Antibiotics) (Verified Allergy, Unknown, 03/10/19) amoxicillin (Verified Allergy, Unknown, 02/14/17) balsalazide (Verified Allergy, Unknown, 05/03/20) chlorhexidine (Verified Allergy, Unknown, HIVES, 01/29/17) clindamycin (Verified Allergy, Unknown, 02/14/17) dicyclomine (Verified Allergy, Unknown, 03/10/19) mesalamine (Verified Allergy, Unknown, 05/03/20) sulfamethoxazole (Unverified Allergy, Unknown, 05/12/14) trimethoprim (Unverified Allergy, Unknown, 05/12/14) Patient Social History Tobacco Use?: No Smoking Status: Never a Smoker Substance use?: No Alcohol Use?: No Pt stated abuse/neglect: No Immunizations Up To Date Influenza Vaccine Up-to-Date: Yes; Up-to-Date Current Status status: No Do you have an Advance Directi: No Communicates: Verbally Primary Language: Belizean Preferred Spoken Language: Belizean Is interpretation needed?: No Past Medical History Colitis Hip fracture Seasonal allergies Family Medical History Family Hx: Noncontributory Review of Systems Constitutional: no symptoms reported EENTM: no symptoms reported Respiratory: no symptoms reported Cardiovascular: no symptoms reported Gastrointestinal: no symptoms reported Genitourinary: no symptoms reported Musculoskeletal: no symptoms reported Skin: no symptoms reported Psychiatric/Neurological: No Symptoms Reported Physical Exam Physical Exam Vital Signs Vital Signs - First Documented 11/11/20 10:30 Temp 35.7 Pulse 92 Resp 18 B/P (MAP) 105/43 (63) Pulse Ox 4 O2 Delivery Nasal Cannula O2 Flow Rate 2.00 Capillary Refill : Less Than 3 Seconds Height, Weight, BMI Height: 5'6.00" Weight: 97lbs. 0.0oz. 43.969839to; 19.83 BMI Method:Stated General Appearance: No Apparent Distress, Chronically ill, Thin HEENT: PERRL/EOMI, Pharynx Normal Neck: Normal Inspection, Supple Respiratory: Lungs Clear, Normal Breath Sounds, No Respiratory Distress Cardiovascular: Regular Rate, Rhythm, No Edema, No Murmur Gastrointestinal: Normal Bowel Sounds, Non Tender, Soft Extremity: Normal Inspection, Non Tender, No Pedal Edema Neurologic/Psychiatric: Alert, Oriented x3, No Motor/Sensory Deficits, Normal Mood/Affect Skin: Warm/Dry, Erythema Lymphatic: No Adenopathy Results Results/Procedures Labs Laboratory Tests 11/11/20 11:38 11/12/20 02:20 Patient resulted labs reviewed. Imaging: Reviewed Imaging Report Assessment/Plan Admission Diagnosis Septic shock due to UTI Admission Status: Inpatient Order (span 2 midnights) Reason for Inpatient Admission: Septic shock Assessment and Plan Septic shock due to UTI Lactic acidosis Acute kidney injury likely due to ATN Advanced age Poor prognosis SIRS+ with leukocytosis and tachycardia Creatinine >2, baseline <1 Lactic acid >4, improved and normalized with fluids Central line placed by surgery, started on pressors Procalcitonin >9 Blood cultures pending UA consistent with UTI Started on antibiotics outpatient prior to admission Urine culture with E coli Await final ID and susceptibilities Started on Ciprofloxacin Transition to Merrem IV fluids Discussed code status, patient requests full code Atrial fibrillation with RVR Cardiology consulted, appreciate assistance Started on IV Cardizem Lovenox Hyponatremia Hypomagnesemia Monitor and correct electrolytes as needed Critical Care Critically Ill Patient Diagnosis/Problems Diagnosis/Problems (1) Septic shock Status: Acute (2) Lactic acidosis Status: Acute (3) HANDY (acute kidney injury) Status: Acute (4) ATN (acute tubular necrosis) Status: Acute (5) Atrial fibrillation with RVR Status: Acute (6) Hyponatremia Status: Acute (7) Hypomagnesemia Status: Acute LONDON SMITH MD Nov 12, 2020 13:47
[2020-11-12] MEDS ORDERED: ENOXAPARIN 100 MG/1 ML (LOVENOX) SYR SC SCH (14:00)
[2020-11-12] MEDS ORDERED: MEROPENEM 1,000 MG in WATER (STERILE) FOR INJECTION 20 ML IV SCH (14:00)
--- NOTE | 2020-11-12 14:14 | Consultation-Cardiology ---
HPI-Cardiology Cardiology Consultation: Date of Consultation 11/12/20 Date of Admission Attending Physician Maria Antonia Ventura MD Admitting Physician Michael Smith MD Consulting Physician Bronwyn TIJERINA MD HPI: Time Seen by a Provider: 13:00 Chief Complaint: Atrial fibrillation with RVR This is a 85-year-old lady who presented from [facility]. She presented with confusion and was diagnosed with septic shock due to UTI. She has history of colitis, frequent falls, hip fracture and debility. She was also found to have atrial fibrillation with RVR overnight, therefore started on Cardizem infusion and transferred to the ICU. On my examination this morning the patient is very comfortable and not complaining of any cardiac complaints. She denies active smoking. Pertinent family history is negative. 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, No ear discharge, No ear pain, No nasal drainage, No ulcerations Respiratory: No no symptoms reported; As described under HPI; No As described under HPI, No cough, No orthopnea, No shortness of breath, No SOB with excertion Cardiovascular: No no symptoms reported; As described under HPI; No As described under HPI, No chest pain, No edema, No irregular heart rate, No lightheadedness, No palpitations Gastrointestinal: No no symptoms reported, No As described under HPI, No abdomen distended, No abdominal pain, No blood streaked bowels, No constipation, No diarrhea, No nausea, No vomiting, No stool coloration changes Genitourinary: No As described under HPI, No burning, No dysuria, No discharge, No frequency, No flank pain, No hematuria, No urgency : Yes : No Skin: No rash, No skin related problems, No ulcerations Psychiatric/Neurological: No anxiety, No depression, No seizure, No focal weakness, No syncope Hematologic: No bleeding abnormalities All Other Systems Reviewed Negative Unless Noted: Yes ACI-Qzfndk-Jiojlk Hx Patient Social History Smoking Status: Never a Smoker 2nd Hand Smoke Exposure: No Have you traveled recently?: No Alcohol Use?: No Pt feels they are or have been: No Immunizations Up To Date Date of Influenza Vaccine: May 19, 2020 Past Medical History PMH As described under Assessment. Allergies and Home Medications Allergies Coded Allergies: nystatin (Verified Allergy, Mild, HIVES, 01/29/17) Sulfa (Sulfonamide Antibiotics) (Verified Allergy, Unknown, 03/10/19) amoxicillin (Verified Allergy, Unknown, 02/14/17) balsalazide (Verified Allergy, Unknown, 05/03/20) chlorhexidine (Verified Allergy, Unknown, HIVES, 01/29/17) clindamycin (Verified Allergy, Unknown, 02/14/17) dicyclomine (Verified Allergy, Unknown, 03/10/19) mesalamine (Verified Allergy, Unknown, 05/03/20) sulfamethoxazole (Unverified Allergy, Unknown, 05/12/14) trimethoprim (Unverified Allergy, Unknown, 05/12/14) Home Medications Ascorbic Acid/Collagen Hydr 1 Each Capsule, 1 EACH PO DAILY, (Reported) Bacillus Coagulans 1 Each Tab.chew, 1 EACH PO DAILY, (Reported) Budesonide 3 Mg Capdr...er, 3 MG PO PC Prescribed by: YOLA AKHTAR on 03/12/19 1110 Hydrocodone/Acetaminophen 1 Each Tablet, 0.5-1 TAB PO Q4H PRN for PAIN-MODERATE (5-7) Prescribed by: SEFERINO CEDILLO on 05/03/201815 Krill/Om3/Dha/Epa/Om6/Lip/Astx 1 Each Capsule, 1 EACH PO DAILY, (Reported) L.acidoph & Paracasei,B.lactis 1 Each Capsule, 1 EACH PO TID Prescribed by: SEFERINO CEDILLO on 05/03/201816 Loperamide HCl 2 Mg Tablet, 2 MG PO TID PRN for DIAPER CHANGE, (Reported) Loratadine 10 Mg Tablet, 10 MG PO DAILY PRN for ALLERGIES, (Reported) Loratadine 10 Mg Tablet, 10 MG PO DAILY, (Reported) Patient Home Medication List Home Medication List Reviewed: Yes Physical Exam-Cardiology Physical Exam Vital Signs/I&O 11/12/20 11/12/20 11/12/2011/12/21 03:00 04:00 05:00 05:00 Pulse 66 69 68 Resp 18 18 16 B/P (MAP) 108/59 (75) 117/57 (77) 105/59 (74) Pulse Ox 91 92 96 93 O2 Delivery Nasal Cannula Nasal Cannula Room Air Nasal Cannula O2 Flow Rate 2.00 2.00 2.00 11/12/20 11/12/20 11/12/20 11/12/20 06:00 07:00 07:00 07:17 Temp 36.9 Pulse 74 70 68 Resp 14 17 B/P (MAP) 112/55 (74) 116/52 (73) Pulse Ox 93 93 O2 Delivery Nasal Cannula Nasal Cannula O2 Flow Rate 2.00 2.00 11/12/20 11/12/20 11/12/20 11/12/20 07:27 08:00 08:27 08:30 Pulse 72 70 Resp 17 B/P (MAP) 124/57 (79) 97/55 Pulse Ox 92 96 O2 Delivery Nasal Cannula Room Air O2 Flow Rate 2.00 2.00 11/12/20 11/12/20 11/12/20 11/12/20 09:00 10:00 11:00 11:09 Temp 37.0 Pulse 71 72 77 Resp 15 13 14 B/P (MAP) 110/88 (95) 122/56 (78) 130/60 (83) O2 Delivery Nasal Cannula Nasal Cannula Nasal Cannula O2 Flow Rate 2.00 2.00 2.00 11/12/20 00:00 Intake Total 1000 ml Output Total 600 ml Balance 400 ml Capillary Refill : Less Than 3 Seconds Constitutional: appears stated age, AAO x 3; No apparent distress; well- developed, well-nourished HEENT: PERRL; No discharge; hearing is well preserved, oral hygience is good; No ulceration, No xanthelasmas are seen Neck: No carotid bruit; carotid pulses are 2 + bilaterally Respiratory: chest is bilaterally symmetric, lungs clear to auscultation Cardiovascular: regular rate-rhythm, S1 and S2 Gastrointestinal: soft, audible bowel sounds; No spleenomegaly Rectal: deferred Extremities: No clubbing, No cyanosis; no lower extremity edema bilateral; No significant edema Neurologic/Psychiatric: no motor/sensory deficits, alert, normal mood/affect, oriented x 3, power is 5/5 both on sides Skin: normal color; No rash, No ulcerations Data Review Labs Laboratory Tests 11/11/20 17:44: Lactic Acid Level 3.99*H 11/11/20 20:10: Lactic Acid Level 1.86 11/12/20 02:20: White Blood Count 15.1H, Red Blood Count 3.60L, Hemoglobin 11.5, Hematocrit 34L, Mean Corpuscular Volume 94, Mean Corpuscular Hemoglobin 32, Mean Corpuscular Hemoglobin Concent 34, Red Cell Distribution Width 14.2, Platelet Count 176, Mean Platelet Volume 9.0, Immature Granulocyte % (Auto) 1, Neutrophils (%) (Auto) 80H, Lymphocytes (%) (Auto) 3L, Monocytes (%) (Auto) 3, Eosinophils (%) (Auto) 14H, Basophils (%) (Auto) 0, Neutrophils # (Auto) 12.1H, Lymphocytes # (Auto) 0.4L, Monocytes # (Auto) 0.4, Eosinophils # (Auto) 2.1H, Basophils # (Auto) 0.0, Immature Granulocyte # (Auto) 0.1, Sodium Level 129L, Potassium Level 3.9, Chloride Level 102, Carbon Dioxide Level 17L, Anion Gap 10, Blood Urea Nitrogen 30H, Creatinine 2.06H, Estimat Glomerular Filtration Rate 23, BUN/Creatinine Ratio 15, Glucose Level 132H, Calcium Level 7.4L, Phosphorus Level 2.9, Magnesium Level 1.2L Microbiology 11/11/20 Urine Culture - Preliminary, Resulted Escherichia coli ECG Impression ECG Initial ECG Rhythm: Normal Sinus Initial ECG Impression: Normal A/P-Cardiology Assessment/Admission Diagnosis Septic shock, UTI, Debility, Atrial fibrillation with RVR, Frequent falls Plan Defer treatment of UTI sepsis, debility to the primary team. Atrial fibrillation with RVR, was started on Cardizem infusion. 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 She was given Lovenox yesterday. In my opinion she is a poor candidate for oral anticoagulation therapy since she has had recurrent falls in the last few weeks even in the [facility] resulting in fracture. Therefore continue low-dose DVT prophylaxis Lovenox during the hospitalization. Patient is currently in sinus rhythm therefore Cardizem has been held. Thank you for your consultation. Please call me if you have any questions. Lilo Tijerina MD, FACP, FACC, FSCAI, FHRS, CCDS Interventional Cardiology Cardiac Electrophysiology Vascular Medicine and Endovascular Interventions Bronwyn TIJERINA MD Nov 12, 2020 14:14
[2020-11-12] MEDS: MEROPENEM 500 MG/SWFI 10 ML IV PUSH IV SCH ×2 (15:24)
[2020-11-12] MEDS: dilTIAZem DRIP PRE-MIX 125 ML IV SCH (19:50)
[2020-11-13] VITALS (24 sets, daily range): BP systolic 88–115; BP diastolic 43–92
[2020-11-13] MEDS: MEROPENEM 500 MG/SWFI 10 ML IV PUSH IV SCH ×4 (03:20→14:53)
[2020-11-13 03:38] LABS: BASOPHILS % (AUTO) 0 % (0-10); EOSINOPHILS # (AUTO) 1.8 10^3/uL (0.0-0.3); EOSINOPHILS % (AUTO) 20 % (0-10); HEMATOCRIT 31 % (35-52); HEMOGLOBIN 10.1 g/dL (11.5-16.0); LYMPHOCYTES # (AUTO) 0.4 10^3/uL (1.0-4.0); LYMPHOCYTES % (AUTO) 5 % (12-44); MEAN CORPUSCULAR HEMOGLOBIN 31 pg (25-34); MEAN CORPUSCULAR HGB CONC 33 g/dL (32-36); MEAN CORPUSCULAR VOLUME 94 fL (80-99); MEAN PLATELET VOLUME 9.5 fL (9.0-12.2); MONOCYTES # (AUTO) 0.3 10^3/uL (0.0-1.0); MONOCYTES % (AUTO) 4 % (0-12); NEUTROPHILS # (AUTO) 6.4 10^3/uL (1.8-7.8); NEUTROPHILS % (AUTO) 71 % (42-75); PLATELET COUNT 132 10^3/uL (130-400)
[2020-11-13 03:58] LABS: PHOSPHORUS 2.7 MG/DL (2.3-4.7)
[2020-11-13 03:59] LABS: CREATININE SERUM 2.34 MG/DL (0.60-1.30)
[2020-11-13 04:01] LABS: MAGNESIUM 2.5 MG/DL (1.6-2.4)
[2020-11-13 04:34] LABS: CALCIUM 7.4 MG/DL (8.5-10.1); POTASSIUM 3.9 MMOL/L (3.6-5.0)
--- NOTE | 2020-11-13 04:37 | Pulmonary Consultation ---
History of Present Illness History of Present Illness Date Seen by Provider: Nov 13, 2020 Time Seen by Provider: 04:32 Date of Admission History of Present Illness 85-year-old female with history of colitis, hip fracture, seasonal allergies, debility presented to ED from [facility] secondary to worsening confusion. She denies any fevers or chills. She denies any shortness of breath or cough. She denies any dysuria or urinary symptoms. She denies any abdominal pain, nausea, vomiting, or diarrhea. Allergies and Home Medications Allergies Coded Allergies: nystatin (Verified Allergy, Mild, HIVES, 01/29/17) Sulfa (Sulfonamide Antibiotics) (Verified Allergy, Unknown, 03/10/19) amoxicillin (Verified Allergy, Unknown, 02/14/17) balsalazide (Verified Allergy, Unknown, 05/03/20) chlorhexidine (Verified Allergy, Unknown, HIVES, 01/29/17) clindamycin (Verified Allergy, Unknown, 02/14/17) dicyclomine (Verified Allergy, Unknown, 03/10/19) mesalamine (Verified Allergy, Unknown, 05/03/20) sulfamethoxazole (Unverified Allergy, Unknown, 05/12/14) trimethoprim (Unverified Allergy, Unknown, 05/12/14) Home Medications Acetaminophen 500 Mg Tablet, 500 MG PO Q6H PRN for PAIN-MILD (1-4), (Reported) Cholecalciferol (Vitamin D3) 25 Mcg Capsule, 25 MCG PO DAILY, (Reported) Diclofenac Sodium 100 Gm Gel..gram., 4 GM TP QID, (Reported) APPLY TO KNEES Ferrous Sulfate 325 Mg Tablet, 325 MG PO DAILY, (Reported) Hydrocodone/Acetaminophen 1 Each Tablet, 0.5-1 TAB PO Q4H PRN for PAIN-MODERATE (5-7), (Reported) Loperamide HCl 2 Mg Tablet, 2 MG PO BID, (Reported) Loperamide HCl 2 Mg Tablet, 2 MG PO BID PRN for DIARRHEA, (Reported) Loratadine 10 Mg Tablet, 10 MG PO DAILY PRN for ALLERGY SYMPTOMS, (Reported) Nitrofurantoin Monohyd/M-Cryst 100 Mg Capsule, 1 EA PO BID, (Reported) FILLED 11-09-2020 #10/5 DAY SUPPLY Simethicone 80 Mg Tab.chew, 80 MG PO TID, (Reported) Simethicone 80 Mg Tab.chew, 80 MG PO HS PRN for GAS, (Reported) Past Eoytfwj-Rrhhbg-Muyrvw Hx Patient Social History Alcohol Use: Denies Use Smoking Status: Never a Smoker 2nd Hand Smoke Exposure: No Recent Infectious Disease Expo: No Recent Hopitalizations: Yes Have you traveled recently?: No Alcohol Use?: No Immunizations Up To Date Date of Influenza Vaccine: May 19, 2020 Seasonal Allergies Seasonal Allergies: Yes Past Medical History Surgeries: Yes (RIGHT KNEE SURGERY (SCOPE) R hip fx) Adenoidectomy, Breast Respiratory: No Pneumonia Cardiac: Yes (dependent edema of legs) Chronic Edema/Swelling Neurological: No Genitourinary: No Gastrointestinal: Yes (FISSURE) Colitis, Hemorrhoids, Chronic Diarrhea Musculoskeletal: Yes (SPRAINED RT ANKLE 3 YRS. AGO AND WEARS BRACE TO RIGHT ANKLE. KNEE SCOPED) Chronic Back Pain Endocrine: No HEENT: Yes Hearing Impairment: Hard of Hearing Cancer: No Psychosocial: No Integumentary: No Blood Disorders: No Family Medical History No Pertinent Family Hx Noncontributory Review of Systems Time Seen by Provider: 04:32 Sepsis Event Evaluation Height, Weight, BMI Height: 5'6.00" Weight: 97lbs. 0.0oz. 43.261630vl; 19.83 BMI Method:Stated Exam Exam Vital Signs Date Time Temp Pulse Resp B/P (MAP) Pulse Ox O2 Delivery O2 Flow Rate FiO2 11/13/20 01:05 71 11/13/20 01:00 72 17 104/51 (68) 93 Nasal Cannula 2.00 11/13/20 01:00 Nasal Cannula 11/13/20 00:00 70 16 99/54 (69) 95 Nasal Cannula 2.00 11/12/20 23:00 74 17 99/51 (67) 89 Nasal Cannula 2.00 11/12/20 22:00 72 30 99/51 (67) 92 Nasal Cannula 2.00 11/12/20 21:00 Nasal Cannula 11/12/20 21:00 77 21 103/51 (68) 92 Nasal Cannula 2.00 11/12/20 20:00 71 15 111/55 (73) 93 Nasal Cannula 2.00 11/12/20 19:57 37.1 11/12/20 19:00 73 18 113/52 (72) 91 Nasal Cannula 2.00 11/12/20 19:00 70 11/12/20 18:15 79 15 122/59 (80) 93 Nasal Cannula 2.00 11/12/20 17:00 81 25 110/54 (72) 90 Nasal Cannula 2.00 11/12/20 16:30 Nasal Cannula 11/12/20 16:25 116/62 (80) 11/12/20 16:00 68 18 81/67 (72) 90 Nasal Cannula 2.00 11/12/20 15:45 37.1 11/12/20 15:00 72 21 117/57 (77) Nasal Cannula 2.00 11/12/20 14:00 82 10 110/64 (79) Nasal Cannula 2.00 11/12/20 13:00 71 11/12/20 13:00 70 18 107/52 (70) Nasal Cannula 2.00 11/12/20 12:30 Nasal Cannula 11/12/20 12:00 69 17 117/53 (74) Nasal Cannula 2.00 11/12/20 11:09 37.0 11/12/20 11:00 77 14 130/60 (83) Nasal Cannula 2.00 11/12/20 10:00 72 13 122/56 (78) Nasal Cannula 2.00 11/12/20 09:00 71 15 110/88 (95) Nasal Cannula 2.00 11/12/20 08:30 96 Room Air 11/12/20 08:27 70 97/55 11/12/20 08:00 72 17 124/57 (79) 92 Nasal Cannula 2.00 11/12/20 07:27 2.00 11/12/20 07:17 36.9 11/12/20 07:00 68 17 116/52 (73) 93 Nasal Cannula 2.00 11/12/20 07:00 70 11/12/20 06:00 74 14 112/55 (74) 93 Nasal Cannula 2.00 11/12/20 05:00 68 16 105/59 (74) 93 Nasal Cannula 2.00 11/12/20 05:00 96 Room Air I & O 11/13/20 07:00 Intake Total 1260 ml Output Total 900 ml Balance 360 ml Height & Weight Height: 5'6.00" Weight: 97lbs. 0.0oz. 43.090660va; 19.83 BMI Method:Stated General Appearance: No Apparent Distress, Chronically ill, Thin HEENT: PERRL/EOMI, Pharynx Normal Neck: Normal Inspection, Supple Respiratory: Lungs Clear, Normal Breath Sounds, No Respiratory Distress Cardiovascular: Regular Rate, Rhythm, No Edema, No Murmur Capillary Refill: Less Than 3 Seconds Extremity: Normal Inspection, Non Tender, No Pedal Edema Neurologic/Psychiatric: Alert, Oriented x3, No Motor/Sensory Deficits, Normal Mood/Affect Skin: Warm/Dry, Erythema Lymphatic: No Adenopathy Results Lab Laboratory Tests 11/11/20 11:38 11/12/20 02:20 11/13/20 03:20 Assessment/Plan Assessment/Plan Septic shock due to UTI with Ecoli -LR at 100 currently -Currently on Merrem Hypotension- improved -IVF Lactic acidosis-- improved Acute renal failure -Monitor Atrial fibrillation with RVR Cardiology consulted Danica bernal d/c'd Lovenox Hyponatremia KOTA LOPEZ DO Nov 13, 2020 04:37
[2020-11-13] MEDS: KCL 20 MEQ TAB (K-DUR) PO SCH (06:24)
[2020-11-13] MEDS: MAGNESIUM 1 GM/100 ML IVPB 100 ML IV SCH (06:24)
[2020-11-13] MEDS: POTASSIUM CL 10MEQ/50ML IVPB 50 ML IV SCH (06:24)
--- NOTE | 2020-11-13 08:04 | Diagnostic Imaging Report ---
INDICATION: Atrial fibrillation and sepsis. TIME OF EXAM: 2:58 AM Correlation is made with prior exam from one day earlier. FINDINGS: Heart is enlarged and stable. Bilateral interstitial and airspace infiltrates have increased since prior exam, perhaps owing to worsening congestive failure. There are small bilateral effusions. There is no pneumothorax detected. Left central line is tip overlying SVC. IMPRESSION: Worsening bilateral infiltrates suggestive of worsening congestive failure when compared to examination one day earlier. Dictated by: Dictated on workstation # [id number]
--- NOTE | 2020-11-13 08:22 | Progress Note - Hospitalist ---
Subjective HPI/CC On Admission Date Seen by Provider: Nov 13, 2020 Time Seen by Provider: 08:17 Kriss Kaiser is an 85-year-old female with history of colitis, hip fracture, seasonal allergies, debility currently at [facility], who presented with confusion. She denies any fevers or chills. She denies any shortness of breath or cough. She denies any dysuria or urinary symptoms. She denies any abdominal pain, nausea, vomiting, or diarrhea. She says she had no idea that she was sick. She is oriented to person, place, and date at the time of my examination. Subjective/Events-last exam Pt reports feeling well. States she never actually felt poorly though. Only concern this morning is that she is still waiting on her breakfast. Discussed BP still a little on the low side so will want to monitor that closely. Focused Exam Lactate Level 11/11/20 14:02: Lactic Acid Level 5.65*H 11/11/20 17:44: Lactic Acid Level 3.99*H 11/11/20 20:10: Lactic Acid Level 1.86 Objective Exam Vital Signs Vital Signs Date Time Temp Pulse Resp B/P (MAP) Pulse Ox O2 Delivery O2 Flow Rate FiO2 11/13/20 07:06 93 1.50 11/13/20 06:00 69 16 90/45 (60) Nasal Cannula 11/12/20 19:57 37.1 Capillary Refill : Less Than 3 Seconds General Appearance: No Apparent Distress, WD/WN Respiratory: Lungs Clear, No Respiratory Distress Cardiovascular: Regular Rate, Rhythm, No Murmur Neurologic/Psychiatric: Alert, Oriented x3 Results/Procedures Lab Laboratory Tests 11/13/20 03:20 Patient resulted labs reviewed. Imaging: Reviewed Imaging Report Assessment/Plan Assessment and Plan Assess & Plan/Chief Complaint Septic shock due to UTI Lactic acidosis- resolved Acute kidney injury likely due to ATN Advanced age Poor prognosis Creatinine still around 2, up a bit today to 2.34 baseline <1 Lactic acid >4, improved and normalized with fluids Central line placed by surgery, pressors off at the monitor but low threshold for resumption for MAP <60 Blood cultures NGTD UA consistent with UTI Urine culture with E coli, sensitivities pending Continue Merrem IV fluids Discussed code status, patient requests full code Atrial fibrillation with RVR Cardiology consulted, appreciate assistance Was on cardizem gtt but converted and rate controlled, monitor on telemetry Lovenox Hyponatremia Hypomagnesemia Monitor and correct electrolytes as needed DVT ppx: Lovenox Critical Care Critically Ill Patient RIO WILL MD Nov 13, 2020 08:22
--- NOTE | 2020-11-13 08:38 | Progress Note - Cardiology ---
Cardiology SOAP Progress Note Subjective: Sitting up in bed eating morning meal No c/o CP, SOB or palpitations States she feels better this morning Objective: I&O/Vital Signs 11/13/20 11/13/20 11/13/20 11/14/20 22:00 23:00 23:24 00:00 Temp 37.2 Pulse 74 67 78 Resp 20 18 18 B/P (MAP) 109/92 (98) 104/51 (68) 104/47 (66) Pulse Ox 93 87 95 O2 Delivery Nasal Cannula Nasal Cannula Nasal Cannula Nasal Cannula O2 Flow Rate 2.00 2.00 2.00 2.00 11/14/20 11/14/20 11/14/20 11/14/20 01:00 01:00 01:00 02:00 Pulse 68 68 81 Resp 17 20 B/P (MAP) 95/48 (64) 96/49 (65) Pulse Ox 92 92 O2 Delivery Nasal Cannula Nasal Cannula Nasal Cannula O2 Flow Rate 2.00 2.00 2.00 11/14/20 11/14/20 11/14/20 11/14/20 03:00 04:00 05:00 05:00 Pulse 71 58 63 Resp 20 13 18 B/P (MAP) 118/54 (75) 94/50 (65) 103/57 (72) Pulse Ox 92 93 O2 Delivery Nasal Cannula Nasal Cannula Nasal Cannula Nasal Cannula O2 Flow Rate 2.00 2.00 2.00 2.00 11/14/20 11/14/20 11/14/20 11/14/20 06:00 06:44 07:48 08:00 Temp 36.6 Pulse 59 65 72 Resp 17 27 B/P (MAP) 96/53 (67) Pulse Ox 95 87 O2 Delivery Nasal Cannula Nasal Cannula O2 Flow Rate 2.00 2.00 11/14/20 00:00 Intake Total 1520 ml Output Total 450 ml Balance 1070 ml Weight (Pounds): 97 Weight (Ounces): 0.0 Weight (Calculated Kilograms): 43.023473 Constitutional: appears stated age, AAO x 3; No apparent distress; well- developed, well-nourished Respiratory: chest is bilaterally symmetric, lungs clear to auscultation Cardiovascular: regular rate-rhythm, S1 and S2 Gastrointestional: No tender; soft, audible bowel sounds Extremities: no lower extremity edema bilateral Neurologic/Psychiatric: grossly intact (moves all extremities) Skin: No ulcerations, No rash on exposed areas Results/Procedures: Labs Laboratory Tests 11/13/20 10:30: Lactic Acid Level 1.68 11/14/20 02:30: White Blood Count 7.9, Red Blood Count 3.18L, Hemoglobin 9.8L, Hematocrit 31L, Mean Corpuscular Volume 96, Mean Corpuscular Hemoglobin 31, Mean Corpuscular Hemoglobin Concent 32, Red Cell Distribution Width 14.6H, Platelet Count 125L, Mean Platelet Volume 9.4, Immature Granulocyte % (Auto) 0, Neutrophils (%) (Auto) 60, Lymphocytes (%) (Auto) 8L, Monocytes (%) (Auto) 7, Eosinophils (%) (Auto) 24H, Basophils (%) (Auto) 0, Neutrophils # (Auto) 4.7, Lymphocytes # (Auto) 0.6L, Monocytes # (Auto) 0.6, Eosinophils # (Auto) 1.9H, Basophils # (Auto) 0.0, Immature Granulocyte # (Auto) 0.0, Neutrophils % (Manual) 63, Lymphocytes % (Manual) 8, Monocytes % (Manual) 8, Eosinophils % (Manual) 16, Band Neutrophils 5, Blood Morphology Comment NORMAL, Sodium Level 135, Potassium Level 4.2, Chloride Level 108H, Carbon Dioxide Level 18L, Anion Gap 9, Blood Urea Nitrogen 33H, Creatinine 2.56H, Estimat Glomerular Filtration Rate 18, BUN/Creatinine Ratio 13, Glucose Level 99, Calcium Level 7.7L, Phosphorus Level 2.6, Magnesium Level 2.2 Microbiology 11/11/20 MRSA Screen - Final, Complete MRSA not isolated 11/11/20 Blood Culture - Preliminary, Resulted No growth 11/11/20 Urine Culture - Final, Complete Escherichia coli A/P: Assessment: UTI with sepsis - management per ICU/medical services Atrial fibrillation with RVR first diagnosed on 11-12-20 - Converted on Cardizem gtt to SR - maintaining SR without any rate controlling agents Per Dr. Tijerina - she is a poor candidate for oral anticoagulation therapy since she has had recurrent falls in the last few weeks even in the senior living resulting in fracture. Therefore continue low-dose DVT prophylaxis Lovenox during the hospitalization. Hypotensive requiring pressor support likely secondary to urosepsis Plan: Management of UTI with sepsis is per medical/ICU services Maintaining SR with controlled rate following Cardizem gtt, start oral low dose Cardizem Not felt to be a good candidate for OAC d/t history of frequent falls resulting in fracture in the past Advise ASA 81mg, it will not provide protection as good as OAC, but will provide some protection Records from Dr. Tijerina have been reviewed Monitor lab closely Replace electrolytes as indicated RASHID NAIR Nov 13, 2020 08:38
[2020-11-13] MEDS: LACTATED RINGERS 1,000 ML IV SCH ×3 (09:30→20:25)
[2020-11-13] MEDS ORDERED: ASPIRIN 81 MG CHEW (CHILDREN'S ASA) PO NR (10:05)
[2020-11-13] MEDS ORDERED: ACHD5005 PO (10:06)
[2020-11-13] MEDS ORDERED: LOPE2TAB34 PO (10:06)
[2020-11-13] MEDS ORDERED: CHOL100048 PO (10:06)
[2020-11-13] MEDS ORDERED: NITR100C10 PO (10:06)
[2020-11-13] MEDS ORDERED: SIME80TA16 PO ×2 (10:06)
[2020-11-13] MEDS ORDERED: DICL100G18 TP (10:06)
[2020-11-13] MEDS ORDERED: ACET-2267 PO (10:06)
[2020-11-13] MEDS ORDERED: FERR325T18 PO (10:06)
[2020-11-13] MEDS: ENOXAPARIN 60 MG/0.6 ML (LOVENOX) SYR SC SCH (10:26)
[2020-11-13] MEDS ORDERED: dilTIAZem120 MG (CARDIZEM CD) CAP PO ONE (12:03)
--- NOTE | 2020-11-13 16:28 | Physician Query Clarification ---
Physician Query-General Query to Physician: The medical record reflects the following clinical evidence: Clinical Indicators: Admitted with "confusion", GCS of 14 on admission improved to 15 Risk Factor(s): Sepsis/Septic shock, UTI, hyponatremia Treatment: IV Fluids, NS and LR, IV ABX, ICU monitoring 1. Metabolic encephalopathy, present on admission, now resolved 2. Other explanation of clinical findings 3. Unable to determine (no explanation for clinical findings) Please clarify and document your clinical opinion in the progress notes and discharge summary including the definitive and/or presumptive diagnosis, (suspected or probable), related to the above clinical findings. Please include clinical findings supporting your diagnosis. Zofia Portillo [phone] PHYSICIAN RESPONSE: Based on the clinical findings in the record, please respond to the query above on this document as an addendum. Physician Response: Physician Response I did not see the patient on admission so I'm not certain. Please refer to admitting physician. If you have questions please contact: Bullet Casting Operator: Ext: Thank you for your time and cooperation. Clinical Stuffed Casing Tier/Bullet Casting Operator This is a permanent part of the medical record ZOFIA PORTILLO Nov 13, 2020 16:28 RIO WILL MD Nov 13, 2020 19:58
--- NOTE | 2020-11-13 18:36 | Progress Note - Cardiology ---
Cardiology SOAP Progress Note Subjective: No cp or palp or syncope Gen malaise No n/v/d Objective: I&O/Vital Signs 11/13/20 11/13/20 11/13/20 11/13/20 07:00 07:00 07:06 08:00 Temp 36.2 Pulse 71 72 Resp 15 B/P (MAP) 93/49 (64) Pulse Ox 93 93 O2 Delivery Nasal Cannula O2 Flow Rate 2.00 1.50 11/13/20 11/13/20 11/13/20 11/13/20 08:00 09:00 09:00 10:00 Pulse 67 70 68 Resp 15 18 17 B/P (MAP) 94/60 (71) 92/43 (59) 93/51 (65) Pulse Ox 93 94 89 89 O2 Delivery Nasal Cannula Nasal Cannula Nasal Cannula Nasal Cannula O2 Flow Rate 2.00 1.50 2.00 2.00 11/13/20 11/13/20 11/13/20 11/13/20 11:00 12:00 13:00 13:00 Temp 36.7 Pulse 67 74 70 Resp 19 22 B/P (MAP) 100/55 (70) 115/57 (76) Pulse Ox 88 91 O2 Delivery Nasal Cannula Nasal Cannula O2 Flow Rate 2.00 2.00 11/13/20 11/13/20 11/13/20 11/13/20 13:00 13:30 14:00 15:00 Pulse 68 71 75 Resp 18 18 19 B/P (MAP) 106/52 (70) 107/50 (69) 108/57 (74) Pulse Ox 88 94 86 94 O2 Delivery Nasal Cannula Nasal Cannula Nasal Cannula Nasal Cannula O2 Flow Rate 2.00 1.50 2.00 2.00 11/13/20 11/13/20 11/13/20 11/13/20 16:00 16:23 17:00 17:02 Temp 36.4 Pulse 71 79 Resp 19 28 B/P (MAP) 104/60 (75) 101/92 (95) Pulse Ox 93 92 94 O2 Delivery Nasal Cannula Nasal Cannula Nasal Cannula O2 Flow Rate 2.00 2.00 1.50 11/13/20 18:00 Pulse 77 Resp 23 B/P (MAP) 95/70 (78) Pulse Ox 93 O2 Delivery Nasal Cannula O2 Flow Rate 2.00 11/13/20 00:00 Intake Total 1260 ml Output Total 900 ml Balance 360 ml Weight (Pounds): 97 Weight (Ounces): 0.0 Weight (Calculated Kilograms): 43.991308 Constitutional: appears stated age, AAO x 3; No apparent distress; well- developed, well-nourished Respiratory: chest is bilaterally symmetric, lungs clear to auscultation Cardiovascular: regular rate-rhythm, S1 and S2 Gastrointestional: No tender; soft, audible bowel sounds Extremities: no lower extremity edema bilateral Neurologic/Psychiatric: grossly intact (moves all extremities) Skin: No ulcerations, No rash on exposed areas Results/Procedures: Labs Laboratory Tests 11/13/20 03:20: White Blood Count 9.0, Red Blood Count 3.26L, Hemoglobin 10.1L, Hematocrit 31L, Mean Corpuscular Volume 94, Mean Corpuscular Hemoglobin 31, Mean Corpuscular Hemoglobin Concent 33, Red Cell Distribution Width 14.6H, Platelet Count 132, Mean Platelet Volume 9.5, Immature Granulocyte % (Auto) 1, Neutrophils (%) (Auto) 71, Lymphocytes (%) (Auto) 5L, Monocytes (%) (Auto) 4, Eosinophils (%) (Auto) 20H, Basophils (%) (Auto) 0, Neutrophils # (Auto) 6.4, Lymphocytes # (Auto) 0.4L, Monocytes # (Auto) 0.3, Eosinophils # (Auto) 1.8H, Basophils # (Auto) 0.0, Immature Granulocyte # (Auto) 0.1, Sodium Level 135, Potassium Level 3.9, Chloride Level 103, Carbon Dioxide Level 16L, Anion Gap 16H, Blood Urea Nitrogen 35H, Creatinine 2.34H, Estimat Glomerular Filtration Rate 20, BUN/Creatinine Ratio 15, Glucose Level 104, Calcium Level 7.4L, Phosphorus Level 2.7, Magnesium Level 2.5H 11/13/20 10:30: Lactic Acid Level 1.68 Microbiology 11/11/20 MRSA Screen - Final, Complete MRSA not isolated 11/11/20 Blood Culture - Preliminary, Resulted No growth 11/11/20 Urine Culture - Preliminary, Resulted Escherichia coli Laboratory Tests 11/12/20 02:20 11/13/20 03:20 A/P: Assessment: UTI with sepsis - management per ICU/medical services Atrial fibrillation with RVR first diagnosed on 11-12-20 - Converted on Cardizem gtt to SR - maintaining SR without any rate controlling agents Poor candidate for oral anticoagulation therapy since she has had recurrent falls in the last few weeks, even in the detention, resulting in fracture. Therefore, ASA for stroke prophylaxis rather than full oral anticoag Hypotensive requiring pressor support likely secondary to urosepsis Plan: Management of UTI with sepsis is per medical/ICU services Maintaining SR with controlled rate following Cardizem gtt, start oral low dose Cardizem Not felt to be a good candidate for OAC d/t history of frequent falls resulting in fracture in the past. Advise ASA 81mg Records from Dr. Tijerina have been reviewed Monitor lab closely Replace electrolytes as indicated SHWETA BONNER MD FACP FACC CCDS Nov 13, 2020 18:36
[2020-11-13] MEDS: NOREPINEPHRINE 8 MG/250 ML 250 ML IV SCH (22:14)
[2020-11-13] MEDS: dilTIAZem DRIP PRE-MIX 125 ML IV SCH (22:14)
[2020-11-14] VITALS (9 sets, daily range): BP systolic 94–129; BP diastolic 47–63
[2020-11-14] MEDS: MEROPENEM 500 MG/SWFI 10 ML IV PUSH IV SCH ×4 (02:24→16:18)
[2020-11-14 02:43] LABS: BASOPHILS % (AUTO) 0 % (0-10); EOSINOPHILS # (AUTO) 1.9 10^3/uL (0.0-0.3); EOSINOPHILS % (AUTO) 24 % (0-10); HEMATOCRIT 31 % (35-52); HEMOGLOBIN 9.8 g/dL (11.5-16.0); LYMPHOCYTES # (AUTO) 0.6 10^3/uL (1.0-4.0); LYMPHOCYTES % (AUTO) 8 % (12-44); MEAN CORPUSCULAR HEMOGLOBIN 31 pg (25-34); MEAN CORPUSCULAR HGB CONC 32 g/dL (32-36); MEAN CORPUSCULAR VOLUME 96 fL (80-99); MEAN PLATELET VOLUME 9.4 fL (9.0-12.2); MONOCYTES # (AUTO) 0.6 10^3/uL (0.0-1.0); MONOCYTES % (AUTO) 7 % (0-12); NEUTROPHILS # (AUTO) 4.7 10^3/uL (1.8-7.8); NEUTROPHILS % (AUTO) 60 % (42-75); PLATELET COUNT 125 10^3/uL (130-400); WHITE BLOOD COUNT 7.9 10^3/uL (4.3-11.0)
[2020-11-14 02:50] LABS: POTASSIUM 4.2 MMOL/L (3.6-5.0)
[2020-11-14 02:52] LABS: CALCIUM 7.7 MG/DL (8.5-10.1)
[2020-11-14 02:56] LABS: CREATININE SERUM 2.56 MG/DL (0.60-1.30); PHOSPHORUS 2.6 MG/DL (2.3-4.7)
[2020-11-14 02:58] LABS: MAGNESIUM 2.2 MG/DL (1.6-2.4)
[2020-11-14 03:10] LABS: BAND NEUTROPHILS 5 %; NEUTROPHILS % (MANUAL) 63 %
[2020-11-14 03:11] LABS: EOSINOPHILS % (MANUAL) 16 %; LYMPHOCYTES % (MANUAL) 8 %; MONOCYTES % (MANUAL) 8 %; RBC MORPH NORMAL
[2020-11-14] MEDS: KCL 20 MEQ TAB (K-DUR) PO SCH (05:24)
[2020-11-14] MEDS: POTASSIUM CL 10MEQ/50ML IVPB 50 ML IV SCH (05:24)
[2020-11-14] MEDS: MAGNESIUM 1 GM/100 ML IVPB 100 ML IV SCH (05:24)
--- NOTE | 2020-11-14 05:48 | Pulmonary Progress Note ---
Subjective Time Seen by a Provider: 05:43 Subjective/Events-last exam Pt appears to be doing better Sepsis Event Evaluation Height, Weight, BMI Height: 5'6.00" Weight: 97lbs. 0.0oz. 43.067407jh; 19.83 BMI Method:Stated Focused Exam Lactate Level 11/11/20 17:44: Lactic Acid Level 3.99*H 11/11/20 20:10: Lactic Acid Level 1.86 11/13/20 10:30: Lactic Acid Level 1.68 Exam Exam Vital Signs Date Time Temp Pulse Resp B/P (MAP) Pulse Ox O2 Delivery O2 Flow Rate FiO2 11/14/20 05:00 63 18 103/57 (72) 93 Nasal Cannula 2.00 11/14/20 05:00 Nasal Cannula 2.00 11/14/20 04:00 58 13 94/50 (65) 92 Nasal Cannula 2.00 11/14/20 03:00 71 20 118/54 (75) Nasal Cannula 2.00 11/14/20 02:00 81 20 96/49 (65) 92 Nasal Cannula 2.00 11/14/20 01:00 68 11/14/20 01:00 Nasal Cannula 2.00 11/14/20 01:00 68 17 95/48 (64) 92 Nasal Cannula 2.00 11/14/20 00:00 78 18 104/47 (66) 95 Nasal Cannula 2.00 11/13/20 23:24 37.2 Nasal Cannula 2.00 11/13/20 23:00 67 18 104/51 (68) 87 Nasal Cannula 2.00 11/13/20 22:00 74 20 109/92 (98) 93 Nasal Cannula 2.00 11/13/20 21:00 Nasal Cannula 2.00 11/13/20 21:00 76 28 108/87 (94) 92 Nasal Cannula 2.00 11/13/20 20:30 37.0 11/13/20 20:00 63 18 104/54 (71) 90 Nasal Cannula 2.00 11/13/20 19:00 76 11/13/20 19:00 70 22 114/57 (76) 90 Nasal Cannula 2.00 11/13/20 18:00 77 23 95/70 (78) 93 Nasal Cannula 2.00 11/13/20 17:02 94 Nasal Cannula 1.50 11/13/20 17:00 79 28 101/92 (95) 92 Nasal Cannula 2.00 11/13/20 16:23 36.4 11/13/20 16:00 71 19 104/60 (75) 93 Nasal Cannula 2.00 11/13/20 15:00 75 19 108/57 (74) 94 Nasal Cannula 2.00 11/13/20 14:00 71 18 107/50 (69) 86 Nasal Cannula 2.00 11/13/20 13:30 94 Nasal Cannula 1.50 11/13/20 13:00 68 18 106/52 (70) 88 Nasal Cannula 2.00 11/13/20 13:00 36.7 11/13/20 13:00 70 11/13/20 12:00 74 22 115/57 (76) 91 Nasal Cannula 2.00 11/13/20 11:00 67 19 100/55 (70) 88 Nasal Cannula 2.00 11/13/20 10:00 68 17 93/51 (65) 89 Nasal Cannula 2.00 11/13/20 09:00 70 18 92/43 (59) 89 Nasal Cannula 2.00 11/13/20 09:00 94 Nasal Cannula 1.50 11/13/20 08:00 67 15 94/60 (71) 93 Nasal Cannula 2.00 11/13/20 08:00 36.2 11/13/20 07:06 93 1.50 11/13/20 07:00 72 11/13/20 07:00 71 15 93/49 (64) 93 Nasal Cannula 2.00 11/13/20 06:00 69 16 90/45 (60) 90 Nasal Cannula 2.00 I & O 11/14/20 07:00 Intake Total 2810 ml Output Total 1550 ml Balance 1260 ml Height & Weight Height: 5'6.00" Weight: 97lbs. 0.0oz. 43.133385vf; 19.83 BMI Method:Stated General Appearance: No Apparent Distress, WD/WN HEENT: PERRL/EOMI, Pharynx Normal Neck: Normal Inspection, Supple Respiratory: Lungs Clear, No Respiratory Distress Cardiovascular: Regular Rate, Rhythm, No Murmur Capillary Refill: Less Than 3 Seconds Extremity: Normal Inspection, Non Tender, No Pedal Edema Neurologic/Psychiatric: Alert, Oriented x3 Skin: Warm/Dry, Erythema Lymphatic: No Adenopathy Results Lab Laboratory Tests 11/13/20 03:20 11/14/20 02:30 Assessment/Plan Assessment/Plan Septic shock due to UTI with Ecoli -LR at 100 currently -Currently on Merrem Lactic acidosis-- improved Hypotension - resolved Acute renal failure -UO is good -Monitor Atrial fibrillation with RVR Cardiology consulted Danica gtt d/c'd Lovenox Hyponatremia-- Resolved KOTA LOPEZ DO Nov 14, 2020 05:48
[2020-11-14] MEDS ORDERED: SODIUM BICARB 8.4% 50 MEQ/50 ML VIAL IV ONE (06:00)
--- NOTE | 2020-11-14 06:24 | Diagnostic Imaging Report ---
EXAMINATION: Portable erect AP chest at 319 hours. INDICATION: Respiratory distress. FINDINGS: The cardiomegaly, the pulmonary congestion and the bibasilar pneumonia/atelectasis and bilateral pleural effusions seen on the prior exam of 11/13/2020 are again evident. The central pulmonary vascularity may be somewhat less prominent than on the prior study. Overall, however, there has been no significant change. The mediastinum is not widened. The osseous structures are intact. The central venous catheter on the left is unchanged in position. IMPRESSION: There may be slightly less pulmonary congestion than noted on the prior exam. Overall, however there has been no significant change. A followup study would be recommended for continued evaluation. Dictated by: Dictated on workstation # [id number]
[2020-11-14] MEDS: LACTATED RINGERS 1,000 ML IV SCH ×2 (06:34→16:25)
[2020-11-14] MEDS: ASPIRIN 81 MG CHEW (CHILDREN'S ASA) PO SCH (08:26)
[2020-11-14] MEDS: ENOXAPARIN 60 MG/0.6 ML (LOVENOX) SYR SC SCH (08:26)
[2020-11-14] MEDS: dilTIAZem120 MG (CARDIZEM CD) CAP PO SCH (08:26)
--- NOTE | 2020-11-14 09:40 | Physician Query Clarification ---
Physician Query-General Query to Physician: The medical record reflects the following clinical evidence: Clinical Indicators: Admitted with "confusion", GCS of 14 on admission improved to 15 Risk Factor(s): Sepsis/Septic shock, UTI, hyponatremia Treatment: IV Fluids, NS and LR, IV ABX, ICU monitoring 1. Metabolic encephalopathy, present on admission, now resolved 2. Other explanation of clinical findings 3. Unable to determine (no explanation for clinical findings) Please clarify and document your clinical opinion in the progress notes and discharge summary including the definitive and/or presumptive diagnosis, (suspected or probable), related to the above clinical findings. Please include clinical findings supporting your diagnosis. Zofia Portillo [phone] PHYSICIAN RESPONSE: Based on the clinical findings in the record, please respond to the query above on this document as an addendum. Physician Response: Physician Response Septic encephalopathy If you have questions please contact: Preventive Medicine Specialist: Ext: Thank you for your time and cooperation. Clinical Review Manager/Preventive Medicine Specialist This is a permanent part of the medical record ZOFIA PORTILLO Nov 14, 2020 09:40 LONDON SMITH MD Nov 16, 2020 07:07
--- NOTE | 2020-11-14 10:12 | Progress Note - Cardiology ---
Cardiology SOAP Progress Note Subjective: Sitting up in recliner at the bedside No c/o CP, palpitations Reports feeling of SOB at times Objective: I&O/Vital Signs 11/16/20 11/17/20 11/17/20 11/17/20 23:49 01:00 05:16 07:00 Temp 36.6 37.3 Pulse 78 80 86 74 Resp 20 20 B/P (MAP) 145/67 (93) 118/65 (82) Pulse Ox 95 93 O2 Delivery Nasal Cannula Nasal Cannula O2 Flow Rate 2.00 2.00 11/17/20 11/17/20 11/17/20 08:00 08:00 09:54 Temp 35.8 Pulse 63 Resp 18 B/P (MAP) 146/64 (91) Pulse Ox 91 95 O2 Delivery Nasal Cannula Nasal Cannula Nasal Cannula O2 Flow Rate 2.00 2.00 2.00 11/17/20 00:00 Intake Total 2720 ml Output Total 500 ml Balance 2220 ml Weight (Pounds): 97 Weight (Ounces): 0.0 Weight (Calculated Kilograms): 43.060202 Constitutional: appears stated age, AAO x 3; No apparent distress; well- developed, well-nourished Respiratory: chest is bilaterally symmetric, lungs clear to auscultation Cardiovascular: regular rate-rhythm, S1 and S2 Gastrointestional: No tender; soft, audible bowel sounds Extremities: no lower extremity edema bilateral Neurologic/Psychiatric: grossly intact (moves all extremities) Skin: No ulcerations, No rash on exposed areas Results/Procedures: Labs Laboratory Tests 11/17/20 06:00: White Blood Count 9.1, Red Blood Count 3.45L, Hemoglobin 10.6L, Hematocrit 33L, Mean Corpuscular Volume 95, Mean Corpuscular Hemoglobin 31, Mean Corpuscular Hemoglobin Concent 32, Red Cell Distribution Width 14.6H, Platelet Count 215, Mean Platelet Volume 9.1, Immature Granulocyte % (Auto) 2, Neutrophils (%) (Auto) 63, Lymphocytes (%) (Auto) 12, Monocytes (%) (Auto) 9, Eosinophils (%) (Auto) 14H, Basophils (%) (Auto) 0, Neutrophils # (Auto) 5.8, Lymphocytes # (Auto) 1.1, Monocytes # (Auto) 0.8, Eosinophils # (Auto) 1.3H, Basophils # (Auto) 0.0, Immature Granulocyte # (Auto) 0.2H, Sodium Level 133L, Potassium Level 4.5, Chloride Level 105, Carbon Dioxide Level 20L, Anion Gap 8, Blood Urea Nitrogen 38H, Creatinine 3.17#H, Estimat Glomerular Filtration Rate 14, BUN/Creatinine Ratio 12, Glucose Level 91, Calcium Level 7.6L, Phosphorus Level 2.9, Magnesium Level 1.8 Microbiology 11/11/20 MRSA Screen - Final, Complete MRSA not isolated 11/11/20 Blood Culture - Final, Complete No growth 11/11/20 Urine Culture - Final, Complete Escherichia coli A/P: Assessment: UTI with sepsis - management per ICU/medical services Atrial fibrillation with RVR first diagnosed on 11-12-20 - Converted on Cardizem gtt to SR - maintaining SR without any rate controlling agents Poor candidate for oral anticoagulation therapy since she has had recurrent falls in the last few weeks, even in the care home, resulting in fracture. Therefore, ASA for stroke prophylaxis rather than full oral anticoag Hypotensive requiring pressor support likely secondary to urosepsis Acute on chronic renal insufficiency - likely HANDY secondary to hypotension - receiving IVF Plan: Management of UTI with sepsis is per medical/ICU services Maintaining SR with controlled rate continue low dose Cardizem Not felt to be a good candidate for OAC d/t history of frequent falls resulting in fracture in the past. Continue ASA 81mg Monitor lab closely Replace electrolytes as indicated HANDY on CRIF - receiving IVF RASHID NAIR Nov 14, 2020 10:12
--- NOTE | 2020-11-14 13:22 | Progress Note - Hospitalist ---
Subjective HPI/CC On Admission Date Seen by Provider: Nov 14, 2020 Time Seen by Provider: 13:18 Kriss Kaiser is an 85-year-old female with history of colitis, hip fracture, seasonal allergies, debility currently at [facility], who presented with confusion. She denies any fevers or chills. She denies any shortness of breath or cough. She denies any dysuria or urinary symptoms. She denies any abdominal pain, nausea, vomiting, or diarrhea. She says she had no idea that she was sick. She is oriented to person, place, and date at the time of my examination. Subjective/Events-last exam Pt reports doing well from her illness but was frustrated by her meal options this morning as she was not able to order a biscuit due to her dietary restrictions. I changed order to regular diet and she was much happier then. Otherwise no complaints. Focused Exam Lactate Level 11/11/20 17:44: Lactic Acid Level 3.99*H 11/11/20 20:10: Lactic Acid Level 1.86 11/13/20 10:30: Lactic Acid Level 1.68 Objective Exam Vital Signs Vital Signs Date Time Temp Pulse Resp B/P (MAP) Pulse Ox O2 Delivery O2 Flow Rate FiO2 11/14/20 08:30 Nasal Cannula 2.00 11/14/20 08:00 72 27 87 11/14/20 07:48 36.6 Capillary Refill : Less Than 3 Seconds General Appearance: No Apparent Distress, Chronically ill, Thin Respiratory: Lungs Clear, No Respiratory Distress Cardiovascular: Regular Rate, Rhythm, No Murmur Neurologic/Psychiatric: Alert, Oriented x3 Results/Procedures Lab Laboratory Tests 11/14/20 02:30 Patient resulted labs reviewed. Imaging: Reviewed Imaging Report Assessment/Plan Assessment and Plan Assess & Plan/Chief Complaint Septic shock due to UTI Lactic acidosis- resolved Acute kidney injury likely due to ATN Advanced age Poor prognosis Creatinine 2.56, hoping it will start to trend down soon as it likely secondary to ATN from shock Central line placed by surgery, pressors off at the monitor but low threshold for resumption for MAP <60 Blood cultures NGTD UA consistent with UTI Urine culture with E coli, pansensitive but has multiiple abx allergies so will keep on merrem for now IV fluids Atrial fibrillation with RVR Cardiology consulted, appreciate assistance Lovenox Hyponatremia Hypomagnesemia Monitor and correct electrolytes as needed DVT ppx: Lovenox Critical Care Critically Ill Patient RIO WILL MD Nov 14, 2020 13:22
[2020-11-14] MEDS ORDERED: WATER (STERILE) FOR INJECTION 10 ML ONE (16:10)
[2020-11-14] MEDS ORDERED: MEROPENEM 500 MG VIAL (MERREM) IV ONE (16:10)
--- NOTE | 2020-11-14 18:31 | Progress Note - Cardiology ---
Cardiology SOAP Progress Note Subjective: Gen malaise and weakness No cp or palp or syncope Shortness of breath with exertion No n/v/d Objective: I&O/Vital Signs 11/14/20 11/14/20 11/14/20 11/14/20 06:44 07:48 08:00 08:30 Temp 36.6 Pulse 65 72 Resp 27 B/P (MAP) Pulse Ox 87 O2 Delivery Nasal Cannula Nasal Cannula O2 Flow Rate 2.00 2.00 11/14/20 11/14/20 11/14/20 11/14/20 12:24 13:00 14:45 16:30 Temp 36.7 Pulse 65 61 Resp 24 B/P (MAP) 115/59 (77) Pulse Ox 92 95 O2 Delivery Nasal Cannula Nasal Cannula Nasal Cannula O2 Flow Rate 2.00 2.00 2.00 11/14/20 00:00 Intake Total 1520 ml Output Total 450 ml Balance 1070 ml Weight (Pounds): 97 Weight (Ounces): 0.0 Weight (Calculated Kilograms): 43.657037 Constitutional: appears stated age, AAO x 3; No apparent distress; well- developed, other (Thin-appearing) Respiratory: chest is bilaterally symmetric, lungs clear to auscultation Cardiovascular: regular rate-rhythm, S1 and S2 Gastrointestional: No tender; soft, audible bowel sounds Extremities: no lower extremity edema bilateral Neurologic/Psychiatric: grossly intact (moves all extremities) Skin: No ulcerations, No rash on exposed areas Results/Procedures: Labs Laboratory Tests 11/14/20 02:30: White Blood Count 7.9, Red Blood Count 3.18L, Hemoglobin 9.8L, Hematocrit 31L, Mean Corpuscular Volume 96, Mean Corpuscular Hemoglobin 31, Mean Corpuscular Hemoglobin Concent 32, Red Cell Distribution Width 14.6H, Platelet Count 125L, Mean Platelet Volume 9.4, Immature Granulocyte % (Auto) 0, Neutrophils (%) (Auto) 60, Lymphocytes (%) (Auto) 8L, Monocytes (%) (Auto) 7, Eosinophils (%) (Auto) 24H, Basophils (%) (Auto) 0, Neutrophils # (Auto) 4.7, Lymphocytes # (Auto) 0.6L, Monocytes # (Auto) 0.6, Eosinophils # (Auto) 1.9H, Basophils # (Auto) 0.0, Immature Granulocyte # (Auto) 0.0, Neutrophils % (Manual) 63, Lymphocytes % (Manual) 8, Monocytes % (Manual) 8, Eosinophils % (Manual) 16, Band Neutrophils 5, Blood Morphology Comment NORMAL, Sodium Level 135, Potassium Level 4.2, Chloride Level 108H, Carbon Dioxide Level 18L, Anion Gap 9, Blood Urea Nitrogen 33H, Creatinine 2.56H, Estimat Glomerular Filtration Rate 18, BUN/Creatinine Ratio 13, Glucose Level 99, Calcium Level 7.7L, Phosphorus Level 2.6, Magnesium Level 2.2 Microbiology 11/11/20 MRSA Screen - Final, Complete MRSA not isolated 11/11/20 Blood Culture - Preliminary, Resulted No growth 11/11/20 Urine Culture - Final, Complete Escherichia coli Laboratory Tests 11/13/20 03:20 11/14/20 02:30 A/P: Assessment: UTI with sepsis - management per ICU/medical services Atrial fibrillation with RVR first diagnosed on 11-12-20 - Converted on Cardizem gtt to SR - maintaining SR without any rate controlling agents Poor candidate for oral anticoagulation therapy since she has had recurrent falls in the last few weeks, even in the custodial, resulting in fracture. Therefore, ASA for stroke prophylaxis rather than full oral anticoag Hypotension requiring pressor support, likely secondary to urosepsis, now improved Acute on chronic renal insufficiency - likely HANDY secondary to hypotension - receiving IVF Plan: Management of UTI with sepsis is per medical/ICU services Maintaining SR with controlled rate continue low dose Cardizem Not felt to be a good candidate for OAC d/t history of frequent falls resulting in fracture in the past. Continue ASA 81mg Monitor lab closely Replace electrolytes as indicated HANDY on CRIF - receiving IVF SHWETA BONNER MD FACP FAC CCDS Nov 14, 2020 18:31
[2020-11-14] MEDS: ACETAMINOPHEN 325 MG TABLET PO PRN (19:55)
[2020-11-15] VITALS (7 sets, daily range): BP systolic 112–149; BP diastolic 55–68
[2020-11-15] MEDS: LACTATED RINGERS 1,000 ML IV SCH ×3 (01:59→21:34)
[2020-11-15] MEDS ORDERED: MEROPENEM 500 MG VIAL (MERREM) IV ONE ×2 (02:35→14:45)
[2020-11-15] MEDS ORDERED: WATER (STERILE) FOR INJECTION 10 ML ONE ×2 (02:35→14:45)
[2020-11-15] MEDS: MEROPENEM 500 MG/SWFI 10 ML IV PUSH IV SCH ×4 (02:45→14:54)
[2020-11-15 06:15] LABS: BASOPHILS % (AUTO) 0 % (0-10); EOSINOPHILS # (AUTO) 1.8 10^3/uL (0.0-0.3); EOSINOPHILS % (AUTO) 22 % (0-10); HEMATOCRIT 31 % (35-52); HEMOGLOBIN 9.8 g/dL (11.5-16.0); LYMPHOCYTES # (AUTO) 0.9 10^3/uL (1.0-4.0); LYMPHOCYTES % (AUTO) 11 % (12-44); MEAN CORPUSCULAR HEMOGLOBIN 31 pg (25-34); MEAN CORPUSCULAR HGB CONC 32 g/dL (32-36); MEAN CORPUSCULAR VOLUME 95 fL (80-99); MEAN PLATELET VOLUME 9.4 fL (9.0-12.2); MONOCYTES # (AUTO) 0.8 10^3/uL (0.0-1.0); MONOCYTES % (AUTO) 9 % (0-12); NEUTROPHILS # (AUTO) 4.6 10^3/uL (1.8-7.8); NEUTROPHILS % (AUTO) 57 % (42-75); PLATELET COUNT 140 10^3/uL (130-400); WHITE BLOOD COUNT 8.2 10^3/uL (4.3-11.0)
[2020-11-15 06:22] LABS: CALCIUM 7.7 MG/DL (8.5-10.1)
[2020-11-15 06:26] LABS: PHOSPHORUS 2.5 MG/DL (2.3-4.7)
[2020-11-15 06:27] LABS: CREATININE SERUM 2.41 MG/DL (0.60-1.30)
[2020-11-15 06:29] LABS: MAGNESIUM 1.9 MG/DL (1.6-2.4)
--- NOTE | 2020-11-15 07:40 | Diagnostic Imaging Report ---
INDICATION: Atrial fibrillation. Sepsis. COMPARISON: 11/14/2020 FINDINGS: Single frontal radiographic view of the chest was obtained and demonstrates persistent, although improved pulmonary vascular congestion and diffuse interstitial pulmonary edema. There is persistent complete opacification of the left base likely on the basis of mild effusion. Trace right basilar effusion is also suspected. No pneumothorax is seen on either side. Left sided subclavian central venous catheter seen with tip in the SVC. Osseous structures show no gross acute abnormalities. IMPRESSION: 1. Persistent, but improved vascular congestion and diffuse interstitial pulmonary edema. 2. Persistent bibasilar effusions, left greater than right. Dictated by: Dictated on workstation # [id number]
[2020-11-15] MEDS: ENOXAPARIN 60 MG/0.6 ML (LOVENOX) SYR SC SCH (08:07)
[2020-11-15] MEDS: ASPIRIN 81 MG CHEW (CHILDREN'S ASA) PO SCH (08:07)
[2020-11-15] MEDS: dilTIAZem120 MG (CARDIZEM CD) CAP PO SCH (08:07)
--- NOTE | 2020-11-15 11:54 | Progress Note - Hospitalist ---
Subjective HPI/CC On Admission Date Seen by Provider: Nov 15, 2020 Time Seen by Provider: 11:51 Kriss Kaiser is an 85-year-old female with history of colitis, hip fracture, seasonal allergies, debility currently at [facility], who presented with confusion. She denies any fevers or chills. She denies any shortness of breath or cough. She denies any dysuria or urinary symptoms. She denies any abdominal pain, nausea, vomiting, or diarrhea. She says she had no idea that she was sick. She is oriented to person, place, and date at the time of my examination. Subjective/Events-last exam Pt reports doing ok but having sinus congestion. Requesting claritin. I also offered to call her family and update them but patient declined the offer as her daughter was in class. Focused Exam Lactate Level 11/13/20 10:30: Lactic Acid Level 1.68 Objective Exam Vital Signs Vital Signs Date Time Temp Pulse Resp B/P (MAP) Pulse Ox O2 Delivery O2 Flow Rate FiO2 11/15/20 11:40 36.5 64 20 139/64 (89) 96 Nasal Cannula 2.00 Capillary Refill : Less Than 3 Seconds General Appearance: No Apparent Distress, WD/WN Respiratory: Lungs Clear, No Respiratory Distress Cardiovascular: Regular Rate, Rhythm, No Murmur Gastrointestinal: Normal Bowel Sounds, Non Tender, Soft Neurologic/Psychiatric: Alert, Oriented x3 Results/Procedures Lab Laboratory Tests 11/15/20 06:05 Patient resulted labs reviewed. Imaging: Reviewed Imaging Report Assessment/Plan Assessment and Plan Assess & Plan/Chief Complaint Septic shock due to UTI Lactic acidosis- resolved Acute kidney injury likely due to ATN Advanced age Poor prognosis Creatinine 2.41, starting to trend down Central line placed by surgery, pressors off at the monitor but low threshold for resumption for MAP <60 Blood cultures NGTD UA consistent with UTI Urine culture with E coli, pansensitive but has multiiple abx allergies so will keep on merrem for now IV fluids Resume Claritin Atrial fibrillation with RVR Cardiology consulted, appreciate assistance Lovenox Hyponatremia Hypomagnesemia Monitor and correct electrolytes as needed DVT ppx: Lovenox Critical Care Critically Ill Patient RIO WILL MD Nov 15, 2020 11:54
[2020-11-15] MEDS ORDERED: LORATADINE (CLARITIN) 10 MG TAB PO NR (12:00)
--- NOTE | 2020-11-15 13:34 | Progress Note - Cardiology ---
Cardiology SOAP Progress Note Subjective: Notes marked gen malaise and weakness No cp or palp or syncope No shortness of breath at rest No n/v/d Objective: I&O/Vital Signs 11/15/20 11/15/20 11/15/20 11/15/20 04:00 06:30 08:04 09:00 Temp 36.4 36.4 Pulse 70 69 68 Resp 24 15 B/P (MAP) 131/60 (83) 130/60 (83) Pulse Ox 95 96 O2 Delivery Nasal Cannula Nasal Cannula Nasal Cannula O2 Flow Rate 2.00 2.00 2.00 11/15/20 11/15/20 11:40 12:45 Temp 36.5 Pulse 64 67 Resp 20 B/P (MAP) 139/64 (89) Pulse Ox 96 O2 Delivery Nasal Cannula O2 Flow Rate 2.00 11/15/20 00:00 Intake Total 1140 ml Output Total 725 ml Balance 415 ml Weight (Pounds): 97 Weight (Ounces): 0.0 Weight (Calculated Kilograms): 43.669474 Constitutional: appears stated age, AAO x 3; No apparent distress; well- developed, other (Thin-appearing) Respiratory: chest is bilaterally symmetric, lungs clear to auscultation Cardiovascular: regular rate-rhythm, S1 and S2 Gastrointestional: No tender; soft, audible bowel sounds Extremities: no lower extremity edema bilateral Neurologic/Psychiatric: grossly intact (moves all extremities) Skin: No ulcerations, No rash on exposed areas Results/Procedures: Labs Laboratory Tests 11/15/20 06:05: White Blood Count 8.2, Red Blood Count 3.20L, Hemoglobin 9.8L, Hematocrit 31L, Mean Corpuscular Volume 95, Mean Corpuscular Hemoglobin 31, Mean Corpuscular Hemoglobin Concent 32, Red Cell Distribution Width 14.6H, Platelet Count 140, Mean Platelet Volume 9.4, Immature Granulocyte % (Auto) 1, Neutrophils (%) (Auto) 57, Lymphocytes (%) (Auto) 11L, Monocytes (%) (Auto) 9, Eosinophils (%) (Auto) 22H, Basophils (%) (Auto) 0, Neutrophils # (Auto) 4.6, Lymphocytes # (Auto) 0.9L, Monocytes # (Auto) 0.8, Eosinophils # (Auto) 1.8H, Basophils # (Auto) 0.0, Immature Granulocyte # (Auto) 0.1, Sodium Level 137, Potassium Level 4.0, Chloride Level 108H, Carbon Dioxide Level 21, Anion Gap 8, Blood Urea Nit rogen 33H, Creatinine 2.41H, Estimat Glomerular Filtration Rate 19, B UN/Creatinine Ratio 14, Glucose Level 96, Calcium Level 7.7L, Phosphorus Level 2.5, Magnesium Level 1.9 Microbiology 11/11/20 MRSA Screen - Final, Complete MRSA not isolated 11/11/20 Blood Culture - Preliminary, Resulted No growth 11/11/20 Urine Culture - Final, Complete Escherichia coli Laboratory Tests 11/14/20 02:30 11/15/20 06:05 A/P: Assessment: UTI with sepsis - management per ICU/medical services Atrial fibrillation with RVR first diagnosed on 11-12-20 - Now NSR and is on oral diltiazem (long-acting) Poor candidate for oral anticoagulation therapy since she has had recurrent falls in the last few weeks, even in the skilled nursing, resulting in fracture. Therefore, ASA for stroke prophylaxis rather than full oral anticoag Hypotension requiring pressor support, likely secondary to urosepsis, now improved Acute on chronic renal insufficiency - likely HANDY secondary to hypotension - receiving IVF Plan: Management of UTI with sepsis is per medical/ICU services Maintaining SR with controlled rate continue low dose Cardizem Not felt to be a good candidate for OAC d/t history of frequent falls resulting in fracture in the past. Monitor lab closely SHWETA BONNER MD FACP [facility] CCDS Nov 15, 2020 13:34
[2020-11-16] MEDS ORDERED: MEROPENEM 500 MG VIAL (MERREM) IV ONE ×2 (02:06→13:24)
[2020-11-16] MEDS ORDERED: WATER (STERILE) FOR INJECTION 10 ML ONE ×2 (02:06→13:25)
[2020-11-16] MEDS: MEROPENEM 500 MG/SWFI 10 ML IV PUSH IV SCH ×4 (02:16→13:37)
[2020-11-16 03:48] VITALS: BP 132/62
[2020-11-16 04:21] LABS: POTASSIUM 4.4 MMOL/L (3.6-5.0)
[2020-11-16 04:22] LABS: CALCIUM 7.9 MG/DL (8.5-10.1)
[2020-11-16 04:26] LABS: PHOSPHORUS 2.4 MG/DL (2.3-4.7)
[2020-11-16 04:27] LABS: CREATININE SERUM 2.42 MG/DL (0.60-1.30)
[2020-11-16 04:29] LABS: BASOPHILS % (AUTO) 0 % (0-10); EOSINOPHILS # (AUTO) 1.5 10^3/uL (0.0-0.3); EOSINOPHILS % (AUTO) 16 % (0-10); HEMATOCRIT 32 % (35-52); HEMOGLOBIN 10.5 g/dL (11.5-16.0); LYMPHOCYTES # (AUTO) 1.2 10^3/uL (1.0-4.0); LYMPHOCYTES % (AUTO) 13 % (12-44); MAGNESIUM 1.8 MG/DL (1.6-2.4); MEAN CORPUSCULAR HEMOGLOBIN 31 pg (25-34); MEAN CORPUSCULAR HGB CONC 33 g/dL (32-36); MEAN CORPUSCULAR VOLUME 95 fL (80-99); MEAN PLATELET VOLUME 9.4 fL (9.0-12.2); MONOCYTES # (AUTO) 0.9 10^3/uL (0.0-1.0); MONOCYTES % (AUTO) 10 % (0-12); NEUTROPHILS # (AUTO) 5.7 10^3/uL (1.8-7.8); NEUTROPHILS % (AUTO) 60 % (42-75); PLATELET COUNT 171 10^3/uL (130-400); WHITE BLOOD COUNT 9.4 10^3/uL (4.3-11.0)
[2020-11-16] MEDS: ACETAMINOPHEN 325 MG TABLET PO PRN (05:55)
[2020-11-16 08:00] VITALS: BP 128/60
[2020-11-16] MEDS: ENOXAPARIN 60 MG/0.6 ML (LOVENOX) SYR SC SCH (08:17)
[2020-11-16] MEDS: LORATADINE (CLARITIN) 10 MG TAB PO SCH (08:17)
[2020-11-16] MEDS: ASPIRIN 81 MG CHEW (CHILDREN'S ASA) PO SCH (08:17)
[2020-11-16] MEDS: dilTIAZem120 MG (CARDIZEM CD) CAP PO SCH (08:17)
--- NOTE | 2020-11-16 10:45 | Progress Note - Cardiology ---
Cardiology SOAP Progress Note Subjective: Notes gen malaise and weakness Feels can't get a full breath No cp or palp or syncope No n/v/d Poor appetite Objective: I&O/Vital Signs 11/15/20 11/16/20 11/16/20 11/16/20 23:52 00:33 03:48 07:00 Temp 36.8 37.0 Pulse 80 78 77 71 Resp 22 22 B/P (MAP) 143/67 (92) 132/62 (85) Pulse Ox 95 94 O2 Delivery Nasal Cannula Nasal Cannula O2 Flow Rate 2.00 2.00 11/16/20 11/16/20 08:00 09:19 Temp 36.0 Pulse 67 Resp 20 B/P (MAP) 128/60 (82) Pulse Ox 93 O2 Delivery Nasal Cannula Nasal Cannula O2 Flow Rate 2.00 2.00 11/16/20 00:00 Intake Total 940 ml Output Total 1325 ml Balance -385 ml Weight (Pounds): 97 Weight (Ounces): 0.0 Weight (Calculated Kilograms): 43.897384 Constitutional: appears stated age, AAO x 3; No apparent distress; well- developed, other (Thin-appearing) Respiratory: chest is bilaterally symmetric, lungs clear to auscultation Cardiovascular: regular rate-rhythm, S1 and S2 Gastrointestional: No tender; soft, audible bowel sounds Extremities: no lower extremity edema bilateral Neurologic/Psychiatric: grossly intact (moves all extremities) Skin: No ulcerations, No rash on exposed areas Results/Procedures: Labs Laboratory Tests 11/16/20 04:05: White Blood Count 9.4, Red Blood Count 3.40L, Hemoglobin 10.5L, Hematocrit 32L, Mean Corpuscular Volume 95, Mean Corpuscular Hemoglobin 31, Mean Corpuscular Hemoglobin Concent 33, Red Cell Distribution Width 14.6H, Platelet Count 171, Mean Platelet Volume 9.4, Immature Granulocyte % (Auto) 1, Neutrophils (%) (Auto) 60, Lymphocytes (%) (Auto) 13, Monocytes (%) (Auto) 10, Eosinophils (%) (Auto) 16H, Basophils (%) (Auto) 0, Neutrophils # (Auto) 5.7, Lymphocytes # (Auto) 1.2, Monocytes # (Auto) 0.9, Eosinophils # (Auto) 1.5H, Basophils # (Auto) 0.0, Immature Granulocyte # (Auto) 0.1, Sodium Level 134L, Potassium Level 4.4, Chloride Level 106, Carbon Dioxide Level 21, Anion Gap 7, Blood Urea Nitrogen 31H, Creatinine 2.42H, Estimat Glomerular Filtration Rate 19, BUN/Creatinine Ratio 13, Glucose Level 92, Calcium Level 7.9L, Phosphorus Level 2.4, Magnesium Level 1.8 Microbiology 11/11/20 MRSA Screen - Final, Complete MRSA not isolated 11/11/20 Blood Culture - Preliminary, Resulted No growth 11/11/20 Urine Culture - Final, Complete Escherichia coli Laboratory Tests 11/15/20 06:05 11/16/20 04:05 A/P: Assessment: UTI with sepsis - management per ICU/medical services Atrial fibrillation with RVR first diagnosed on 11-12-20 - Now NSR and is on oral diltiazem (long-acting) Poor candidate for oral anticoagulation therapy since she has had recurrent falls in the last few weeks, even in the care home, resulting in fracture. Therefore, ASA for stroke prophylaxis rather than full oral anticoag Hypotension requiring pressor support, likely secondary to urosepsis, now impr reji Acute on chronic renal insufficiency - likely HANDY secondary to hypotension - receiving IVF Frail physical status and gen weakness and malaise Plan: Management of UTI with sepsis is per medical/ICU services Continue low dose Cardizem Not felt to be a good candidate for OAC d/t history of frequent falls resulting in fracture in the past. Monitor lab closely Physical therapy SHWETA BONNER MD FACP FAC CCDS Nov 16, 2020 10:45
--- NOTE | 2020-11-16 10:59 | Physical Therapy Evaluation ---
PT Evaluation-General Medical Diagnosis Admission Date Nov 11, 2020 at 14:25 Medical Diagnosis: sepsis/UTI/delirium Onset Date: Nov 11, 2020 Therapy Diagnosis Therapy Diagnosis: generalized weakness/debility Height/Weight Height (Feet): 5 Height (Inches): 6.00 Weight (Pounds): 97 Weight (Ounces): 0.0 Precautions Precautions/Isolations: Fall Prevention, Standard Precautions Referral Physician: Tutu Medical History Pertinent Medical History: Arthritis Additional Medical History right hip fracture Current History EMS from [place] secondary to confusion Reviewed History: Yes Social History Home: Group Home Prior Prior Level of Function SCALE: Activities may be completed with or without assistive devices. 0-Zeamncenrz-ozfyspe completes the activity by him/herself with no assistance from a helper. 5-Set-up or Clean-up Assistance-helper sets up or cleans up; patient completes activity. Hewitt assists only prior to or following the activity. 4-Supervision or Touching Assistance-helper provides verbal cues and/or touching/steadying and/or contact guard assistance as patient completes activity. Assistance may be provided throughout the activity or intermittently. 3-Partial/Moderate Assistance-helper does LESS THAN HALF the effort. Hewitt lifts, holds or supports trunk or limbs, but provides less than half the effort. 2-Substantial/Maximal Assistance-helper does MORE THAN HALF the effort. Hewitt lifts or holds trunk or limbs and provides more than half the effort. 0-Sfehqissc-tfqayt does ALL the effort. Patient does none of the effort to complete the activity. Or, the assistance of 2 or more helpers is required for the patient to complete the activity. If activity was not attempted, code reason: 7-Patient Refused. 9-Not Applicable-not attempted and the patient did not perform the activity before the current illness, exacerbation or injury. 10-Not Attempted due to Environmental Limitations-(lack of equipment, weather restraints, etc.). 88-Not Attempted due to Medical Conditions or Safety Concerns. Bed Mobility: 3 Transfers (B,C,W/C): 3 Gait: 3 Stairs: 9 Indoor Mobility (Ambulation): Needed Some Help Stairs: Not Applicalbe Prior Devices Use: Walker PT Evaluation-Current Subjective Patient is very confused. Reluctantly agrees to PT. Pain Numeric Pain Scale: 10-Worst Possible Pain Location: Right Location Body Site: Hip Pain Description: Chronic Objective Patient Orientation: Confused Attachments: Oxygen, Elaine Catheter ROM/Strength ROM Lower Extremities bilateral LE WFL Strength Lower Extremities 3-/5 grossly bilateral LE Integumentary/Posture Integumentary refer to nursing notes Bowel Incontinence: Yes Bladder Incontinence: Elaine Cath Posture kyphotic Neuromuscular (Tone, Coordination, Reflexes) diminished coordination due to inactivity, confusion and overall debility Sensory Vision: Functional Hearing: Impaired Transfers Roll Left to Right (QC): 2 Sit to Lying (QC): 2 Lying to Sitting/Side of Bed(Q: 2 Sit to Stand (QC): 2 Chair/Kcn-sp-Yrdol Xfer(QC): 2 Gait Does the Patient Walk?: No and Walking Goal IS indicated Mode of Locomotion: Both Anticipated Mode of Locomotion: Both Walk 10 feet (QC): 88 Walk 50 ft with 2 Turns(QC): 88 Walk 150 ft (QC): 88 Distance: 8 steps Gait Assistive Device: FWW Comments/Gait Description NBOS, shuffle gait with not foot clearance Wheelchair Training Does the Pt Use a Wheelchair?: Yes Balance Sitting Static: Fair Sitting Dynamic: Fair Standing Static: Fair Standing Dynamic: Fair (fair-) Assessment/Needs 85 y.o. female, will benefit from skilled PT to address functional strength and mobility to improve current LOF. Rehab Potential: Guarded PT Fpc Goals Fpc Goals PT Civil Designer Goals Time Frame: November 25, 2020 Roll Left & Right (QC): 3 Sit to Lying (QC): 3 Lying-Sitting on Side/Bed(QC): 3 Sit to Stand (QC): 3 Chair/Xwe-vq-Yjagt Xfer(QC): 3 Toilet Transfer (QC): 3 Does the Patient Walk: Yes Walk 10 feet (QC): 3 Walk 50ft with 2 Turns (QC): 3 PT Plan Problem List Problem List: Activity Tolerance, Functional Strength, Safety, Balance, Gait, Transfer, Bed Mobility Treatment/Plan Treatment Plan: Continue Plan of Care Treatment Plan: Bed Mobility, Education, Functional Activity Stewart, Functional Strength, Gait, Safety, Therapeutic Exercise, Transfers Treatment Duration: November 25, 2020 Frequency: 6 times per week Estimated Hrs Per Day: .25 hour per day Patient and/or Family Agrees t: Yes Time/GCodes Time In: 923 Time Out: 933 Total Billed Treatment Time: 10 Total Billed Treatment 1 visit EVModC 10 min THANG CONRAD PT Nov 16, 2020 10:59
--- NOTE | 2020-11-16 11:23 | Occupational Therapy Eval ---
OT Evaluation-General/PLF Medical Diagnosis Admission Date Nov 11, 2020 at 14:25 Medical Diagnosis: sepsis/UTI/delirium Onset Date: Nov 11, 2020 Therapy Diagnosis Therapy Diagnosis: weakness, decreased ADL Status Height/Weight Height (Feet): 5 Height (Inches): 6.00 Weight (Pounds): 97 Weight (Ounces): 0.0 Precautions Precautions/Isolations: Fall Prevention, Standard Precautions Referral Physician: Tutu Referral Reason: Evaluation/Treatment Medical History Pertinent Medical History: Arthritis Additional Medical History colitis, hip fx, debility Current History ED due to confusion Social History Home: Residential ADL-Prior Level of Function SCALE: Activities may be completed with or without assistive devices. 0-Rjwhnmkwnk-wvjszkc completes the activity by him/herself with no assistance from a helper. 5-Set-up or Clean-up Assistance-helper sets up or cleans up; patient completes activity. Sheldon assists only prior to or following the activity. 4-Supervision or Touching Assistance-helper provides verbal cues and/or touching/steadying and/or contact guard assistance as patient completes activity. Assistance may be provided throughout the activity or intermittently. 3-Partial/Moderate Assistance-helper does LESS THAN HALF the effort. Sheldon lifts, holds or supports trunk or limbs, but provides less than half the effort. 2-Substantial/Maximal Assistance-helper does MORE THAN HALF the effort. Sheldon lifts or holds trunk or limbs and provides more than half the effort. 4-Japgncjki-afcucl does ALL the effort. Patient does none of the effort to complete the activity. Or, the assistance of 2 or more helpers is required for the patient to complete the activity. If activity was not attempted, code reason: 7-Patient Refused. 9-Not Applicable-not attempted and the patient did not perform the activity before the current illness, exacerbation or injury. 10-Not Attempted due to Environmental Limitations-(lack of equipment, weather restraints, etc.). 88-Not Attempted due to Medical Conditions or Safety Concerns. ADL PLOF Comments Pt required assistance with ADLs at PLOF. Self Care: Needed Some Help Functional Cognition: Unknown OT Current Status Subjective Pt seated in recliner, agreeable to OT evaluation and tx. Mental Status/Objective Patient Orientation: Person, Confused Attachments: Oxygen Current Glasses/Contacts: Yes Hand Dominance: Right Upper Extremity ROM Decreased R shoulder function (pt indicates she dislocated her shoulder in April), pt unable to actively flex R shoulder. WFL RUE elbow/wrist/fingers LUE WFL, shoulder flexion to approx 150 degrees. Upper Extremity Coordination decreased due to weakness and decreased RUE ROM Upper Extremity Strength LUE grossly 3/5, RUE 3/5 elbow/wrist/hand. ADL-Treatment Eating (QC): 5 (Pt requires assistance with cutting food and containers) Oral Hygiene (QC): 4 (SBA at tray table) Shower/Bathe Self (QC): 1 (Per nursing staff, pt required total assist with sponge bath. Pt did not partcipate/assist with any parts) Toileting Hygiene (QC): 1 (Per nursing staff, pt required total assist with hygiene. Pt incontinent of BM requiring total assist to clean.) Other Treatments Pt seated in recliner, agreeable to OT evaluation and tx. Pt provided in formation about PLOF, and participated in UE Screen. Pt indicates she dislocated R shoulder (~April). Pt attempts to perform shoulder flexion, but states she is unable to move her arm. ROM at R elbow, wrist and fingers WFL. LUE WFL. Pt agreeable to completing oral care, min verbal cues with task. Pt required increased time with oral care, as she was slow with brushing movements and very thorough. During session, pt asked OT to hand her things from her tray table, OT encouraged pt to use her arms and reach for objects, but pt indicates unable to. Per nursing staff, pt dependent with sponge bath and dependent with toileting (incontinent of BM with nursing). Per nursing staff, pt did not participate or attempt to assist with sponge bath and hygiene. Post tx, pt seated in recliner, call light in reach and all needs met. Education OT Patient Education: Correct positioning, Modified ADL techniques, Progress toward Goal/Update tx plan, Purpose of tx/functional activities Teaching Recipient: Patient Teaching Methods: Discussion Response to Teaching: Verbalize Understanding, Reinforcement Needed OT Shelter Goals Industrial Psychology Teacher Goals Time Frame: Nov 24, 2020 Eating (QC): 6 Oral Hygiene (QC): 5 Toileting Hygiene (QC): 3 Shower/Bathe Self (QC): 3 Upper Body Dressing (QC): 4 Lower Body Dressing (QC): 3 On/Off Footwear (QC): 3 Additional Goals: 1-Demonstrate ADL Tasks, 2-Verbalize Understanding, 3- ImproveStrength/Stewart 1=Demonstrate adherence to instructed precautions during ADL tasks. 2=Patient will verbalize/demonstrate understanding of assistive devices/modifications for ADL. 3=Patient will improve strength/tolerance for activity to enable patient to perform ADL's. OT Education/Plan Problem List/Assessment Assessment: Decreased Activ Tolerance, Decreased UE Strength, Impaired Funct Balance, Impaired I ADL's, Impaired Self-Care Skills, Restricted Funct UE ROM Pt would benefit from skilled OT services in order to maximize LOF to return to NH Discharge Recommendations Plan/Recommendations: Continue POC Treatment Plan/Plan of Care Patient would benefit from OT for education, treatment and training to promote independence in ADL's, mobility, safety and/or upper extremity function for ADL's. Plan of Care: ADL Retraining, Functional Mobility, UE Funct Exercise/Act Treatment Duration: Nov 24, 2020 Frequency: 5 times per week Rehab Potential: Guarded Time/GCodes Start Time: 10:15 Stop Time: 10:30 Total Time Billed (hr/min): 15 Billed Treatment Time 1, CRUZITO CARDOZA OT Nov 16, 2020 11:23
--- NOTE | 2020-11-16 11:30 | Progress Note - Hospitalist ---
Subjective HPI/CC On Admission Date Seen by Provider: Nov 16, 2020 Time Seen by Provider: 11:23 Kriss Kaiser is an 85-year-old female with history of colitis, hip fracture, seasonal allergies, debility currently at [facility], who presented with confusion. She denies any fevers or chills. She denies any shortness of breath or cough. She denies any dysuria or urinary symptoms. She denies any abdominal pain, nausea, vomiting, or diarrhea. She says she had no idea that she was sick. She is oriented to person, place, and date at the time of my examination. Subjective/Events-last exam Pt reports feeling weak and having some knee pain. Would also like to sit on the bed lynne. Offered her help to get to the commode but she declined. Discussed plan going forward to work on getting out of bed and strength. Patient finally agreed to let me call her daughter. I did call and update Kriss today to left her know what was going on and the plan going forward. Objective Exam Vital Signs Vital Signs Date Time Temp Pulse Resp B/P (MAP) Pulse Ox O2 Delivery O2 Flow Rate FiO2 11/16/20 09:19 Nasal Cannula 2.00 11/16/20 08:00 36.0 67 20 128/60 (82) 93 Capillary Refill : Less Than 3 Seconds General Appearance: No Apparent Distress, Anxious, Thin Respiratory: Lungs Clear, No Accessory Muscle Use Cardiovascular: Regular Rate, Rhythm, No Murmur Neurologic/Psychiatric: Alert, Oriented x3 Results/Procedures Lab Laboratory Tests 11/16/20 04:05 Patient resulted labs reviewed. Imaging: Reviewed Imaging Report Assessment/Plan Assessment and Plan Assess & Plan/Chief Complaint Septic shock due to UTI Lactic acidosis- resolved Acute kidney injury likely due to ATN Advanced age Poor prognosis Infiltrates on CXR Creatinine 2.42, may be new normal though I am hopeful it will trend down some still Blood cultures NGTD UA consistent with UTI CXR with infiltrate, continue abx Urine culture with E coli, pansensitive but has multiiple abx allergies so will keep on merrem for now Claritin Atrial fibrillation with RVR Cardiology consulted, appreciate assistance Lovenox Hyponatremia Hypomagnesemia Monitor and correct electrolytes as needed DVT ppx: Lovenox Critical Care Critically Ill Patient RIO WILL MD Nov 16, 2020 11:30
[2020-11-16 11:54] VITALS: BP 141/64
[2020-11-16 16:00] VITALS: BP 113/56
[2020-11-16 19:48] VITALS: BP 137/70
[2020-11-16 23:49] VITALS: BP 145/67
[2020-11-17] MEDS ORDERED: WATER (STERILE) FOR INJECTION 10 ML ONE (02:47)
[2020-11-17] MEDS ORDERED: MEROPENEM 500 MG VIAL (MERREM) IV ONE (02:48)
[2020-11-17] MEDS: MEROPENEM 500 MG/SWFI 10 ML IV PUSH IV SCH ×2 (02:57)
[2020-11-17 05:16] VITALS: BP 118/65
[2020-11-17 06:08] LABS: BASOPHILS % (AUTO) 0 % (0-10); EOSINOPHILS # (AUTO) 1.3 10^3/uL (0.0-0.3); EOSINOPHILS % (AUTO) 14 % (0-10); HEMATOCRIT 33 % (35-52); HEMOGLOBIN 10.6 g/dL (11.5-16.0); LYMPHOCYTES # (AUTO) 1.1 10^3/uL (1.0-4.0); LYMPHOCYTES % (AUTO) 12 % (12-44); MEAN CORPUSCULAR HEMOGLOBIN 31 pg (25-34); MEAN CORPUSCULAR HGB CONC 32 g/dL (32-36); MEAN CORPUSCULAR VOLUME 95 fL (80-99); MEAN PLATELET VOLUME 9.1 fL (9.0-12.2); MONOCYTES # (AUTO) 0.8 10^3/uL (0.0-1.0); MONOCYTES % (AUTO) 9 % (0-12); NEUTROPHILS # (AUTO) 5.8 10^3/uL (1.8-7.8); NEUTROPHILS % (AUTO) 63 % (42-75); PLATELET COUNT 215 10^3/uL (130-400); WHITE BLOOD COUNT 9.1 10^3/uL (4.3-11.0)
[2020-11-17 06:48] LABS: POTASSIUM 4.5 MMOL/L (3.6-5.0)
[2020-11-17 06:49] LABS: CALCIUM 7.6 MG/DL (8.5-10.1)
[2020-11-17 06:53] LABS: PHOSPHORUS 2.9 MG/DL (2.3-4.7)
[2020-11-17 06:54] LABS: CREATININE SERUM 3.17 MG/DL (0.60-1.30)
[2020-11-17 06:56] LABS: MAGNESIUM 1.8 MG/DL (1.6-2.4)
[2020-11-17 08:00] VITALS: BP 146/64
[2020-11-17] MEDS: ASPIRIN 81 MG CHEW (CHILDREN'S ASA) PO SCH (08:53)
[2020-11-17] MEDS: ENOXAPARIN 60 MG/0.6 ML (LOVENOX) SYR SC SCH (08:53)
[2020-11-17] MEDS: ONDANSETRON 4 MG (ZOFRAN) ORAL DISSOLVE TAB PO PRN (08:53)
[2020-11-17] MEDS: dilTIAZem120 MG (CARDIZEM CD) CAP PO SCH (08:53)
[2020-11-17] MEDS: LORATADINE (CLARITIN) 10 MG TAB PO SCH (08:53)
--- NOTE | 2020-11-17 10:01 | Progress Note - Cardiology ---
Cardiology SOAP Progress Note Subjective: Sitting up in recliner at the bedside States she is not eating much d/t not liking the food No c/o CP C/O feeling SOB at times Objective: I&O/Vital Signs 11/16/20 11/17/20 11/17/20 11/17/20 23:49 01:00 05:16 07:00 Temp 36.6 37.3 Pulse 78 80 86 74 Resp 20 20 B/P (MAP) 145/67 (93) 118/65 (82) Pulse Ox 95 93 O2 Delivery Nasal Cannula Nasal Cannula O2 Flow Rate 2.00 2.00 11/17/20 11/17/20 11/17/20 08:00 08:00 09:54 Temp 35.8 Pulse 63 Resp 18 B/P (MAP) 146/64 (91) Pulse Ox 91 95 O2 Delivery Nasal Cannula Nasal Cannula Nasal Cannula O2 Flow Rate 2.00 2.00 2.00 11/17/20 00:00 Intake Total 2720 ml Output Total 500 ml Balance 2220 ml Weight (Pounds): 97 Weight (Ounces): 0.0 Weight (Calculated Kilograms): 43.701754 Constitutional: appears stated age, AAO x 3; No apparent distress; well- developed, other (Thin-appearing) Respiratory: chest is bilaterally symmetric, lungs clear to auscultation Cardiovascular: regular rate-rhythm, S1 and S2 Gastrointestional: No tender; soft, audible bowel sounds Extremities: no lower extremity edema bilateral Neurologic/Psychiatric: grossly intact (moves all extremities) Skin: No ulcerations, No rash on exposed areas Results/Procedures: Labs Laboratory Tests 11/17/20 06:00: White Blood Count 9.1, Red Blood Count 3.45L, Hemoglobin 10.6L, Hematocrit 33L, Mean Corpuscular Volume 95, Mean Corpuscular Hemoglobin 31, Mean Corpuscular Hemoglobin Concent 32, Red Cell Distribution Width 14.6H, Platelet Count 215, Mean Platelet Volume 9.1, Immature Granulocyte % (Auto) 2, Neutrophils (%) (Auto) 63, Lymphocytes (%) (Auto) 12, Monocytes (%) (Auto) 9, Eosinophils (%) (Auto) 14H, Basophils (%) (Auto) 0, Neutrophils # (Auto) 5.8, Lymphocytes # (Auto) 1.1, Monocytes # (Auto) 0.8, Eosinophils # (Auto) 1.3H, Basophils # (Auto) 0.0, Immature Granulocyte # (Auto) 0.2H, Sodium Level 133L, Potassium Level 4.5, Chloride Level 105, Carbon Dioxide Level 20L, Anion Gap 8, Blood Urea Nitrogen 38H, Creatinine 3.17#H, Estimat Glomerular Filtration Rate 14, BUN/Creatinine Ratio 12, Glucose Level 91, Calcium Level 7.6L, Phosphorus Level 2.9, Magnesium Level 1.8 Microbiology 11/11/20 MRSA Screen - Final, Complete MRSA not isolated 11/11/20 Blood Culture - Final, Complete No growth 11/11/20 Urine Culture - Final, Complete Escherichia coli Laboratory Tests 11/16/20 04:05 11/17/20 06:00 A/P: Assessment: UTI with sepsis - management per ICU/medical services Atrial fibrillation with RVR first diagnosed on 11-12-20 - Now NSR and is on oral diltiazem (long-acting) Poor candidate for oral anticoagulation therapy since she has had recurrent falls in the last few weeks, even in the half-way, resulting in fracture. Therefore, ASA for stroke prophylaxis rather than full oral anticoag Hypotension requiring pressor support, likely secondary to urosepsis, now improved Acute on chronic renal insufficiency - likely HANDY secondary to hypotension - receiving IVF Frail physical status and gen weakness and malaise Plan: Management of UTI with sepsis is per medical/ICU services Continue low dose Cardizem Not felt to be a good candidate for OAC d/t history of frequent falls resulting in fracture in the past. Monitor lab closely Physical therapy HANDY likely secondary to sepsis - start IVF hydration Monitor lab closely RASHID NAIR Nov 17, 2020 10:01
--- NOTE | 2020-11-17 10:10 | Physical Therapy Daily Note ---
PT Daily Note-Current Subjective Patient reluctantly agrees to PT. Mental Status Patient Orientation: Person, Time, Situation Attachments: Oxygen, Elaine Catheter Transfers SCALE: Activities may be completed with or without assistive devices. 3-Yclqgeirer-dwyjcgu completes the activity by him/herself with no assistance from a helper. 5-Set-up or Clean-up Assistance-helper sets up or cleans up; patient completes activity. [place] assists only prior to or following the activity. 4-Supervision or Touching Assistance-helper provides verbal cues and/or touching/steadying and/or contact guard assistance as patient completes activity. Assistance may be provided throughout the activity or intermittently. 3-Partial/Moderate Assistance-helper does LESS THAN HALF the effort. [place] lifts, holds or supports trunk or limbs, but provides less than half the effort. 2-Substantial/Maximal Assistance-helper does MORE THAN HALF the effort. [place] lifts or holds trunk or limbs and provides more than half the effort. 9-Zjdjqbiyt-gbnlou does ALL the effort. Patient does none of the effort to complete the activity. Or, the assistance of 2 or more helpers is required for the patient to complete the activity. If activity was not attempted, code reason: 7-Patient Refused. 9-Not Applicable-not attempted and the patient did not perform the activity before the current illness, exacerbation or injury. 10-Not Attempted due to Environmental Limitations-(lack of equipment, weather restraints, etc.). 88-Not Attempted due to Medical Conditions or Safety Concerns. Roll Left & Right (QC): 1 Lying to Sitting/Side of Bed(Q: 1 Sit to Stand (QC): 1 Chair/Vyt-gl-Qwdfm Xfer(QC): 1 Patient does not attempt to assist with bed mobility or transfers. Patient states "I can't" before attempting. Education with patient on actively parti cipating with therapy to improve strength. Gait Training Does the Patient Walk?: No and Walking Goal IS indicated Exercises Supine Ex: Ankle pumps, Heel Slides, Straight leg raise, Hip abd/add Supine Reps: 12 (AAROM) Assessment Patient incontinent BM requiring dependent assist to cleanse. Patient up in recliner with needs met. PT to increase activity as patient allows. 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 PT [facility] Goals Time Frame: November 25, 2020 Roll Left & Right (QC): 3 Sit to Lying (QC): 3 Lying-Sitting on Side/Bed(QC): 3 Sit to Stand (QC): 3 Chair/Kln-lj-Gqlbe Xfer(QC): 3 Toilet Transfer (QC): 3 Does the Patient Walk: Yes Walk 10 feet (QC): 3 Walk 50ft with 2 Turns (QC): 3 PT Plan Treatment/Plan Treatment Plan: Continue Plan of Care Treatment Plan: Bed Mobility, Education, Functional Activity [place], Functional Strength, Gait, Safety, Therapeutic Exercise, Transfers Treatment Duration: November 25, 2020 Frequency: 6 times per week Estimated Hrs Per Day: .25 hour per day Patient and/or Family Agrees t: Yes Time/GCodes Time In: 946 Time Out: 957 Total Billed Treatment Time: 11 Total Billed Treatment 1 visit EX 11 min THANG CONRAD PT Nov 17, 2020 10:10
[2020-11-17] MEDS: NS IV 1000 ML 1,000 ML IV SCH ×2 (10:14→20:19)
--- NOTE | 2020-11-17 10:48 | Diagnostic Imaging Report ---
PROCEDURE: US right lower extremity venous. TECHNIQUE: Multiple real-time grayscale images were obtained over the right lower extremity in various projections. Additional spectral analysis and color Doppler duplex images were also obtained. INDICATION: Right leg pain and swelling The veins of the right leg show thrombus in the peroneal vein of the calf. Common femoral, superficial femoral and popliteal veins are all patent with good color filling, compressibility and flow. 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 Dictated by: Dictated on workstation # [id number]
--- NOTE | 2020-11-17 10:52 | Progress Note - Cardiology ---
Cardiology SOAP Progress Note Subjective: Gen weakness and malaise No cp or palp or syncope Intermittent diarrhea Bilat leg swelling, more on R Objective: I&O/Vital Signs 11/16/20 11/17/20 11/17/20 11/17/20 23:49 01:00 05:16 07:00 Temp 36.6 37.3 Pulse 78 80 86 74 Resp 20 20 B/P (MAP) 145/67 (93) 118/65 (82) Pulse Ox 95 93 O2 Delivery Nasal Cannula Nasal Cannula O2 Flow Rate 2.00 2.00 11/17/20 11/17/20 11/17/20 08:00 08:00 09:54 Temp 35.8 Pulse 63 Resp 18 B/P (MAP) 146/64 (91) Pulse Ox 91 95 O2 Delivery Nasal Cannula Nasal Cannula Nasal Cannula O2 Flow Rate 2.00 2.00 2.00 11/17/20 00:00 Intake Total 2720 ml Output Total 500 ml Balance 2220 ml Weight (Pounds): 97 Weight (Ounces): 0.0 Weight (Calculated Kilograms): 43.057776 Constitutional: appears stated age, AAO x 3; No apparent distress; well- developed, other (Thin-appearing) Respiratory: chest is bilaterally symmetric, lungs clear to auscultation Cardiovascular: regular rate-rhythm, S1 and S2 Gastrointestional: No tender; soft, audible bowel sounds Extremities: no lower extremity edema bilateral Neurologic/Psychiatric: grossly intact (moves all extremities) Skin: No ulcerations, No rash on exposed areas Results/Procedures: Labs Laboratory Tests 11/17/20 06:00: White Blood Count 9.1, Red Blood Count 3.45L, Hemoglobin 10.6L, Hematocrit 33L, Mean Corpuscular Volume 95, Mean Corpuscular Hemoglobin 31, Mean Corpuscular Hemoglobin Concent 32, Red Cell Distribution Width 14.6H, Platelet Count 215, Mean Platelet Volume 9.1, Immature Granulocyte % (Auto) 2, Neutrophils (%) (Auto) 63, Lymphocytes (%) (Auto) 12, Monocytes (%) (Auto) 9, Eosinophils (%) (Auto) 14H, Basophils (%) (Auto) 0, Neutrophils # (Auto) 5.8, Lymphocytes # (Auto) 1.1, Monocytes # (Auto) 0.8, Eosinophils # (Auto) 1.3H, Basophils # (Au to) 0.0, Immature Granulocyte # (Auto) 0.2H, Sodium Level 133L, Potassium Level 4.5, Chloride Level 105, Carbon Dioxide Level 20L, Anion Gap 8, Blood Urea Nitrogen 38H, Creatinine 3.17#H, Estimat Glomerular Filtration Rate 14, BUN/Creatinine Ratio 12, Glucose Level 91, Calcium Level 7.6L, Phosphorus Level 2.9, Magnesium Level 1.8 Microbiology 11/11/20 MRSA Screen - Final, Complete MRSA not isolated 11/11/20 Blood Culture - Final, Complete No growth 11/11/20 Urine Culture - Final, Complete Escherichia coli Laboratory Tests 11/16/20 04:05 11/17/20 06:00 A/P: Assessment: UTI with sepsis - management per ICU/medical services Worsening renal failure - likely HANDY secondary to poor intake and volume depletion Atrial fibrillation with RVR first diagnosed on 11-12-20 - Now NSR and is on oral diltiazem (long-acting) Poor candidate for oral anticoagulation therapy since she has had recurrent falls in the last few weeks, even in the snf, resulting in fracture. Therefore, ASA for stroke prophylaxis rather than full oral anticoag Frail physical status and gen weakness and malaise Plan: Management of UTI with sepsis is per medical/ICU services Continue low-dose Cardizem Not felt to be a good candidate for OAC d/t history of frequent falls resulting in fracture in the past. Monitor lab closely Physical therapy Leg venous Doppler to eval for DVT HANDY likely secondary to poor intake and vol depletion - start IVF hydration, dietary consult (because pt has numerous food intolerances) Monitor lab closely I had a long and detailed discussion with her and her eldest daughter regarding her CV issues and our treatment plan SHWETA BONNER MD FACP FAC CCDS Nov 17, 2020 10:52
--- NOTE | 2020-11-17 11:28 | Progress Note - Hospitalist ---
Subjective HPI/CC On Admission Date Seen by Provider: Nov 17, 2020 Time Seen by Provider: 08:00 Kriss Kaiser is an 85-year-old female with history of colitis, hip fracture, seasonal allergies, debility currently at [facility], who presented with confusion. She denies any fevers or chills. She denies any shortness of breath or cough. She denies any dysuria or urinary symptoms. She denies any abdominal pain, nausea, vomiting, or diarrhea. She says she had no idea that she was sick. She is oriented to person, place, and date at the time of my examination. Subjective/Events-last exam Pt reports not feeling as well today. Has some right sided leg pain. Also complains of nasal drainage that is irritating her throat and has some positional neck pain that is long standing. She also has some indigestion and gas and would just liek to eat something tart like an apple pie. She has been told not to eat apples due to her history of colitis. Objective Exam Vital Signs Vital Signs Date Time Temp Pulse Resp B/P (MAP) Pulse Ox O2 Delivery O2 Flow Rate FiO2 11/17/20 09:54 95 Nasal Cannula 2.00 11/17/20 08:00 35.8 63 18 146/64 (91) Capillary Refill : Less Than 3 Seconds General Appearance: No Apparent Distress, Anxious, Chronically ill, Thin Respiratory: Lungs Clear, No Accessory Muscle Use, Other (on 2lpm) Cardiovascular: Regular Rate, Rhythm, No Murmur Gastrointestinal: Normal Bowel Sounds, Soft Neurologic/Psychiatric: Alert, Oriented x3 Results/Procedures Lab Laboratory Tests 11/17/20 06:00 Patient resulted labs reviewed. Imaging: Reviewed Imaging Report Assessment/Plan Assessment and Plan Assess & Plan/Chief Complaint Septic shock due to UTI- resolved Lactic acidosis- resolved Acute kidney injury likely due to ATN Advanced age Poor prognosis Infiltrates on CXR Creatinine up to 3.1 today, IVF resumed Blood cultures no growth CXR with infiltrate, continue abx Urine culture with E coli, pansensitive but has multiiple abx allergies so will keep on merrem for now Claritin, declines flonase Atrial fibrillation with RVR Cardiology consulted, appreciate assistance Lovenox, therapeutic Hyponatremia Hypomagnesemia Monitor and correct electrolytes as needed Right leg pain Tylenol prn pain USG to evaluate for DVT as has been mostly in bed DVT ppx: Lovenox as above Critical Care Critically Ill Patient RIO WILL MD Nov 17, 2020 11:28
[2020-11-17] MEDS ORDERED: CALCIUM CARBONATE 500 MG (TUMS) TAB.CHEW PO PRN (11:30)
[2020-11-17] MEDS ORDERED: ANTACID SUSP 30 ML UDC (MYLANTA) PO PRN (11:30)
[2020-11-17 12:00] VITALS: BP 138/62
--- NOTE | 2020-11-17 14:09 | Occupational Ther Daily Note ---
OT Current Status-Daily Note Subjective Pt alert, sitting up in recliner. Pt c/o pain in buttocks. Nrsg tech and FERNANDEZ transfer pt to bed to decrease pain. Agrees to therapy. Mental Status/Objective Patient Orientation: Person, Place, Time, [place] Attachments: Elaine Catheter, IV, Oxygen ADL-Treatment Pt mod assist x2 for transfers due to pain and decreased mobility. Min A for sit to stand. Pt stood with FERNANDEZ as nrsg tech completed hygiene after incontinent bowel. Assist x2 for sitting EOB to supine and for all bed mo bility. After session, pt lying in bed with call light/phone in reach. All needs met in room. Therapy Code Descriptions/Definitions Functional [place] Measure: 0=Not Assessed/NA 4=Minimal Assistance 1=Total Assistance 5=Supervision or Setup 2=Maximal Assistance 6=Modified [place] 3=Moderate Assistance 7=Complete IndependenceSCALE: Activities may be completed with or without assistive devices. 8-Ouqgzrlocq-aaqslnu completes the activity by him/herself with no assistance from a helper. 5-Set-up or Clean-up Assistance-helper sets up or cleans up; patient completes activity. [place] assists only prior to or following the activity. 4-Supervision or Touching Assistance-helper provides verbal cues and/or touching/steadying and/or contact guard assistance as patient completes activity. Assistance may be provided throughout the activity or intermittently. 3-Partial/Moderate Assistance-helper does LESS THAN HALF the effort. [place] lifts, holds or supports trunk or limbs, but provides less than half the effort. 2-Substantial/Maximal Assistance-helper does MORE THAN HALF the effort. [place] lifts or holds trunk or limbs and provides more than half the effort. 1-Znzaodqlo-uwdsnz does ALL the effort. Patient does none of the effort to complete the activity. Or, the assistance of 2 or more helpers is required for the patient to complete the activity. If activity was not attempted, code reason: 7-Patient Refused. 9-Not Applicable-not attempted and the patient did not perform the activity before the current illness, exacerbation or injury. 10-Not Attempted due to Environmental Limitations-(lack of equipment, weather restraints, etc.). 88-Not Attempted due to Medical Conditions or Safety Concerns. Toileting Hygiene (QC): 1 Toilet Transfer (QC): 1 OT Mold Release Worker Goals Mold Release Worker Goals Time Frame: Nov 24, 2020 Eating (QC): 6 Oral Hygiene (QC): 5 Toileting Hygiene (QC): 3 Shower/Bathe Self (QC): 3 Upper Body Dressing (QC): 4 Lower Body Dressing (QC): 3 On/Off Footwear (QC): 3 Additional Goals: 1-Demonstrate ADL Tasks, 2-Verbalize Understanding, 3- ImproveStrength/[place] 1=Demonstrate adherence to instructed precautions during ADL tasks. 2=Patient will verbalize/demonstrate understanding of assistive devices/modifications for ADL. 3=Patient will improve strength/tolerance for activity to enable patient to perform ADL's. OT Education/Plan Problem List/Assessment Assessment: Decreased Activ Tolerance, Decreased UE Strength, Dependent Transfers, Edema, Impaired Bed Mobility, Impaired Coordination, Impaired Funct Balance, Impaired Self-Care Skills, Restricted Funct UE ROM Pt would benefit from skilled OT services in order to maximize LOF to return to [place] Discharge Recommendations Plan/Recommendations: Continue POC Treatment Plan/Plan of Care Patient would benefit from OT for education, treatment and training to promote independence in ADL's, mobility, safety and/or upper extremity function for ADL's. Plan of Care: ADL Retraining, Functional Mobility, UE Funct Exercise/Act Treatment Duration: Nov 24, 2020 Frequency: 5 times per week Rehab Potential: Guarded Time/GCodes Start Time: 13:35 Stop Time: 14:05 Total Time Billed (hr/min): 30 Billed Treatment Time 1 visit- ADL 2 (30 min) ESTEBAN GRAY Nov 17, 2020 14:09
[2020-11-17 16:00] VITALS: BP 140/63
--- NOTE | 2020-11-17 16:21 | Consultation ---
History of Present Illness History of Present Illness Patient Consulted On(betito/time) 11/17/20 16:15 Date Seen by Provider: Nov 17, 2020 Time Seen by Provider: 15:30 Reason for Visit: RLE DVT History of Present Illness Called to evaluate pt with RLE DVT. This is a 85 yo female with multiple medical problems including A-Fib not on anticoagulation due to multiple falls. The pt was admitted due to AMS, found to have Urosepsis. While in the hospital pt complained of RLE pain, this was immediately assessed by US Doppler. This US of RLE revealed a thrombus in the peroneal vein of the calf. Common femoral vein, superficial femoral and po pliteal veins all patent. The pt was already started on anticoagulation w/ Lovenox. She was seen and eval at bedside. She was laying comfortably, still having on-off RLE tenderness. No CP, SOB. No evidence of abnormal bleeding Allergies and Home Medications Allergies Coded Allergies: nystatin (Verified Allergy, Mild, HIVES, 01/29/17) Sulfa (Sulfonamide Antibiotics) (Verified Allergy, Unknown, 03/10/19) amoxicillin (Verified Allergy, Unknown, 02/14/17) balsalazide (Verified Allergy, Unknown, 05/03/20) chlorhexidine (Verified Allergy, Unknown, HIVES, 01/29/17) clindamycin (Verified Allergy, Unknown, 02/14/17) dicyclomine (Verified Allergy, Unknown, 03/10/19) mesalamine (Verified Allergy, Unknown, 05/03/20) sulfamethoxazole (Unverified Allergy, Unknown, 05/12/14) trimethoprim (Unverified Allergy, Unknown, 05/12/14) Home Medications Acetaminophen 500 Mg Tablet, 500 MG PO Q6H PRN for PAIN-MILD (1-4), (Reported) Last Action: Reviewed Cholecalciferol (Vitamin D3) 25 Mcg Capsule, 25 MCG PO DAILY, (Reported) Last Action: Reviewed Diclofenac Sodium 100 Gm Gel..gram., 4 GM TP QID, (Reported) APPLY TO KNEES Last Action: Reviewed Ferrous Sulfate 325 Mg Tablet, 325 MG PO DAILY, (Reported) Last Action: Reviewed Hydrocodone/Acetaminophen 1 Each Tablet, 0.5-1 TAB PO Q4H PRN for PAIN-MODERATE (5-7), (Reported) Last Action: Reviewed Loperamide HCl 2 Mg Tablet, 2 MG PO BID, (Reported) Last Action: Reviewed Loperamide HCl 2 Mg Tablet, 2 MG PO BID PRN for DIARRHEA, (Reported) Last Action: Reviewed Loratadine 10 Mg Tablet, 10 MG PO DAILY PRN for ALLERGY SYMPTOMS, (Reported) Last Action: Reviewed Nitrofurantoin Monohyd/M-Cryst 100 Mg Capsule, 1 EA PO BID, (Reported) FILLED 11-09-2020 #10/5 DAY SUPPLY Last Action: Reviewed Simethicone 80 Mg Tab.chew, 80 MG PO TID, (Reported) Last Action: Reviewed Simethicone 80 Mg Tab.chew, 80 MG PO HS PRN for GAS, (Reported) Last Action: Reviewed Patient Home Medication List Home Medication List Reviewed: Yes Past Ljzhvoo-Csduqt-Eapoyl Hx Patient Social History Alcohol Use: Denies Use Smoking Status: Never a Smoker 2nd Hand Smoke Exposure: No Recent Infectious Disease Expo: No Recent Hopitalizations: Yes Have you traveled recently?: No Alcohol Use?: No Immunizations Up To Date Date of Influenza Vaccine: May 19, 2020 Seasonal Allergies Seasonal Allergies: Yes Past Medical History Surgeries: Yes (RIGHT KNEE SURGERY (SCOPE) R hip fx) Adenoidectomy, Breast Respiratory: No Pneumonia Cardiac: Yes (dependent edema of legs) Chronic Edema/Swelling Neurological: No Genitourinary: No Gastrointestinal: Yes (FISSURE) Colitis, Hemorrhoids, Chronic Diarrhea Musculoskeletal: Yes (SPRAINED RT ANKLE 3 YRS. AGO AND WEARS BRACE TO RIGHT ANKLE. KNEE SCOPED) Chronic Back Pain Endocrine: No HEENT: Yes Hearing Impairment: Hard of Hearing Cancer: No Psychosocial: No Integumentary: No Blood Disorders: No Family Medical History No Pertinent Family Hx Noncontributory Review of Systems-General Constitutional: No no symptoms reported, No chills, No diaphoresis, No dizziness, No fever, No malaise, No weakness, No weight gain, No weight loss, No other EENTM: No no symptoms reported, No ear discharge, No hearing loss, No ear pain, No blurred vision, No double vision, No eye pain, No tearing, No vision loss, No dental problems, No hoarseness, No mouth pain, No mouth swelling, No epistaxis, No nose congestion, No nose pain, No throat pain, No throat swelling, No other Respiratory: No no symptoms reported, No cough, No dyspnea on exertion, No hemoptysis, No orthopnea, No phlegm, No short of breath, No stridor, No wheezing, No other Cardiovascular: No no symptoms reported, No chest pain, No edema, No Hx of Intervention, No palpitations, No syncope, No vascular heart diseas, No other Gastrointestinal: No RUQ, No LUQ, No RLQ, No LLQ, No no symptoms reported, No abdominal pain, No constipation, No diarrhea, No dysphagia, No hematemesis, No heartburn, No jaundice, No loss of appetite, No melena, No nausea, No vomiting, No other Genitourinary: No no symptoms reported; decreased output; No discharge, No dysuria, No frequency, No hematuria, No hesitancy, No incontinence, No nocturia, No pain, No other Musculoskeletal: no symptoms reported, back pain, gout, joint pain, joint swelling, muscle pain (Rt calf), muscle stiffness, muscle cramps, muscle twitching, muscle weakness, neck pain, other Skin: No no symptoms reported, No change in color, No change in hair/nails, No dryness, No hx of skin cancer, No lesions, No lumps, No pruritus, No rash, No other Psychiatric/Neurological: No Symptoms Reported Physical Exam-General Problems Physical Exam Vital Signs Vital Signs - First Documented 11/11/20 10:30 Temp 35.7 Pulse 92 Resp 18 B/P (MAP) 105/43 (63) Pulse Ox 4 O2 Delivery Nasal Cannula O2 Flow Rate 2.00 Capillary Refill : Less Than 3 Seconds General Appearance: no apparent distress, thin Eyes: Bilateral Eye Normal Inspection, Bilateral Eye PERRL, Bilateral Eye EOMI HEENT: PERRL/EOMI, normal ENT inspection Neck: non-tender, full range of motion, supple, normal inspection Respiratory: chest non-tender, lungs clear, normal breath sounds, no respiratory distress, no accessory muscle use Cardiovascular: normal peripheral pulses, no edema, no gallop, no JVD, systolic murmur, irregularly irregular Gastrointestinal: normal bowel sounds, non tender, soft, no organomegaly, no pulsatile mass Extremities: normal range of motion, normal inspection, no pedal edema, calf tenderness (Rt calf) Skin: normal color, warm/dry, cyanosis, cool, diaphoresis Lymphatic: no adenopathy Assessment/Plan Assessment/Plan Reason for Inpatient Admission: RLE DVT: Long discussion with the pt at bedside. We discussed the results of her Doppler US of RLE which showed a thrombus in Rt peroneal vein of the calf. Causes of VTE inherited and acquired were explained. She is symptomatic with pain in calf. Pt has been already started on Lovenox. There is a possibility the pt had this DVT in the RLE prior to admission. The pt states she has been having pain in her leg recently and that was not ambulating much prior to admission. 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 Monitor for excessive bleeding Monitor kidney function Monitor PLTs with daily CBC If excessive or abnormal bleeding occured, hold Lovenox. The pt will benefit from anticoagulation for at least 3-6 months especially since she will be at risk of VTE (PE/ DVT) due to immobilization. This pt is considered high risk for falls which is the reason why she is not on anticoagulation for her A-Fib Risks, benefits of anticoagulation should be discussed with the pt prior to discharge. Pt would benefit from low intensity anticoagulation with Eliquis 2.5mg PO BID unless any contraindication from Cardiology Copy Copies To 1: RIO WILL MD; SHWETA BONNER MD FACP FAC CCDS HECTOR WOODARD MD Nov 17, 2020 16:21
[2020-11-17 20:45] VITALS: BP 148/71
[2020-11-18 00:21] VITALS: BP 137/68
[2020-11-18] MEDS: ACETAMINOPHEN 325 MG TABLET PO PRN (00:29)
[2020-11-18 03:30] VITALS: BP 117/65
[2020-11-18 04:17] LABS: BASOPHILS % (AUTO) 0 % (0-10); EOSINOPHILS # (AUTO) 1.2 10^3/uL (0.0-0.3); EOSINOPHILS % (AUTO) 15 % (0-10); HEMATOCRIT 31 % (35-52); HEMOGLOBIN 10.1 g/dL (11.5-16.0); LYMPHOCYTES # (AUTO) 1.4 10^3/uL (1.0-4.0); LYMPHOCYTES % (AUTO) 17 % (12-44); MEAN CORPUSCULAR HEMOGLOBIN 31 pg (25-34); MEAN CORPUSCULAR HGB CONC 33 g/dL (32-36); MEAN CORPUSCULAR VOLUME 95 fL (80-99); MONOCYTES # (AUTO) 0.8 10^3/uL (0.0-1.0); MONOCYTES % (AUTO) 10 % (0-12); NEUTROPHILS # (AUTO) 4.5 10^3/uL (1.8-7.8); NEUTROPHILS % (AUTO) 56 % (42-75); PLATELET COUNT 241 10^3/uL (130-400); WHITE BLOOD COUNT 8.1 10^3/uL (4.3-11.0)
[2020-11-18 04:36] LABS: CALCIUM 7.5 MG/DL (8.5-10.1); CREATININE SERUM 4.1 MG/DL (0.60-1.30); MAGNESIUM 1.8 MG/DL (1.6-2.4); PHOSPHORUS 3.4 MG/DL (2.3-4.7); POTASSIUM 4.6 MMOL/L (3.6-5.0)
[2020-11-18] MEDS: NS IV 1000 ML 1,000 ML IV SCH (05:59)
[2020-11-18 08:00] VITALS: BP 124/65
[2020-11-18] MEDS: ASPIRIN 81 MG CHEW (CHILDREN'S ASA) PO SCH (10:00)
[2020-11-18] MEDS: ONDANSETRON 4 MG (ZOFRAN) ORAL DISSOLVE TAB PO PRN (10:00)
[2020-11-18] MEDS: ENOXAPARIN 60 MG/0.6 ML (LOVENOX) SYR SC SCH (10:00)
[2020-11-18] MEDS: LORATADINE (CLARITIN) 10 MG TAB PO SCH (10:00)
[2020-11-18] MEDS: dilTIAZem120 MG (CARDIZEM CD) CAP PO SCH (10:00)
--- NOTE | 2020-11-18 10:43 | Diagnostic Imaging Report ---
INDICATION: Shortness of breath. TECHNIQUE: Single view chest 10:30 AM. CORRELATION STUDY: 11/15/2020 FINDINGS: Left subclavian Osqecd-k-Ofax catheter tip at the SVC. Heart size enlarged and there is the presence of pulmonary vascular congestion and perihilar edema, adversely changed. Prominent interstitial markings compatible with edema. Bilateral pleural effusions, moderate in size. Opacities at the mid and lower lung au are also present. Asymmetrically advanced degenerative changes of the left shoulder. IMPRESSION: 1. Findings consistent with worsening congestive heart failure. This includes increasing size of bilateral pleural effusions, likely associated underlying pulmonary edema. Superposed infiltrate not excluded. Dictated by: Dictated on workstation # [id number]
--- NOTE | 2020-11-18 11:03 | Physical Therapy Daily Note ---
PT Daily Note-Current Subjective Pt. in bed, states she is having a lot of SOB. She declines out of bed activity but does agree to LE exercises with therapist encouragement. Mental Status Patient Orientation: Person, Place, Time, Situation Attachments: Oxygen Transfers SCALE: Activities may be completed with or without assistive devices. 3-Xclwxquwgf-putgylx completes the activity by him/herself with no assistance from a helper. 5-Set-up or Clean-up Assistance-helper sets up or cleans up; patient completes activity. [place] assists only prior to or following the activity. 4-Supervision or Touching Assistance-helper provides verbal cues and/or touching/steadying and/or contact guard assistance as patient completes activity. Assistance may be provided throughout the activity or intermittently. 3-Partial/Moderate Assistance-helper does LESS THAN HALF the effort. [place] lifts, holds or supports trunk or limbs, but provides less than half the effort. 2-Substantial/Maximal Assistance-helper does MORE THAN HALF the effort. [place] lifts or holds trunk or limbs and provides more than half the effort. 3-Ybvsklfnl-wpscpb does ALL the effort. Patient does none of the effort to complete the activity. Or, the assistance of 2 or more helpers is required for the patient to complete the activity. If activity was not attempted, code reason: 7-Patient Refused. 9-Not Applicable-not attempted and the patient did not perform the activity before the current illness, exacerbation or injury. 10-Not Attempted due to Environmental Limitations-(lack of equipment, weather restraints, etc.). 88-Not Attempted due to Medical Conditions or Safety Concerns. Exercises Supine Ex: Ankle pumps, Quad Set, Short Arc Quads, Straight leg raise, Hip abd/add Supine Reps: 20 2 x 10 reps of each exercise Treatments LE exercises Assessment Current Status: Fair Progress Pt. requires therapist assist with SLR, hip abd, and SAQ. She fatigues with exercises and needs brief rest periods during exercises. Pt. in bed post session with call light and all needs met. PT Intermediate Goals Sweet Pickle Maker Goals PT Sweet Pickle Maker Goals Time Frame: November 25, 2020 Roll Left & Right (QC): 3 Sit to Lying (QC): 3 Lying-Sitting on Side/Bed(QC): 3 Sit to Stand (QC): 3 Chair/Ewu-hx-Iketh Xfer(QC): 3 Toilet Transfer (QC): 3 Does the Patient Walk: Yes Walk 10 feet (QC): 3 Walk 50ft with 2 Turns (QC): 3 PT Plan Treatment/Plan Treatment Plan: Continue Plan of Care Treatment Plan: Bed Mobility, Education, Functional Activity Stewart, Functional Strength, Gait, Safety, Therapeutic Exercise, Transfers Treatment Duration: November 25, 2020 Frequency: 6 times per week Estimated Hrs Per Day: .25 hour per day Patient and/or Family Agrees t: Yes Time/GCodes Time In: 933 Time Out: 947 Total Billed Treatment Time: 14 Total Billed Treatment 1, Ex 14' EFRAIN MORSE PT Nov 18, 2020 11:03
[2020-11-18 12:00] VITALS: BP 152/64
--- NOTE | 2020-11-18 12:45 | Discharge Summary ---
Diagnosis/Chief Complaint Date of Admission Nov 11, 2020 at 14:25 Date of Discharge Admission Diagnosis Septic shock due to UTI Primary Care Alcides Locke MD Discharge Diagnosis (1) Septic shock Status: Acute (2) Lactic acidosis Status: Acute (3) HANDY (acute kidney injury) Status: Acute (4) ATN (acute tubular necrosis) Status: Acute (5) Atrial fibrillation with RVR Status: Acute (6) Hyponatremia Status: Acute (7) Hypomagnesemia Status: Acute Discharge Summary Discharge Physical Exam Allergies: Coded Allergies: nystatin (Verified Allergy, Mild, HIVES, 01/29/17) Sulfa (Sulfonamide Antibiotics) (Verified Allergy, Unknown, 03/10/19) amoxicillin (Verified Allergy, Unknown, 02/14/17) balsalazide (Verified Allergy, Unknown, 05/03/20) chlorhexidine (Verified Allergy, Unknown, HIVES, 01/29/17) clindamycin (Verified Allergy, Unknown, 02/14/17) dicyclomine (Verified Allergy, Unknown, 03/10/19) mesalamine (Verified Allergy, Unknown, 05/03/20) sulfamethoxazole (Unverified Allergy, Unknown, 05/12/14) trimethoprim (Unverified Allergy, Unknown, 05/12/14) Vitals & I&Os Vital Signs Date Time Temp Pulse Resp B/P (MAP) Pulse Ox O2 Delivery O2 Flow Rate FiO2 11/18/20 12:35 74 11/18/20 12:00 36.3 20 152/64 (93) 96 Nasal Cannula 2.00 General Appearance: No Apparent Distress, WD/WN, Thin Respiratory: No Accessory Muscle Use, Decreased Breath Sounds Cardiovascular: Regular Rate, Rhythm, No Murmur Gastrointestinal: Normal Bowel Sounds, Non Tender, Soft Neurologic/Psychiatric: Alert, Oriented x3, Normal Mood/Affect Hospital Course Pt was admitted to the hospital to the ICU due to Septic Shock from UTI and pneumonia. She was treated with vasopressors and IV antibiotics and improved and was able to transfer out of the unit with hemodynamc stability. She was treated with Merrem due to her many antibiotic allergies. Did have some right leg pain and usg revealed DVT. Lovenox had been already being administered due to stroke prophylaxis for a-fib so hematology was consulted. They felt this was not a treatment failure but preexisting and just now found so she was continued on renally dosed Lovenox. She did have acute kidney failure on arrival and this was relatively stable around 2.5 for multiple days until yesterday when it bumped to 3.1. IVF were restarted but despite this her Creatinine went up to 4.1 this morning and UOP continued to decrease. She also became more short of breath and CXR revealed worsening pulmonary edema. She, her daughter, and I discussed treatment options and my recommendation for a nephrology evaluation. [facility] and [facility] in [place] were both on diversion so I contacted [facility]. She was accepted for transfer by Dr Kali Arguello. I called and updated her family to this along with her Africa Mane the PA at her PCP, Dr Locke's office. Labs (last 24 hrs) Laboratory Tests 11/18/20 04:11: White Blood Count 8.1, Red Blood Count 3.24L, Hemoglobin 10.1L, Hematocrit 31L, Mean Corpuscular Volume 95, Mean Corpuscular Hemoglobin 31, Mean Corpuscular Hemoglobin Concent 33, Red Cell Distribution Width 14.8H, Platelet Count 241, Mean Platelet Volume 9.0, Immature Granulocyte % (Auto) 2, Neutrophils (%) (Auto) 56, Lymphocytes (%) (Auto) 17, Monocytes (%) (Auto) 10, Eosinophils (%) (Auto) 15H, Basophils (%) (Auto) 0, Neutrophils # (Auto) 4.5, Lymphocytes # (Auto) 1.4, Monocytes # (Auto) 0.8, Eosinophils # (Auto) 1.2H, Basophils # (Auto) 0.0, Immature Granulocyte # (Auto) 0.2H, Sodium Level 137, Potassium Level 4.6, Chloride Level 108H, Carbon Dioxide Level 19L, Anion Gap 10, Blood Urea Nitrogen 46H, Creatinine 4.10#H, Estimat Glomerular Filtration Rate 10, BUN/Creatinine Ratio 11, Glucose Level 98, Calcium Level 7.5L, Phosphorus Level 3.4, Magnesium Level 1.8 Microbiology 11/11/20 MRSA Screen - Final, Complete MRSA not isolated 11/11/20 Blood Culture - Final, Complete No growth 11/11/20 Urine Culture - Final, Complete Escherichia coli Patient resulted labs reviewed. Imaging: Reviewed Imaging Report Discussion & Recommendations Discharge Planning: >30 minutes discharge planning Discharge Home Medications: Active Scripts Active Reported Nitrofurantoin Murray-Mcr 100 mg (Nitrofurantoin Monohyd/M-Cryst) 100 Mg Capsule 1 Ea PO BID FILLED 11-09-2020 #10/5 DAY SUPPLY Voltaren (Diclofenac Sodium) 100 Gm Gel..gram. 4 Gm TP QID APPLY TO KNEES Simethicone 80 Mg Tab.chew 80 Mg PO HS PRN Simethicone 80 Mg Tab.chew 80 Mg PO TID Loperamide (Loperamide HCl) 2 Mg Tablet 2 Mg PO BID PRN Tylenol Extra Strength (Acetaminophen) 500 Mg Tablet 500 Mg PO Q6H PRN Vitamin D3 (Cholecalciferol (Vitamin D3)) 25 Mcg Capsule 25 Mcg PO DAILY Ferrous Sulfate 325 Mg Tablet 325 Mg PO DAILY Hydrocodone-Acetamin 5-325 mg (Hydrocodone/Acetaminophen) 1 Each Tablet 0.5-1 Tab PO Q4H PRN Imodium A-D (Loperamide HCl) 2 Mg Tablet 2 Mg PO BID Claritin (Loratadine) 10 Mg Tablet 10 Mg PO DAILY PRN Instructions to patient/family Please see electronic discharge instructions given to patient. Copy Copies To 1: ALCIDES LOCKE MD, KATELYN M MD Nov 18, 2020 12:45
--- NOTE | 2020-11-18 15:38 | Progress Note - Cardiology ---
Cardiology SOAP Progress Note Subjective: Worsening malaise Worsening oral intake No cp Poor stamina Shortness of breath with activity No palp or syncope Intermittent diarrhea and nausea Objective: I&O/Vital Signs 11/18/20 11/18/20 11/18/20 11/18/20 07:00 08:00 08:00 12:00 Temp 36.1 36.3 Pulse 66 71 63 Resp 20 20 B/P (MAP) 124/65 (84) 152/64 (93) Pulse Ox 95 96 O2 Delivery Nasal Cannula Nasal Cannula Nasal Cannula O2 Flow Rate 2.00 2.00 2.00 11/18/20 12:35 Pulse 74 11/18/20 00:00 Intake Total 2080 ml Output Total 200 ml Balance 1880 ml Weight (Pounds): 97 Weight (Ounces): 0.0 Weight (Calculated Kilograms): [id number] Constitutional: appears stated age, AAO x 3; No apparent distress; well- developed, other (Thin-appearing) Respiratory: chest is bilaterally symmetric, lungs clear to auscultation Cardiovascular: regular rate-rhythm, S1 and S2 Gastrointestional: No tender; soft, audible bowel sounds Extremities: no lower extremity edema bilateral Neurologic/Psychiatric: grossly intact (moves all extremities) Skin: No ulcerations, No rash on exposed areas Results/Procedures: Labs Laboratory Tests 11/18/20 04:11: White Blood Count 8.1, Red Blood Count 3.24L, Hemoglobin 10.1L, Hematocrit 31L, Mean Corpuscular Volume 95, Mean Corpuscular Hemoglobin 31, Mean Corpuscular Hemoglobin Concent 33, Red Cell Distribution Width 14.8H, Platelet Count 241, Mean Platelet Volume 9.0, Immature Granulocyte % (Auto) 2, Neutrophils (%) ( Auto) 56, Lymphocytes (%) (Auto) 17, Monocytes (%) (Auto) 10, Eosinophils (%) (Auto) 15H, Basophils (%) (Auto) 0, Neutrophils # (Auto) 4.5, Lymphocytes # (Auto) 1.4, Monocytes # (Auto) 0.8, Eosinophils # (Auto) 1.2H, Basophils # (Auto) 0.0, Immature Granulocyte # (Auto) 0.2H, Sodium Level 137, Potassium Level 4.6, Chloride Level 108H, Carbon Dioxide Level 19L, Anion Gap 10, Blood U randy Nitrogen 46H, Creatinine 4.10#H, Estimat Glomerular Filtration Rate 10, BUN/Creatinine Ratio 11, Glucose Level 98, Calcium Level 7.5L, Phosphorus Level 3.4, Magnesium Level 1.8 Microbiology 11/11/20 MRSA Screen - Final, Complete MRSA not isolated 11/11/20 Blood Culture - Final, Complete No growth 11/11/20 Urine Culture - Final, Complete Escherichia coli Laboratory Tests 11/17/20 06:00 11/18/20 04:11 A/P: Assessment: Ac renal failure, HANDY 3, etiology unclear UTI with sepsis - management per ICU/medical services Atrial fibrillation with RVR first diagnosed on 11-12-20 - Now NSR and is on oral diltiazem (long-acting) Poor candidate for oral anticoagulation therapy since she has had recurrent falls in the last few weeks, even in the halfway, resulting in fracture. Therefore, ASA for stroke prophylaxis rather than full oral anticoag Frail physical status and gen weakness and malaise Plan: Overall condition is worsening Ac renal failure is the most significant issue at this time Agree with transfer to a tertiary care facility SHWETA BONNER MD FACP FAC CCDS Nov 18, 2020 15:38
== END 2020-11-18 14:40 | disposition short-term general hospital (02) | DRG 871 ==
LOC: EDUNIT# 10:28 → ER 10:30 → CSD 14:25 → ICU 19:28 → 4TH 11-14 15:42
PROVIDERS: ADMIT Internal Medicine; ATTEND Internal Medicine
PROC: 02HV33Z Insertion of Infusion Device into Superior Vena Cava, Percutaneous Approach (ICD-10-PCS; principal; 2020-11-11)
DX: A41.51 Sepsis due to Escherichia coli [E. coli] (principal); R65.21 Severe sepsis with septic shock; G93.41 Metabolic encephalopathy; N17.0 Acute kidney failure with tubular necrosis; J18.9 Pneumonia, unspecified organism; E87.2 Acidosis; E87.1 Hypo-osmolality and hyponatremia; I48.91 Unspecified atrial fibrillation; E83.42 Hypomagnesemia; M79.604 Pain in right leg; S92.301D Fracture of unspecified metatarsal bone(s), right foot, subsequent encounter for fracture with routine healing; R21 Rash and other nonspecific skin eruption; M54.9 Dorsalgia, unspecified; Z87.01 Personal history of pneumonia (recurrent); Z91.81 History of falling; Z79.891 Long term (current) use of opiate analgesic; Z88.1 Allergy status to other antibiotic agents; Z88.2 Allergy status to sulfonamides
CPT/HCPCS: 36415; 36600; 51702; 71045; 80048; 80053; 81000; 82805; 83605; 83735; 83880; 84100; 84145; 85007; 85025; 85027; 85610; 85730; 87040; 87077; 87081; 87088; 87186; 87635; 93005; 94760; 96361; 96374